=== PATIENT | female | born 1975 | race Two or more races ===

== ENCOUNTER → 2021-05-12 13:04 | Outpatient (BNVA) | payer OTHER, SELFPAY | PROVIDERS: PCP Nurse Practitioner Family; Visit Provider Nurse Practitioner Family ==

== ENCOUNTER → 2021-08-08 13:28 | Outpatient (BNVA) | payer OTHER, SELFPAY | PROVIDERS: PCP Internal Medicine Pulmonary Disease; Visit Provider Nurse Practitioner Family | DX: Z13.89 Encounter for screening for other disorder (principal) ==

== ENCOUNTER 2021-11-04 06:04 | Outpatient (REF) | payer OTHER, SELFPAY | END 2021-11-04 06:05 | disposition home or self-care (01) | LOC: HO.RADIR 06:04 | PROVIDERS: Visit Provider Anesthesiology | DX: Z13.89 Encounter for screening for other disorder (principal) ==

== ENCOUNTER → 2021-11-14 13:31 | Outpatient (BNVA) | payer OTHER, SELFPAY | PROVIDERS: PCP Nurse Practitioner Family; Visit Provider Nurse Practitioner Family | DX: G47.33 Obstructive sleep apnea (adult) (pediatric) (principal); G47.10 Hypersomnia, unspecified; M21.371 Foot drop, right foot; M54.50 Low back pain, unspecified | CPT/HCPCS: 99212 ==

== ENCOUNTER 2021-11-25 06:12 | Outpatient (REF) | payer OTHER, SELFPAY ==
--- NOTE | ~2021-11-25 | FL_ITS ---
EXAMINATION: XR FLUOROSCOPY WITH IMAGES CLINICAL INFORMATION: Lumbar region radiculopathy. COMPARISON: MRI of 06/16/2021. TECHNIQUE: Fluoroscopy performed by Dr. Christian Corea. Fluoroscopy time: 0.5 minutes Cumulative Dose: 9.28 mGy-cm DAP: 2.53 uGy-cm2 Images: 5 FINDINGS: Needle is seen placed from a posterior approach overlying the region of the right L5-S1 level. The C-arm imaging does not demonstrate any significant bony abnormality of the lower lumbar spine and sacroiliac joints with limitations related to fluoroscopy versus dedicated images. No narrowing of the L3 through S1 disc spaces are identified. No spondylolisthesis. FL/FL guidance in treatment room IMPRESSION: No significant bony abnormality of the visualized lumbar spine identified. Fluoroscopy for pain management procedure.
== END 2021-11-25 06:13 | disposition home or self-care (01) ==
LOC: HO.RADIR 06:12
PROVIDERS: Visit Provider Anesthesiology
DX: M62.830 Muscle spasm of back (principal); M47.816 Spondylosis without myelopathy or radiculopathy, lumbar region; R20.2 Paresthesia of skin; R53.1 Weakness; M21.371 Foot drop, right foot; M51.36 Other intervertebral disc degeneration, lumbar region; M54.16 Radiculopathy, lumbar region
CPT/HCPCS: 64483; J3300

== ENCOUNTER → 2021-12-23 09:24 | Outpatient (BNVA) | payer OTHER, SELFPAY | PROVIDERS: PCP Nurse Practitioner Family; Visit Provider Nurse Practitioner Family | DX: M62.830 Muscle spasm of back (principal); M47.816 Spondylosis without myelopathy or radiculopathy, lumbar region; G89.4 Chronic pain syndrome; M51.36 Other intervertebral disc degeneration, lumbar region; M54.16 Radiculopathy, lumbar region; E11.40 Type 2 diabetes mellitus with diabetic neuropathy, unspecified; M21.371 Foot drop, right foot | CPT/HCPCS: 99212 ==

== ENCOUNTER → 2022-04-30 11:13 | Outpatient (BNVA) | payer OTHER, SELFPAY | PROVIDERS: PCP Nurse Practitioner Family; Visit Provider Nurse Practitioner Family | DX: G47.33 Obstructive sleep apnea (adult) (pediatric) (principal); G47.10 Hypersomnia, unspecified; M54.50 Low back pain, unspecified | CPT/HCPCS: 99212 ==

== ENCOUNTER → 2022-09-01 09:34 | Outpatient (BNVA) | payer MEDICAID, SELFPAY | PROVIDERS: PCP Nurse Practitioner Family; Visit Provider Nurse Practitioner Family | DX: G47.33 Obstructive sleep apnea (adult) (pediatric) (principal); G47.10 Hypersomnia, unspecified; R00.0 Tachycardia, unspecified; Z79.899 Other long term (current) drug therapy | CPT/HCPCS: 99212 ==

== ENCOUNTER 2023-01-05 09:26 | Outpatient (AMB) | payer MEDICAID, SELFPAY ==
--- NOTE | 2023-01-05 09:31 | A.OFFVIS_ITS ---
Intake Vital Signs 01/05/23 09:33 Height 4 ft 9 in Weight 132 lb 8 oz BMI 28.7 BP 122/78 Blood Pressure Location Rt brachial Position Sitting Pulse 97 Pulse Source Pulse Oximeter Pulse Oximetry (%) 99 Oxygen Delivery Method Room Air Intake Visit Reasons: 4M hypersomnia/ELIA/bk pain-Confirmed Intake Note: presents for follow up hypersomnia. Patient states everything is good this is just follow uo Allergies Latex, Natural Rubber Allergy (Mild, Verified 01/05/23 09:35) Hives acetaminophen [From Percocet] Allergy (Unknown, Verified 01/05/23 09:35) Itching adhesive Allergy (Unknown, Verified 01/05/23 09:35) Hives hydrocodone Allergy (Unknown, Verified 01/05/23 09:35) Itching oxycodone Allergy (Unknown, Verified 01/05/23 09:35) Itching Medication List - Last Reconciled 01/05/23 by CHIN Baxter albuterol sulfate 90 mcg/actuation (ProAir HFA) 2 puffs inhalation Q4H PRN alendronate 70 mg PO QWEEK amitriptyline 100 mg PO BEDTIME aripiprazole 30 mg PO DAILY armodafinil 200 mg PO QAM 30 days atorvastatin 80 mg PO BEDTIME baclofen 10 mg PO BID 30 days blood-glucose sensor (Yeahka G6 Sensor device) As directed budesonide-formoterol 80-4.5 mcg/actuation (Symbicort) 2 puffs inhalation BID cholecalciferol (vitamin D3) 50 mcg PO DAILY conjugated estrogens (Premarin) 0.625 mg PO DAILY diclofenac sodium 1% grams topical BID PRN ezetimibe 10 mg PO DAILY fluticasone propionate 50 mcg/actuation 1 spray intranasal BID gabapentin 800 mg PO TID hydroxyzine pamoate 50 mg PO TID PRN insulin glargine (Lantus Solostar U-100 Insulin) units subcut insulin lispro 4 - 6 units subcut TID insulin lispro-aabc (Lyumjev KwikPen U-100 Insulin) 3 units subcut TID PRN insulin lispro-aabc (Lyumjev KwikPen U-100 Insulin) 16 - 20 units subcut TID lancets (FreeStyle Lancets) As directed lisinopril 5 mg PO DAILY PRN meloxicam 15 mg PO DAILY methocarbamol 750 mg PO TID PRN methylphenidate HCl (Ritalin) 10 mg PO QPM 30 days montelukast 10 mg PO DAILY pantoprazole 40 mg PO BID pen needle, diabetic (BD [place] 2nd Gen Pen Needle) As directed pen needle, diabetic (BD Ultra-Fine Mini Pen Needle) As directed propranolol 10 - 20 mg (1 - 2 x 10 mg) PO BID PRN 30 days sertraline 50 mg PO DAILY sitagliptin phosphate (Januvia) 100 mg PO DAILY solifenacin 5 mg PO DAILY tizanidine 4 mg PO Q6H PRN tramadol 50 mg PO Q8H PRN HPI HPI Comments History of Present Illness Details 47-yr-old female presents for f/u visit. Pt endorses the following interval medical history changes: She underwent a right 4th/5th finger tendon relief in Nov- through . Since, she is doing PT. She is recovering but has some reisudal shooting pain and painful numbness. She is using Tramadol rn which helpes the shooting pain. She is doing PT. She was also diagnosed w/ bronchitis and asthma exacerbation last week- currently on prednisone and z-pack. She has also been referred to [facility] vascular to assess chronic LUE vasospasm. She reports that the Armodafinil 200mg qam continues to work well between 7am and 3pm, however it then wears off. She has run out of her Ritalin, but when on it, she is able to stay alert but then effect wears off before she needs to go to bed. She has needed to use the Propranolol 4-5 times per month for elevated HR up to 140s a/w dizziness/lightheadedness. The propranolol is usually helpful. Twice needed to take an extra dose. Once went to the ER, they felt that it was a panic attack- and tx'd her w/ an anxiolitic. REPLACED BY [facility] Medical History (Updated 09/01/22 @ 12:49 by CHIN Baxter) Arthritis GERD (gastroesophageal reflux disease) Osteoporosis HLD (hyperlipidemia) Diabetes mellitus Syncope Surgical History (Updated 01/05/23 @ 09:36 by PRASHANTH Billings) H/O hand surgery History of hysterectomy Family History Father Cancer Mother HTN (hypertension) Social History Alcohol intake: never Patient Tobacco Use Status: Former Tobacco user Quit Date: january 2021 Review of Systems Const All systems reviewed & are unremarkable except as noted in HPI and below Physical Exam Vital Signs: Last Vital Signs Pulse 97 01/05/23 09:33 BP 122/78 01/05/23 09:33 Pulse Ox 99 01/05/23 09:33 Oxygen Delivery Method Room Air 01/05/23 09:33 BMI result Body Mass Index 28.7 Const General: cooperative and no acute distress Orientation/consciousness: patient oriented x3 HEENT Head: Yes normocephalic Resp Effort & Inspection: normal respiratory effort and able to speak in complete sentences Neuro Other: Right 4th/5th fingers braced RLE weakness Steady gait w/ cane General: patient oriented x3 and CN's II-XI intact bilaterally Cognition (Neuro): normal cognition Motor exam (neuro): 5/5 motor strength present throughout Psych Appearance: grossly normal Mental Status: mental status grossly normal Speech and movement: Normal speech and movement present Affect: normal affect Attitude: cooperative Thought process: Normal thought process present Thought content: Normal thought content present Insight: Good insight present (Psych) Judgement: Good judgement present (Psych) Assessment & Plan Assessment & Plan (1) Hypersomnia: Comment: MSLT- NL Code(s): G47.10 - Hypersomnia, unspecified (2) Obstructive sleep apnea: Code(s): G47.33 - Obstructive sleep apnea (adult) (pediatric) (3) Sinus tachycardia: Code(s): R00.0 - Tachycardia, unspecified Plan For hypersomnia: Continue Armodafinil 200mg qam. Resume Methylphenidate 10mg q afternoon, hold for HR > 100.. Continue Propranol 10-20mg prn sinus tachycardia. For ELIA: Resume CPAP when able. ? f/u in 4 months or sooner prn Medications: Refilled methylphenidate HCl (Ritalin) Partial Fill upon patient request. 10 mg PO QPM 30 days 30 tabs 0RF Coding Level of Care Code Est Pt Level 4 (71417) Diagnoses Hypersomnia G47.10 Obstructive sleep apnea G47.33 Sinus tachycardia R00.0
[2023-01-05 09:33] VITALS: BP 122/78; PULSE 97; O2SAT 99; BMI 28.7
== END 2023-01-05 10:22 | disposition home or self-care (01) ==
PROVIDERS: Visit Provider Nurse Practitioner Family
DX: G47.10 Hypersomnia, unspecified (principal); G47.33 Obstructive sleep apnea (adult) (pediatric); R00.0 Tachycardia, unspecified
CPT/HCPCS: 99214

== ENCOUNTER → 2023-01-05 09:26 | Outpatient (BNVA) | payer MEDICAID, SELFPAY | PROVIDERS: Visit Provider Nurse Practitioner Family | DX: G47.10 Hypersomnia, unspecified (principal); G47.33 Obstructive sleep apnea (adult) (pediatric); R00.0 Tachycardia, unspecified; Z79.899 Other long term (current) drug therapy | CPT/HCPCS: 99212 ==

== ENCOUNTER 2023-05-17 09:09 | Outpatient (AMB) | payer MEDICAID, SELFPAY ==
--- NOTE | 2023-05-17 09:22 | A.OFFVIS_ITS ---
Intake Vital Signs 05/17/23 09:23 Height 4 ft 9 in Weight 139 lb BMI 30.1 Pulse 72 Pulse Source Pulse Oximeter Pulse Oximetry (%) 98 Oxygen Delivery Method Room Air Intake Visit Reasons: 4M CONFIRMED Intake Note: Patient presents for 4 month office. The medication Armodanifil is not working as well as before, I'm starting to fall asleep again Allergies Latex, Natural Rubber Allergy (Mild, Verified 05/17/23 09:32) Hives acetaminophen [From Percocet] Allergy (Unknown, Verified 05/17/23 09:32) Itching adhesive Allergy (Unknown, Verified 05/17/23 09:32) Hives hydrocodone Allergy (Unknown, Verified 05/17/23 09:32) Itching oxycodone Allergy (Unknown, Verified 05/17/23 09:32) Itching Medication List - Last Reconciled 05/17/23 by CHIN Baxter albuterol sulfate 90 mcg/actuation (ProAir HFA) 2 puffs inhalation Q4H PRN alendronate 70 mg PO QWEEK amitriptyline 100 mg PO BEDTIME aripiprazole 30 mg PO DAILY armodafinil 200 mg PO QAM 30 days atorvastatin 80 mg PO BEDTIME baclofen 10 mg PO BID 30 days blood-glucose sensor (HealthyTweet G6 Sensor device) As directed budesonide-formoterol 80-4.5 mcg/actuation (Symbicort) 2 puffs inhalation BID cholecalciferol (vitamin D3) 50 mcg PO DAILY conjugated estrogens (Premarin) 0.625 mg PO DAILY diclofenac sodium 1% grams topical BID PRN ezetimibe 10 mg PO DAILY fluticasone propionate 50 mcg/actuation 1 spray intranasal BID hydroxyzine pamoate 50 mg PO TID PRN insulin glargine (Lantus Solostar U-100 Insulin) units subcut insulin lispro 4 - 6 units subcut TID insulin lispro-aabc (Lyumjev KwikPen U-100 Insulin) 3 units subcut TID PRN insulin lispro-aabc (Lyumjev KwikPen U-100 Insulin) 16 - 20 units subcut TID lancets (FreeStyle Lancets) As directed lisinopril 5 mg PO DAILY PRN meloxicam 15 mg PO DAILY methocarbamol 750 mg PO TID PRN methylphenidate HCl (Ritalin) 10 mg PO QPM 30 days montelukast 10 mg PO DAILY pantoprazole 40 mg PO BID pen needle, diabetic (BD [place] 2nd Gen Pen Needle) As directed pen needle, diabetic (BD Ultra-Fine Mini Pen Needle) As directed pregabalin 150 mg PO TID 30 days propranolol 10 - 20 mg (1 - 2 x 10 mg) PO BID PRN 30 days sertraline 50 mg PO DAILY sitagliptin phosphate (Januvia) 100 mg PO DAILY solifenacin 5 mg PO DAILY tizanidine 4 mg PO Q6H PRN tramadol 50 mg PO Q8H PRN HPI HPI Comments History of Present Illness Details 48-yr-old female presents for f/u visit. 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 Pt is having increased right hand, hips, left ulnar neuropathy pain- sometimes needs to take extra Pregabalin which helps. She states the Pregabalin does not make her sleepy, however it has caused her blood sugars to be elevated. She has had increased appetite and an 8 lb wt gain since Jan. The Armodafinil 200mg is no longer helping her morning hypersomnia s/s. However the afternoon Ritalin does seem to be more effective- even when taken w/ the Pregabalin. She can weeks w/o any tachycardia. She has recently needed to take the Propranolol 2-3 x's /week, d/t episodes of HR up to 128 bpm. The Propranolol helps. She is not sure if the recent episodes are r/t her blood sugars vs anxiety. She is noticing worsening RLE weakness- having more difficultylifting her RLE- geting into the tub or a car. She is doing PT for left shoulder, and will be doing PT for the right hand sx. [facility] Medical History (Updated 09/01/22 @ 12:49 by CHIN Baxter) Arthritis GERD (gastroesophageal reflux disease) Osteoporosis HLD (hyperlipidemia) Diabetes mellitus Syncope Surgical History H/O hand surgery History of hysterectomy Family History Father Cancer Mother HTN (hypertension) Social History (Reviewed 05/17/23 @ 09:33 by MARU Billings Alcohol intake: never Patient Tobacco Use Status: Former Tobacco user Quit Date: january 2021 Physical Exam Vital Signs: Last Vital Signs Pulse 72 05/17/23 09:23 Pulse Ox 98 05/17/23 09:23 Oxygen Delivery Method Room Air 05/17/23 09:23 BMI result Body Mass Index 30.1 Const General: cooperative and no acute distress Orientation/consciousness: patient oriented x3 Resp Effort & Inspection: normal respiratory effort and able to speak in complete sentences Neuro Other: RLE weakness More noticeable right high step, but steady w/ cane General: patient oriented x3 Cranial nerves: Yes CN's II-XII intact bilaterally Cognition (Neuro): normal cognition Psych Appearance: grossly normal Mental Status: mental status grossly normal Speech and movement: Normal speech and movement present Affect: normal affect Attitude: cooperative Assessment & Plan Assessment & Plan (1) Hypersomnia: Comment: MSLT- NL Code(s): G47.10 - Hypersomnia, unspecified (2) Obstructive sleep apnea: Code(s): G47.33 - Obstructive sleep apnea (adult) (pediatric) (3) Sinus tachycardia: Code(s): R00.0 - Tachycardia, unspecified (4) Chronic painful diabetic neuropathy: Code(s): E11.40 - Type 2 diabetes mellitus with diabetic neuropathy, unspecified (5) Paresthesia of right lower extremity: Code(s): R20.2 - Paresthesia of skin (6) Right foot drop: Code(s): M21.371 - Foot drop, right foot Plan For hypersomnia: Increase Armodafinil from 200mg to 250mg qam. Continue Methylphenidate 10mg q afternoon, hold for HR > 100.. ?Continue Propranolol 10-20mg prn sinus tachycardia. For neuralgic pain: Increase pregabalin from 150mg tid to 200mg tid. Consider referral for PT for RLE tx- after she completes hand tx. ? For ELIA: Continue CPAP ? f/u in 4 months or sooner prn Medications: New pregabalin 200 mg PO TID 30 days 90 caps 3RF armodafinil 250 mg PO QAM 30 days 30 tabs 2RF Refilled methylphenidate HCl (Ritalin) Partial Fill upon patient request. 10 mg PO QPM 30 days 30 tabs 0RF propranolol 10 - 20 mg (1 - 2 x 10 mg) PO BID 30 days PRN 30 tabs 3RF tachycardia Discontinued pregabalin Discontinued Reason: Doctor's Order 150 mg PO TID 30 days 90 caps 2RF armodafinil Discontinued Reason: Doctor's Order 200 mg PO QAM 30 days 30 tabs 3RF Coding Level of Care Code Est Pt Level 4 (97141) Diagnoses Hypersomnia G47.10 Obstructive sleep apnea G47.33 Sinus tachycardia R00.0 Chronic painful diabetic neuropathy E11.40 Paresthesia of right lower extremity R20.2 Right foot drop M21.371
[2023-05-17 09:23] VITALS: PULSE 72; O2SAT 98; BMI 30.1
== END 2023-05-17 10:34 | disposition home or self-care (01) ==
PROVIDERS: PCP Nurse Practitioner Family; Visit Provider Nurse Practitioner Family
DX: G47.10 Hypersomnia, unspecified (principal); G47.33 Obstructive sleep apnea (adult) (pediatric); R00.0 Tachycardia, unspecified; E11.40 Type 2 diabetes mellitus with diabetic neuropathy, unspecified; R20.2 Paresthesia of skin; M21.371 Foot drop, right foot
CPT/HCPCS: 99214

== ENCOUNTER → 2023-05-17 09:09 | Outpatient (BNVA) | payer MEDICAID, SELFPAY | PROVIDERS: PCP Nurse Practitioner Family; Visit Provider Nurse Practitioner Family | DX: G47.10 Hypersomnia, unspecified (principal); G47.33 Obstructive sleep apnea (adult) (pediatric); R00.0 Tachycardia, unspecified; E11.40 Type 2 diabetes mellitus with diabetic neuropathy, unspecified; R20.2 Paresthesia of skin; M21.371 Foot drop, right foot | CPT/HCPCS: 99212 ==

== ENCOUNTER 2023-08-16 09:06 | Outpatient (AMB) | payer MEDICAID, SELFPAY ==
--- NOTE | 2023-08-16 09:14 | MHC.OFFVIS ---
Vital Signs 08/16/23 09:17 Height 4 ft 9 in BP 114/78 Blood Pressure Location Rt brachial Position Sitting Pulse 85 Pulse Source Pulse Oximeter Pulse Oximetry (%) 98 Oxygen Delivery Method Room Air Intake Visit Reasons: 3 MONTH-F/U-LVM Intake Note: Patient presents for 3 month follow up Allergies Latex, Natural Rubber Allergy (Mild, Verified 08/16/23 09:16) Hives acetaminophen [From Percocet] Allergy (Unknown, Verified 08/16/23 09:16) Itching adhesive Allergy (Unknown, Verified 08/16/23 09:16) Hives hydrocodone Allergy (Unknown, Verified 08/16/23 09:16) Itching oxycodone Allergy (Unknown, Verified 08/16/23 09:16) Itching Medication List - Last Reconciled 08/16/23 by CHIN Baxter albuterol sulfate 90 mcg/actuation (ProAir HFA) 2 puffs inhalation Q4H PRN alendronate 70 mg PO QWEEK amitriptyline 100 mg PO BEDTIME aripiprazole 30 mg PO DAILY armodafinil 250 mg PO QAM 30 days atorvastatin 80 mg PO BEDTIME baclofen 10 mg PO BID 30 days blood-glucose sensor (PneumRx G6 Sensor device) As directed budesonide-formoterol 80-4.5 mcg/actuation (Symbicort) 2 puffs inhalation BID cholecalciferol (vitamin D3) 50 mcg PO DAILY conjugated estrogens (Premarin) 0.625 mg PO DAILY diclofenac sodium 1% grams topical BID PRN ezetimibe 10 mg PO DAILY fluticasone propionate 50 mcg/actuation 1 spray intranasal BID hydroxyzine pamoate 50 mg PO TID PRN insulin glargine (Lantus Solostar U-100 Insulin) units subcut insulin lispro 4 - 6 units subcut TID insulin lispro-aabc (Lyumjev KwikPen U-100 Insulin) 3 units subcut TID PRN insulin lispro-aabc (Lyumjev KwikPen U-100 Insulin) 16 - 20 units subcut TID lancets (FreeStyle Lancets) As directed lisinopril 5 mg PO DAILY PRN meloxicam 15 mg PO DAILY methocarbamol 750 mg PO TID PRN methylphenidate HCl (Ritalin) 10 mg PO QPM 30 days montelukast 10 mg PO DAILY pantoprazole 40 mg PO BID pen needle, diabetic (BD [place] 2nd Gen Pen Needle) As directed pen needle, diabetic (BD Ultra-Fine Mini Pen Needle) As directed pregabalin 200 mg PO TID 30 days propranolol 10 - 20 mg (1 - 2 x 10 mg) PO BID PRN 90 days sertraline 50 mg PO DAILY sitagliptin phosphate (Januvia) 100 mg PO DAILY solifenacin 5 mg PO DAILY HPI Comments Details: 48-yr-old female presents for f/u visit. 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 She has decreased hand pain and improved right hand function- may still having some shooting pains at times. Pt states the increased pregabalin has been helpful. The increased Armodafinil to 250mg is helping better w/ her am hypersomnia s/s. Ritalin contineus to be effective in the pm- even when taken w/ the Pregabalin. She continues to have intermittent tachycardia- may have 1-2 episodes per week or go weeks w/o an epsiode. Propranolol is still effective- rarely need to take 2 doses of Propranolol. She is doing PT again for back pain s/p an interval fall. She is working w/ PT on the RLE weakness. She notices that when she does too much RLE activity/exercise, she will have increased RLE pain, right lower back swelling x's 2-3 days. In the past, tried water aerobics- but she states she could not keep her body temp up- was just shivering. She does still have left shoulder pain and limited ROM- had to pause PT for this d/t family issue- f/b ortho. [facility] Medical History (Updated 09/01/22 @ 12:49 by CHIN Baxter) Arthritis GERD (gastroesophageal reflux disease) Osteoporosis HLD (hyperlipidemia) Diabetes mellitus Syncope Surgical History H/O hand surgery History of hysterectomy Family History Father Cancer Mother HTN (hypertension) Social History Alcohol intake: never Patient Tobacco Use Status: Former Tobacco user Quit Date: january 2021 Physical Exam Vital Signs: Last Vital Signs Pulse 85 08/16/23 09:17 BP 114/78 08/16/23 09:17 Pulse Ox 98 08/16/23 09:17 Oxygen Delivery Method Room Air 08/16/23 09:17 Const General: cooperative and no acute distress Orientation/consciousness: patient oriented x3 Resp Effort & Inspection: normal respiratory effort and able to speak in complete sentences Neuro Other: BUE MS 5/5 LLE MS 5/5 RLE MS 5-/5 in hip flexor. Right high step, but steady w/ cane General: patient oriented x3 Cranial nerves: Yes CN's II-XII intact bilaterally Cognition (Neuro): normal cognition Deep tendon reflexes (DTR's): Right patellar reflex intensity grade: 2+ and Left patellar reflex intensity grade: 2+ Psych Appearance: grossly normal Mental Status: mental status grossly normal Speech and movement: Normal speech and movement present Affect: normal affect Attitude: cooperative Assessment & Plan Assessment & Plan (1) Hypersomnia: Comment: MSLT- NL Code(s): G47.10 - Hypersomnia, unspecified Category: Medical (2) Obstructive sleep apnea: Code(s): G47.33 - Obstructive sleep apnea (adult) (pediatric) Category: Medical (3) Paresthesia of right lower extremity: Code(s): R20.2 - Paresthesia of skin Category: Medical (4) Weakness: Code(s): R53.1 - Weakness Category: Medical (5) Sinus tachycardia: Code(s): R00.0 - Tachycardia, unspecified Category: Medical Plan For hypersomnia: Continue Armodafinil 250mg qam. Continue Methylphenidate 10mg q afternoon, hold for HR > 100. Continue Propranolol 10-20mg prn sinus tachycardia. ? For neuralgic pain: Continue pregabalin 200mg tid. Continue PT- may will need graded RLE exercises. ? For ELIA: Continue CPAP Will request updated PAP compliance report. ? f/u in 6 months or sooner prn Medications: Refilled methylphenidate HCl (Ritalin) Partial Fill upon patient request. 10 mg PO QPM 30 days 30 tabs 0RF Coding Level of Care Code Est Pt Level 4 (06731) Diagnoses Hypersomnia G47.10 Obstructive sleep apnea G47.33 Paresthesia of right lower extremity R20.2 Weakness R53.1 Sinus tachycardia R00.0
[2023-08-16 09:17] VITALS: BP 114/78; PULSE 85; O2SAT 98
== END 2023-08-16 09:44 | disposition home or self-care (01) ==
PROVIDERS: PCP Nurse Practitioner Family; Visit Provider Nurse Practitioner Family
DX: G47.10 Hypersomnia, unspecified (principal); G47.33 Obstructive sleep apnea (adult) (pediatric); R20.2 Paresthesia of skin; R53.1 Weakness; R00.0 Tachycardia, unspecified
CPT/HCPCS: 99214

== ENCOUNTER → 2023-08-16 09:06 | Outpatient (BNVA) | payer MEDICAID, SELFPAY | PROVIDERS: PCP Nurse Practitioner Family; Visit Provider Nurse Practitioner Family | DX: G47.33 Obstructive sleep apnea (adult) (pediatric) (principal); G47.10 Hypersomnia, unspecified; R20.2 Paresthesia of skin; R35.1 Nocturia; R00.0 Tachycardia, unspecified | CPT/HCPCS: 99212 ==

== ENCOUNTER 2024-02-29 08:30 | Outpatient (AMB) | payer MEDICAID, SELFPAY ==
--- NOTE | 2024-02-29 09:09 | A.OFFVIS_ITS ---
Vital Signs 02/29/24 09:19 Height 4 ft 9 in Weight 137 lb 2 oz BMI 29.7 BP 122/80 Blood Pressure Location Lt brachial Position Sitting Pulse 77 Pulse Source Pulse Oximeter Pulse Oximetry (%) 97 Oxygen Delivery Method Room Air Intake Visit Reasons: 6 Month F/U Intake Note: Patient presents for a 6 mo fu for hypersomnia. Cma Or Lpn Required: No Accompanied by: Self / Same As Patient Allergies Latex, Natural Rubber Allergy (Mild, Verified 02/29/24 09:19) Hives acetaminophen [From Percocet] Allergy (Unknown, Verified 02/29/24 09:19) Itching adhesive Allergy (Unknown, Verified 02/29/24 09:19) Hives hydrocodone Allergy (Unknown, Verified 02/29/24 09:19) Itching oxycodone Allergy (Unknown, Verified 02/29/24 09:19) Itching Medication List - Last Reconciled 02/29/24 by CHIN Baxter albuterol sulfate 90 mcg/actuation (ProAir HFA) 2 puffs inhalation Q4H PRN alendronate 70 mg PO QWEEK amitriptyline 50 mg PO BEDTIME aripiprazole 30 mg PO DAILY armodafinil 250 mg PO QAM 30 days atorvastatin 80 mg PO BEDTIME blood-glucose sensor ([employer] G6 Sensor device) As directed budesonide-formoterol 80-4.5 mcg/actuation (Symbicort) 2 puffs inhalation BID diclofenac sodium 1% grams topical BID PRN estradiol 0.01%(0.1mg/gram) grams vaginal 3XW fluticasone propionate 50 mcg/actuation 1 spray intranasal BID hydroxyzine pamoate 50 mg PO TID PRN insulin glargine (Lantus Solostar U-100 Insulin) units subcut insulin lispro-aabc (Lyumjev KwikPen U-100 Insulin) 28 units subcut TID lancets (FreeStyle Lancets) As directed loratadine 10 mg PO DAILY meloxicam 15 mg PO DAILY PRN methenamine hippurate 1 g PO BID methylphenidate HCl (Ritalin) 10 mg PO QPM 30 days montelukast 10 mg PO DAILY nitrofurantoin monohyd/m-cryst 100 mg 1 cap PO BID ondansetron 4 mg PO Q6-8H PRN pantoprazole 40 mg PO BID pen needle, diabetic (BD [place] 2nd Gen Pen Needle) As directed pen needle, diabetic (BD Ultra-Fine Mini Pen Needle) As directed pregabalin 200 mg PO TID 30 days propranolol 10 - 20 mg (1 - 2 x 10 mg) PO BID PRN 90 days semaglutide (Ozempic) 0.25 mg subcut QWEEK sertraline 50 mg PO DAILY tiotropium bromide 1.25 mcg/actuation (Spiriva Respimat) 2 puffs inhalation DAILY HPI Comments Details: 49-yr-old female presents for f/u visit. Pt is scheduled for left hand trigger finger repair through [facility]. Pt states her right hand pain is well-controlled on Pregabalin. However she notes more hand sewlling and finger joint nodules, hand pain and swelling is worse in the am. It even hurts to knock on a door. Armodafinil 250mg helps w/ the early day hypersomnia, but does wear off by 2:30- 3pm. Ritalin at 3pm continues to be effective for helping her stay awake through 9:30pm which is bedtime. She continues to have intermittent tachycardia- had a few more episodes recently when she had viral illness headache/vomiting/dizziness/nausea/vomiting x's 1 week- per pt was neg for Fle/COVID, and eventually self-resolved. Propranolol is still effective- rarely need to take 2 doses of Propranolol. She did see Dr Prince at [facility] for a third opinion on whether there is a surgical option for her low back pain, however he felt that more harm than good would be achieved if pt underwent f/u lumbar repair. She has not done PT recently. She notices that when she does too much RLE activity/exercise, she will have increased RLE pain, right lower back swelling x's 2-3 days. In the past, tried water aerobics- but she states she could not keep her body temp up- was just shivering. She does still have left shoulder pain and limited ROM- had to pause PT for this d/t family issue- f/b ortho. [facility] Medical History (Updated 02/29/24 @ 09:56 by CHIN Baxter) Arthritis GERD (gastroesophageal reflux disease) Osteoporosis HLD (hyperlipidemia) Diabetes mellitus Syncope Surgical History H/O hand surgery History of hysterectomy Family History Father Cancer Mother HTN (hypertension) Social History Alcohol intake: never Patient Tobacco Use Status: Former Tobacco user Physical Exam Vital Signs: Last Vital Signs Pulse 77 02/29/24 09:19 BP 122/80 02/29/24 09:19 Pulse Ox 97 02/29/24 09:19 Oxygen Delivery Method Room Air 02/29/24 09:19 BMI result Body Mass Index 29.7 Const General: cooperative and no acute distress Orientation/consciousness: patient oriented x3 Resp Effort & Inspection: normal respiratory effort and able to speak in complete sentences Neuro Other: Mild hand swelling, distal nodule in fingers. BUE MS 5/5 LLE MS 5/5 RLE MS 5-/5 in hip flexor. Right high step, but steady w/ cane General: patient oriented x3 Cranial nerves: Yes CN's II-XII intact bilaterally Cognition (Neuro): normal cognition Deep tendon reflexes (DTR's): Right patellar reflex intensity grade: 2+ and Left patellar reflex intensity grade: 2+ Psych Appearance: grossly normal Mental Status: mental status grossly normal Speech and movement: Normal speech and movement present Affect: normal affect Attitude: cooperative Assessment & Plan Assessment & Plan (1) Hypersomnia: Comment: MSLT- NL Code(s): G47.10 - Hypersomnia, unspecified Category: Medical (2) Obstructive sleep apnea: Code(s): G47.33 - Obstructive sleep apnea (adult) (pediatric) Category: Medical (3) Paresthesia of right lower extremity: Code(s): R20.2 - Paresthesia of skin Category: Medical (4) Hand pain: Code(s): M79.643 - Pain in unspecified hand Category: Medical (5) Weakness: Code(s): R53.1 - Weakness Category: Medical (6) Sinus tachycardia: Code(s): R00.0 - Tachycardia, unspecified Category: Medical Plan For hand pain: Check labs Pt advised to ask [facility] to review recent x-rays for signs of OA vs more inflammatory arthritic process. Future considerations- rheumatology consult For hypersomnia: Continue Armodafinil 250mg qam. Continue Methylphenidate 10mg q afternoon, hold for HR > 100. Continue Propranolol 10-20mg prn sinus tachycardia. ? For neuralgic pain: Continue pregabalin 200mg tid. Try to very slowly increase physical exercise. Future considerations- referral back to graded PT. ? For ELIA: Will f/u on staus of pt's CPAP use Will request updated PAP compliance report. ? Pt to follow-up in 6 months or sooner prn. Orders: Orders Complete Blood Count Auto Diff Today M79.643 - Pain in unspecified hand Comprehensive Met. Panel Today M79.643 - Pain in unspecified hand DAVID Reflex Titer and Pattern Today M79.643 - Pain in unspecified hand Rheumatoid Factor Today M79.643 - Pain in unspecified hand Medications: Refilled methylphenidate HCl (Ritalin) Partial Fill upon patient request. 10 mg PO QPM 30 days 30 tabs 0RF propranolol 10 - 20 mg (1 - 2 x 10 mg) PO BID 90 days PRN 180 tabs 1RF tachycardia armodafinil 250 mg PO QAM 30 days 30 tabs 5RF Coding Level of Care Code Est Pt Level 4 (56684) Diagnoses Hypersomnia G47.10 Obstructive sleep apnea G47.33 Paresthesia of right lower extremity R20.2 Hand pain M79.643 Weakness R53.1 Sinus tachycardia R00.0
[2024-02-29 09:19] VITALS: BP 122/80; PULSE 77; O2SAT 97; BMI 29.7
== END 2024-02-29 10:03 | disposition home or self-care (01) ==
PROVIDERS: PCP Nurse Practitioner Family; Visit Provider Nurse Practitioner Family
DX: G47.10 Hypersomnia, unspecified (principal); G47.33 Obstructive sleep apnea (adult) (pediatric); R20.2 Paresthesia of skin; M79.643 Pain in unspecified hand; R53.1 Weakness; R00.0 Tachycardia, unspecified
CPT/HCPCS: 99214

== ENCOUNTER → 2024-02-29 08:30 | Outpatient (BNVA) | payer MEDICAID, SELFPAY | PROVIDERS: PCP Nurse Practitioner Family; Visit Provider Nurse Practitioner Family | DX: G47.10 Hypersomnia, unspecified (principal); G47.33 Obstructive sleep apnea (adult) (pediatric); M79.643 Pain in unspecified hand; R20.2 Paresthesia of skin; R53.1 Weakness; R00.0 Tachycardia, unspecified | CPT/HCPCS: 99212 ==

== ENCOUNTER 2024-08-22 08:46 | Outpatient (AMB) | payer MEDICAID, SELFPAY ==
--- OUTSIDE RECORDS SUMMARY | 2024-08-22 09:01 | XMS_ITS | Data Portability ---
Author Organization [facility] Surgeons [facility], [facility] Address [address] [place] [address] Assessment Encounter Date Assessment Date Assessment LastModified by Organization Details LastModified Time 01/07/2024 01/07/2024 Assessment: Left ring and small finger flexor tenosynovitis, trigger finger and left hand palmar Dupuytren's nodules with early contracture Plan: She is unable to have cortisone injections and prefers to proceed directly with surgical treatment. She had a similar procedure on the contralateral side with which she did well. We discussed with involved with the anticipated surgery including ring and small finger flexor tenosynovectomy and excision of Dupuytren's nodules. We have discussed the postoperative recovery course for the recommended surgery. Risks of surgery include but are not limited to: Infection, bleeding, damage normal tissues, need for future surgeries, and recurrent or recalcitrant symptoms after surgery. Questions asked and answered to the patient's satisfaction; surgery to be scheduled with my assistant corporate secretary. ramon Not available 01/07/2024 12:13:56 06/05/2024 06/05/2024 Assessment: s/p L ring and small TFR and excision of palmar nodule 03/08/24 Plan: She is finding with therapy to be helpful and I think this is appropriate for scar massage. Updated OT prescriptions provided. Follow-up as scheduled. She prefers to schedule follow-up on an as-needed basis. essence Not available 06/05/2024 15:17:23 Plan of Treatment Reminders Order Date Submit Date Provider Last Modified By Organization Details Last Modified Time Details Appointments NEW PROBLEM 2024 12:15P Farzaneh Chen PA-C Not available Not available Not available Lab None recorded . Referral occupati onal therapis t, hand referral - OT- s/p LEFT RING AND SMALL FINGER TENOLYSI S; EXCISION LEFT HAND PALMAR NODULE SX 03/07/24- continue current treatmen t 2024 025 [email or web address] Not available 06/21/2024 09:07:13 occupati onal therapis t referral - Dr Brianna chery 03/07/24 Left hand RF and SF tenosyno vectomy and resectio n of nodules and a RF cord ( Dupuytre n's ) 2023 024 [email or web address] Not available 03/21/2024 10:09:38 physical therapis t referral - adhesive capsulit isaggres sive ROM [email or web address] [address], [place], [address], 11/16/2023 11:13:20 Procedures None recorded . Surgeries incision , tendon sheath (SURG) 2023 024 [email or web address], [address], [place], [address], 02/09/2024 09:33:24 Imaging XR, cervical spine, 1 view - rm 223 lateral only 2023 024 [facility], [address], [place], [address], 11/16/2023 11:13:20 XR, shoulder , 2 or more view - rm 223 left shoulder 4 view 2023 024 [facility], [address], [address], [place], [address], 11/16/2023 11:13:20 Medication Orders None recorded . Patient TargetsNo targets recorded. Patient InstructionsNo instructions recorded. Reason for Referral Physical Therapist Referral for Adhesive capsulitis of left shoulder adhesive capsulitisaggressive ROM Referring Physician: Lex Szymanski, Orthopedic Surgery, [id number] Encounter Date: 10/19/2023 Occupational Therapist Refer ral for Dupuytren's disease of palm Dr Singh 03/07/24 Left hand RF and SF tenosynovectomy and resection of nodules and a RF cord ( Dupuytren's ) Referring Physician: Gerda Massey, Occupational Therapy, Encounter Date: 03/21/2024 OT- s/p LEFT RING AND SMALL FINGER TENOLYSIS; EXCISION LEFT HAND PALMAR NODULE SX 03/07/24- continue current treatment Referring Physician: Anu Singh, Orthopedic Surgery, Encounter Date: 06/05/2024 Results Created Date Observation Date Name Description Value Unit Range Abnormal Flag Note LastModifiedBy Organization Detail LastModifiedTime 02/28/20 24 02/29/2024 GLUCO SE, PLASM A glucose, plasma 223 mg/dL 70-99 above high normal Pleas e Note: Predi abete s 100 - 125 Diabe gurwinder >125 Not Available [facility] ([facility]) [address] [facility] [address], [place], [address], 02/29/2024 06:05:25 10/19/19 24 10/19/2023 XR, cervi fito spine , 1 view [email or web address]:/ [email or web address] ?Encry pted=s hAaTro YD8dLq bEUv6g %2BXZw aYqtaq 0bqfl% 2Fg9IQ a4ajBk vP9nXo QUaueC m3YtLR FvZlgJ JJ8mAn HZtai3 0b0362 AC0Kpb X6NWaX eUC8mr 84%3D INTERFACE [facility] [address], [place], [address], 10/19/2023 15:27:11 10/19/19 24 10/19/2023 XR, cervi fito spine , 1 view [email or web address]:/ [email or web address] ?Encry pted=s hAaTro YD8dLq bEUv6g %2BXZw aYqtaq 0bqfl% 2Fg9IQ a4ajBk vP9nXo QUaueC m3YtLR FvZlgJ JJ8mAn HZtai3 1f5787 AC0Kpb X6NWaX eUC8mr 84%3D INTERFACE [facility] [address], [place], [address], 10/19/2023 15:27:13 10/19/19 24 10/19/2023 XR, shoul dadnre, 2 or more view [email or web address] ?Encry pted=s hAaTro YD8dLq bEUv6g %2BXZw aYqtaq 0bqfl% 2Fg9IQ a4ajBk vP9nXo QUaueC m3YtLR FvZlgJ JJ8mAn HZtai3 3c1406 AC0Kpb X6NWaf eUC8mr 84%3D INTERFACE [facility] [address], [place], [address], 10/19/2023 15:29:53 10/19/19 24 10/19/2023 XR, alinul dandre, 2 or more view [email or web address] ?Encry pted=s hAaTro YD8dLq bEUv6g %2BXZw aYqtaq 0bqfl% 2Fg9IQ a4ajBk vP9nXo QUaueC m3YtLR FvZlg JJ8mAn HZtai3 2n0758 AC0Kpb X6NWaf eUC8mr 84%3D INTERFACE [facility] [address], [place], [address], 10/19/2023 15:29:55 12/03/19 24 11/17/2022 imagi ng/di agnos tic resul t No observ ation record ed. [email or web address] Not Available 11/05 05:11:38 12/03/19 24 04/25/2021 imagi ng/di agnos tic resul t No observ ation record ed. [email or web address] Not Available 11/05 05:11:53 12/03/19 24 02/22/2023 imagi ng/di agnos tic resul t No observ ation record ed. [email or web address] Not Available 11/05 05:12:02 12/03/19 24 05/18/2019 imagi ng/di agnos tic resul t No observ ation record ed. [email or web address] Not Available 11/05 05:12:40 Result Notes None recorded. Problems Name Problem SNOMED Code Status Onset Date Resolution Date Notes Provider Name and Address Organization Details Recorded Time No complaints [id number] Active Status : 'A'; Not Available [facility] 09:24:47 Problem Notes None recorded. Procedures Surgical History Date Name Laterality Status Provider Name and Address Organization Details Recorded Time 03/07/2024 INCISION, TENDON SHEATH (SURG) completed CJ COKER [place] - [facility] 03/07/2024 14:22:45 Imaging Results Imaging Date Name Status LastModified by [facility] Details LastModified Time 10/19/2023 XR, cervical spine, 1 view completed INTERFACE [facility] [address], [place], [address], 10/19/2023 15:27:11 10/19/2023 XR, cervical spine, 1 view completed INTERFACE [facility] [address], [place], [address], 10/19/2023 15:27:13 10/19/2023 XR, shoulder, 2 or more view completed INTERFACE [facility] [address], [place], [address], 10/19/2023 15:29:53 10/19/2023 XR, shoulder, 2 or more view completed INTERFACE [facility] [address], [place], [address], 10/19/2023 15:29:55 11/17/2022 imaging/diagn ostic result completed Information not available 12/03/2023 05:11:38 04/25/2021 imaging/diagn ostic result completed Information not available 12/03/2023 05:11:53 02/22/2023 imaging/diagn ostic result completed Information not available 12/03/2023 05:12:02 05/18/2019 imaging/diagn ostic result completed Information not available 12/03/2023 05:12:40 Procedure Notes None recorded. Medical Equipment None Reported. Allergies Allergen ID Allergen Name Allergen Category Reaction Reaction Severity Criticality Documentation Date Start Date Code Code System Note Provider Name and Address Organization Details Recorded Time 344772 oxycodone medicatio n Not available Not available Not available 01/07/2024 7804 RxNorm KIRSTY GATICA [facility], [facility] 4 10:21:09 313577 tramadol medicatio n Not available Not available Not available 01/07/2024 81409 RxNorm KIRSTY GATICA [facility] 4 10:21:14 328414 acetamino phen / hydrocodo ne medicatio n Not available Not available Not available 01/07/2024 79715 2 RxNorm KIRSTY EN [facility], [facility] 4 10:21:22 187788 morphine medicatio n Not available Not available Not available 01/07/2024 7052 RxNorm KIRSTY EN [facility], [facility] 4 10:21:29 132304 Dilaudid medicatio n Not available Not available Not available 01/07/2024 03327 3 RxNorm KIRSTY EN [facility], [facility] 4 10:21:35 084948 codeine medicatio n Not available Not available Not available 01/07/2024 2670 RxNorm KIRSTY EN [facility], [facility] 4 10:21:46 00204 Medicinal product acting as adhesive (product) environme nt,medica tion Not available Not available Not available 06/07/20232021 66854 2009 SNOMED Not Available [facility] 4 15:00:27 09349 latex environme nt,medica tion Not available Not available Not available 06/07/20232018 49527 91 RxNorm Not Available [facility] 15:00:27 Medications Name Sig Start Date Stop Date Status Note LastModified by Organization Details LastModified Time atorvastati n 80 mg tablet TAKE 1 TABLET BY MOUTH NIGHTLY AT BEDTIME FOR CHOLESTER OL active Not Available Not Available No t Available nystatin 100,000 unit/mL oral suspension SWISH AND SWALLOW 5ML BY MOUTH 4 TIMES A DAY FOR 7 DAYS active Not Available Not Available No t Available doxycycline hyclate 100 mg capsule TAKE 1 CAPSULE BY MOUTH TWICE A DAY active Not Available Not Available No t Available tizanidine 4 mg tablet TAKE 1 TABLET BY MOUTH EVERY 6 HOURS NEEDED FOR MUSCLE SPASMS. active Not Available Not Available No t Available fluconazole 150 mg tablet TAKE 1 TABLET BY MOUTH EVERY DAY ONE DOSE active Not Available Not Available No t Available benzonatate 200 mg capsule TAKE 1 CAPSULE BY MOUTH THREE TIMES A DAY NEEDED FOR COUGH active Not Available Not Available No t Available methylpheni date 10 mg tablet TAKE 1 TABLET BY MOUTH EVERY DAY IN THE EVENING active Not Available Not Available No t Available cephalexin 250 mg capsule TAKE 1 CAPSULE BY MOUTH EVERY DAY active Not Available Not Available No t Available hydrocodone 5 mg-acetamin ophen 325 mg tablet TAKE 1 TABLET BY MOUTH EVERY 6 HOURS NEEDED FOR PAIN active Not Available Not Available No t Available meloxicam 15 mg tablet TAKE 1 TABLET BY MOUTH EVERY DAY NEEDED FOR PAIN active Not Available Not Available No t Available FreeStyle Lancets 28 gauge USE TO TEST BLOOD GLUCOSE THREE TIMES DAILY. (FREESTYL E LANCETS) active Not Available Not Available No t Available alendronate 70 mg tablet TAKE 1 TABLET BY MOUTH EVERY 7 (SEVEN) DAYS FOR OSTEOPORO SIS active Not Available Not Available No t Available sertraline 100 mg tablet TAKE 1 TABLET BY MOUTH ONCE A DAY WITH FOOD active Not Available Not Available No t Available hydroxyzine pamoate 50 mg capsule TAKE 1 CAPSULE BY MOUTH THREE TIMES A DAY NEEDED FOR ANXIETY AND SLEEP active Not Available Not Available No t Available penicillin V potassium 500 mg tablet TAKE 1 TABLET BY MOUTH EVERY SIX HOURS DIRECTED UNTIL EMPTY active Not Available Not Available No t Available ciprofloxac in 500 mg tablet TAKE 1 TABLET BY MOUTH TWICE A DAY FOR 7 DAYS active Not Available Not Available No t Available sulfamethox azole 800 mg-trimetho prim 160 mg tablet TAKE 1 TABLET BY MOUTH TWICE A DAY FOR 5 DAYS active Not Available Not Available No t Available tramadol 50 mg tablet TAKE 1 TABLET BY MOUTH EVERY 4 HOURS NEEDED FOR PAIN active Not Available Not Available No t Available amitriptyli ne 50 mg tablet TAKE 1 TABLET BY MOUTH EVERYDAY AT BEDTIME active Not Available Not Available No t Available propranolol 10 mg tablet TAKE 1 TO 2 TABLETS BY MOUTH TWICE A DAY NEEDED FOR TACHYCARD IA active Not Available Not Available No t Available methenamine hippurate 1 gram tablet TAKE 1 TABLET BY MOUTH TWICE A DAY active Not Available Not Available No t Available phenazopyri dine 100 mg tablet TAKE 1 TABLET BY MOUTH THREE TIMES A DAY WITH MEALS active Not Available Not Available No t Available cephalexin 500 mg capsule TAKE 1 CAPSULE BY MOUTH TWICE A DAY FOR 7 DAYS active Not Available Not Available No t Available pantoprazol e 40 mg tablet,noah yed release TAKE 1 TABLET BY MOUTH TWICE A DAY active Not Available Not Available No t Available nitrofurant oin macrocrysta l 100 mg capsule TAKE 1 CAPSULE BY MOUTH TWICE A DAY FOR 5 DAYS active Not Available Not Available No t Available montelukast 10 mg tablet TAKE 1 TABLET BY MOUTH EVERY DAY active Not Available Not Available No t Available alcohol swabs USE TO TEST BLOOD GLUCOSE THREE TIMES DAILY. active Not Available Not Available No t Available lisinopril 5 mg tablet TAKE 1 TABLET BY MOUTH EVERY DAY FOR BLOOD PRESSURE active Not Available Not Available No t Available estradiol 0.01% (0.1 mg/gram) vaginal cream APPLY DIME-SIZE D AMOUNT TO EXTERNAL VAGINAL TISSUE 3X/WEEK active Not Available Not Available No t Available ondansetron 4 mg disintegrat ing tablet DISSOLVE 1 TABLET BY MOUTH EVERY 6-8 HOURS NEEDED FOR NAUSEA active Not Available Not Available No t Available fluticasone propionate 50 mcg/actuati on nasal spray,suspe nsion SPRAY 1 SPRAY INTO EACH NOSTRIL EVERY DAY FOR 30 DAYS active Not Available Not Available No t Available sertraline 50 mg tablet TAKE 1 TABLET BY MOUTH EVERY DAY active Not Available Not Available No t Available lisinopril 2.5 mg tablet TAKE 1 TABLET BY MOUTH EVERY MORNING active Not Available Not Available No t Available loratadine 10 mg tablet TAKE 1 TABLET BY MOUTH EVERY DAY active Not Available Not Available No t Available Ventolin HFA 90 mcg/actuati on aerosol inhaler TAKE 2 PUFFS BY MOUTH EVERY 6 HOURS active Not Available Not Available No t Available aripiprazol e 20 mg tablet TAKE 1 TABLET ONCE A DAY TAKE WITH THE OTHER ADDITIONA L 5MG- TOTAL DOSE 25MG/DAY active Not Available Not Available No t Available aripiprazol e 30 mg tablet TAKE 1 TABLET BY MOUTH EVERY DAY active Not Available Not Available No t Available Premarin 0.625 mg tablet TAKE 1 TABLET BY MOUTH EVERY DAY active Not Available Not Available No t Available aripiprazol e 5 mg tablet TAKE 1 TABLET BY MOUTH ONCE A DAY TAKE WITH THE OTHER 20MG TOTAL DOSE 25MG/DAY active Not Available Not Available No t Available nitrofurant oin monohydrate /macrocryst als 100 mg capsule TAKE 1 CAPSULE BY MOUTH TWICE A DAY FOR 7 DAYS active Not Available Not Available No t Available solifenacin 5 mg tablet TAKE 1 TABLET BY MOUTH EVERY DAY active Not Available Not Available No t Available pregabalin 150 mg capsule TAKE 1 CAPSULE BY MOUTH THREE TIMES A DAY active Not Available Not Available No t Available pregabalin 200 mg capsule TAKE 1 CAPSULE BY MOUTH THREE TIMES A DAY FOR 30 DAYS active Not Available Not Available No t Available Abilify Abilify 2MG Tablet 02/12 completed Statu s: 'Disc ontin ued'; Not Available Not Available Not Available Januvia 100 mg tablet TAKE 1 TABLET BY MOUTH EVERY MORNING WITH BREAKFAST FOR DIABETES. active Not Available Not Available No t Available Symbicort 80 mcg-4.5 mcg/actuati on HFA aerosol inhaler INHALE 2 PUFFS TWICE A DAY active Not Available Not Available No t Available FreeStyle Lite Strips USE DIRECTED TWICE A DAY active Not Available Not Available No t Available Lantus Solostar U-100 Insulin 100 unit/mL (3 mL) subcutaneou s pen INJECT 40 UNITS INTO THE SKIN NIGHTLY AT BEDTIME INCREAS ED DOSE active Not Available Not Available No t Available armodafinil 250 mg tablet TAKE 1 TABLET BY MOUTH EVERY DAY IN THE MORNING active Not Available Not Available No t Available Banophen 50 mg capsule TAKE 1 CAPSULE BY MOUTH NIGHTLY AT BEDTIME NEEDED FOR RHINITIS active Not Available Not Available No t Available armodafinil 200 mg tablet TAKE 1 TABLET BY MOUTH EVERY MORNING active Not Available Not Available No t Available Spiriva Respimat 1.25 mcg/actuati on solution for inhalation TAKE 2 PUFFS BY MOUTH EVERY DAY active Not Available Not Available No t Available Tresiba FlexTouch U-200 insulin 200 unit/mL (3 mL) subcutaneou s pen INJECT 64 UNITS INTO THE SKIN NIGHTLY AT BEDTIME STOP LANTUS active Not Available Not Available No t Available Dexcom G6 Transmitter device USE 1 DIRECTED EVERY 3 MONTHS active Not Available Not Available No t Available BD [place] 2nd Gen Pen Needle 32 gauge x 5/32 USE TO INJECT INSULIN 5 TIMES A DAY active Not Available Not Available No t Available Lyumjev KwikPen U-100 Insulin 100 unit/mL subcutaneou s INJECT SUBCUTANE OUSLY 4-28 UNITS THREE TIMES DAILY BEFORE MEALS UP TO 84 UNITS DAILY active Not Available Not Available No t Available Lyumjev U-100 Insulin 100 unit/mL subcutaneou s solution INJECT 120 UNITS INTO THE SKIN CONTINUOU SLY ..USE IN CSII PUMP UP TO 120 UNITS DAILY active Not Available Not Available No t Available Omnipod 5 G6 Pods (Gen 5) subcutaneou s cartridge INJECT 1 EACH INTO THE SKIN EVERY 3 (THREE) DAYS active Not Available Not Available No t Available Dexcom G7 Sensor device APPLY 1 SENSOR TO BACK OF UPPER ARM EVERY 10 DAYS. USE TO CHECK GLUCOSE AT LEAST 3 TIMES DAILY. active Not Available Not Available No t Available Ozempic 0.25 mg or 0.5 mg (2 mg/3 mL) subcutaneou s pen injector INJECT 0.25 MG INTO THE SKIN ONCE A WEEK STOP JANUVIA 100 MG active Not Available Not Available No t Available Omnipod 5 G6-G7 Pods (Gen 5) subcutaneou s cartridge INJECT 1 EACH INTO THE SKIN EVERY 3 (THREE) DAYS active Not Available Not Available No t Available Vitals Date Recorded Body height Body mass index (BMI) Body weight Provider Name and Address Organization Details Last Updated DateTime 10/19/2023 149.86 cm 26.9 kg/m2 15867.79 g Luis Waller ID - [facility] 10/19/2023 15:11:11 Date Recorded Body height Body mass index (BMI) Body weight Provider Name and Address Organization Details Last Updated DateTime 01/07/2024 149.86 cm 26.1 kg/m2 14729.42 g KIRSTY GATICA [facility] 01/07/2024 10:20:57 Date Recorded Body height Body mass index (BMI) Body weight Provider Name and Address Organization Details Last Updated DateTime 06/05/2024 149.86 cm 26.1 kg/m2 22786.42 g KIRSTY GATICA [facility] 06/05/2024 14:14:21 Social History None recorded. Functional Status None recorded. Mental Status None recorded. Family History Nothing Reported. Medical History No medical history recorded. Gynecological HistoryNo gynecological history recorded. Obstetrics History GPAL:G 0 P 0 0 0 0 Past Encounters Encounter ID Performer Location Encounter Start Date Encounter Closed Date Diagnosis/Indication Diagnosis SNOMED-CT Code Diagnosis ICD10 Code Diagnosis Note [id number] KATYA Melendrez [address] [place] [id number] 10/19/2023 14:56:46 11/16/2023 11:13:19 Pain of left shoulder joint [id number] 7785016 M25.512 Neck pain 56058111 M54.2 Adhesive c apsulitis of left shoulder 2370377133 64294 M75.02 [id number] [facility] [address] [address] [place] [id number] 01/07/2024 10:02:12 01/26/2024 09:02:23 Pain of left hand 2882035463 40935 M79.642 Trigger fi nger of left hand 7552759247 7731986 M65.30 Dupuytren' s disease of palm of left hand 7772286846 3397251 M72.0 [id number] [facility] [address] [address] [place] [id number] 03/21/2024 10:08:38 03/21/2024 10:09:38 Triggering of digit 756476111 M65.342 M65.352 The surgical wounds are inspected and found to be clean and dry. The edges of the incision are approximat ed with intact sutures. Patient has intact neurovascu lar structures with only slight tenderness at the incision. No surroundin g erythema, wound drainage, warmth or signs of infection. The patient states no pain when palpating around the surgical site and the surroundin g structures . The involved digits are able to demonstrat e less than 50% composite fist. Digits are able to demonstrat e nearly full extension to open hand flat on the table. The distal sensation for light touch is assessed. The patient is able to demonstrat e a positive response to light touch. With regards to the surgical scars, there is a slight thickness and raised area at the central portion. Scabbing, dry skin and fibrotic cells create a small ridge. This may prove to be detrimenta l with functional dead mail checker and grasp tasks. Dupuytren' s disease of palm 942328353 M72.0 Postoperative visit 1836 85606 Z48.89 Sutures are removed today without complicati on. Scar massage was reviewed as well as tendon gliding the patient states that she is very familiar with this home program as she had a similar surgery on the contralate ral side previously . After her last surgery she did a short course of hand therapy to help her regain her full flexibilit y and she also had a night orthosis which she states was very helpful. I am in agreement with this treatment plan as I believe she will benefit greatly from a volar small finger and ring finger extension orthosis possibly with an elastomer pad to flatten the scar tissue in the palm of her hand. A referral is provided. Patient states that she will visit with [facility] in this building today to have that orthosis made and scheduled the evaluation . Per the surgeon , since there are no wound care complicati ons or concerns, no follow up appointmen t needed. The patient was instructed to contact the office if there should arise any concerns with the surgical site or if there is not sufficient functional recovery in 1 month. This office visit was completed in 15 minutes. [id number] MD SANYA Mcintosh [address] [place] [id number] 06/05/2024 14:01:56 06/21/2024 09:07:13 Pain of left hand 2282737152 61721 M79.642 Trigger fi nger of left hand 6947805133 9953610 M65.30 Dupuytren' s disease of palm of left hand 4267137894 2158930 M72.0 Health Concerns Section Related Observation LastModified by Organization Detai ls LastModified Time None Recorded Concern Status LastModified by Organization Details LastModified Time None Recorded Advance Directives Directive None Recorded Payers Encounter Date Sequence Insurance Name Policy Number Policy Jimenez Covered Member ID Jimenez Member ID Guarantor Name 10/19/2023 1 [place] Bonnie I Graham [id number] Bonnie I Graham 01/07/2024 1 [place] Bonnie I Graham [id number] Bonnie I Graham 03/21/2024 1 [place] Bonnie I Graham [id number] Bonnie I Graham 06/05/2024 1 [place] Bonnie I Graham [id number] Bonnie I Graham Notes Date Note Type Note Provider Name and Address Organization Details Recorded Time 10/19/2023 text/html I am seeing the patient today under the supervision of Dr. Doshi who was available, but did not see the patient.Patient is seen today for evaluation of a new problem of pain and discomfort and noticeable decreased ROM of the left shoulder. Symptoms have been ongoing for several months] in duration without any injuries, twists, turns or falls. Patient denies any history of shoulder pain prior to this. Concerned by this, they are referred to our office at this time for orthopedic evaluation. Diabetic with uncontrolled blood sugar levels.PFMSH and ROS has been reviewed, updated, and is located in the patient's chart.On physical examination, the patient is well appearing, in no apparent distress, alert and oriented x3. Gait is symmetric.Right shoulder exam: ROM full, 5/5 strength including rotator cuff and periscapular musculature. Good muscle bulk and strength without atrophy. No evidence of instability of the shoulder. Negative impingement signs. Negative AC joint tenderness.Left shoulder exam: elevates to 90 degrees, externally rotates 15 degrees, internally rotates 20. The patient has bursal crepitus. Good strength when firing the cuff at lower levels with pain and weakness with horizontal elevation, mild impingemnt arc, no AC joint tenderness. CROM full without radicular symptomsPeripheral vascular, lymphatic examination, skin, neurological coordination, reflexes, sensation are within normal limits.X-RAY REPORT: Radiographs ordered, obtained and reviewed at [facility] today four views of the left shoulder demonstrates Type II acromion, hypertrophic ACJ arthritis, glenohumeral joint is well preserved, no calcium apprectiatedIMPRESSI ON: Adhesive capsulitis left shoulder.PLAN: Discussed nature of symptoms, recommend referral to physical therapy, talked about importance of occasional stretching program. We talked about role of therapy once a week. The patient was counseled regarding short-term, long-term goals. We could not proceed with an injection today based upon her poor control over blood glucose levels. Lex Szymanski PA-C [address], [place], [address], [facility] 10/19/2023 15:39:50 01/07/2024 text/html pt is a 48 yo female, last seen in April 2023 for Right small trigger finger and previously treated for right ring trigger finger release and excision of Dupuytren's nodule. Seen today for initial evaluation of L hand pain, reports locking of the small finger and pain and occasional locking of the ring finger. Anu Singh MD [address], [place], [address], [facility] 01/07/2024 12:14:26 03/21/2024 text/html This is a 49-year-old woman who had surgery on the left hand to release a cord and nodule related to Dupuytren's disease of the fourth digit as well as a tenosynovectomy release of the A1 breanna of both the fourth and fifth digits. This procedure was on 03/07/[address] Singh. She presents to the office today for the first postoperative hand therapy visit in which the wound will be assessed, sutures removed and advised on the home program. Of note she did have a similar procedure on the contralateral side and is very familiar with the protocol. At the patient's request a referral for a short course of hand therapy will be provided. JERMAIN Coreas/Praful,CHT [address], [place], [address], [facility] 03/21/2024 10:09:27 06/05/2024 text/html pt is a 49 yo female, seen for postop eval s/p L ring and small TFR and excision of palmar nodule 03/08/24. She has been working with hand therapy twice weekly and is finding this to be very helpful in treating hypertrophic scar. She has had no recurrent or residual locking of the digit. She has normal sensation. No significant pain. Anu Singh MD [address] [facility] [address], [place], [address], [facility] 06/05/2024 15:17:38 OBGyn Episode No OBEpisode recorded.
--- OUTSIDE RECORDS SUMMARY | 2024-08-22 09:02 | XMS_ITS | Data Portability ---
Author Organization [place] - [facility], Allergy Address [address] [facility] [address] [place] [address] Care Team Providers Care Body Repairer Name Role Phone BRIAN MESSINA Referring Provider BRIAN MESSINA Primary Care Provider [phone] Assessment Encounter Date Assessment Date Assessment LastModified by Organization Details LastModified Time 12/13/2023 12/13/2023 Patient feels he r balance is greatly improved and now only having rare brief episodes of disequilibrium when ambulating. She is pleased with her current level of symptoms. We reviewed today her MRI brain & IACs as well as her MRA with venogram, which were benign. Exam is reassuring and audiometric testing is normal for age. Reassurance provided therein. Continue to use cane for ambulation. Continue loratadine. Follow up as needed, or in 1-2 years for repeat audiometric testing. Not available 12/13/2023 10:56:56 07/19/2024 07/19/2024 The left ear demonstrates damp erythematous canal and a partial middle ear effusion, purulent. 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 Change ofloxacin to 5 drops twice daily, lying on the right side for 5 minutes after administration. Will start Augmentin 875 mg BID for 10 days. Follow up if not starting to improve by Wednesday Not available 07/19/2024 12:57:10 Plan of Treatment Reminders Order Date Submit Date Provider Last Modified By Organization Details Last Modified Time Details Appointments None recorded. Lab None recorded. Referral None recorded. Procedures None recorded. Surgeries None recorded. Imaging MRI, brain + internal auditory canal, w/wo contrast - also trigeminal protocol if possible, sensory weakness v2-3 2023 024 [facility] ([facility]), [address] [place], [address], 4 14:26:31 MR, angiogram, head + neck, w/o contrast - family history of aneurysm 2023 024 [facility] ([facility]), [address] [place], [address], 4 09:08:15 audiogram 2023 024 Not available 4 15:30:31 Medication Orders amoxicillin 875 mg-potassiu m clavulanate 125 mg tablet [address] [facility] #[id number], [address] [place], [address], 5 12:09:38 loratadine 10 mg tablet [address] [facility] #[id number], [address] [place], [address], 4 16:56:07 Patient TargetsNo targets recorded. Patient Instructions Encounter Date Encounter Id Patient Instructions Last Modified By Organization Details Last Modified Time 10/04/2023 [id number] The patient's history, physical exam and audiometric findings are consistent with vestibular migraine (migraine-associate d dizziness). Today we discussed the pathophysiology of migraine and migraine associated phenomena such as dizziness and visual aura. We discussed how the patient's balance disturbance symptoms are likely mediated by a central processing abnormality rather than an isolated inner ear abnormality. I gave the patient a significant amount of literature to review at home elucidating many environmental and dietary triggers that can lead to not only migraine headaches but balance disturbance symptoms as well. We spent a lot of time discussing the importance of following a migraine diet. We have offered the patient a copy of the Heal Your Headache book to read at home, which gives a [id number]-[id number] discussion on what causes migraine and how to make the necessary lifestyle and dietary changes to significantly reduce or eliminate migraine symptoms. I have also recommended the use of dietary supplements magnesium, vitamin B2 and feverfew, either taken separately or in combination as Migranol. Patient was provided a symptom diary to track frequency, severity, and triggers for episodes. I will see the patient back in 6-8 weeks and if the patient is still symptomatic we could consider pharmacologic intervention. Discussed some of her symptoms are worrisome from a neurologic standpoint. Recommend MRI brain and IACs, and reviewed precautions to visit ED. Also given family history of aneurysm will recommend MRA head and neck with venous protocol. Follow up for results with audiometric testing same day. Not available 10/05/2023 17:04:06 Reason for Referral None Reported. Results Created Date Observation Date Name Description Value Unit Range Abnormal Flag Note LastModifiedBy Organization Detail LastModifiedTime 11/08/1911/06/2023 MR, angio gram, head + neck, w/o contr ast No observ ation record ed. [facility] ([facility]) [address] [place], [address], 11/09/2023 09:08:15 11/08/19 24 11/06/2023 MR, angio gram, head, w/o contr ast No observ ation record ed. Not Available 2023 10:23:55 11/08/19 24 11/06/2023 MRI, brain + inter nal audit ory canal , w/wo contr ast No observ ation record ed. [email or web address] [facility] [address] [place], [address], 11/09/2023 14:51:34 11/24/19 24 07/19/2022 imagi ng/di agnos tic resul t No observ ation record ed. [email or web address] Not Available 14:18:07 11/24/19 24 07/19/2022 imagi ng/di agnos tic resul t No observ ation record ed. [email or web address] Not Available 14:18:11 12/13/19 audio gram No observ ation record ed. [email or web address] Not Available 2023 15:34:12 07/21/19 25 audio gram No observ ation record ed. BARCODE Not Available 2024 09:29:54 Result Notes None recorded. Problems Name Problem SNOMED Code Status Onset Date Resolution Date Notes Provider Name and Address Organization Details Recorded Time Closed fracture of nasal bones 97977682 Active 2022 Fracture of nasal bones, initial encounter for closed fracture; Note: Date Diagnosed : 07/22/2022 12:53 PM (S02.2XXA ) Not Available [facility] 4 02:49:38 Fractured nasal bones 391666282 Active 2022 Fracture of nasal bones, sequela; Note: Date Diagnosed : 07/27/2022 4:54 PM (S02.2XXS ) Not Available [facility] 4 02:49:37 Localized edema 693169866 Active 2022 Localized edema; Note: Date Diagnosed : 07/22/2022 12:53 PM (R60.0) Not Available [facility] 4 02:49:43 Migrainou s vertigo 864458537 Active 2023 CARLOS MARTINEZ PA-C [address] [facility],[place] [address], [place], [address] , [place] - [facility] 4 16:48:30 Perennial allergic rhinitis 991789680 Active 2023 CARLOS MARTINEZ PA-C [address] [facility] [address], [place], [address] , [place] - [facility] [place] 4 16:55:43 Deviated nasal septum 779386696 Active 2023 CARLOS MARTINEZ PA-C [address] [facility] [address], [address] , [place] - [facility] [place] 4 16:57:01 Subjectiv e pulsatile tinnitus 07754669124 9104 Active 2023 CARLOS MARTINEZ PA-C [address] [facility] [address], [address] , [place] - [facility] [place] 4 10:31:09 Nasal congestio n 42177625 Active 2023 Nasal congestio n; Note: Date Diagnosed : 07/14/2023 1:44 PM (R09.81) Not Available [facility] 4 02:49:38 Seasonal allergic rhinitis 061215721 Active 2023 Other seasonal allergic rhinitis; Note: Date Diagnosed : 07/14/2023 2:11 PM (J30.2) Not Available [facility] 4 02:49:40 Bleeding from nose 815618936 Active 2023 Epistaxis ; Note: Date Diagnosed : 07/14/2023 1:44 PM (R04.0) Not Available [facility] 4 02:49:44 Sensorine ural hearing loss of bilateral ears 894439857 Active 2023 ANNETTA SAM, AUD [address] [facility],[place] [address], [place], [address] , [place] - [facility] [place] 4 10:17:13 Acute suppurati ve otitis media without spontaneo us rupture of ear drum 95898214 Active 2024 CARLOS MARTINEZ PA-C [address] [facility],[place] [address], [place], [address] , [facility] - [facility] [place] 5 12:09:07 Acute infective otitis externa 444044980 Active 2024 CARLOS MARTINEZ PA-C [address] [facility],[place] [address], [place], [address] , [place] - [facility] [place] 5 12:57:27 Problem Notes None recorded. Procedures Surgical History Date Name Laterality Status Provider Name and Address Organization Details Recorded Time 07/19/2024 Air & Speech Audio with Tymps - 98870, 97942 & 94364 completed RILEY PALACIOS, AUD [address] [facility],[address], [place], [address], [facility] - [facility] [place] 07/19/2024 11:21:07 12/13/2023 Comp Audio with Tymps - 84601 & 84450 completed ANNETTA SAM, AUD [address] [facility],[address], [place], [address], [facility] - [facility] 12/13/2023 10:17:03 Imaging Results Imaging Date Name Status LastModified by Organiz ation Details LastModified Time 11/06/2023 MR, angiogram, head + neck, w/o contrast completed [facility] ([facility]) [address], [place], [address], 11/09/2023 09:08:15 11/06/2023 MR, angiogram, head, w/o contrast completed Information not available 12/13/2023 10:23:55 11/06/2023 MRI, brain + internal auditory canal, w/wo contrast completed [email or web address] [facility] [address] [place], [address], 11/09/2023 14:51:34 07/19/2022 imaging/diagno stic result completed Information not available 11/24/2023 14:18:07 07/19/2022 imaging/diagno stic result completed Information not available 11/24/2023 14:18:11 12/13/2023 audiogram completed [email or web address] Information no t available 12/13/2023 15:34:12 07/20/2024 audiogram completed BAR[facility] Information no t available 07/20/2024 09:29:54 Procedure Notes None recorded. Medical Equipment None Reported. Allergies Allergen ID Allergen Name Allergen Category Reaction Reaction Severity Criticality Documentation Date Start Date Code Code System Note Provider Name and Address Organization Details Recorded Time 333801 oxycodone medicatio n hives Not available Not available 08/17/2023 7804 RxNorm React ion: Hives ; Not Available [facility] 4 01:08:55 065243 acetamino phen / oxycodone medicatio n hives Not available Not available 08/17/2023 75281 3 RxNorm React ion: Hives ; Not Available [facility] 4 01:08:57 409186 Advil medicatio n hives Not available Not available 08/17/2023 53000 0 RxNorm React ion: Hives ; Not Available [facility] 01:[facility] Medications Name Sig Start Date Stop Date Status Note LastModified by Organization Details LastModified Time amoxicill in 500 mg capsule TAKE 1 CAPSULE BY MOUTH THREE TIMES A DAY 10/03 completed Not Available Not Available Not Available atorvasta tin 80 mg tablet TAKE 1 TABLET BY MOUTH NIGHTLY AT BEDTIME FOR CHOLESTE ROL active Not Available Not Available No t Available nystatin 100,000 unit/mL oral suspensio n SWISH AND SWALLOW 5ML BY MOUTH 4 TIMES A DAY FOR 7 DAYS 10/03 completed Not Available Not Available Not Available doxycycli ne hyclate 100 mg capsule TAKE 1 CAPSULE BY MOUTH TWICE A DAY 07/19 completed Not Available Not Available Not Available azithromy judith 250 mg tablet TAKE 2 TABLETS BY MOUTH TODAY, THEN TAKE 1 TABLET DAILY FOR 4 DAYS DIRECTED 10/03 completed Not Available Not Available Not Available tizanidin e 4 mg tablet TAKE 1 TABLET BY MOUTH EVERY 6 HOURS NEEDED FOR MUSCLE SPASMS. active Not Available Not Available No t Available fluconazo le 150 mg tablet TAKE 1 TABLET BY MOUTH EVERY DAY ONE DOSE active Not Available Not Available No t Available benzonata te 200 mg capsule TAKE 1 CAPSULE BY MOUTH THREE TIMES A DAY NEEDED FOR COUGH 10/03 completed Not Available Not Available Not Available methylphe nidate 10 mg tablet TAKE 1 TABLET BY MOUTH EVERY DAY IN THE EVENING active Not Available Not Available No t Available cephalexi n 250 mg capsule TAKE 1 CAPSULE BY MOUTH EVERY DAY 07/19 completed Not Available Not Available Not Available hydrocodo ne 5 mg-acetam inophen 325 mg tablet TAKE 1 TABLET BY MOUTH EVERY 6 HOURS NEEDED FOR PAIN active Not Available Not Available No t Available meloxicam 15 mg tablet active Medicati on ID: [id number] B bernard Name: guillermo baires Send Method: E-Prescr ibed Sub s Allowed: subs OK Speci al Instruct ion: TAKE 1 TABLET BY MOUTH EVERY DAY NEEDED FOR PAIN Med icationG enericNa me: guillermo baires Not Available Not Available Not Available FreeStyle Lancets 28 gauge USE TO TEST BLOOD GLUCOSE THREE TIMES DAILY. (FREESTY LE LANCETS) active Not Available Not Available No t Available prednison e 20 mg tablet TAKE 2 TABLETS BY MOUTH ONCE DAILY FOR 5 DAYS. 10/03 completed Not Available Not Available Not Available alendrona te 70 mg tablet TAKE 1 TABLET BY MOUTH EVERY 7 (SEVEN) DAYS FOR OSTEOPOR OSIS active Not Available Not Available No t Available sertralin e 100 mg tablet TAKE 1 TABLET BY MOUTH ONCE A DAY WITH FOOD active Not Available Not Available No t Available hydroxyzi ne pamoate 50 mg capsule TAKE 1 CAPSULE BY MOUTH THREE TIMES A DAY NEEDED FOR ANXIETY AND SLEEP active Not Available Not Available No t Available penicilli n V potassium 500 mg tablet TAKE 1 TABLET BY MOUTH EVERY SIX HOURS DIRECTED UNTIL EMPTY 10/03 completed Not Available Not Available Not Available hydroxyzi ne HCl 50 mg tablet 1 mg as needed by oral route. 2022 active Not Available Not Available Not Avai lable ciproflox acin 500 mg tablet TAKE 1 TABLET BY MOUTH TWICE A DAY FOR 7 DAYS 07/19 completed Not Available Not Available Not Available sulfameth oxazole 800 mg-trimet hoprim 160 mg tablet TAKE 1 TABLET BY MOUTH TWICE A DAY 10/03 completed Not Available Not Available Not Available tramadol 50 mg tablet TAKE 1 TABLET BY MOUTH EVERY 6 HOURS NEEDED FOR PAIN FOR 3 DAYS active Not Available Not Available No t Available amitripty line 50 mg tablet TAKE 1 TABLET BY MOUTH EVERYDAY AT BEDTIME active Not Available Not Available No t Available propranol ol 10 mg tablet TAKE 1- 2 TABLETS ORALLY 2 TIMES A DAY NEEDED FOR TACHYCAR RYAN FOR 90 DAYS active Not Available Not Available No t Available ofloxacin 0.3 % ear drops PLACE 10 DROPS INTO THE LEFT EAR ONCE DAILY FOR 7 DAYS active Not Available Not Available No t Available methenami ne hippurate 1 gram tablet TAKE 1 TABLET BY MOUTH TWICE A DAY active Not Available Not Available No t Available gabapenti n 800 mg tablet 02/06 completed Medicati on ID: [id number] B rand Name: gabapent in Send Method: E-Prescr ibed Sub s Allowed: subs OK Speci al Instruct ion: TAKE 1 TABLET BY MOUTH THREE TIMES A DAY Medi cationGe nericNam e: gabapent in Not Available Not Available Not Available phenazopy ridine 100 mg tablet TAKE 1 TABLET BY MOUTH THREE TIMES A DAY WITH MEALS active Not Available Not Available No t Available cephalexi n 500 mg capsule TAKE 1 CAPSULE BY MOUTH TWICE A DAY FOR 7 DAYS 07/19 completed Not Available Not Available Not Available pantopraz ole 40 mg tablet,de layed release TAKE 1 TABLET BY MOUTH TWICE A DAY active Not Available Not Available No t Available nitrofura ntoin macrocrys kelli 100 mg capsule TAKE 1 CAPSULE BY MOUTH TWICE A DAY FOR 5 DAYS 10/03 completed Not Available Not Available Not Available monteluka st 10 mg tablet TAKE 1 TABLET BY MOUTH EVERY DAY active Not Available Not Available No t Available alcohol swabs USE TO TEST BLOOD GLUCOSE THREE TIMES DAILY. active Not Available Not Available No t Available lisinopri l 5 mg tablet TAKE 1 TABLET BY MOUTH EVERY DAY NEEDED FOR BLOOD PRESSURE AND KIDNEYS active Not Available Not Available No t Available estradiol 0.01% (0.1 mg/gram) vaginal cream APPLY DIME-SIZ ED AMOUNT TO EXTERNAL VAGINAL TISSUE 3X/WEEK active Not Available Not Available No t Available ondansetr on 4 mg disintegr ating tablet DISSOLVE 1 TABLET BY MOUTH EVERY 6-8 HOURS NEEDED FOR NAUSEA active Not Available Not Available No t Available fluticaso ne propionat e 50 mcg/actua tion nasal spray,barrett pension SPRAY 1 SPRAY INTO EACH NOSTRIL EVERY DAY FOR 30 DAYS active Not Available Not Available No t Available sertralin e 50 mg tablet TAKE 1 TABLET BY MOUTH EVERY DAY active Not Available Not Available No t Available lisinopri l 2.5 mg tablet TAKE 1 TABLET BY MOUTH EVERY MORNING active Not Available Not Available No t Available loratadin e 10 mg tablet TAKE 1 TABLET BY MOUTH EVERY DAY active Not Available Not Available No t Available amoxicill in 875 mg-potass ium clavulana te 125 mg tablet TAKE 1 TABLET TWICE A DAY BY ORAL ROUTE WITH MEAL(S) FOR 10 DAYS. active Not Available Not Available No t Available Ventolin HFA 90 mcg/actua tion aerosol inhaler TAKE 2 PUFFS BY MOUTH EVERY 6 HOURS active Not Available Not Available No t Available tobramyci n 0.3 %-dexamet hasone 0.1 % eye drops,barrett pension INSTILL 4 DROPS IN LEFT (EAR) TWICE DAILY TILL BETTER active Not Available Not Available No t Available neomycin- polymyxin -hydrocor t 3.5 mg-10,000 unit/mL-1 % ear drops,barrett p INSTILL 4 DROPS TO AFFECTED EAR(S) THREE TIMES DAILY FOR 10-DAYS. 07/19 completed Not Available Not Available Not Available aripipraz ole 20 mg tablet TAKE 1 TABLET ONCE A DAY TAKE WITH THE OTHER ADDITION AL 5MG- TOTAL DOSE 25MG/DAY active Not Available Not Available No t Available aripipraz ole 30 mg tablet TAKE 1 TABLET BY MOUTH EVERY DAY active Not Available Not Available No t Available Premarin 0.625 mg tablet TAKE 1 TABLET BY MOUTH EVERY DAY active Not Available Not Available No t Available aripipraz ole 5 mg tablet TAKE 1 TABLET BY MOUTH ONCE A DAY TAKE WITH THE OTHER 20MG TOTAL DOSE 25MG/DAY active Not Available Not Available No t Available nitrofura ntoin monohydra te/macroc rystals 100 mg capsule TAKE 1 CAPSULE BY MOUTH EVERY 12 HOURS WITH FOOD 07/19 completed Not Available Not Available Not Available solifenac in 5 mg tablet TAKE 1 TABLET BY MOUTH EVERY DAY active Not Available Not Available No t Available pregabali n 150 mg capsule TAKE 1 CAPSULE BY MOUTH THREE TIMES A DAY active Not Available Not Available No t Available pregabali n 200 mg capsule TAKE 1 CAPSULE BY MOUTH 3 TIMES A DAY active Not Available Not Available No t Available Premarin Low Dose 2022 active Not Available Not Available Not Avai lable Januvia 100 mg tablet TAKE 1 TABLET BY MOUTH EVERY MORNING WITH BREAKFAS T FOR DIABETES . active Not Available Not Available No t Available Symbicort 80 mcg-4.5 mcg/actua tion HFA aerosol inhaler INHALE 2 PUFFS TWICE A DAY active Not Available Not Available No t Available FreeStyle Lite Strips USE TO TEST BLOOD GLUCOSE THREE TIMES DAILY. (FREESTY LE LITE) active Not Available Not Available No t Available Lantus Solostar U-100 Insulin 100 unit/mL (3 mL) subcutane ous pen INJECT 35-40 UNITS INTO THE SKIN NIGHTLY AT BEDTIME DOSE CHANGE, D/C TRESIBA* * active Not Available Not Available No t Available armodafin il 250 mg tablet TAKE 1 TABLET BY MOUTH EVERY DAY IN THE MORNING active Not Available Not Available No t Available Banophen 50 mg capsule TAKE 1 CAPSULE BY MOUTH NIGHTLY AT BEDTIME NEEDED FOR RHINITIS active Not Available Not Available No t Available armodafin il 200 mg tablet TAKE 1 TABLET BY MOUTH EVERY MORNING 10/03 completed Not Available Not Available Not Available Spiriva Respimat 1.25 mcg/actua tion solution for inhalatio n TAKE 2 PUFFS BY MOUTH EVERY DAY active Not Available Not Available No t Available Tresiba FlexTouch U-200 insulin 200 unit/mL (3 mL) subcutane ous pen INJECT 64 UNITS INTO THE SKIN NIGHTLY AT BEDTIME STOP LANTUS active Not Available Not Available No t Available Dexcom G6 Transmitt er device USE 1 DIRECTED EVERY 3 MONTHS active Not Available Not Available No t Available BD [place] 2nd Gen Pen Needle 32 gauge x USE TO INJECT INSULIN 5 TIMES A DAY active Not Available Not Available No t Available Rybelsus 3 mg tablet TAKE 1 TABLET BY MOUTH EVERY DAY BEFORE BREAKFAS T active Not Available Not Available No t Available Lyumjev KwikPen U-100 Insulin 100 unit/mL subcutane ous INJECT SUBCUTAN EOUSLY 4-28 UNITS THREE TIMES DAILY BEFORE MEALS UP TO 84 UNITS DAILY active Not Available Not Available No t Available Lyumjev U-100 Insulin 100 unit/mL subcutane ous solution INJECT 120 UNITS INTO THE SKIN CONTINUO USLY ..USE IN CSII PUMP UP TO 120 UNITS DAILY 10/03 completed Not Available Not Available Not Available Omnipod 5 G6 Pods (Gen 5) subcutane ous cartridge INJECT 1 EACH INTO THE SKIN EVERY 3 (THREE) DAYS active Not Available Not Available No t Available Omnipod 5 G6 Intro Kit (Gen 5) subcutane ous cartridge with controlle r INJECT 1 EACH INTO THE SKIN CONTINUO USLY active Not Available Not Available No t Available Dexcom G7 System Safety Manager 1 EACH BY MISCELLA NEOUS ROUTE CONTINUO USLY active Not Available Not Available No t Available Dexcom G7 Sensor device APPLY 1 SENSOR TO BACK OF UPPER ARM EVERY 10 DAYS. USE TO CHECK GLUCOSE AT LEAST 3 TIMES DAILY. active Not Available Not Available No t Available Ozempic 0.25 mg or 0.5 mg (2 mg/3 mL) subcutane ous pen injector INJECT 0.25 MG INTO THE SKIN ONCE A WEEK STOP JANUVIA 100 MG active Not Available Not Available No t Available Vitals Date Recorded Body height Body mass index (BMI) Body weight Provider Name and Address Organization Details Last Updated DateTime 07/19/2024 149.86 cm 25.2 kg/m2 79131.05 g Leanne Yoder [place] [facility] 07/19/2024 11:27:03 Date Recorded Body height Body mass index (BMI) Body weight Provider Name and Address Organization Details Last Updated DateTime 12/13/2023 149.86 cm 26.3 kg/m2 05454.01 g Bette Manjarrez [facility] 12/13/2023 10:24:03 Social History None recorded. Functional Status None recorded. Mental Status None recorded. Family History Nothing Reported. Medical History Condition Response Diabetes Y Hypertension Y High Cholesterol Y Gynecological HistoryNo gynecological history recorded. Obstetrics History GPAL:G 0 P 0 0 0 0 Past Encounters Encounter ID Performer Location Encounter Start Date Encounter Closed Date Diagnosis/Indication Diagnosis SNOMED-CT Code Diagnosis ICD10 Code Diagnosis Note [id number] CARLOS MARTINEZ PA-C [facility] [address] [address] 10/04/2023 14:57:23 10/04/2023 17:09:20 Migrainous vertigo 839257126 H81.8X9 Perennial allergic rhinitis 421829134 J30.89 Deviated nasal septum 12 0841043 J34.2 not interested in surgical repair [id number] CARLOS MARTINEZ PA-C [facility] [address] [address] 12/13/2023 09:52:55 12/13/2023 10:34:42 Sensorineural hearing loss of bilateral ears 244512992 H90.3 Audiologic al evaluation results: Right ear: {{Normal* Normal through 2 kHz Mild M oderate Mo derately-s evere Chata re Profoun d}} {{hearing sloping to a mild slopi ng to a moderate s loping to moderately severe slo ping to severe slo ping to profound f lat high frequency low frequency mid frequency cookie bite leon curve with the exception of a mild SNHL at 8000Hz#}} {{with* se nsorineura l hearing loss with condu ctive hearing loss with mixed hearing loss with}} {{excellen t* good fa ir poor no measurable }} word recognitio n. Left ear: {{Normal* Normal through 2 kHz Mild M oderate Mo derately-s evere Chata re Profoun d}} {{hearing sloping to a mild slopi ng to a moderate s loping to moderately severe slo ping to severe slo ping to profound f lat high frequency low frequency mid frequency cookie bite leon curve with the exception of a mild SNHL at 8000Hz#}} {{with* se nsorineura l hearing loss with condu ctive hearing loss with mixed hearing loss with}} {{excellen t* good fa ir poor no measurable }} word recognitio n. Tympanomet ry: Right Ear:{{Type A* Type As Type Ad Type C Type C, shallow & rounded Ty pe B Type B with large volume Cou ld not maintain a hermetic seal}} Left Ear:{{Type A* Type As Type Ad Type C Type C, shallow & rounded Ty pe B Type B with large volume Cou ld not maintain a hermetic seal}} Migrainous vertigo 24224 4007 H81.8X9 [id number] CARLOS MARTINEZ PA-C [facility] [address] [place] [address] 07/19/2024 10:56:11 07/19/2024 12:13:18 Sensorineural hearing loss of bilateral ears [id number] H90.3 Audiologic al evaluation results: Right ear: {{Normal* Normal through 2 kHz Mild M oderate Mo derately-s evere Chata re Profoun d}} {{hearing sloping to a mild slopi ng to a moderate s loping to moderately severe slo ping to severe slo ping to profound f lat high frequency low frequency mid frequency cookie bite leon curve with the exception of a mild SNHL at 8000Hz#}} {{with* se nsorineura l hearing loss with condu ctive hearing loss with mixed hearing loss with}} {{excellen t* good fa ir poor no measurable }} word recognitio n. Left ear: {{Normal* Normal through 2 kHz Mild M oderate Mo derately-s evere Chata re Profoun d}} {{hearing sloping to a mild slopi ng to a moderate s loping to moderately severe slo ping to severe slo ping to profound f lat high frequency low frequency mid frequency cookie bite leon curve with the exception of a mild SNHL at 8000Hz#}} {{with* se nsorineura l hearing loss with condu ctive hearing loss with mixed hearing loss with}} {{excellen t* good fa ir poor no measurable }} word

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
--- NOTE | 2024-08-22 09:09 | MHC.OFFVIS ---
Intake Visit Reasons: Recurrent UTI Intake Note: New Patient presents for initial visit for recurrent uti Urology Medications: Estrace Cream Blood Thinner: none PVR: 20ml's Community Affairs Director Required: No Accompanied by: Self / Same As Patient Allergies Latex, Natural Rubber Allergy (Mild, Verified 08/22/24 11:27) Hives acetaminophen [From Percocet] Allergy (Unknown, Verified 08/22/24 11:27) Itching adhesive Allergy (Unknown, Verified 08/22/24 11:27) Hives hydrocodone Allergy (Unknown, Verified 08/22/24 11:27) Itching oxycodone Allergy (Unknown, Verified 08/22/24 11:27) Itching Medication List - Last Reconciled 08/22/24 by CHIN Resendiz-DONALD albuterol sulfate 90 mcg/actuation (ProAir HFA) 2 puffs inhalation Q4H PRN alendronate 70 mg PO QWEEK amitriptyline 50 mg PO BEDTIME aripiprazole 30 mg PO DAILY armodafinil 250 mg PO QAM 30 days atorvastatin 80 mg PO BEDTIME blood-glucose sensor ([employer] G6 Sensor device) As directed budesonide-formoterol 80-4.5 mcg/actuation (Symbicort) 2 puffs inhalation BID diclofenac sodium 1% grams topical BID PRN estradiol 0.01%(0.1mg/gram) grams vaginal 3XW fluticasone propionate 50 mcg/actuation 1 spray intranasal BID hydroxyzine pamoate 50 mg PO TID PRN insulin glargine (Lantus Solostar U-100 Insulin) units subcut insulin lispro-aabc (Lyumjev KwikPen U-100 Insulin) 28 units subcut TID lancets (FreeStyle Lancets) As directed loratadine 10 mg PO DAILY meloxicam 15 mg PO DAILY PRN methylphenidate HCl (Ritalin) 10 mg PO QPM 30 days montelukast 10 mg PO DAILY pantoprazole 40 mg PO BID pen needle, diabetic (BD [place] 2nd Gen Pen Needle) As directed pen needle, diabetic (BD Ultra-Fine Mini Pen Needle) As directed pregabalin 200 mg PO TID 30 days propranolol 10 - 20 mg (1 - 2 x 10 mg) PO BID PRN 90 days sertraline 50 mg PO DAILY tiotropium bromide 1.25 mcg/actuation (Spiriva Respimat) 2 puffs inhalation DAILY HPI Comments Details: Bonnie is a very pleasant 49-year-old female patient of . She has a past medical history of GERD, arthritis, osteoporosis, hyperlipidemia, and Diabetes. She presents to the office as a new patient today for recurrent urinary tract infections. In discussion with the patient today she reports previously following up with [facility] as she has a longstanding history of recurrent urinary tract infections. However, is looking to establish new urological care. She reports being on Estrace cream in his compliant with Estrace cream as prescribed. She also reports previously being on methenamine however this has since been discontinued. She discusses having had over 18 urinary tract infections last year. In office urinalysis results reviewed with the patient today 1+ leukocytes positive nitrates. She does report urinary urgency, urinary frequency, and dysuria. She denies incontinence, nocturia, hematuria, foul smelling urine, changes to urinary stream, fever, and or chills. We did discussed potential causes of recurrent urinary tract infections. She reports she is not sexually active and has not been in the last 4 years. She denies any issues with constipation. We discussed sending urine today for microgen testing for further assessment evaluation as well as obtaining retroperitoneal ultrasound for further assessment evaluation. We also discussed potential near future in office cystoscopy for further assessment evaluation. PVR 20 mL Plan I will perform genetic testing on the urine sample to determine if resistant strains are causing the recurrent infections. Augmentin will be prescribed for current UTI treatment, and fluconazole will be provided for the yeast infection following antibiotic therapy. Methenamine therapy will resume with Vitamin C supplementation to ensure an acidic environment, critical for its effectiveness. The patient will pause methenamine during antibiotic courses. Future consideration for cystoscopy will be noted pending the current infection status. An updated ultrasound will be ordered to reassess her bladder health. Proper application of estrogen cream is emphasized to address estrogen deficiency-related symptoms. Patient was informed and verbally consented to the use of an ambient scribe for clinic note documentation during this visit. Discussion Notes I discussed with the patient the persistent nature of her recurrent urinary tract infections and the treatment strategy moving forward, including urine genetic testing for detailed pathogen analysis. I explained the appropriateness of Augmentin based on past effective usage and the necessity of fluconazole for yeast management post-antibiotic therapy. The patient consented to restarting methenamine with Vitamin C for optimal treatment and understands the need to halt methenamine during antibiotic usage. Potential cystoscopy was explained for future consideration for further assessment evaluation. An upcoming ultrasound was recommended for additional bladder evaluation. Instructions on appropriate estrogen cream application were clarified, and the patient acknowledged understanding. Follow-up arrangements were made contingent on diagnostic findings and symptom progression. [facility] Medical History Arthritis GERD (gastroesophageal reflux disease) Osteoporosis HLD (hyperlipidemia) Diabetes mellitus Syncope Surgical History H/O hand surgery History of hysterectomy Family History Father Cancer Mother HTN (hypertension) Social History Alcohol intake: never Patient Tobacco Use Status: Former Tobacco user Review of Systems Const All systems reviewed & are unremarkable except as noted in HPI and below Physical Exam Const General: cooperative, healthy appearing, comfortable, no acute distress, well developed, alert and awake Orientation/consciousness: patient oriented x3 Limitations: ambulation with cane HEENT Head: Yes normal to inspection, Yes normocephalic and Yes atraumatic Ears: hearing grossly normal bilaterally Eyes General: appearance normal, both eyes and all related structures Neck Neck: Yes normal visual inspection and Yes trachea midline Chest Chest palpation & inspection: normal inspection of the chest Resp Effort & Inspection: normal respiratory effort and able to speak in complete sentences Cardio Rate: regular rate GI Inspection: Yes normal to inspection General: Yes no CVA tenderness Back/Spine/Pelvis Back: no CVA tenderness Skin General skin exam: no rashes or lesions noted Neuro General: patient oriented x3 Extrem General: Yes normal to inspection Psych Appearance: grossly normal and well kempt Mental Status: mental status grossly normal Speech and movement: Normal speech and movement present and Clear speech present Affect: normal affect Attitude: cooperative Thought process: Normal thought process present Thought content: Normal thought content present Insight: Fair insight present (Psych) Judgement: Fair judgement present (Psych) Office Procedures Post Void Residual Post Residual Void Post Void Residual (PVR): 20 [id number] Void Residual by ultrasound Results AMB Urinalysis, Automated UA Leukoctes 0 Shemar/uL Last Edit by Estefani Carcamo on 08/22/24 09:35 UA Nitrite Last Edit by Estefani Carcamo on 08/22/24 09:35 UA Urobilinogen 0.2 mg/dL Last Edit by Estefani Carcamo on 08/22/24 09:35 UA Protein 15 mg/dL Last Edit by Estefani Carcamo on 08/22/24 09:35 UA pH 6.0 Last Edit by Estefani Carcamo on 08/22/24 09:35 UA Blood 80 Emeterio/uL Last Edit by Darelle Dona on 08/22/24 09:35 UA Specific [place] 1.025 Last Edit by [employer]ika Carcamo on 08/22/24 09:35 UA Ketone Last Edit by Estefani Carcamo on 08/22/24 09:35 UA Bilirubin 0 mg/dL Last Edit by Estefani Carcamo on 08/22/24 09:35 UA Glucose 0 mg/dL Last Edit by Estefani Carcamo on 08/22/24 09:35 Results Reviewed Results Reviewed: Laboratory Last Values Urine pH (Auto) 6.0 08/22/24 09:34 Specific [place] (Auto) 1.025 08/22/24 09:34 Urine Protein (Auto) 15 mg/dL 08/22/24 09:34 Glucose (UA)(Auto) 0 mg/dL 08/22/24 09:34 Urine Blood (Auto) 80 Emeterio/uL 08/22/24 09:34 Urine Bilirubin (Auto) 0 mg/dL 08/22/24 09:34 Urine Urobilinogen (Auto) 0.2 mg/dL 08/22/24 09:34 Leukocyte Esterase (Auto) 0 Shemar/uL 08/22/24 09:34 Assessment & Plan Assessment & Plan (1) Urinary frequency: Code(s): R35.0 - Frequency of micturition Category: Medical (2) Dysuria: Code(s): R30.0 - Dysuria Category: Medical (3) Urinary tract infection: Code(s): N39.0 - Urinary tract infection, site not specified Category: Medical (4) Recurrent urinary tract infection: Code(s): N39.0 - Urinary tract infection, site not specified Category: Medical Plan In office urinalysis results reviewed with the patient today; will send for microgen; will await results for potential further treatment. Start Augmentin as discussed and prescribed. We discussed initiation of methenamine and vitamin-C once completed with current antibiotic therapy. Continue Estrace cream however we did discussed appropriate use regarding Estrace cream in the setting of recurrent urinary tract infections. Will obtain retroperitoneal ultrasound for further assessment evaluation. We discussed near future in office cystoscopy for further assessment evaluation. Discussed UTI prevention with D mannose supplement, vitamin-C, increasing fluid intake, behavioral therapy with timed voiding, perineal hygiene and postcoital voiding, and management of constipation with stool softeners and increased fiber intake. Follow-up in 1-3 months with imaging and PVR; or sooner with any issues, concerns, and or questions Orders: Orders AMB Urinalysis Automated Today Z13.9 - Encounter for screening, unspecified AMB Post Void Residual by ultrasound Today N39.0 - Urinary tract infection, site not specified US retroperitoneal comp Today N39.0 - Urinary tract infection, site not specified, R30.0 - Dysuria, R35.0 - Frequency of micturition Medications: New ascorbic acid (vitamin C) 1 g PO DAILY 90 tabs 1RF 90 days N39.0 - Urinary tract infection, site not specified amoxicillin-pot clavulanate 500-125 mg (Augmentin) 1 tab PO Q8H 30 tabs 0RF 10 days N39.0 - Urinary tract infection, site not specified methenamine hippurate Start once completed with antibiotic therapy. Hold while on antibiotic therapy 1 g PO DAILY 90 tabs 1RF 90 days N39.0 - Urinary tract infection, site not specified fluconazole 150 mg PO Q3D 2 tabs 0RF 2 doses B49 - Unspecified mycosis Patient Instructions: The patient had an opportunity to ask questions regarding the treatment plan. All questions were answered. Physical exam, labs, and imaging were discussed and reviewed in detail. As well as risks, benefits, and discussion of treatment choices. No major barriers to understanding were identified. The patient expressed understanding and agreement with the above treatment plan. The patient was made aware they should contact our office by phone for worsening of their current condition, the appearance of new symptoms, or with any questions or concerns. Compliance is encouraged with any medications and follow up testing that is ordered. It is a privilege to be allowed the opportunity to participate in? your urological care.? Again, if you have any questions or concerns If you have any questions or concerns please do not hesitate to contact me. The office is [phone]. This note is constructed using voice recognition software. While every effort has been made to ensure accuracy fleet manager errors may have been included. Yours sincerely, MASOUD Resendiz Coding Level of Care Code New Pt Level 4 (05810) Diagnoses Urinary frequency R35.0 Dysuria R30.0 Urinary tract infection N39.0 Recurrent urinary tract infection N39.0 CPT Codes Post Residual Void - PVR CPT Code: 60318-Afpa Void Residual by ultrasound ([id number])
== END 2024-08-22 09:41 | disposition home or self-care (01) ==
LOC: HO.HUSH 08:46
PROVIDERS: PCP Nurse Practitioner Family; Visit Provider Nurse Practitioner Family
DX: R35.0 Frequency of micturition (principal); R30.0 Dysuria; N39.0 Urinary tract infection, site not specified; Z13.9 Encounter for screening, unspecified
CPT/HCPCS: 99204

== ENCOUNTER → 2024-08-22 08:46 | Outpatient (BNVA) | payer MEDICAID, SELFPAY | PROVIDERS: PCP Nurse Practitioner Family; Visit Provider Nurse Practitioner Family | DX: R35.0 Frequency of micturition (principal); R30.0 Dysuria; N39.0 Urinary tract infection, site not specified | CPT/HCPCS: 51798; 81003; 99212 ==

== ENCOUNTER 2024-08-31 09:23 | Outpatient (AMB) | payer MEDICAID, SELFPAY ==
--- OUTSIDE RECORDS SUMMARY | 2024-08-31 09:46 | XMS_ITS | Clinical Summary ---
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 MICROALBUMIN/CREATININ E RATIO, URINE, RANDOM Routine 07/17/2024 12:03 PM EDT Type 2 diabetes mellitus with diabetic mononeuropathy, with long-term current use of insulin ([facility]) HEMOGLOBIN GLYCOSYLATED A1C Routine 07/17/2024 12:03 PM EDT Type 2 diabetes mellitus with diabetic mononeuropathy, with long-term current use of insulin ([facility]) GLUCOSE, BLOOD BY GLUCOSE MONITORING DEVICE (CLIA WAIVED)POCT Routine 07/13/2024 9:30 AM EDT Type 2 diabetes mellitus with diabetic mononeuropathy, with long-term current use of insulin ([facility]) MEDICATIONS SCANNED DOCUMENT 07/13/2024 3:00 AM EDT HIV 1/2 AG & AB W/RFLX (4TH GEN) Routine 01/11/2024 9:11 AM EDT Screening examination for venereal disease EYE EXAM 11/29/2023 3:00 AM EDT REFERRAL TO PODIATRY Routine 11/03/2023 3:00 AM EDT Type 2 diabetes mellitus with hyperglycemia, with long-term current use of insulin ([facility]) Ingrown toenail of both feet HISTORIC MAMMOGRAM 08/07/2022 3: 00 AM EDT Full INTRAORAL - COMP SERIES OF RADIOGRAPHIC IMAGES Routine 08/30/2021 11:00 AM EDT Preventive measure Full PROPHYLAXIS - ADULT Routine 08/30/2021 11:00 AM EDT Preventive measure Full COMP ORAL EVALUATION - NEW/ESTABLISHED PATIENT Routine 08/30/2021 11:00 AM EDT Preventive measure ACUTE HEPATITIS PANEL W/RFLX Routine 09/18/2020 10:55 AM EDT Elevated LFTs PAP SMEAR W/HPV, ABSTRACTED Routine 08/17/2019 1:00 PM EDT HISTORIC COLONOSCOPY 08/08/2015 3:00 AM EDT from Last 3 Months or Most Recently Relevant to Health Maintenance Results * (ABNORMAL) GLUCOSE, BLOOD BY GLUCOSE MONITORING DEVICE (CLIA WAIVED)POCT (08/14/2024 10:32 AM EDT) Only the most recent of2 resultswithin the time period is included. GLUCOSE 109(A) 70 - 100 mg/dL [facility] POCT Capillary Blood Blood / Unknown 10:32 AM EDT Ari Michele PharmD LAB - BLOOD DRAW Final Re sult [facility] POCT * HETEROPHILE ANTIBODIES SCREEN (07/19/2024 3:44 PM EDT) HETEROPHILE, MONO SCREEN NEGATIVE NEGATIVE [facility] Venous Blood Blood / Unknown 07/19/2024 3 :44 PM EDT 07/19/2024 3:45 PM EDT Narrative [facility] - 07/20/2024 3:08 PM EDT FASTING:NO Marge Quinones EMPLOYEE RELATION MANAGER LAB - BLOOD DRAW Final Resul t [facility] [address] [address], [facility] [address] [address] * TSH W/RFLX FREE T4 (07/19/2024 3:43 PM EDT) Pathologist [facility] TSH W/REFLEX TO FT4 1.27 0.40 - 4.50 mIU/L [employer] [facility] Comment: ?Reference Range ?> or = 20 Years ??0.40-4.50 ? Ranges ?First trimester ?0.26-2.66 ?Second trimester ?? 0.55-2.73 ?Third trimester ?0.43-2.91 Blood Blood / Unknown 07/19/2024 3 :43 PM EDT 07/19/2024 3:43 PM EDT Narrative [employer] [facility] - 07/20/2024 3:49 AM EDT FASTING:NO [employer] [facility] LAB - BLOOD DRAW Bobo jimmy Result - Final [facility] [address] [address], [employer] [address] [address] * (ABNORMAL) LIPIDS W RFLX TO DIRECT LDL (07/19/2024 3:43 PM EDT) Pathologist [facility] CHOLESTEROL, TOTAL 211(H) <200 mg/dL [employer] [facility] HDL CHOLESTEROL 46(L) > OR = 50 mg/dL [employer] [facility] TRIGLYCERIDES 164(H) <150 mg/dL [employer] [facility] LDL-CHOLESTEROL 135(H) 99 mg/dL (calc) [employer] [facility] Comment: Reference range: <100 Desirable range <100 mg/dL for primary prevention; ?? <70 mg/dL for patients with CHD or diabetic patients with > or = 2 CHD risk factors. LDL-C is now calculated using the Pete-Young calculation, which is a validated novel method providing better accuracy than the Friedewald equation in the estimation of LDL-C. Pete SS et al. ALFREDO. 2013;310(07): 3251-1360 (http://education.[employer]/faq/COX445) CHOL/HDLC RATIO 4.6 <5.0 (calc) [facility] [facility] NON-HDL CHOLESTEROL 165(H) <130 mg/dL (calc) [facility] Comment: For patients with diabetes plus 1 major ASCVD risk factor, treating to a non-HDL-C goal of <100 mg/dL (LDL-C of <70 mg/dL) is considered a therapeutic option. Blood Blood / Unknown 07/19/2024 3 :43 PM EDT 07/19/2024 3:43 PM EDT Narrative [facility] - 07/20/2024 3:49 AM EDT FASTING:NO [employer] NE[facility] LAB - BLOOD DRAW Fin al Result [facility] [address] [address], [facility] [address] [place] [phone] * (ABNORMAL) BLOOD COUNT COMPLETE AUTO&AUTO DIFRNTL WBC (07/19/2024 3:43 PM EDT) [facility] WHITE BLOOD CELL COUNT 8.2 3.8 - 10.8 Thousand/ uL [facility] [facility] RED BLOOD CELL COUNT 4.01 3.80 - 5.10 Million/u L [facility] HEMOGLOBIN 12.7 11.7 - 15.5 g/dL [facility] HEMATOCRIT 38.3 35.0 - 45.0 % [facility] MCV 95.5 80.0 - 100.0 fL [facility] MCH 31.7 27.0 - 33.0 pg [facility] MCHC 33.2 32.0 - 36.0 g/dL [facility] Comment: For adults, a slight decrease in the calculated MCHC value (in the range of 30 to 32 g/dL) is most likely not clinically significant; however, it should be interpreted with caution in correlation with other red cell parameters and the patient's clinical condition. RDW 11.5 11.0 - 15.0 % [facility] PLATELET COUNT 215 140 - 400 Thousand/ uL [facility] MPV 13.0(H) 7.5 - 12.5 fL [facility] ABSOLUTE NEUTROPHILS 3,223 1,500 - 7,800 cells/uL [facility] ABSOLUTE LYMPHOCYTES 4,182(H) 850 - 3,900 cells/uL [facility] ABSOLUTE MONOCYTES 451 200 - 950 cells/uL [facility] ABSOLUTE EOSINOPHILS 262 15 - 500 cells/uL [facility] ABSOLUTE BASOPHILS 82 0 - 200 cells/uL [facility] NEUTROPHILS PCT 39.3 % [employer] LYMPHOCYTES 51.0 % [facility] MONOCYTES 5.5 % [facility] EOSINOPHILS 3.2 % [facility] BASOPHILS 1.0 % [facility] Blood Blood / Unknown 07/19/2024 3 :43 PM EDT 07/19/2024 3:43 PM EDT Narrative [facility] - 07/20/2024 3:49 AM EDT FASTING:NO [employer] NE[facility] LAB - BLOOD DRAW Bobo jimmy Result - Final [facility] [address] [address], [facility] [address] [place] [address] * (ABNORMAL) COMPREHENSIVE METABOLIC PANEL (07/19/2024 3:43 PM EDT) GLUCOSE 259(H) 65 - 139 mg/dL [facility] Comment: ?Non-fasting reference interval UREA NITROGEN (BUN) 10 7 - 25 mg/dL [facility] CREATININE (blood) 0.77 0.50 - 1.03 mg/dL [facility] EGFR 93 > OR = 60 mL/min/1. 73m2 [facility] BUN/CREATININE RATIO SEE NOTE: [facility] Comment: ?? Not Reported: BUN and Creatinine are within ?? reference range. ? SODIUM 139 135 - 146 mmol/L [facility] POTASSIUM 3.9 3.5 - 5.3 mmol/L [facility] CHLORIDE 104 98 - 110 mmol/L [employer] [facility] CARBON DIOXIDE 29 20 - 32 mmol/L [employer] [facility] CALCIUM 9.5 8.6 - 10.4 mg/dL [employer] [facility] PROTEIN, TOTAL 7.0 6.1 - 8.1 g/dL [employer] [facility] ALBUMIN 4.6 3.6 - 5.1 g/dL [employer] [facility] GLOBULIN 2.4 1.9 - 3.7 g/dL (calc) [employer] [facility] ALBUMIN/GLOBULI N RATIO 1.9 1.0 - 2.5 (calc) [employer] [facility] BILIRUBIN, TOTAL 0.5 0.2 - 1.2 mg/dL [employer] [facility] ALKALINE PHOSPHATASE 121 37 - 153 U/L [employer] [facility] AST 21 10 - 35 U/L [employer] [facility] ALT 26 6 - 29 U/L [employer] [facility] Blood Blood / Unknown 07/19/2024 3 :43 PM EDT 07/19/2024 3:43 PM EDT Narrative [employer] [facility] - 07/20/2024 3:49 AM EDT FASTING:NO Millicent Coppola [facility] LAB - BLOOD DRAW Fin al Result [employer] [address] [address], [employer] [address] [address] * FLU A&B (POCT) (07/17/2024 1:52 PM EDT) INFLUENZA A NEGATIVE NEGATIVE [facility] POCT INFLUENZA B NEGATIVE NEGATIVE [facility] POCT INTERNAL CONTROL PASS PASS [facility] POCT Swab (Swab) 07/17/2024 1:52 PM EDT Marge Quinones EMPLOYEE RELATION MANAGER LAB BODY FLUIDS AND STOOLS A MBULATORY Final Result [facility] POCT * MICROALBUMIN/CREATININE RATIO, URINE, RANDOM (07/17/2024 12:03 PM EDT) CREATININE, RANDOM URINE 136 20 - 275 mg/dL [facility] MICROALBUMIN 0.6 mg/dL [employer] [facility] Comment: Reference Range Not established MICROALBUMIN/CREA TININE RATIO, RANDOM URINE 4 <30 mg/g creat [facility] Comment: The ADA defines abnormalities in albumin excretion as follows: Albuminuria Category ?Result (mg/g creatinine) Normal to Mildly increased ?? <30 Moderately increased ? 30-299 Severely increased ? > OR = 300 The ADA recommends that at least two of three specimens collected within a 3-6 month period be abnormal before considering a patient to be within a diagnostic category. Urine Urine specimen / Unknown 07/17/2024 12:03 PM EDT 07/17/2024 12:04 PM EDT [employer] LAB URINE AMBULATORY Concha l Result [facility] [address] [place] [address], [employer] [address] [address] * (ABNORMAL) HEMOGLOBIN GLYCOSYLATED A1C (07/17/2024 12:03 PM EDT) Pathologist [facility] HEMOGLOBIN A1C 7.7(H) <5.7 % [employer] [facility] Comment: For someone without known diabetes, a hemoglobin A1c value of 6.5% or greater indicates that they may have diabetes and this should be confirmed with a follow-up test. For someone with known diabetes, a value <7% indicates that their diabetes is well controlled and a value greater than or equal to 7% indicates suboptimal control. A1c targets should be individualized based on duration of diabetes, age, comorbid conditions, and other considerations. Currently, no consensus exists regarding use of hemoglobin A1c for diagnosis of diabetes for children. ?? Blood Blood / Unknown 07/17/2024 1 2:03 PM EDT 07/17/2024 12:04 PM EDT [employer] PharmD LAB - BLOOD DRAW Edited R esult - Final Performing Organization Address City/[facility]/ZIP Co de Phone Number [employer] [address] [address], [employer] [address] [address] * MEDICATIONS SCANNED DOCUMENT (07/13/2024 3:00 AM EDT) 07/13/2024 3:00 AM EDT Raina Benitez EMPLOYEE RELATION MANAGER SCAN MEDS OTHER ORDERS Final R esult * HIV 1/2 AG & AB W/RFLX (4TH GEN) (01/11/2024 9:11 AM EDT) HIV AG/AB, 4TH GEN NON-REAC TIVE NON-REAC TIVE [employer] [facility] Comment: HIV-1 antigen and HIV-1/HIV-2 antibodies were not detected. There is no laboratory evidence of HIV infection. PLEASE NOTE: This information has been disclosed to you from records whose confidentiality may be protected by state law. ??If your state requires such protection, then the state law prohibits you from making any further disclosure of the information without the specific written consent of the person to whom it pertains, or as otherwise permitted by law. A general authorization for the release of medical or other information is NOT sufficient for this purpose. ?? For additional information please refer to http://education.[employer]/faq/JWV681 (This link is being provided for informational/ educational purposes only.) The performance of this assay has not been clinically validated in patients less than 2 years old. Blood Blood / Unknown 01/11/2024 9 :11 AM EDT 01/11/2024 9:12 AM EDT Narrative [facility] - 01/12/2024 10:23 AM EDT PATIENT UNABLE TO VOID; ADVISED TO RETURN FOR COLLECTION. Jaren Cope EMPLOYEE RELATION MANAGER-C LAB - BLOOD DRAW Final Re sult [facility] [address] [address], [employer] [address] [address] * EYE EXAM (11/29/2023 3:00 AM EDT) 11/29/2023 3:00 AM EDT Raina Benitez [facility] OTHER Edited Result - Final * REFERRAL TO PODIATRY (11/03/2023 3:00 AM EDT) 11/03/2023 3:00 AM EDT Barbara Donna [facility] REFERRAL Final Res ult * HISTORIC MAMMOGRAM (08/07/2022 3:00 AM EDT) 08/07/2022 3:00 AM EDT Raina Benitez [facility] IMG MAMMO Edited Result - Final * HEPATITIS PANEL W/RFLX (09/18/2020 10:55 AM EDT) HEPATITIS A IGM ANTIBODY NON-REACT JASON NON-REACT JASON [employer] [facility] COMMENT [employer] [facility] HEPATITIS B SURFACE ANTIGEN NON-REACT JASON NON-REACT JASON [employer] [facility] HEPATITIS B CORE IGM ANTIBODY NON-REACT JASON NON-REACT JASON [employer] [facility] HEPATITIS C ANTIBODY NON-REACT JASON NON-REACT JASON [employer] [facility] SIGNAL TO CUT-OFF 0.01 <1.00 [employer] [facility] Comment: HCV antibody was non-reactive. There is no laboratory evidence of HCV infection. In most cases, no further action is required. However, if recent HCV exposure is suspected, a test for HCV RNA (test code 13031) is suggested. For additional information please refer to http://education.[employer]/faq/HWS48x8 (This link is being provided for informational/ educational purposes only.) Blood Blood / Unknown 09/18/2020 1 0:55 AM EDT 09/18/2020 10:56 AM EDT Narrative [facility] - 09/18/2020 9:07 PM EDT For additional information, please refer to http://education.[employer]/faq/LIB674 (This link is being provided for informational/ educational purposes only.) Raina Josesamir EMPLOYEE RELATION MANAGER LAB - BLOOD DRAW Edited Result - Final [facility] [address] [facility] [address] [place] [address], [facility] [address] [address] * PAP SMEAR W/HPV (08/17/2019 1:00 PM EDT) PAP SMEAR INTERPRETATION NORMAL NORMAL [facility] HPV (HUMAN PAPILLOMA) NEGATIVE NEGATIVE [facility] HPV TYPE 16 NEGATIVE NEGATIVE [facility] HPV TYPE 18 NEGATIVE NEGATIVE [facility] Cytologic material (specimen) 08/17/2019 1:00 PM EDT Impressions [facility] - 11/16/2019 9:59 AM EDT ThinPrep-A typical squamous cells of undetermined significance (ASCUS) Provider [facility] - PATHOLOGY AND CYTOLOGY AMB ULATORY Final Result Performing Organization Address City/[facility]/ZIP Co de Phone Number [facility] [address] [place] [address], * HISTORIC COLONOSCOPY (08/08/2015 3:00 AM EDT) 08/08/2015 3:00 AM EDT Raina Josesamir EMPLOYEE RELATION MANAGER PROCEDURES Final Result from Last 3 Months or Most Recently Relevant to Health Maintenance Insurance [place] [address] [employer] Care Teams Mandrel Maker Relationship Specialty Start Date End Date Raina Benitez FNP [address] [place] [address] PCP - General Internal Medicine 10/19/18
--- NOTE | 2024-08-31 09:58 | MHC.OFFVIS ---
Vital Signs 08/31/24 09:59 Height 4 ft 9 in Weight 133 lb BMI 28.8 BP 120/68 Blood Pressure Location Rt brachial Position Sitting Pulse 78 Pulse Source Pulse Oximeter Pulse Oximetry (%) 97 Oxygen Delivery Method Room Air Intake Visit Reasons: Follow Up 6mo Intake Note: Follow up ELIA Venipuncturist Required: No Accompanied by: Self / Same As Patient Allergies Latex, Natural Rubber Allergy (Mild, Verified 08/31/24 10:01) Hives acetaminophen [From Percocet] Allergy (Unknown, Verified 08/31/24 10:01) Itching adhesive Allergy (Unknown, Verified 08/31/24 10:01) Hives hydrocodone Allergy (Unknown, Verified 08/31/24 10:01) Itching oxycodone Allergy (Unknown, Verified 08/31/24 10:01) Itching Medication List - Last Reconciled 08/31/24 by CHIN Baxter albuterol sulfate 90 mcg/actuation (ProAir HFA) 2 puffs inhalation Q4H PRN alendronate 70 mg PO QWEEK amitriptyline 50 mg PO BEDTIME amoxicillin-pot clavulanate 500-125 mg (Augmentin) 1 tab PO Q8H 10 days aripiprazole 30 mg PO DAILY armodafinil 250 mg PO QAM 30 days ascorbic acid (vitamin C) 1 g PO DAILY 90 days atorvastatin 80 mg PO BEDTIME blood-glucose sensor (Webvanta G6 Sensor device) As directed budesonide-formoterol 80-4.5 mcg/actuation (Symbicort) 2 puffs inhalation BID clindamycin HCl 300 mg PO TID 7 days diclofenac sodium 1% grams topical BID PRN estradiol 0.01%(0.1mg/gram) grams vaginal 3XW fluconazole 150 mg PO Q3D 2 doses fluticasone propionate 50 mcg/actuation 1 spray intranasal BID fosfomycin tromethamine 3 grams PO Q3D 9 days hydroxyzine pamoate 50 mg PO TID PRN insulin glargine (Lantus Solostar U-100 Insulin) units subcut insulin lispro-aabc (Lyumjev KwikPen U-100 Insulin) 28 units subcut TID lancets (FreeStyle Lancets) As directed loratadine 10 mg PO DAILY meloxicam 15 mg PO DAILY PRN methenamine hippurate 1 g PO DAILY 90 days methylphenidate HCl (Ritalin) 10 mg PO QPM 30 days montelukast 10 mg PO DAILY pantoprazole 40 mg PO BID pen needle, diabetic (BD [place] 2nd Gen Pen Needle) As directed pen needle, diabetic (BD Ultra-Fine Mini Pen Needle) As directed pregabalin 200 mg PO TID 30 days propranolol 10 - 20 mg (1 - 2 x 10 mg) PO BID PRN 90 days sertraline 50 mg PO DAILY tiotropium bromide 1.25 mcg/actuation (Spiriva Respimat) 2 puffs inhalation DAILY HPI Comments Details: 49-yr-old female presents for f/u visit. Pt reports in mid-July, she had URI, double ear infection, a/w chills, anorexia, weight loss, a a few more increased epsiodes of tachycardia x's 3 weeks- states was negative for Flu/RSV/EBV/Covid-19- eventually was tx'd w/ a course of Amoxicillin and has recently started to feel better. But in the last day, she is started having night sweats, chills- feels different from hot flashes. Pt did have the left hand trigger finger repair through [facility]- did post-surgical PT, and her feels better. Pt states her right hand pain is better. However, she continues to have bilateral hand weakness, difficulty with opening cereal bags, and opening jars. Reports her daytime sleepiness is overall well controlled on her current regimen. Armodafinil 250mg helps w/ the early day hypersomnia, but does wear off by 2:30-3pm. Ritalin at 3pm continues to be effective for helping her stay awake through 9:30pm which is bedtime. She continues to have intermittent tachycardia- less often overall. Propranolol is still effective- rarely need to take 2 doses of Propranolol. She did have an interval bone density scan, which showed worsening osteoporosis despite fosamax use. Noticing increased back pain, using her muscle relaxers prn again. She notices that when she does too much RLE activity/exercise, she will have increased RLE pain, right lower back swelling x's 2-3 days. She is noticing difficulties lifting her right foot, even with her right AFO on. The other day, tripped over her threshhold. She states the pregablin is helping the pain, but not the RLE becoming tired. States she is supposed to be referred to rheumatology- but the referral has not gone through yet. Dr Prince at [facility] previously advised against surgical intervention for her low back pain, as he felt that more harm than good would be achieved if pt underwent f/u lumbar repair. In the past, tried water aerobics- but she states she could not keep her body temp up- was just shivering. [facility] Medical History Arthritis GERD (gastroesophageal reflux disease) Osteoporosis HLD (hyperlipidemia) Diabetes mellitus Syncope Surgical History H/O hand surgery History of hysterectomy Family History Father Cancer Mother HTN (hypertension) Social History Alcohol intake: never Patient Tobacco Use Status: Former Tobacco user Physical Exam Vital Signs: Last Vital Signs Pulse 78 08/31/24 09:59 BP 120/68 08/31/24 09:59 Pulse Ox 97 08/31/24 09:59 Oxygen Delivery Method Room Air 08/31/24 09:59 BMI result Body Mass Index 28.8 Const General: cooperative and no acute distress Orientation/consciousness: patient oriented x3 Resp Effort & Inspection: normal respiratory effort and able to speak in complete sentences Neuro Other: LLE MS 5/5 RLE MS 5-/5 in hip flexor. Right high step, but steady w/ cane General: patient oriented x3 Cranial nerves: Yes CN's II-XII intact bilaterally Cognition (Neuro): normal cognition Deep tendon reflexes (DTR's): Right patellar reflex intensity grade: 2+ and Left patellar reflex intensity grade: 2+ Psych Appearance: grossly normal Mental Status: mental status grossly normal Speech and movement: Normal speech and movement present Affect: normal affect Attitude: cooperative Assessment & Plan Assessment & Plan (1) Osteoporosis: Code(s): M81.0 - Age-related osteoporosis without current pathological fracture Category: Medical (2) Hypersomnia: Comment: MSLT- NL Code(s): G47.10 - Hypersomnia, unspecified Category: Medical (3) Obstructive sleep apnea: Code(s): G47.33 - Obstructive sleep apnea (adult) (pediatric) Category: Medical (4) Paresthesia of right lower extremity: Code(s): R20.2 - Paresthesia of skin Category: Medical (5) Hand pain: Code(s): M79.643 - Pain in unspecified hand Category: Medical (6) Weakness: Code(s): R53.1 - Weakness Category: Medical (7) Sinus tachycardia: Code(s): R00.0 - Tachycardia, unspecified Category: Medical Plan For hand pain: bilateral hand pain improved s/p bilateral hand repair. Try simple home hand and finger strengthening exercises- information shared with patient For back pain in setting of osteoporosis: meloxicam as needed. we will request rheumatology consult For neuralgic pain: Continue pregabalin 200mg tid. Slowly increase physical exercise. Future considerations- referral back to graded PT. ? For ELIA and hypersomnia: Continue Armodafinil 250mg qam. Continue Methylphenidate 10mg q afternoon, hold for HR > 100. Continue Propranolol 10-20mg prn sinus tachycardia. patient needs to bring her CPAP machine to the respiratory company to have compliance data retrieved ? Pt to follow-up in 6 months or sooner prn. Orders: Referrals Rheumatology Referral M81.0 - Age-related osteoporosis without current pathological fracture Coding Level of Care Code Est Pt Level 4 (31445) Diagnoses Osteoporosis M81.0 Hypersomnia G47.10 Obstructive sleep apnea G47.33 Paresthesia of right lower extremity R20.2 Hand pain M79.643 Weakness R53.1 Sinus tachycardia R00.0
[2024-08-31 09:59] VITALS: BP 120/68; PULSE 78; O2SAT 97; BMI 28.8
== END 2024-08-31 10:52 | disposition home or self-care (01) ==
LOC: HO.HSMS 09:24
PROVIDERS: PCP Nurse Practitioner Family; Visit Provider Nurse Practitioner Family
DX: M81.0 Age-related osteoporosis without current pathological fracture (principal); G47.10 Hypersomnia, unspecified; G47.33 Obstructive sleep apnea (adult) (pediatric); R20.2 Paresthesia of skin; M79.643 Pain in unspecified hand; R53.1 Weakness; R00.0 Tachycardia, unspecified
CPT/HCPCS: 99214

== ENCOUNTER → 2024-08-31 09:23 | Outpatient (BNVA) | payer MEDICAID, SELFPAY | PROVIDERS: PCP Nurse Practitioner Family; Visit Provider Nurse Practitioner Family | DX: G47.33 Obstructive sleep apnea (adult) (pediatric) (principal); G47.10 Hypersomnia, unspecified; M81.0 Age-related osteoporosis without current pathological fracture; R20.2 Paresthesia of skin; M79.643 Pain in unspecified hand; R53.1 Weakness; R00.0 Tachycardia, unspecified | CPT/HCPCS: 99212 ==

== ENCOUNTER 2024-10-16 09:55 | Outpatient (REF) | payer MEDICAID, SELFPAY ==
--- OUTSIDE RECORDS SUMMARY | 2024-10-16 10:28 | XMS_ITS | Clinical Summary ---
Author Organization [facility] Address [address] [place] [address] Care Team Providers Care Project Control Analyst Name Role Phone Raina Benitez CHIN Primary Care Provider [phone] Source Comments PLEASE NOTE, if this patient is a minor, it may be UNLAWFUL to discuss sensitive information that is contained in these records (such as FAMILY PLANNING, MENTAL HEALTH or SUBSTANCE ABUSE) with the minor patient's parent or other person without the patient's specific authorization.[facility] Allergies Active Allergy Reactions Criticality Noted Date Comments Adhesive 11/26/2018 Adhesive reaction to Rosa Isela Sensor Atorvastatin Other (See Comments) 09/25/2024 Bilateral feet/sole paresthesias w/ atorvastatin only Dulaglutide Other (See Comments) 03/31/2021 Abd pain [...] Ht: 4'10 Wt:123 lb. 1 Each 0 016 Active miscellaneous medical supply miscIndications:D egenerative disc disease, lumbar,Unsteady gait,Chronic bilateral low back pain without sciatica Order Shower chair, use daily. Need lifetime. 1 Each 021 Active miscellaneous medical supply miscIndications:O SA on CPAP by miscellaneous route once daily Order CPAP tubing. Pressure: 7 mmhg, daily. Dx:G47.33, Z99.89. Need: lifetime 1 Each 1 021 Active blood pressure monitorIndication s:Uncontrolled type 2 diabetes mellitus with hyperglycemia ([facility]),Hx of syncope Check BP daily and prn. Dx: E11.65, Z87.898. Need; lifetime 1 Kit 022 Active blood-glucose meter monitoring kit Freestyle lite,E11.65 USE TWICE A DAY 1 Each 022 Active MISCELLANEOUS MEDICAL SUPPLY MISCIndications:F oot drop, right AFO brace for Rt foot. Dx:M21.371. Need: Lifetime. 1 Each 1 023 Active MISCELLANEOUS MEDICAL SUPPLY MISCIndications:C ubital tunnel syndrome on left order for left wrist brace with hard support with, velcro. Use daily. Need lifetime. 1 Each 1 023 Active MISCELLANEOUS MEDICAL SUPPLY MISCIndications:C hronic right hip pain,Degenerative disc disease, lumbar,Osteoarthr itis, unspecified osteoarthritis type, unspecified site,Other osteoporosis without current pathological fracture Tub transfer bench. Use daily as needed for mobility and to prevent falls. Lifetime need. 1 Each 024 Active pregabalin (LYRICA) 200 mg capsuleIndication s:Chronic left shoulder pain Take 200 mg by mouth 3 (three) times daily 024 Active armodafiniL (NUVIGIL) 250 mg tab tab Take 1 Tablet by mouth every morning (Prescribed by [facility]) Active methylphenidate (RITALIN) 10 mg tablet Take 1 Tablet by mouth every evening (Prescribed by [facility]) Active propranoloL (INDERAL) 10 mg tablet TAKE 1-2 TABLETS ORALLY 2 TIMES A DAY NEEDED FOR TACHYCARDIA FOR 90 DAYS (Prescribed by [facility]) Active SPIRIVA RESPIMAT 1.25 mcg/actuation mist Inhale 2 Puffs into the lungs daily. (Prescribed by [facility]) Active VENTOLIN HFA 90 mcg/actuation inhaler Inhale 2 Puffs into the lungs every 4 (four) hours as needed for shortness of breath or wheezing (Prescribed by [facility]) Active budesonide-formot Carmina (SYMBICORT) 80-4.5 mcg/actuation inhaler Inhale 2 Puffs into the lungs 2 (two) times daily (Prescribed by [facility]) Active montelukast (SINGULAIR) 10 mg tablet Take 1 Tablet by mouth once daily (Prescribed by [facility]) Active loratadine (CLARITIN) 10 mg tablet Take 1 Tablet by mouth daily (Prescribed by E[facility]) Active lancets (FREESTYLE LANCETS) 28 gaugeIndications: Type 2 diabetes mellitus with diabetic polyneuropathy, with long-term current use of insulin ([facility]) Use to test blood glucose three times daily. (Freestyle Lancets) 100 Each Active alcohol swabsIndications: Type 2 diabetes mellitus with diabetic polyneuropathy, with long-term current use of insulin ([facility]) Use to test blood glucose three times daily. 100 Each Active alendronate (FOSAMAX) 70 mg tabletIndications :Other osteoporosis without current pathological fracture TAKE 1 TABLET BY MOUTH EVERY 7 (SEVEN) DAYS FOR OSTEOPOROSIS 12 Tablet 3 Active pantoprazole (PROTONIX) 40 mg EC tablet TAKE 1 TABLET BY MOUTH TWICE A DAY 180 Tablet 1 Active blood sugar diagnostic (FREESTYLE LITE STRIPS) stripsIndications :Type 2 diabetes mellitus with diabetic polyneuropathy, with long-term current use of insulin ([facility]) USE DIRECTED TWICE A DAY 200 Each 2 Active insulin glargine (LANTUS SOLOSTAR U-100 INSULIN) 100 unit/mL (3 mL) penIndications:Ty pe 2 diabetes mellitus with diabetic mononeuropathy, with long-term current use of insulin ([facility]) Inject 40 Units into the skin nightly at bedtime increased dose 15 mL 5 025 Active diphenhydrAMINE (BENADRYL) 50 mg capsuleIndication s:Frontal sinusitis, unspecified chronicity Take 1 Capsule by mouth nightly at bedtime as needed for rhinitis 90 Capsule 025 Active blood-glucose sensor (DEXCOM G7 SENSOR) deviIndications:T ype 2 diabetes mellitus with diabetic mononeuropathy, with long-term current use of insulin ([facility]) Apply 1 sensor to back of upper arm every 10 days. Use to check glucose at least 3 times daily. (Dexcom G7 sensors) 3 Each 025 Active pen needle, diabetic (BD CARRIE 2ND GEN PEN NEEDLE) 32 gauge x ndleIndications:T ype 2 diabetes mellitus with diabetic polyneuropathy, with long-term current use of insulin ([facility]) USE TO INJECT INSULIN 5 TIMES A DAY 200 Each 11 025 Active insulin lispro-aabc (LYUMAZAMV KWIKPEN U-100 INSULIN) 100 unit/mLIndication s:Type 2 diabetes mellitus with hyperglycemia, without long-term current use of insulin ([facility]) INJECT SUBCUTANEOUSLY 4-28 UNITS THREE TIMES DAILY BEFORE MEALS UP TO 84 UNITS DAILY 30 mL 5 025 Active traMADoL (ULTRAM) 50 mg tablet TAKE 1 TABLET BY MOUTH EVERY 6 HOURS NEEDED FOR PAIN FOR 3 DAYS 025 Active sertraline (ZOLOFT) 100 mg tablet Take 100 mg by mouth once daily With food (prescribed by [facility] on [address]) 025 Active hydrOXYzine pamoate (VISTARIL) 50 mg capsule Take 1 Capsule by mouth 3 (three) times daily as needed for anxiety or sleep (Prescribed by [facility]) 025 Active fluticasone (FLONASE) 50 mcg/actuation nasal sprayIndications: Nasal congestion Place 1 [place] in both nostrils once daily 16 g 025 Active amitriptyline (ELAVIL) 50 mg tabletIndications :Chronic fatigue TAKE 1 TABLET BY MOUTH EVERYDAY AT BEDTIME 90 Tablet 025 Active semaglutide (RYBELSUS) 7 mg tabIndications:Ty pe 2 diabetes mellitus with diabetic mononeuropathy, with long-term current use of insulin ([facility]) Take 1 Tablet by mouth every morning before breakfast stop 3 mg 30 Tablet 5 Active conjugated estrogens (PREMARIN) 0.625 mg tabletIndications :Post-menopausal atrophic vaginitis Take 1 Tablet by mouth once daily. 30 Tablet 2 Active psyllium (METAMUCIL) packet Take 1 Packet by mouth 2 (two) times daily. 500 Packet 2 025 Active methenamine hippurate (HIPREX) 1 gram tab TAKE 1 TABLET BY MOUTH EVERY DAY ..START AFTER ANTIBIOTIC THERAPY Active fosfomycin (MONUROL) 3 gram pack DISSOLVE 3 G (1 PACKET) AND TAKE ORALLY EVERY 3 DAYS FOR 9 DAYS DIRECTED Active fluconazole (DIFLUCAN) 150 mg tablet TAKE 1 TABLET BY MOUTH EVERY 3 DAYS FOR 2 DOSES Active ascorbic acid, vitamin C, (VITAMIN C) 1,000 mg tablet Take 1,000 mg by mouth once daily. Active ARIPiprazole (ABILIFY) 20 mg tablet Take 20 mg by mouth every morning (Take with 5 mg - prescribed by [facility]). Active ARIPiprazole (ABILIFY) 5 mg tablet Take 5 mg by mouth every morning (Take with 20 mg - prescribed by [facility]). Active rosuvastatin (CRESTOR) 40 mg tabletIndications :Type 2 diabetes mellitus with diabetic mononeuropathy, with long-term current use of insulin ([facility]),Hyperlip idemia LDL goal <70 Take 1 Tablet by mouth nightly at bedtime For cholesterol Stop atorvastatin 80 mg. 90 Tablet 1 Active ARIPiprazole (ABILIFY) 30 mg tablet Take 1 Tablet by mouth every morning (Prescribed by [facility]) 024 2024 Discontinu ed(Quantit y/Dosage and/or Sig change) estradioL (ESTRACE) 0.01 % (0.1 mg/gram) vaginal cream APPLY DIME-SIZED AMOUNT TO EXTERNAL VAGINAL TISSUE 3X/WEEK 024 2024 Discontinu ed(Patient preference ) cephalexin (KEFLEX) 250 mg capsule Take 1 Capsule by mouth daily (Prescribed by [facility]) 025 2024 Discontinu ed(Patient Stopped Taking) atorvastatin (LIPITOR) 80 mg tabletIndications :Hyperlipidemia LDL goal <70 Take 1 Tablet by mouth nightly at bedtime For cholesterol 90 Tablet 1 025 2024 Discontinu ed(Adverse reaction (Comment)) clindamycin (CLEOCIN) 300 mg capsule TAKE 1 CAPSULE ORALLY 3 TIMES A DAY FOR 7 DAYS START ONE WEEK AFTER FINISHING FOSFOMYCIN DOSES 025 2024 Discontinu ed(Patient Stopped Taking) amoxicillin-pot clavulanate (AUGMENTIN) 500-125 mg per tablet TAKE 1 TABLET BY MOUTH EVERY 8 HOURS FOR 10 DAYS 025 2024 Discontinu ed(Therapy completed/ Not needed) Active Problems Problem Noted Date Diagnosed Date Tachycardia 08/14/2024 Overview (08/14/2024): 07/28/23 at [facility] Patient followed [place] neurology/sleep medicine [place] [facility] for extreme exhaustion . ELIA untreated due to CPAP intolerance/noncompliance. Multiple pulmonary nodules etiology unclear. Chronic cough, failure to respond to high dose PPI therapy. Arteriovenous malformation ([facility]) 04/06/2024 Overview (04/06/2024): CT chest [facility] 02/28/22 Impression: 1. No evidence of pulmonary thromboembolism is seen. 2. Branching nodular structure in the periphery of the left upper lobe, the appearance suggesting a (thrombosed) arteriovenous malformation. Short-term follow-up in 6 months recommended. History of tobacco use 02/28/2024 Overview (02/28/2024): Quit tobacco smoking 2020 Type 2 diabetes mellitus wit h diabetic mononeuropathy, with long-term current use of insulin ([facility]) 11/15/2023 Overview (09/25/2024): DM dx: ~2013 per patient reports Glucometer: Dexcom G7 Current Diabetes RX: Lantus Solostar - inject 40 units daily at bedtime Lyumjev - inject 4-28 units three times daily before meals according to sliding scale (max 84 units/day) Rybelsus 7 mg daily with breakfast ROBERTO-I/ARB: BP is well-controlled, urine microalbumin/Scr ratio is <30 mg/g as of 07/17/24, eGFR >60 mL/min/1.73m2 as of 07/19/24. Per KDIGO guidelines, patient is low-risk for microalbuminuria, will hold off on ROBERTO-I/ARB for now. Statin: Atorvastatin 80 mg daily every evening Pneumococcal vaccine: Per CDC no additional doses of any type of pneumococcal vaccine are recommended at this time PCV13 (04/27/17) PPSV23 (08/29/20) Diabetes foot exam: Follow-up 08/17/24 at [facility] 02/07/24 at [facility] Treatment options for recurring ingrown toenails were discussed Right foot treatment options were discussed and reviewed continue with CONCHITA monroe did discuss possible if his primary arthrodesis patient does not have enough of a deficit that I would recommend primary fusion at this time F/U 1-3 months 11/03/23 at [facility] Toenails trimmed and debrided, onychomycosis Diabetic mononeuropathy simplex (HCC) Continue with CONCHITA monroe right lower extremity F/U in 3 months Diabetes retinal exam: Follow-up November 2024 at [facility]. 11/29/23 at [facility] No PATCH SANDER/HTN retinopathy No CME/PATCH SANDER, no macular edema Myopia, astigmatism, presbyopia 11/24/22 at [facility] Bilateral: Internal hordeolum, both lids, responding to supportive treatment, condition is resolved Bilateral: headache Blurred VA, firecracker aura, condition is worse, c/o itch signs of allergy, responding to topical treatment, condition has improved No macular edema, no PATCH SANDER/HTN retinopathy Myopia, astigmatism, presbyopia Essential hypertension 10/18/2023 Chronic bilateral low back pain without sciatica 10/07/2023 Foraminal stenosis of lumbar region 10/07/2023 Overview (10/07/2023): 10/02/2023: [facility]: MRI of lumbar: FINDINGS: Retroaortic left renal [...] ng 07/29/2022 Osteoarthrosis 02/11/2022 Mild persistent asthma ([facility]) 02/11/2022 Fibromyositis 02/11/2022 Other osteoporosis without current pathological fracture 06/19/2019 Overview (05/10/2024): 04/18/2024: bone density: osteoporosis. 05/26/2019: [facility]: Bone density: Osteoporosis Early osteoporosis due to early hysterectomy Cubital tunnel syndrome, left 04/22/2019 Overview (04/22/2019): Sees [facility] ELIA on CPAP 04/12/2019 Overview (04/12/2019): Per [...] erythematous welt in the area under the Freestyle Rosa Isela Sensor Hyperlipidemia LDL goal <70 04/18/2015 Vasospasm ([facility]) 10/05/1997 Overview (09/26/2021): No blood draw and vesel closes up: saw vascular dr and did angiogram 1997. Always has numbness at left elbow to fingers. 06/17/2020: EMG report from [facility]: Impression: Normal motor and sensory nerve conduction study of the right lower extremity. Normal EMG of the right L4-S1 innervated muscles including right L4-S1 paraspinal muscles. There is voluntary hypo-performance in some muscles listed including gastrocnemius and Peroneus longus, which were otherwise normal. Anxiety Bipolar 2 disorder ([facility]) Overview (03/19/2015): [facility] counseling q week GERD (gastroesophageal reflux disease) Piriformis syndrome Fatty liver Overview (11/27/2020): 10/09/2020: [facility]: US of liver: FINDINGS: Liver: Diffusely echogenic parenchyma with focal sparing around the gallbladder. No suspicious lesion. Smooth hepatic contour. Main portal vein patent with normal hepatopetal direction of flow. Biliary Tree: No intrahepatic or extrahepatic bile duct dilation is identified. Common duct: 0.4 cm. IMPRESSION: Echogenic liver likely representing hepatic steatosis. No suspicious lesion. Degenerative disc disease, lumbar Autoimmune disorder ([facility]) History of hysterectomy with bilateral oophorect diann: 2003 Resolved Problems Problem Noted Date Diagnosed Date Resolved Date Type 2 diabetes mellitus wit hout complication, without long-term current use of insulin ([facility]) 07/19/2024 08/14/2024 Uses self-applied continuous glucose monitoring device 11/09/2022 01/13/2024 Kidney stones 02/11/2022 02/11/2022 retirement current use of ins ulin ([facility]) 03/31/2021 10/18/2023 Left shoulder tendinitis 03/31/202112/2021 Golfer's elbow, left 03/05/2019 022 Hematuria 11/17/2017 02/11/2022 Overview (11/17/2017): Seen at [facility] on 11-12-17 - sees urology. Reportedly given oxycodone by urology Left hand pain 09/09/2017 02/11/2022 Overview (09/09/2017): Normal soft tissue. No arthritic changes. Encounters Date Type Department Care Team Description 09/25/2024 1:40 PM EDT Office Visit [address] [phone] Air Michele, PharmD 09/20/2024 10:20 AM EDT Office Visit [address] [phone] Millicent Coppola FNP 09/12/2024 Interim Notes [address] [phone] Tho Peralta MA 08/14/2024 9:40 AM EDT Office Visit [address] [phone] Ari Michele, PharmD 07/26/2024 Interim Notes [address] [phone] Millie Montoya [place] 07/25/2024 Interim Notes [address] [phone] Mariah Gustafson MA 07/23/2024 Results Follow-Up [address] [phone] Marge Quinones FNP 07/19/2024 3:00 PM EDT Office Visit [address] [phone] Millicent Coppola FNP 07/18/2024 Results Follow-Up [address] [phone] Ari Michele, Shiela 07/17/2024 11:20 AM EDT Office Visit [address] [phone] Marge Quinones FNP from Last 3 Months Immunizations Immunization Administration Dates Next Due Flu, Cell Culture based, Pre servative Free, 6m+, Flucelvax 01/17/2018 Flu, Preservative Free 01/30/2023,2021,01/09/2021,12/31,01/05/2019 Hep B, Adult/Adol (CHWLDTS-G-JNCSX/RECOMBIVAX-ADULT) 03/22/2018,02/17/2018,08/31/2017 INFLUENZA, SEASONAL, INJECTABLE 12/25/2016 Influenza (FLUBLOK),recombinant,injectable,prese rvative Free 01/13/2024 Moderna COVID-19 Vaccine, re d cap blue label, 12+ Primary Series 10/27/2021,03/17/2021,07/05/2020,06/07 PNEUMOCOCCAL CONJUGATE PCV 13 04/27/2017 PNEUMOCOCCAL POLYSACCHARIDE PPV23 (Pneumovax 23) 08/29/2020 TDAP 04/27/2017,05/29/2015 ZOSTER VACCINE, RECOMBINANT (SHINGRIX) ,03/12/2023 Family History Medical History Relation Name Comments [...] Sign Reading Time Taken Comments Blood Pressure 100/60 09/25/2024 1:42 PM EDT Pulse 75 09/25/2024 1:42 PM EDT Temperature 36.9 C (98.5 F) 09/20/2024 10:07 AM EDT Respiratory Rate 16 09/25/2024 1:42 PM EDT Oxygen Saturation 98% 09/25/2024 1:42 PM EDT Inhaled Oxygen Concentration - - Weight 57.2 kg (126 lb) 09/25/2024 1:42 PM EDT Height 149.9 cm (4' 11 ) 09/25/2024 1:42 PM EDT Body Mass Index 25.45 09/25/2024 1:42 PM EDT Plan of Treatment Upcoming Encounters Date Type Department Care Team (Late st Contact Info) Description 10/26/2024 2:00 PM EDT Office Visit [facility] [address] [place] [phone] Ari Michele, PharmD [address] [place] [address] Health Maintenance Due Date Last Done Comments CT Colonography 2018 FIT/gFOBT 2018 Fecal DNA 2018 Flexible Sigmoidoscopy 2018 Dental BW 09/01/2022 08/30/2021 Dental Prophy 04/26/2023 10/22/2022, 08/30/2021 Breast Cancer Screening (Mammogram) 08/08/2023 08/07/2022, 05/16/2021, 12/27/2017 Dental Examination 10/25/2023 10/22/2022, 0 08/30/2021, 10/03/2020 Non-PMCPZ-83 ( season) 2023 10/27/2021, 03/17/2021, 07/05/2020, Additional history exists Cervical Cancer Screening 08/16/2024 HPV Screening 08/16/2024 08/17/2019 Pap + HPV 08/16/2024 08/17/2019 Pap Smear 08/16/2024 08/17/2019, 04/05 (Managed by Outside Provider) Hemoglobin A1c 10/16/2024 07/17/2024, 02/03, 10/13/2023, Additional history exists Tobacco Screening 10/17/2024 10/18/2023, , 04/27/2017 Diabetes Foot Exam 11/02/2024 11/03/2023, 0 10/29/2022, 07/24/2021, Additional history exists Retinopathy Screening 11/28/2024 11/29/2023 , 11/24/2022, 11/28/2020, Additional history exists Imm-Influenza (#1) 2024 01/13/2024, 1 , 01/23/2022, Additional history exists Depression Monitoring 12/21/2024 09/20/2024 , 06/14/2024, 10/13/2023, Additional history exists Annual Wellness (Adult): Indicated (All Coverage) 02/17/2025 02/18/2024, 10/29/2022, 09/05/2021, Additional history exists Urine Albumin Creatinine Rat io Screening 07/17/2025 07/17/2024, 07/09/2023, 10/28/2022, Additional history exists Lipid Screening 07/19/2025 07/19/2024, 10/03, 07/09/2023, Additional history exists Serum Creatinine 07/19/2025 07/19/2024, 01/2024, 07/09/2023, Additional history exists Colonoscopy 08/07/2025 08/08/2015 Colorectal Cancer Screening 08/07/2025 Imm-Pneumococcal 50+ (3 of 3 - PCV20 or PCV21) 08/29/2025 08/29/2020, 04/27/2017 Anxiety Screening 09/20/2025 09/20/2024 Dental FMX/Pano 09/01/2026 08/30/2021 Imm-DTaP/Tdap/Td (3 - Td or Tdap) 04/27/2027 018, 05/29/2015 Imm-Hepatitis B Discontinued 03/22/2018, 02/03, 08/31/2017 Hepatitis C Screening Completed 09/18/2020, 021 Imm-Zoster, Recombinant Completed 06/15/2023, 03/12 HIV Screening Completed 01/11/2024, 06/2018, 04/27/2017, Additional history exists Alcohol and Drug Screen Completed 04/06/19 25, 10/13/2023, 06/16/2023, Additional history exists Cervical Ablation/Cold-Knife Conization Discontinued Cervical Cryotherapy Discontinued Colposcopy Discontinued Endometrial Biopsy Discontinued Excision/Leep Discontinued HPV Genotyping Discontinued Vaginal Pap Discontinued Vulvoscopy Discontinued Procedures Procedure Name Priority Date/Time Associated Diagnosis Comments GLUCOSE, BLOOD BY GLUCOSE MONITORING DEVICE (CLIA WAIVED)POCT Routine 09/25/2024 1:43 PM EDT Type 2 diabetes mellitus with diabetic mononeuropathy, with long-term current use of insulin ([facility]) GLUCOSE, BLOOD BY GLUCOSE MONITORING DEVICE (CLIA WAIVED)POCT Routine 08/14/2024 10:32 AM EDT Type 2 diabetes mellitus with diabetic mononeuropathy, with long-term current use of insulin ([facility]) HETEROPHILE ANTIBODIES SCREEN Routine 07/19/2024 3:44 PM EDT Viral upper respiratory tract infection LIPIDS W RFLX TO DIRECT LDL Routine 07/19/2024 3:43 PM EDT Type 2 diabetes mellitus without complication, without long-term current use of insulin ([facility]) TSH W/RFLX FREE T4 Routine 07/19/2024 3: 43 PM EDT Type 2 diabetes mellitus without complication, without long-term current use of insulin ([facility]) BLOOD COUNT COMPLETE AUTO&AUTO DIFRNTL WBC Routine 07/19/2024 3:43 PM EDT Type 2 diabetes mellitus without complication, without long-term current use of insulin ([facility]) COMPREHENSIVE METABOLIC PANEL Routine 07/19/2024 3:43 PM EDT Type 2 diabetes mellitus without complication, without long-term current use of insulin ([facility]) INFLUENZA A AND B, ALERE (POCT) Routine 07/17/2024 1:52 PM EDT Viral upper respiratory tract infection MICROALBUMIN/CREATININ E RATIO, URINE, RANDOM Routine 07/17/2024 12:03 PM EDT Type 2 diabetes mellitus with diabetic mononeuropathy, with long-term current use of insulin ([facility]) HEMOGLOBIN GLYCOSYLATED A1C Routine 07/17/2024 12:03 PM EDT Type 2 diabetes mellitus with diabetic mononeuropathy, with long-term current use of insulin ([facility]) HIV 1/2 AG & AB W/RFLX (4TH GEN) Routine 01/11/2024 9:11 AM EDT Screening examination for venereal disease EYE EXAM 11/29/2023 3:00 AM EDT REFERRAL TO PODIATRY Routine 11/03/2023 3:00 AM EDT Type 2 diabetes mellitus with hyperglycemia, with long-term current use of insulin ([facility]) Ingrown toenail of both feet HISTORIC MAMMOGRAM [...] BY GLUCOSE MONITORING DEVICE (CLIA WAIVED)POCT Routine (09/25/2024 1:43 PM EDT) Only the most recent of2 resultswithin the time period is included. GLUCOSE 157(A) 70 - 100 mg/dL [facility]- BACK OFFICE POCT Capillary Blood Blood / Unknown 1:43 PM EDT Ari Michele PharmD LAB - BLOOD DRAW Final Re sult [facility]- BACK OFFICE POCT * HETEROPHILE ANTIBODIES SCREEN (07/19/2024 3:44 PM EDT) HETEROPHILE, MONO SCREEN NEGATIVE NEGATIVE [facility] Venous Blood Blood / Unknown 07/19/2024 3 :44 PM EDT 07/19/2024 3:45 PM EDT Narrative [facility] - 07/20/2024 3:08 PM EDT FASTING:NO Marge Quinones LICENSING COORDINATOR LAB - BLOOD DRAW Final Resul t [facility] [address] [address], [facility] [address] [address] * TSH W/RFLX FREE T4 (07/19/2024 3:43 PM EDT) TSH W/REFLEX TO FT4 1.27 0.40 - 4.50 mIU/L [facility] Comment: Reference Range > or = 20 Years 0.40-4.50 Ranges First trimester 0.26-2.66 Second trimester 0.55-2.73 Third trimester 0.43-2.91 Blood Blood / Unknown 07/19/2024 3 :43 PM EDT 07/19/2024 3:43 PM EDT Narrative [facility] - 07/20/2024 3:49 AM EDT FASTING:NO Millicent NEELY LAB - BLOOD DRAW Bobo jimmy Result - Final [facility] [address] [place] [address], [facility] [address] [place] [phone] * (ABNORMAL) LIPIDS W RFLX TO DIRECT LDL (07/19/2024 3:43 PM EDT) Pathologist [facility] CHOLESTEROL, TOTAL 211(H) <200 mg/dL [facility] HDL CHOLESTEROL 46(L) > OR = 50 mg/dL [facility] TRIGLYCERIDES 164(H) <150 mg/dL [facility] LDL-CHOLESTEROL 135(H) 99 mg/dL (calc) [facility] Comment: Reference range: <100 Desirable range <100 mg/dL for primary prevention; <70 mg/dL for patients with CHD or diabetic patients with > or = 2 CHD risk factors. LDL-C is now calculated using the Pete-Hannah calculation, which is a validated novel method providing better accuracy than the Friedewald equation in the estimation of LDL-C. Pete SS et al. ALFREDO. 2013;310(19): 9424-4545 (http://education.Tixers/faq/KKM721) CHOL/HDLC RATIO 4.6 <5.0 (calc) [facility] NON-HDL CHOLESTEROL 165(H) <130 mg/dL (calc) [facility] Comment: For patients with diabetes plus 1 major ASCVD risk factor, treating to a non-HDL-C goal of <100 mg/dL (LDL-C of <70 mg/dL) is considered a therapeutic option. Blood Blood / Unknown 07/19/2024 3 :43 PM EDT 07/19/2024 3:43 PM EDT Narrative [facility] - 07/20/2024 3:49 AM EDT FASTING:NO Millicent NEELY LAB - BLOOD DRAW Fin al Result [facility] [address] [address], [employer]. [address] [address] * (ABNORMAL) BLOOD COUNT COMPLETE AUTO&AUTO DIFRNTL WBC (07/19/2024 3:43 PM EDT) WHITE BLOOD CELL COUNT 8.2 3.8 - 10.8 Thousand/ uL [facility] RED BLOOD CELL COUNT 4.01 3.80 - 5.10 Million/u L [facility] HEMOGLOBIN 12.7 11.7 - 15.5 g/dL [facility] HEMATOCRIT 38.3 35.0 - 45.0 % [facility] MCV 95.5 80.0 - 100.0 fL [facility] MCH 31.7 27.0 - 33.0 pg [facility] MCHC 33.2 32.0 - 36.0 g/dL [facility] Comment: For adults, a slight decrease in the calculated MCHC value (in the range of 30 to 32 g/dL) is most likely not clinically significant; however, it should be interpreted with caution in correlation with other red cell parameters and the patient's clinical condition. RDW 11.5 11.0 - 15.0 % [facility] PLATELET COUNT 215 140 - 400 Thousand/ uL [facility] MPV 13.0(H) 7.5 - 12.5 fL [facility] ABSOLUTE NEUTROPHILS 3,223 1,500 - 7,800 cells/uL [facility] ABSOLUTE LYMPHOCYTES 4,182(H) 850 - 3,900 cells/uL [facility] ABSOLUTE MONOCYTES 451 200 - 950 cells/uL [facility] ABSOLUTE EOSINOPHILS 262 15 - 500 cells/uL [facility] [employer] [facility] ABSOLUTE BASOPHILS 82 0 - 200 cells/uL [employer] [facility] NEUTROPHILS PCT 39.3 % [employer] [facility] LYMPHOCYTES 51.0 % [facility] MONOCYTES 5.5 % [facility] [facility] EOSINOPHILS 3.2 % [facility] BASOPHILS 1.0 % [facility] [facility] Blood Blood / Unknown 07/19/2024 3 :43 PM EDT 07/19/2024 3:43 PM EDT Narrative [employer] [facility] - 07/20/2024 3:49 AM EDT FASTING:NO Millicent NEELY LAB - BLOOD DRAW Bobo jimmy Result - Final [employer]. [address] [address], [employer]. [address] [address] * (ABNORMAL) COMPREHENSIVE METABOLIC PANEL (07/19/2024 3:43 PM EDT) GLUCOSE 259(H) 65 - 139 mg/dL [employer] [facility] Comment: Non-fasting reference interval UREA NITROGEN (BUN) 10 7 - 25 mg/dL [employer] [facility] CREATININE (blood) 0.77 0.50 - 1.03 mg/dL [employer] EGFR 93 > OR = 60 mL/min/1. 73m2 [employer] [facility] BUN/CREATININE RATIO SEE NOTE: [employer] Comment: Not Reported: BUN and Creatinine are within reference range. SODIUM 139 135 - 146 mmol/L [employer] POTASSIUM 3.9 3.5 - 5.3 mmol/L [employer] CHLORIDE 104 98 - 110 mmol/L [employer] CARBON DIOXIDE 29 20 - 32 mmol/L [employer] CALCIUM 9.5 8.6 - 10.4 mg/dL [employer] [facility] PROTEIN, TOTAL 7.0 6.1 - 8.1 g/dL [employer] ALBUMIN 4.6 3.6 - 5.1 g/dL [employer] [facility] GLOBULIN 2.4 1.9 - 3.7 g/dL (calc) [facility] [facility] ALBUMIN/GLOBULI N RATIO 1.9 1.0 - 2.5 (calc) [facility] [facility] BILIRUBIN, TOTAL 0.5 0.2 - 1.2 mg/dL [employer] [facility] ALKALINE PHOSPHATASE 121 37 - 153 U/L [employer] [facility] AST 21 10 - 35 U/L [facility] ALT 26 6 - 29 U/L [employer] [facility] Blood Blood / Unknown 07/19/2024 3 :43 PM EDT 07/19/2024 3:43 PM EDT Narrative [employer] - 07/20/2024 3:49 AM EDT FASTING:NO Millicent Coppola LICENSING COORDINATOR LAB - BLOOD DRAW Fin al Result [employer]. [address] [address], [employer]. [address] [address] * FLU A&B (POCT) (07/17/2024 1:52 PM EDT) INFLUENZA A NEGATIVE NEGATIVE [facility]- BACK OFFICE POCT INFLUENZA B NEGATIVE NEGATIVE [facility]- BACK OFFICE POCT INTERNAL CONTROL PASS PASS [facility]- BACK OFFICE POCT Swab (Swab) 07/17/2024 1:52 PM EDT Marge Quinones LICENSING COORDINATOR LAB BODY FLUIDS AND STOOLS A MBULATORY Final Result [facility]- BACK OFFICE POCT * MICROALBUMIN/CREATININE RATIO, URINE, RANDOM (07/17/2024 12:03 PM EDT) CREATININE, RANDOM URINE 136 20 - 275 mg/dL [facility] MICROALBUMIN 0.6 mg/dL [employer] [facility] Comment: Reference Range Not established MICROALBUMIN/CREA TININE RATIO, RANDOM URINE 4 <30 mg/g creat [facility] Comment: The ADA defines abnormalities in albumin excretion as follows: Albuminuria Category Result (mg/g creatinine) Normal to Mildly increased <30 Moderately increased 30-299 Severely increased > OR = 300 The ADA recommends that at least two of three specimens collected within a 3-6 month period be abnormal before considering a patient to be within a diagnostic category. Urine Urine specimen / Unknown 07/17/2024 12:03 PM EDT 07/17/2024 12:04 PM EDT [employer] PharmD LAB URINE AMBULATORY Concha l Result Performing Organization Address [facility] Co de Phone Number [employer]. [address] [address], [facility] [address] [address] * (ABNORMAL) HEMOGLOBIN GLYCOSYLATED A1C (07/17/2024 12:03 PM EDT) HEMOGLOBIN A1C 7.7(H) <5.7 % [facility] Comment: For someone without known diabetes, a [...] A1c for diagnosis of diabetes for children. Blood Blood / Unknown 07/17/2024 1 2:03 PM EDT 07/17/2024 12:04 PM EDT [employer] Ryne PharmD LAB - BLOOD DRAW Edited R esult - Final Performing Organization Address [facility] Co de Phone Number [employer]. [address] [address], [facility] [address] [address] * HIV 1/2 AG & AB W/RFLX (4TH GEN) (01/11/2024 9:11 AM EDT) HIV AG/AB, 4TH GEN NON-REAC TIVE NON-REAC TIVE [facility] Comment: HIV-1 antigen and HIV-1/HIV-2 antibodies were not detected. There is no laboratory evidence of HIV infection. PLEASE NOTE: This information has been disclosed to you from records whose confidentiality may be protected by state law. If your state requires such protection, then the state law prohibits you from making any further disclosure of the information without the specific written consent of the person to whom it pertains, or as otherwise permitted by law. A general authorization for the release of medical or other information is NOT sufficient for this purpose. For additional information please refer to http://education.H2Mob/faq/NEZ967 (This link is being provided for informational/ educational purposes only.) The performance of this assay has not been clinically validated in patients less than 2 years old. Blood Blood / Unknown 01/11/2024 9 :11 AM EDT 01/11/2024 9:12 AM EDT Narrative [facility] - 01/12/2024 10:23 AM EDT PATIENT UNABLE TO VOID; ADVISED TO RETURN FOR COLLECTION. Jaren Cope LICENSING COORDINATOR-C LAB - BLOOD DRAW Final Re sult [facility] [address] [place] [address], [email or web address] [address] [place] [phone] * EYE EXAM (11/29/2023 3:00 AM EDT) 11/29/2023 3:00 AM EDT Raina Benitez LICENSING COORDINATOR OTHER Edited Result - Final * REFERRAL TO PODIATRY (11/03/2023 3:00 AM EDT) 11/03/2023 3:00 AM EDT Susie Thompson LICENSING COORDINATOR REFERRAL Final Res ult * HISTORIC MAMMOGRAM (08/07/2022 3:00 AM EDT) 08/07/2022 3:00 AM EDT Raina Benitez [facility] IMG MAMMO Edited Result - Final * HEPATITIS PANEL W/RFLX (09/18/2020 10:55 AM EDT) HEPATITIS A IGM ANTIBODY NON-REACT JASON NON-REACT JASON [facility] COMMENT [facility] HEPATITIS B SURFACE ANTIGEN NON-REACT JASON NON-REACT JASON [facility] HEPATITIS B CORE IGM ANTIBODY NON-REACT JASON NON-REACT JASON [facility] HEPATITIS C ANTIBODY NON-REACT JASON NON-REACT JASON [facility] SIGNAL TO CUT-OFF 0.01 <1.00 [facility] Comment: HCV antibody was non-reactive. There is no laboratory evidence of HCV infection. In most cases, no further action is required. However, if recent HCV exposure is suspected, a test for HCV RNA (test code 61649) is suggested. For additional information please refer to http://AIT.H2Mob/faq/ZBC28q2 (This link is being provided for informational/ educational purposes only.) Blood Blood / Unknown 09/18/2020 1 0:55 AM EDT 09/18/2020 10:56 AM EDT Narrative [employer] [facility] - 09/18/2020 9:07 PM EDT For additional information, please refer to http://AIT.H2Mob/faq/PIZ050 (This link is being provided for informational/ educational purposes only.) Raina Benitez [facility] LAB - BLOOD DRAW Edited Result - Final [facility] [address] [address], [employer]. [address] [address] * PAP SMEAR W/HPV (08/17/2019 1:00 PM EDT) PAP SMEAR INTERPRETATION NORMAL NORMAL [facility] HPV (HUMAN PAPILLOMA) NEGATIVE NEGATIVE [facility] HPV TYPE 16 NEGATIVE NEGATIVE [facility] HPV TYPE 18 NEGATIVE NEGATIVE [facility] Cytologic material (specimen) 08/17/2019 1:00 PM EDT [facility] - 11/16/2019 9:59 AM EDT ThinPrep-A typical squamous cells of undetermined significance (ASCUS) Provider [facility] - PATHOLOGY AND CYTOLOGY AMB ULATORY Final Result [facility] [address] [place] [address], * HISTORIC COLONOSCOPY (08/08/2015 3:00 AM EDT) 08/08/2015 3:00 AM EDT Raina NEELY PROCEDURES Final Result from Last 3 Months or Most Recently Relevant to Health Maintenance Insurance [place] MED[place] [address] [employer] Care Teams Project Control Analyst Relationship Specialty Start Date End Date Raina Benitez FNP [address] [place] [address] PCP - General Internal Medicine 10/19/18
--- OUTSIDE RECORDS SUMMARY | 2024-10-16 10:29 | XMS_ITS | Clinical Summary ---
Author Organization [address] [facility] Address [address] [place] [address] Phone Care Team Providers Care Stone Mason Name Role Phone JoseraduBrian london JAZMYN Primary Care Provider [phone] Allergies Active Allergy Reactions Criticality Noted Date [...] complication, with long-term current use of insulin ([facility] V24, [facility] V28) 12/30/2023 Overview (12/30/2023): Uncontrolled Abnormal chest [...] her next appointment. Anxiety 07/10/2021 Autoimmune disorder ([facility] V24) 07/10/2021 Bipolar 2 disorder ([facility] V24, [facility] V28) Overview (12/30/2023): [facility] q week Degenerative disc disease, [...] for EMG nerve conduction studies done between [facility] and [facility] [place] mention previous EMG raise question of right lumbosacral radiculopathy. Patient has tried physical therapy 2014, 2016, physician locums urgent care, cortisone injections without significant improvement. Patient had [...] had EMG nerve conduction study 06/17/2020 at [facility] that showed normal motor and sensory nerve conduction right lower extremity, normal EMG right L4-S1 muscles including right L4-S1 paraspinous muscles. Patient had EMG nerve conduction study 05/18/2019 at [facility] of left upper extremity that was normal. [...] 03/05/2019 Hematuria 11/17/2017 Overview (12/30/2023): Seen at [facility] ED on 11-12-17 - sees urology. Reportedly given oxycodone by urology Left hand pain 09/09/2017 Overview (12/30/2023): Normal soft tissue. No arthritic changes. Mixed hyperlipidemia 04/18/2015 Vasospasm ([facility] V24) 10/05/1997 Overview (12/30/2023): No blood draw and vesel closes up: saw vascular dr and did angiogram 1997. Always has numbness at left elbow to fingers. Resolved Problems Problem Noted Date Diagnosed Date Resolved Date Use of cane as ambulatory aid 02/28/2019 12/30/2023 Immunizations Name Administration Dates Next Due Hepatitis B (Elhohcc-L-Ctuxj , Recombivax HB-Adult) 19yo and older 03/22/2018,02/17/2018,08/31/2017 [...] 93 07/07/2024 11:37 AM EDT Temperature 37.2 C (99 F) 07/07/2024 11:37 AM EDT Respiratory Rate 16 [...] PM EDT Office Visit Orthopedic Surgery - [place] [address] [id number] Rafael Awad, DPM [address] [address] Health Maintenance Due Date Last Done Comments [...] 03/17/2021, 07/05/2020, Additional history exists Cervical Cancer Screening: HPV 08/16/2024 08/17/2019 Influenza Vaccine (#1) 2024 , 01/30/2023, 01/23/2022, Additional history exists Diabetes: Blood Sugar Control Test (HGBA1C) 01/16/2025 07/17/2024, 02/18/2024, 10/13/2023, Additional history exists Diabetes: Annual Urine Albumin-Creatinine Ratio (uACR) 07/17/2025 07/17/2024, 07/09/2023, 10/28/2022, Additional history exists Diabetes: Annual GFR (Glomerular Filtration Rate) 07/19/2025 07/19/2024, 10/13/2023, 2022 Hypertension/CHF/CAD Annual BMP Blood Test 07/19/2025 07/19/2024, 10/13/2023, 2022 Pneumococcal Vaccine: 50+ Years (3 of 3 - PCV20 or PCV21) 08/29/2025 08/29/2020, 04/27/2017 Depression Screening 09/20/2025 09/20/2024 DTaP,Tdap,and Td Vaccines (3 - Td or Tdap) 04/27/2027 04/27/2017, 05/29/2015 Cholesterol Screening (Lipid Panel) 07/19/2029 07/19/2024, 10/13/2023, 10/13/2023, Additional history exists Hepatitis C Screening Completed 09/18/2020, 021 Zoster Vaccines Completed 06/15/2023, 03/12/2023 HIB Vaccines Aged Out No longer eligi [...] Test (2022) Annual BMP Blood Test abstracted Result [facility] Provider HEALTH MAINTENANCE Final Result * Hemoglobin A1c (2022) Hemoglobin A1C 0.0 % Comment:abstracted, no inter pretation Blood Venous blood specimen / Unknown Result [facility] Provider LAB BLOOD ORDERABLES Concha l Result * Lipid panel (2022) Triglycerides 0 mg/dL Comment:abstracted, no inter pretation Cholesterol 0 mg/dL Comment:abstracted, no inter pretation HDL 0 mg/dL Comment:abstracted, no inter pretation LDL Cholesterol 0.0 mg/dL Comment:abstracted, no inter pretation Blood Venous blood specimen / Unknown Result [facility] Provider LAB BLOOD ORDERABLES Concha l Result * Hepatitis C Screening (08/29/2020) Hepatitis C Screening abstracted us Historical Provider HEALTH MAINTENANCE Final Result * Cervical Cancer Screening: HPV (08/17/2019) Cervical Cancer Screening: HPV abstracted, no interpretation us Historical Provider HEALTH MAINTENANCE Final Result * [facility] SCREENING DIGITAL (12/30/2018 10:43 AM EDT) Anatomical Region Laterality Modality Mammography 12/30/2018 8:06 AM EDT Narrative 12/30/2018 10:43 AM EDT [facility] Diagnostic Imaging Department [address] [place], [place] [id number] Patient: BONNIE GRAHAM I /Age/Sex: 1975 - 43 - F Unit#: [id number] Location/Status: [facility] Mnemonic/Ordering Site: [facility] Ordering Physician: BRIAN MESSINA NP [facility] Screening Digital - 12/30/18 - 901 EXAM: [facility] Screening Digital EXAM DATE AND TIME: 12/30/2018 8:31 AM HISTORY: Screening. Sister had breast carcinoma at age 47. COMPARISON: 12/27/17, 12/23/16 TECHNIQUE: CC and MLO views of both breasts were obtained using full field digital mammography. Bilateral digital breast tomosynthesis was performed in the MLO projection. Computer aided detection with the iCAD PowerLook 7.2-H was employed. TISSUE DENSITY: c. The breasts are heterogeneously dense, which may obscure small masses. FINDINGS: No suspicious masses, grouped microcalcifications, or areas of architectural distortion are seen. The skin and vascularity are unremarkable. IMPRESSION: Stable mammographic appearance of the breasts. No evidence of malignancy is seen. A negative mammogram in the presence of a clinically suspicious palpable abnormality does not preclude the possibility of malignancy or alter the indications for biopsy. BI-RADS: Category 1: Negative RECOMMENDATION(S): 1: Routine screening mammogram BILATERAL in 1 year. [address], [address] 3341F, 7013F Dictating Physician: KAREN BALDWIN MD Electronically Signed by: KAREN BALDWIN MD Dic Date/Time: 12/30/18 104 Sign date/Time: 12/30/18 104 Procedure Note Karen Baldwin - 03/25/2022 [facility] Diagnostic Imaging Department [address] [place] [address] Patient: BONNIE GRAHAM Evgeny /Age/Sex: 1975 - 43 - F Unit#: [id number] Location/Status: [facility] Mnemonic/Ordering Site: [facility] Ordering Physician: BRIAN MESSINA DRAPERY HEAD FORMER [facility] Screening Digital - 12/30/18 - 901 EXAM: [facility] Screening Digital EXAM DATE AND TIME: 12/30/2018 8:31 AM HISTORY: Screening. Sister had breast carcinoma at age 47. COMPARISON: 12/27/17, 12/23/16 TECHNIQUE: CC and MLO views of both breasts were obtained using fullfield digital mammography. Bilateral digital breast tomosynthesis was performedin the MLO projection. Computer aided detection with the [employer] 7.2-[employer] employed. TISSUE DENSITY: c. The breasts are [...] Routine screening mammogram BILATERAL in 1 year. 10310, [id number] 3341F, 7025F Dictating Physician: KAREN BALDWIN MD Electronically Signed by: KAREN BALDWIN MD Dic Date/Time: 12/30/18 1042 Sign date/Time: 12/30/18 1043 Brian Messina NP IMG BI PROCEDURES Final Result from Last 3 Months or Most Recently Relevant to Health Maintenance Insurance [place]ICA[place] - [place] Care Teams Stone Mason Relationship Specialty Start Date End Date Brian Messina NP [address] [place] [address] [facility] - General 09/23/20
--- OUTSIDE RECORDS SUMMARY | 2024-10-16 10:29 | XMS_ITS | Data Portability ---
Author Organization [facility], Allergy Address 100 [facility] 100 [place] [address] Care Team Providers Care Odd Job Worker Name Role Phone BRIAN MESSINA Referring Provider BRIAN MESSINA Primary Care Provider Assessment Encounter Date Assessment Date Assessment LastModified [...] if possible, sensory weakness v2-3 2023 024 [facility] ([facility]), [address] [place], [address], 4 14:26:31 MR, angiogram, head + neck, w/o contrast - family history of aneurysm 2023 024 [facility] ([facility]), [address], [place], [address], 4 09:08:15 audiogram 2023 024 [email or web address] Not available 4 15:30:31 Medication Orders amoxicillin 875 mg-potassiu m clavulanate 125 mg tablet 2024 025 [id number], [address] [place], [address], 5 12:09:38 loratadine 10 mg tablet 2023 024 [id number], [address] [place], [address], 4 16:56:07 Patient TargetsNo targets recorded. Patient Instructions Encounter Date Encounter Id Patient Instructions Last Modified By Organization Details Last Modified Time 10/04/2023 [id number] The patient's history, physical exam and audiometric [...] to read at home, which gives a xxdg-pn-zpwb discussion on what causes migraine and how [...] Abnormal Flag Note LastModifiedBy Organization Detail LastModifiedTime 11/08/19 24 11/06/2023 MR, angio gram, head + neck, w/o contr ast No observ ation record ed. [facility] ([facility]) [address] [place], [address], 11/09/2023 09:08:15 11/08/19 24 11/06/2023 MR, angio gram, head, w/o contr ast No observ ation record ed. Not Available 2023 10:23:55 11/08/19 24 11/06/2023 MRI, brain + inter nal audit ory canal , w/wo contr ast No observ ation record ed. [email or web address] [facility] [address] [place], [address], 11/09/2023 14:51:34 11/24/19 24 07/19/2022 imagi ng/di [...] Recorded Time Closed fracture of nasal bones 06058591 Active 2022 Fracture of nasal bones, initial encounter for closed fracture; Note: Date Diagnosed : 07/22/2022 12:53 PM (S02.2XXA ) Not Available [facility] 4 02:49:38 Fractured nasal bones 411890676 Active 2022 Fracture of nasal bones, sequela; Note: Date Diagnosed : 07/27/2022 4:54 PM (S02.2XXS ) Not Available [facility] 4 02:49:37 Localized edema 404247270 Active 2022 Localized edema; Note: Date Diagnosed : 07/22/2022 12:53 PM (R60.0) Not Available [facility] 4 02:49:43 Migrainou s vertigo 252599536 Active 2023 CARLOS MARTINEZ PA-C 100 [facility] 100, [place], [address] , [place] - [facility] [place] 4 16:48:30 Perennial allergic rhinitis 768336214 Active 2023 CARLOS MARTINEZ PA-C 100 [facility] 100, [place], [address] , [place] - [facility] [place] 4 16:55:43 Deviated nasal septum 449899454 Active 2023 CARLOS MARTINEZ PA-C 100 [facility] [address], [address] , [facility] [place] 4 16:57:01 Subjectiv e pulsatile tinnitus 86863592862 9104 Active 2023 CARLOS MARTINEZ PA-C 100 [facility] [address], [address] , [place] - [facility] [place] 4 10:31:09 Nasal congestio n 09859169 Active 2023 Nasal congestio n; Note: Date Diagnosed : 07/14/2023 1:44 PM (R09.81) Not Available [facility] 4 02:49:38 Seasonal allergic rhinitis 905245997 Active 2023 Other seasonal allergic rhinitis; Note: Date Diagnosed : 07/14/2023 2:11 PM (J30.2) Not Available [facility] 4 02:49:40 Bleeding from nose 676673618 Active 2023 Epistaxis ; Note: Date Diagnosed : 07/14/2023 1:44 PM (R04.0) Not Available [facility] 4 02:49:44 Sensorine ural hearing loss of bilateral ears 637811431 Active 2023 ANNETTA SMA, AUD 100 [facility],[place] [address], [place], [address] , [place] - [facility] [place] 4 10:17:13 Acute suppurati ve otitis media without spontaneo us rupture of ear drum 28015411 Active 2024 CARLOS MARTINEZ PA-C 100 [facility],[place] [address], [place], [address] , [place] - [facility] [place] 5 12:09:07 Acute infective otitis externa 605700166 Active 2024 CARLOS MARTINEZ PA-C 100 [facility],[place] [address], [place], [address] , [place] - [facility] [place] 5 12:57:27 Problem Notes None recorded. Procedures Surgical History Date Name Laterality Status Provider Name and Address Organization Details Recorded Time 07/19/2024 Air & Speech Audio with Tymps - 86040, 72330 & 84148 completed RILEY PALACIOS, AUD 100 [facility],[place] [address], [place], [address], [place] - [facility] [place] 07/19/2024 11:21:07 12/13/2023 Comp Audio with Tymps - 62142 & 01394 completed ANNETTA SAM, AUD 100 [facility] 100, [place], [address], [facility] - [facility] 12/13/2023 10:17:03 Imaging Results None recorded. Procedure Notes None recorded. Medical Equipment None Reported. Allergies Allergen ID Allergen Name Allergen Category Reaction Reaction Severity Criticality Documentation Date Start Date Code Code System Note Provider Name and Address Organization Details Recorded Time 119819 oxycodone medicatio n hives Not available Not available 08/17/2023 7804 RxNorm React ion: Hives ; Not Available [facility] 4 01:08:55 356553 acetamino phen / oxycodone medicatio n hives Not available Not available 08/17/2023 00662 3 RxNorm React ion: Hives ; Not Available [facility] 4 01:08:57 170791 Advil medicatio n hives Not available Not available 08/17/2023 67498 0 RxNorm React ion: Hives ; Not Available [facility] 4 01:09:00 Medications Name Sig Start Date Stop [...] 15 mg tablet active Medicati on ID: [id number] B rand Name: guillermo baires Send Method: E-Prescr ibed Sub s Allowed: subs OK Speci al Instruct ion: TAKE 1 TABLET BY MOUTH EVERY DAY NEEDED FOR PAIN Med icationG enericNa me: meloxica m Not Available Not Available Not Available FreeStyle [...] mg tablet 02/06 completed Medicati on ID: [id number] B rand Name: gabapent in Send Method: [...] Not Available No t Available Dexcom G7 Search Consultant 1 EACH BY MISCELLA NEOUS ROUTE CONTINUO [...] Updated DateTime 07/19/2024 149.86 cm 25.2 kg/m2 49874.05 g Leanne Yoder MD - [facility] 07/19/2024 11:27:03 Date Recorded Body height Body mass index (BMI) Body weight Provider Name and Address Organization Details Last Updated DateTime 12/13/2023 149.86 cm 26.3 kg/m2 57986.01 g Bette Manjarrez MD - [facility] 12/13/2023 10:24:03 Social History None recorded. [...] Note [id number] CARLOS MARTINEZ PA-C [facility] [address] [address] 10/04/2023 14:57:23 10/04/2023 17:09:20 Migrainous vertigo 055295364 H81.8X9 Perennial allergic rhinitis 251855611 J30.89 Deviated nasal septum 12 4500885 J34.2 not interested in surgical repair [id number] CARLOS MARTINEZ PA-C [facility] [address] [address] 12/13/2023 09:52:55 12/13/2023 10:34:42 Sensorineural hearing loss of bilateral ears 480886558 H90.3 Audiologic al evaluation results: Right ear: Normal with the exception of a mild SNHL at 8000Hz with excellent word recognitio n. Left ear: Normal with the exception of a mild SNHL at 8000Hz with excellent word recognitio n. Tympanomet ry: Right Ear:Type A Left Ear:Type A Migrainous vertigo 63707 4007 H81.8X9 [id number] CARLOS MARTINEZ PA-C [facility] [address] [address] 07/19/2024 10:56:11 07/19/2024 12:13:18 Sensorineural hearing loss of bilateral ears 788157903 H90.3 Audiologic al evaluation results: Right ear: Normal with the exception of a mild SNHL at 8000Hz with excellent word recognitio n. Left ear: Normal with the exception of a mild SNHL at 8000Hz with excellent word recognitio n. Tympanomet ry: Right Ear:Type A Left Ear:Type A Acute supp urative otitis media without spontaneous rupture of ear drum 97708785 H66.002 Acute infe ctive otitis externa 864294379 H60.392 Health Concerns Section Related Observation LastModified by Organization Detai ls LastModified Time None Recorded Concern Status LastModified by Organization Details LastModified Time None Recorded Advance Directives Directive None Recorded Payers Insurance Date Sequence Insurance Name Policy Number Policy Jimenez Covered Member ID Jimenez Member ID Guarantor Name 07/19/2024 1 MEDICAID-[facility] (MEDICAID) Bonnie Graham [id number] Bonnie Graham Notes Date Note Type Note [...] congestion and postnasal drip. ISABELLE CORTES MD [address] [place] [address], [address], [facility] - [facility] 10/06/2023 17:38:23 12/13/2023 text/html 48 year [...] congestion, and sneezing fits. DANIELLE CHOWDHURY MD [address] [place] [address],[address], [address], [place] - [facility] 12/13/2023 17:54:06 07/19/2024 text/html 49-year-old earlene [...] taking away her pain. DOTTIE MILAN MD [address] [place] [address], [address], [facility] - [facility] 07/19/2024 17:40:51 OBGyn Episode No OBEpisode recorded.
[2024-10-16 13:19] LABS: Appearance Urine Clear; Glucose Urine UA Negative (Negative); PH 6.0 (5.0-9.0); Specific Gravity - Urine 1.020 (1.005-1.025)
== END 2024-10-16 09:56 | disposition home or self-care (01) ==
LOC: HO.10HDLNP 09:55
PROVIDERS: Visit Provider Nurse Practitioner Family
DX: N39.0 Urinary tract infection, site not specified (principal)
CPT/HCPCS: 81003

== ENCOUNTER 2024-10-30 10:03 | Outpatient (REF) | payer MEDICAID, SELFPAY ==
--- NOTE | ~2024-10-30 | US_ITS ---
CLINICAL HISTORY: N39.0 - Urinary tract infection, site not specified US retroperitoneum Comparison: None provided Findings: Right kidney normal size and echotexture, 9.4 cm length. Mild hydronephrosis. No mass or calculus. Normal color flow. Left kidney normal size and echotexture, 9.1 cm in length. No hydronephrosis, mass or calculus. Normal color flow. Urinary bladder is unremarkable. Prevoid volume 286 mL. Postvoid volume 37 mL. Ureteral jets are visualized bilaterally Impression: Mild right hydronephrosis, uncertain etiology. This document has been electronically signed by: Mare Villanueva MD on 10/30/2024 15:55:25
--- OUTSIDE RECORDS SUMMARY | 2024-10-30 11:05 | XMS_ITS | Data Portability ---
Author Organization [facility], Allergy Address 100 [facility] 100 [place] [address] Care Team Providers Care Box Worker Name Role Phone BRIAN MESSINA Referring Provider [phone] BRIAN MESSINA Primary Care Provider [phone] Assessment Encounter Date Assessment Date Assessment LastModified [...] if possible, sensory weakness v2-[address] [facility] ([facility]), [address] [place], [address], 4 14:26:31 MR, angiogram, head + neck, w/o contrast - family history of aneurysm [address] [facility] ([facility]), [address], [place], [address], 4 09:08:15 audiogram 2023 024 [email or web address] Not available 4 15:30:31 Medication Orders amoxicillin 875 mg-potassiu m clavulanate 125 mg tablet 2024 025 [facility][id number], [address] [place], [address], 5 12:09:38 loratadine 10 mg tablet 2023 024 [facility][id number], [address] [place], [address], 4 16:56:07 Patient TargetsNo targets recorded. Patient Instructions Encounter Date Encounter Id Patient Instructions Last Modified By Organization Details Last Modified Time 10/04/2023 [id number] The patient's history, physical exam and audiometric [...] to read at home, which gives a jhzi-ls-dtit discussion on what causes migraine and how [...] contr ast No observ ation record ed. [facility] ([facility]) [address] [place], [address], 11/09/2023 09:08:15 11/08/19 24 11/06/2023 MR, angio gram, head, w/o contr ast No observ ation record ed. Not Available 2023 10:23:55 11/08/19 24 11/06/2023 MRI, brain + inter nal audit ory canal , w/wo contr ast No observ ation record ed. [email or web address] [address] [place], [address], 11/09/2023 14:51:34 11/24/19 24 07/19/2022 imagi ng/di [...] Recorded Time Closed fracture of nasal bones 82744633 Active 2022 Fracture of nasal bones, initial encounter for closed fracture; Note: Date Diagnosed : 07/22/2022 12:53 PM (S02.2XXA ) Not Available [facility] 4 02:49:38 Localized edema 710285707 Active 2022 Localized edema; Note: Date Diagnosed : 07/22/2022 12:53 PM (R60.0) Not Available [facility] 4 02:49:43 Fractured nasal bones 971211568 Active 2022 Fracture of nasal bones, sequela; Note: Date Diagnosed : 07/27/2022 4:54 PM (S02.2XXS ) Not Available [facility] 4 02:49:37 Nasal congestio n 77195524 Active 2023 Nasal congestio n; Note: Date Diagnosed : 07/14/2023 1:44 PM (R09.81) Not Available [facility] 4 02:49:38 Seasonal allergic rhinitis 954586400 Active 2023 Other seasonal allergic rhinitis; Note: Date Diagnosed : 07/14/2023 2:11 PM (J30.2) Not Available [facility] 4 02:49:40 Bleeding from nose 563805872 Active 2023 Epistaxis ; Note: Date Diagnosed : 07/14/2023 1:44 PM (R04.0) Not Available [facility] 4 02:49:44 Migrainou s vertigo 553644171 Active 2023 CARLOS MARTINEZ PA-C [address] [place] [address], [place], [address] , [facility] - [facility] 4 16:48:30 Perennial allergic rhinitis 103944635 Active 2023 KINGA STEPHENC [address], [place], [address] , [place] - [facility] 4 16:55:43 Deviated nasal septum 143378012 Active 2023 KINGA STEPHENC [address], [place], [place], [address] , [place] - [facility] 4 16:57:01 Subjectiv e pulsatile tinnitus 90092242488 9104 Active 2023 KINGA STEPHENC [address], [place], [place], [address] , [place] - [facility] [place] 4 10:31:09 Sensorine ural hearing loss of bilateral ears 108159354 Active 2023 ANNETTA SAM, AUD [address] [facility],[address], [place], [place], [address] , [place] - [facility] 4 10:17:13 Acute suppurati ve otitis media without spontaneo us rupture of ear drum 10811996 Active 2024 KINGA STEPHENC [address] [facility],[address], [place], [address] , [place] - [facility] 5 12:09:07 Acute infective otitis externa 783286391 Active 2024 KINGA STEPHENC [address] [facility],[address], [place], [address] , [place] - [facility] 5 12:57:27 Problem Notes None recorded. Procedures Surgical History Date Name Laterality Status Provider Name and Address Organization Details Recorded Time 07/19/2024 Air & Speech Audio with Tymps - 52448, 15952 & 64182 completed RILEY PALACIOS, AUD [address], [place], [address], [place] - [facility] 07/19/2024 11:21:07 12/13/2023 Comp Audio with Tymps - 96791 & 63732 completed ANNETTA SAM, AUD 100 [facility] 100, [place], [address], [facility] - [facility] 12/13/2023 10:17:03 Imaging Results None recorded. Procedure Notes None recorded. Medical Equipment None Reported. Allergies Allergen ID Allergen Name Allergen Category Reaction Reaction Severity Criticality Documentation Date Start Date Code Code System Note Provider Name and Address Organization Details Recorded Time 925780 oxycodone medicatio n hives Not available Not available 08/17/2023 7804 RxNorm React ion: Hives ; Not Available [facility] 4 01:08:55 634723 acetamino phen / oxycodone medicatio n hives Not available Not available 08/17/2023 08786 3 RxNorm React ion: Hives ; Not Available [facility] 4 01:08:57 851634 Advil medicatio n hives Not available Not available 08/17/2023 43585 0 RxNorm React ion: Hives ; Not Available [facility] 4 01:09:00 Medications Name Sig Start Date [...] 15 mg tablet active Medicati on ID: [id number] B rand Name: guillermo baires Send Method: [...] mg tablet 02/06 completed Medicati on ID: [id number] B rand Name: gabapent in Send Method: [...] Not Available No t Available Dexcom G7 Crucible Packer 1 EACH BY MISCELLA NEOUS ROUTE CONTINUO [...] Updated DateTime 07/19/2024 149.86 cm 25.2 kg/m2 72345.05 g Leanne Yoder [place] - [facility] 07/19/2024 11:27:03 Date Recorded Body height Body mass index (BMI) Body weight Provider Name and Address Organization Details Last Updated DateTime 12/13/2023 149.86 cm 26.3 kg/m2 04958.01 g Bette Manjarrez [place] - [facility] 12/13/2023 10:24:03 Social History None recorded. [...] Note [id number] CARLOS MARTINEZ PA-C [facility] [address] [address] 10/04/2023 14:57:23 10/04/2023 17:09:20 Migrainous vertigo 905841891 H81.8X9 Perennial allergic rhinitis 239834377 J30.89 Deviated nasal septum 12 9620485 J34.2 not interested in surgical repair [id number] CARLOS MARTINEZ PA-C [facility] [address] [address] 12/13/2023 09:52:55 12/13/2023 10:34:42 Sensorineural hearing loss of bilateral ears 493671613 H90.3 Audiologic al evaluation results: Right ear: Normal with the exception of a mild SNHL at 8000Hz with excellent word recognitio n. Left ear: Normal with the exception of a mild SNHL at 8000Hz with excellent word recognitio n. Tympanomet ry: Right Ear:Type A Left Ear:Type A Migrainous vertigo 67126 4007 H81.8X9 [id number] CARLOS MARTINEZ PA-C [facility] [address] [address] 07/19/2024 10:56:11 07/19/2024 12:13:18 Sensorineural hearing loss of bilateral ears 375934888 H90.3 Audiologic al evaluation results: Right ear: Normal with the exception of a mild SNHL at 8000Hz with excellent word recognitio n. Left ear: Normal with the exception of a mild SNHL at 8000Hz with excellent word recognitio n. Tympanomet ry: Right Ear:Type A Left Ear:Type A Acute supp urative otitis media without spontaneous rupture of ear drum 67966915 H66.002 Acute infe ctive otitis externa 817763611 H60.392 Health Concerns Section Related Observation LastModified by Organization Detai ls LastModified Time None Recorded Concern Status LastModified by Organization Details LastModified Time None Recorded Advance Directives Directive None Recorded Payers Insurance Date Sequence Insurance Name Policy Number Policy Jimenez Covered Member ID Jimenez Member ID Guarantor Name 07/19/2024 1 [place] [facility] (MEDICAID) Bonnie I Graham [id number] Bonnie I Graham OBGyn Episode No OBEpisode recorded.
--- OUTSIDE RECORDS SUMMARY | 2024-10-30 11:05 | XMS_ITS | Clinical Summary ---
Author Organization [facility] Address [address] [place] [address] Care Team Providers Care Research Project Coordinator Name Role Phone Raina Benitez CHIN Primary Care Provider [phone] Source Comments PLEASE NOTE, if this patient [...] e Itching 04/27/2017 Ibuprofen Hives High 03/19/2015 Naproxen ok per pt Insulin Degludec Other (See Comments) Abdominal pain and diarrhea Insulin Lispro Other (See Comments) 09/29/2021 c/o: itching Latex Rash 10/26/2018 Metformin Diarrhea 01/09/2021 vomiting Metronidazole Diarrhea,Rash 08/12/2017 Oxycodone Itching 04/27/2017 Semaglutide GI intolerance 07/13/2024 Nausea, abdominal pain, constipation Medications caneIndications: Degenerative disc disease, lumbar Dx: M51.36 For assistance with ambulation. Indefinite need. Ht: 4'10 Wt:123 lb. 1 Each 0 016 Active miscellaneous medical supply miscIndications: Degenerative disc disease, lumbar,Unsteady gait,Chronic bilateral low back pain without sciatica Order Shower chair, use daily. Need lifetime. 1 Each 021 Active miscellaneous medical supply miscIndications: ELIA on CPAP by miscellaneous route once daily Order CPAP tubing. Pressure: 7 mmhg, daily. Dx:G47.33, Z99.89. Need: lifetime 1 Each 1 021 Active blood pressure monitorIndicatio ns:Uncontrolled type 2 diabetes mellitus with hyperglycemia ([facility]),Hx of syncope Check BP daily and prn. Dx: E11.65, Z87.898. Need; lifetime 1 Kit 022 Active blood-glucose meter monitoring kit Freestyle lite,E11.65 USE TWICE A DAY 1 Each 022 Active MISCELLANEOUS MEDICAL SUPPLY MISCIndications: Foot drop, right AFO brace for Rt foot. Dx:M21.371. Need: Lifetime. 1 Each 1 023 Active MISCELLANEOUS MEDICAL SUPPLY MISCIndications: Cubital tunnel syndrome on left order for left wrist brace with hard support with, velcro. Use daily. Need lifetime. 1 Each 1 023 Active MISCELLANEOUS MEDICAL SUPPLY MISCIndications: Chronic right hip pain,Degenerativ e disc disease, lumbar,Osteoarth ritis, unspecified osteoarthritis type, unspecified site,Other osteoporosis without current pathological fracture Tub transfer bench. Use daily as needed for mobility and to prevent falls. Lifetime need. 1 Each 024 Active pregabalin (LYRICA) 200 mg capsuleIndicatio ns:Chronic left shoulder pain Take 200 mg by mouth 3 (three) times daily 024 Active armodafiniL (NUVIGIL) 250 mg tab tab Take 1 Tablet by mouth every morning (Prescribed by [facility]) Active methylphenidate (RITALIN) 10 mg tablet Take 1 Tablet by mouth every evening (Prescribed by [facility]) Active propranoloL (INDERAL) 10 mg tablet TAKE 1-2 TABLETS ORALLY 2 TIMES A DAY NEEDED FOR TACHYCARDIA FOR 90 DAYS (Prescribed by [facility]) Active SPIRIVA RESPIMAT 1.25 mcg/actuation mist Inhale 2 Puffs into the lungs daily. (Prescribed by [facility]) Active VENTOLIN HFA 90 mcg/actuation inhaler Inhale 2 Puffs into the lungs every 4 (four) hours as needed for shortness of breath or wheezing (Prescribed by [facility]) Active budesonide-formo teroL (SYMBICORT) 80-4.5 mcg/actuation inhaler Inhale 2 Puffs into the lungs 2 (two) times daily (Prescribed by [facility]) Active montelukast (SINGULAIR) 10 mg tablet Take 1 Tablet by mouth once daily (Prescribed by [facility]) Active loratadine (CLARITIN) 10 mg tablet Take 1 Tablet by mouth daily (Prescribed by ENT) Active lancets (FREESTYLE LANCETS) 28 gaugeIndications :Type 2 diabetes mellitus with diabetic polyneuropathy, with long-term current use of insulin ([facility]) Use to test blood glucose three times daily. (Freestyle Lancets) 100 Each 024 Active alcohol swabsIndications :Type 2 diabetes mellitus with diabetic polyneuropathy, with long-term current use of insulin ([facility]) Use to test blood glucose three times daily. 100 Each 024 Active alendronate (FOSAMAX) 70 mg tabletIndication s:Other osteoporosis without current pathological fracture TAKE 1 TABLET BY MOUTH EVERY 7 (SEVEN) DAYS FOR OSTEOPOROSIS 12 Tablet 3 024 Active insulin glargine (LANTUS SOLOSTAR U-100 INSULIN) 100 unit/mL (3 mL) penIndications:T ype 2 diabetes mellitus with diabetic mononeuropathy, with long-term current use of insulin ([facility]) Inject 40 Units into the skin nightly at bedtime increased dose 15 mL 5 025 Active diphenhydrAMINE (BENADRYL) 50 mg capsuleIndicatio ns:Frontal sinusitis, unspecified chronicity Take 1 Capsule by mouth nightly at bedtime as needed for rhinitis 90 Capsule 025 Active blood-glucose sensor (DEXCOM G7 SENSOR) deviIndications: Type 2 diabetes mellitus with diabetic mononeuropathy, with long-term current use of insulin ([facility]) Apply 1 sensor to back of upper arm every 10 days. Use to check glucose at least 3 times daily. (Dexcom G7 sensors) 3 Each 025 Active pen needle, diabetic (BD CARRIE 2ND GEN PEN NEEDLE) 32 gauge x 5/32 ndleIndications: Type 2 diabetes mellitus with diabetic polyneuropathy, with long-term current use of insulin ([facility]) USE TO INJECT INSULIN 5 TIMES A DAY 200 Each 11 025 Active insulin lispro-aabc (LYUMJEV KWIKPEN U-100 INSULIN) 100 unit/mLIndicatio ns:Type 2 diabetes mellitus with hyperglycemia, without long-term current use of insulin ([facility]) INJECT SUBCUTANEOUSLY 4-28 UNITS THREE TIMES DAILY BEFORE MEALS UP TO 84 UNITS DAILY 30 mL 5 025 Active traMADoL (ULTRAM) 50 mg tablet TAKE 1 TABLET BY MOUTH EVERY 6 HOURS NEEDED FOR PAIN FOR 3 DAYS 025 Active sertraline (ZOLOFT) 100 mg tablet Take 100 mg by mouth once daily With food (prescribed by [facility] on [address]) 025 Active hydrOXYzine pamoate (VISTARIL) 50 mg capsule Take 1 Capsule by mouth 3 (three) times daily as needed for anxiety or sleep (Prescribed by [facility]) 025 Active fluticasone (FLONASE) 50 mcg/actuation nasal sprayIndications :Nasal congestion Place 1 [place] in both nostrils once daily 16 g 025 Active amitriptyline (ELAVIL) 50 mg tabletIndication s:Chronic fatigue TAKE 1 TABLET BY MOUTH EVERYDAY AT BEDTIME 90 Tablet 025 Active conjugated estrogens (PREMARIN) 0.625 mg tabletIndication s:Post-menopausa l atrophic vaginitis Take 1 Tablet by mouth once daily. 30 Tablet 2 025 Active psyllium (METAMUCIL) packet Take 1 Packet [...] (Take with 5 mg - prescribed by [facility]). Active ARIPiprazole (ABILIFY) 5 mg tablet Take 5 mg by mouth every morning (Take with 20 mg - prescribed by [facility]). Active rosuvastatin (CRESTOR) 40 mg tabletIndication s:Type 2 diabetes mellitus with diabetic mononeuropathy, with long-term current use of insulin ([facility]),Hyperli pidemia LDL goal <70 Take 1 Tablet by mouth nightly at bedtime For cholesterol Stop atorvastatin 80 mg. 90 Tablet 1 Active pantoprazole (PROTONIX) 40 mg EC tablet TAKE 1 TABLET BY MOUTH TWICE A DAY 180 Tablet 1 Active GAVILYTE-G 236-22.74-6.74 -5.86 gram solution PLEASE FOLLOW INSTRUCTIONS FOR COLONOSCOPY PREP Active naproxen (NAPROSYN) 500 mg tablet TAKE 1 TABLET TWICE A DAY BY ORAL ROUTE WITH MEAL(S) FOR 30 DAYS, FOR PAIN NEEDED. 025 Active blood sugar diagnostic strips Use to test blood glucose three times daily. (Freestyle Lite). 100 Each 11 025 Active glucose 4 gram chewable tabletIndication s:Type 2 diabetes mellitus with diabetic mononeuropathy, with long-term current use of insulin ([facility]) Place 4 Tablets into mouth, chew and swallow as needed for low blood sugar (Less than 70 mg/dL). 30 Tablet 5 025 Active semaglutide (RYBELSUS) 14 mg tabIndications:T ype 2 diabetes mellitus with diabetic mononeuropathy, with long-term current use of insulin ([facility]) Take 14 mg by mouth every morning before breakfast stop 7 mg. 30 Tablet 5 025 Active pantoprazole (PROTONIX) 40 mg EC tablet TAKE 1 TABLET BY MOUTH TWICE A DAY 180 Tablet 1 024 2024 Discontinued blood sugar diagnostic (FREESTYLE LITE STRIPS) stripsIndication s:Type 2 diabetes mellitus with diabetic polyneuropathy, with long-term current use of insulin ([facility]) USE DIRECTED TWICE A DAY 200 Each 2 024 2024 Discontinued(R eorder (E-Cancel Not Sent)) semaglutide (RYBELSUS) 7 mg tabIndications:T ype 2 diabetes mellitus with diabetic mononeuropathy, with long-term current use of insulin ([facility]) Take 1 Tablet by mouth every morning before breakfast stop 3 mg 30 Tablet 5 025 2024 Discontinued(Q uantity/Dosage and/or Sig change) lisinopriL 5 mg tablet Take 5 mg by mouth once daily for blood pressure. 025 2024 Discontinued(T herapy completed/Not needed) Active Problems Problem Noted Date Diagnosed Date Tachycardia 08/14/2024 Overview (08/14/2024): 07/28/23 at [facility] Patient followed by neurology/sleep medicine at [facility] for extreme exhaustion . ELIA untreated due to CPAP intolerance/noncompliance. Multiple pulmonary nodules etiology unclear. Chronic cough, failure to respond to high dose PPI therapy. Arteriovenous malformation ([facility]) 04/06/2024 Overview (04/06/2024): CT chest [facility] 02/28/22 [...] mononeuropathy, with long-term current use of insulin ([facility]) 11/15/2023 Overview (10/26/2024): DM dx: ~2013 per patient reports Glucometer: Dexcom G7 Current Diabetes RX: Lantus Solostar - inject 40 units daily at bedtime Lyumjev - inject 4-28 units three times daily before meals according to sliding scale (max 84 units/day) Rybelsus 14 mg daily with breakfast ROBERTO-I/ARB: BP is well-controlled, urine microalbumin/Scr ratio is <30 mg/g as of 07/17/24, eGFR >60 mL/min/1.73m2 as of 07/19/24. Per KDIGO guidelines, patient is low-risk for microalbuminuria, will hold off on ROBERTO-I/ARB for now. Urine microalbumin/Scr ratio: <30 mg/g (07/17/24) Statin: Atorvastatin 80 mg daily every evening Pneumococcal vaccine: Per CDC no additional doses of any type of pneumococcal vaccine are recommended at this time PCV13 (04/27/17) PPSV23 (08/29/20) Diabetes foot exam: Follow-up 11/16/24 at [facility] 02/07/24 at [facility] Treatment options for recurring ingrown toenails were discussed Right foot treatment options were discussed and reviewed continue with AFO brace did discuss possible if his primary arthrodesis patient does not have enough of a deficit that I would recommend primary fusion at this time F/U 1-3 months 11/03/23 at [facility] Toenails trimmed and debrided, onychomycosis Diabetic mononeuropathy simplex (HCC) Continue with AFO bravicky right lower extremity F/U in 3 months Diabetes retinal exam: Follow-up November 2024 at [facility]. 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/HTN retinopathy No CME/INFO PRINT PRESS OPERATOR, no macular edema Myopia, astigmatism, presbyopia 11/24/22 at [facility] Bilateral: Internal hordeolum, both lids, responding to supportive treatment, condition is resolved Bilateral: headache Blurred VA, firecracker aura, condition is worse, c/o itch signs of allergy, responding to topical treatment, condition has improved No macular edema, no INFO PRINT PRESS OPERATOR/HTN retinopathy Myopia, astigmatism, presbyopia Essential hypertension 10/18/2023 [...] ng 07/29/2022 Osteoarthrosis 02/11/2022 Mild persistent asthma ([facility]) 02/11/2022 Fibromyositis 02/11/2022 Other osteoporosis without current pathological fracture 06/19/2019 Overview (05/10/2024): 04/18/2024: bone density: osteoporosis. 05/26/2019: [facility]: Bone density: Osteoporosis Early osteoporosis due to early hysterectomy Cubital tunnel syndrome, left 04/22/2019 Overview (04/22/2019): Sees [facility] ELIA on CPAP 04/12/2019 Overview (04/12/2019): Per cardio note on 12/2018 at [facility]: Durable Medical Equipment: See Instructions, CPAP 7 [...] Sensor Hyperlipidemia LDL goal <70 04/18/2015 Vasospasm ([facility] V24) 10/05/1997 Overview (09/26/2021): No blood draw and vesel closes up: saw vascular dr and did angiogram 1997. Always has numbness at left elbow to fingers. 06/17/2020: EMG report from [facility]: Impression: Normal motor and sensory nerve conduction study of the right lower extremity. Normal EMG of the right L4-S1 innervated muscles including right L4-S1 paraspinal muscles. There is voluntary hypo-performance in some muscles listed including gastrocnemius and Peroneus longus, which were otherwise normal. Anxiety Bipolar 2 disorder ([facility]) Overview (03/19/2015): [facility] counseling q week GERD (gastroesophageal reflux disease) Piriformis syndrome Fatty liver Overview (11/27/2020): [facility]: FINDINGS: Liver: Diffusely echogenic parenchyma with focal sparing around the gallbladder. No suspicious lesion. Smooth hepatic contour. Main portal vein patent with normal hepatopetal direction of flow. Biliary Tree: No intrahepatic or extrahepatic bile duct dilation is identified. Common duct: 0.4 cm. IMPRESSION: Echogenic liver likely representing hepatic steatosis. No suspicious lesion. Degenerative disc disease, lumbar Autoimmune disorder ([facility]) History of hysterectomy with bilateral oophorect diann: 2003 Resolved Problems Problem Noted Date Diagnosed Date Resolved Date Type 2 diabetes mellitus wit hout complication, without long-term current use of insulin ([facility]) 07/19/2024 08/14/2024 Uses self-applied continuous glucose monitoring device 11/09/2022 01/13/2024 Kidney stones 02/11/2022 02/11/2022 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 Reportedly given oxycodone by urology Left hand pain 09/09/2017 02/11/2022 Overview (09/09/2017): Normal soft tissue. No arthritic changes. Encounters Date Type Department Care Team Description 10/28/2024 Results Follow-Up [address] [phone] Ari Michele, PharmD 10/26/2024 2:00 PM EDT Office Visit [address] [phone] Ari Michele, PharmD 09/25/2024 1:40 PM EDT Office Visit [address] [phone] Ari Michele, PharmD 09/20/2024 10:20 AM EDT Office Visit [address] [phone] Millicent Coppola FNP 09/12/2024 Interim Notes [address] [phone] Tho Peralta [place] 08/14/2024 9:40 AM EDT Office Visit [address] [phone] Ari Michele, PharmD from Last 3 Months Immunizations Immunization Administration Dates Next Due Flu, Cell Culture based, Pre servative Free, 6m+, Flucelvax 01/17/2018 Flu, Preservative Free 01/30/2023,2021,01/09/2021,12/31,01/05/2019 Hep B, Adult/Adol (UGSIEFJ-A-WDBJE/RECOMBIVAX-ADULT) 03/22/2018,02/17/2018,08/31/2017 INFLUENZA, SEASONAL, INJECTABLE 12/25/2016 Influenza (FLUBLOK),recombinant,injectable,prese [...] Sign Reading Time Taken Comments Blood Pressure 120/74 10/26/2024 1:57 PM EDT Pulse 76 10/26/2024 1:57 PM EDT Temperature 36.9 C (98.5 F) 09/20/2024 10:07 AM EDT Respiratory Rate 16 10/26/2024 1:57 PM EDT Oxygen Saturation 97% 10/26/2024 1:57 PM EDT Inhaled Oxygen Concentration - - Weight 58.1 kg (128 lb) 10/26/2024 1:57 PM EDT Height 149.9 cm (4' 11 ) 10/26/2024 1:57 PM EDT Body Mass Index 25.85 10/26/2024 1:57 PM EDT Plan of Treatment Upcoming Encounters Date Type Department Care Team (Late st Contact Info) Description 11/29/2024 9:00 AM EDT Office Visit [facility] [address] [place] [phone] Eli Raina, [facility] [address] [place] [address] Health Maintenance Due Date Last Done Comments CT Colonography 2018 FIT/gFOBT 2018 Fecal DNA 2018 Flexible Sigmoidoscopy 2018 Dental BW 09/01/2022 08/30/2021 Dental Prophy 04/26/2023 10/22/2022, 08/30/2021 Breast Cancer Screening (Mammogram) 08/08/2023 08/07/2022, 05/16/2021, 12/27/2017 Dental Examination 10/25/2023 10/22/2022, 0 08/30/2021, 10/03/2020 Cervical Cancer Screening 08/16/2024 HPV Screening 08/16/2024 08/17/2019 Pap + HPV 08/16/2024 08/17/2019 Pap Smear 08/16/2024 08/17/2019, 04/05 (Managed by Outside Provider) Diabetes Foot Exam 11/02/2024 11/03/2023, 0 10/29/2022, 07/24/2021, Additional history exists Retinopathy Screening 11/28/2024 11/29/2023 , 11/24/2022, 11/28/2020, Additional history exists Imm-Influenza (#1) 2024 01/13/2024, 1 , 01/23/2022, Additional history exists Depression Monitoring 12/21/2024 09/20/2024 , 06/14/2024, 10/13/2023, Additional history exists Hemoglobin A1c 01/26/2025 10/26/2024, 07/04, 02/18/2024, Additional history exists [id number] ( season) 2025 10/27/2021, 03/17/2021, 07/05/2020, Additional history exists Postponed from 12/05/2023 (Patient postponement) Annual Wellness (Adult): Indicated (All Coverage) 02/17/2025 02/18/2024, 10/29/2022, 09/05/2021, Additional history exists Urine Albumin Creatinine Ratio Screening 07/17/2025 07/17/2024, 07/09/2023, 10/28/2022, Additional history exists Serum Creatinine 07/19/2025 07/19/2024, 01/2024, 07/09/2023, Additional history exists Colonoscopy 08/07/2025 08/08/2015 Colorectal Cancer Screening 08/07/2025 Imm-Pneumococcal 50+ (3 of 3 - PCV20 or PCV21) 08/29/2025 08/29/2020, 04/27/2017 Anxiety Screening 09/20/2025 09/20/2024 Lipid Screening 10/26/2025 10/26/2024, 07/04, 10/13/2023, Additional history exists Tobacco Screening 10/26/2025 10/26/2024, , 05/24/2018, Additional history exists Dental FMX/Pano 09/01/2026 08/30/2021 Imm-DTaP/Tdap/Td (3 - Td or Tdap) 04/27/2027 04/27/2017, 05/29/2015 Imm-Hepatitis B Discontinued 03/22/2018, 02/03, 08/31/2017 [...] Procedure Name Priority Date/Time Associated Diagnosis Comments URINE CULTURE W ID & SENS Routine 10/26/2024 2:31 PM EDT RFLX - REFLEXIVE URINE CULTURE Routine 10/26/2024 2:31 PM EDT URINALYSIS, COMPLETE W/REFLEX TO CULTURE Routine 10/26/2024 2:31 PM EDT Urinary tract infection without hematuria, site unspecified LIPID PANEL Routine 10/26/2024 2:30 PM EDT Type 2 diabetes mellitus with diabetic mononeuropathy, with long-term current use of insulin ([facility]) Hyperlipidemia LDL goal <70 HEMOGLOBIN GLYCOSYLATED A1C Routine 10/26/2024 2:30 PM EDT Type 2 diabetes mellitus with diabetic mononeuropathy, with long-term current use of insulin ([facility]) GLUCOSE, BLOOD BY GLUCOSE MONITORING DEVICE (CLIA WAIVED)POCT Routine 10/26/2024 1:59 PM EDT Type 2 diabetes mellitus with diabetic mononeuropathy, with long-term current use of insulin ([facility]) GLUCOSE, BLOOD BY GLUCOSE MONITORING DEVICE (CLIA WAIVED)POCT Routine 09/25/2024 1:43 PM EDT Type 2 diabetes mellitus with diabetic mononeuropathy, with long-term current use of insulin ([facility]) GLUCOSE, BLOOD BY GLUCOSE MONITORING DEVICE (CLIA WAIVED)POCT Routine 08/14/2024 10:32 AM EDT Type 2 diabetes mellitus with diabetic mononeuropathy, with long-term current use of insulin ([facility]) COMPREHENSIVE METABOLIC PANEL Routine 07/19/2024 3:43 PM EDT Type 2 diabetes mellitus without complication, without long-term current use of insulin ([facility]) MICROALBUMIN/CREATININ E RATIO, URINE, RANDOM Routine 07/17/2024 12:03 PM EDT Type 2 diabetes mellitus with diabetic mononeuropathy, with long-term current use of insulin ([facility]) HIV 1/2 AG & AB W/RFLX (4TH GEN) Routine 01/11/2024 9:11 AM EDT Screening examination for venereal disease EYE EXAM 11/29/2023 3:00 AM EDT REFERRAL TO PODIATRY Routine 11/03/2023 3:00 AM EDT Type 2 diabetes mellitus with hyperglycemia, with long-term current use of insulin ([facility]) Ingrown toenail of both feet HISTORIC [...] Relevant to Health Maintenance Results * (ABNORMAL) URINE CULTURE W ID & SENS Routine (10/26/2024 2:31 PM EDT) CULTURE See Note(A) [employer] Comment: CULTURE, URINE, ROUTINE Micro Number: [id number] Test Status: Final Specimen Source: Urine Specimen Quality: Adequate Result: Greater than 100,000 CFU/mL of Escherichia coli E.coli INT WINDY AMOX/CLAVULANATE S 8 AMP/SULBACTAM I 16 CEFAZOLIN I 4 CEFEPIME S <=0.12 CEFTAZIDIME S <=0.5 CEFTRIAXONE S <=0.25 CIPROFLOXACIN R >=4 GENTAMICIN S <=1 IMIPENEM S <=0.25 LEVOFLOXACIN R >=8 MEROPENEM S <=0.25 NITROFURANTOIN S <=16 PIP/TAZOBACTAM S <=4 TRIMETHOPRIM/SULFA S <=20 S = Susceptible I = Intermediate R = Resistant NS = Not susceptible SDD = Susceptible Dose Dependent * = Not Tested NR = Not Reported NN = See Therapy Comments 10/26/2024 2:31 PM EDT 10/26/2024 2:31 PM EDT [facility] - MICROBIOLOGY A MBULATORY Final Result [facility] [address] [place] [id number], [employer] [address] [place] [phone] * (ABNORMAL) URINALYSIS, COMPLETE W/REFLEX TO CULTURE Urine Routine (10/26/2024 2:31 PM EDT) COLOR YELLOW YELLOW [employer] [facility] APPEARANCE CLEAR CLEAR [employer] [facility] [employer] SPECIFIC GRAVITY 1.012 1.001 - 1.035 [facility] [facility] [employer] URINE PH 8.0 5.0 - 8.0 [facility] GLUCOSE NEGATIVE NEGATIVE [employer] BILIRUBIN NEGATIVE NEGATIVE [facility] KETONES NEGATIVE NEGATIVE [employer] OCCULT BLOOD NEGATIVE NEGATIVE [employer] URINE PROTEIN NEGATIVE NEGATIVE [employer] NITRITE POSITIVE(A) NEGATIVE [employer] LEUKOCYTE ESTERASE TRACE(A) NEGATIVE [employer] URINE LEUKOCYTES NONE SEEN < OR = 5 [facility] RBC NONE SEEN < OR = 2 [facility] SQUAMOUS EPITHELIAL CELLS 0-5 < OR = 5 /HPF [facility] BACTERIA MANY(A) NONE SEEN [facility] HYALINE CAST 0-5(A) NONE SEEN /LPF [facility] YEAST FEW(A) NONE SEEN [facility] SEE NOTE See Below [employer] [facility] Comment: This urine was analyzed for the presence of WBC, RBC, bacteria, casts, and other formed elements. Only those elements seen were reported. Urine Urine specimen / Unknown 10/26/2024 2:31 PM EDT 10/26/2024 2:31 PM EDT [facility] URINE AMBULATORY Edited Result - Final Performing Organization Address City/[facility]/ZIP Co de Phone Number [facility] [address] [address], [facility] [address] [address] * RFLX - REFLEXIVE URINE CULTURE Routine (10/26/2024 2:31 PM EDT) REFLEXIVE URINE CULTURE See Below [employer] [facility] Comment:CULTURE INDICATED - RESULTS TO FOLLOW 10/26/2024 2:31 PM EDT 10/26/2024 2:31 PM EDT Millicent NEELY LAB - MICROBIOLOGY A MBULATORY Edited Result - Final Performing Organization Address City/[facility]/ZIP Co de Phone Number [facility] [address] [address], [place] [facility] [address] [address] * (ABNORMAL) HEMOGLOBIN GLYCOSYLATED A1C Routine (10/26/2024 2:30 PM EDT) HEMOGLOBIN A1C 7.9(H) <5.7 % [employer] Comment: For someone without known diabetes, a [...] diabetes for children. Blood Blood / Unknown 10/26/2024 2 :30 PM EDT 10/26/2024 2:30 PM EDT Narrative [facility] - 10/28/2024 4:13 AM EDT FASTING:NO Ari Michele PharmD LAB - BLOOD DRAW Final Re sult [facility] [address] [place] [phone], [employer] [address] [place] [phone] * (ABNORMAL) LIPID PANEL Routine (10/26/2024 2:30 PM EDT) Pathologist [facility] CHOLESTEROL, TOTAL 218(H) <200 mg/dL [employer] HDL CHOLESTEROL 55 > OR = 50 mg/dL [employer] [facility] TRIGLYCERIDES 192(H) <150 mg/dL [employer] LDL-CHOLESTEROL 130(H) 99 mg/dL (calc) [employer] Comment: Reference range: <100 Desirable range <100 mg/dL for primary prevention; <70 mg/dL for patients with CHD or diabetic patients with > or = 2 CHD risk factors. LDL-C is now calculated using the Ross calculation, which is a validated novel method providing better accuracy than the Friedewald equation in the estimation of LDL-C. Pete TOBAR et al. ALFREDO. 2013;310(19): 8198-9206 (http://education.ShopLogic.mGaadi/faq/LWU839) CHOL/HDLC RATIO 4.0 <5.0 (calc) [employer] [facility] NON-HDL CHOLESTEROL 163(H) <130 mg/dL (calc) [employer] [facility] [employer] Comment: For patients with diabetes plus 1 major ASCVD risk factor, treating to a non-HDL-C goal of <100 mg/dL (LDL-C of <70 mg/dL) is considered a therapeutic option. Blood Blood / Unknown 10/26/2024 2 :30 PM EDT 10/26/2024 2:30 PM EDT Narrative [employer] [facility] - 10/28/2024 4:13 AM EDT FASTING:NO [email or web address] PharmD LAB - BLOOD DRAW Final Re sult Performing Organization Address City/[facility]/ZIP Co de Phone Number [facility] [address] [address], [facility] [address] [address] * (ABNORMAL) GLUCOSE, BLOOD BY GLUCOSE MONITORING DEVICE (CLIA WAIVED)POCT Routine (10/26/2024 1:59 PM EDT) Only the most recent of3 resultswithin the time period is included. GLUCOSE 218(A) 70 - 100 mg/dL [facility] POCT Capillary Blood Blood / Unknown 1:59 PM EDT [email or web address] PharmD LAB - BLOOD DRAW Final Re sult [facility] POCT * (ABNORMAL) COMPREHENSIVE METABOLIC PANEL (07/19/2024 3:43 PM EDT) GLUCOSE 259(H) 65 - 139 mg/dL [facility] Comment: Non-fasting reference interval UREA NITROGEN (BUN) 10 7 - 25 mg/dL [facility] CREATININE (blood) 0.77 0.50 - 1.03 mg/dL [facility] EGFR 93 > OR = 60 mL/min/1. 73m2 [facility] BUN/CREATININE RATIO SEE NOTE: [employer] [facility] Comment: Not Reported: BUN and Creatinine are within reference range. SODIUM 139 135 - 146 mmol/L [facility] POTASSIUM 3.9 3.5 - 5.3 mmol/L [facility] CHLORIDE 104 98 - 110 mmol/L [facility] CARBON DIOXIDE 29 20 - 32 mmol/L [facility] CALCIUM 9.5 8.6 - 10.4 mg/dL [facility] PROTEIN, TOTAL 7.0 6.1 - 8.1 g/dL [facility] ALBUMIN 4.6 3.6 - 5.1 g/dL [facility] GLOBULIN 2.4 1.9 - 3.7 g/dL (calc) [facility] ALBUMIN/GLOBULI N RATIO 1.9 1.0 - 2.5 (calc) [facility] BILIRUBIN, TOTAL 0.5 0.2 - 1.2 mg/dL [facility] ALKALINE PHOSPHATASE 121 37 - 153 U/L [facility] AST 21 10 - 35 U/L [facility] ALT 26 6 - 29 U/L [facility] Blood Blood / Unknown 07/19/2024 3 :43 PM EDT 07/19/2024 3:43 PM EDT Narrative [employer] [facility] - 07/20/2024 3:49 AM EDT FASTING:NO Millicent WONGP LAB - BLOOD DRAW Fin al Result [facility] [address] [address], [facility] [address] [address] * MICROALBUMIN/CREATININE RATIO, URINE, RANDOM (07/17/2024 12:03 PM EDT) CREATININE, RANDOM URINE 136 20 - 275 mg/dL [facility] MICROALBUMIN 0.6 mg/dL [employer] [facility] Comment: Reference Range Not established MICROALBUMIN/CREA TININE RATIO, RANDOM URINE 4 <30 mg/g creat [facility] Comment: The ADA defines abnormalities in [...] 12:03 PM EDT 07/17/2024 12:04 PM EDT Ari Michele PharmD LAB URINE AMBULATORY Concha l Result [facility] [address] [address], [facility] [address] [address] * HIV 1/2 AG & AB W/RFLX (4TH GEN) (01/11/2024 9:11 AM EDT) Pathologist [facility] HIV AG/AB, 4TH GEN NON-REAC TIVE NON-REAC TIVE [facility] Comment: HIV-1 antigen and HIV-1/HIV-2 antibodies [...] purpose. For additional information please refer to http://education.mySugr.mGaadi/faq/UWV025 (This link is being provided for informational/ educational purposes only.) The performance of this assay has not been clinically validated in patients less than 2 years old. Blood Blood / Unknown 01/11/2024 9 :11 AM EDT 01/11/2024 9:12 AM EDT Narrative [employer] [facility] - 01/12/2024 10:23 AM EDT PATIENT UNABLE TO VOID; ADVISED TO RETURN FOR COLLECTION. Jaren Cope CREDIT COLLECTOR-C LAB - BLOOD DRAW Final Re sult [facility] [address] [address], [facility] [address] [address] * EYE EXAM (11/29/2023 3:00 AM EDT) 11/29/2023 3:00 AM EDT Raina Benitez [facility] OTHER Edited Result - Final * REFERRAL TO PODIATRY (11/03/2023 3:00 AM EDT) 11/03/2023 3:00 AM EDT Susie Thompson [facility] REFERRAL Final Res ult * HISTORIC MAMMOGRAM (08/07/2022 3:00 AM EDT) 08/07/2022 3:00 AM EDT Raina Benitez [facility] IMG MAMMO Edited Result - Final * HEPATITIS PANEL W/RFLX (09/18/2020 10:55 AM EDT) HEPATITIS A IGM ANTIBODY NON-REACT JASON NON-REACT JASON [facility] COMMENT [facility] HEPATITIS B SURFACE ANTIGEN NON-REACT JASON NON-REACT JASON [facility] HEPATITIS B CORE IGM ANTIBODY NON-REACT JASON NON-REACT JASON [facility] HEPATITIS C ANTIBODY NON-REACT JASON NON-REACT JASON [facility] SIGNAL TO CUT-OFF 0.01 <1.00 [facility] Comment: HCV antibody was non-reactive. There is no laboratory evidence of HCV infection. In most cases, no further action is required. However, if recent HCV exposure is suspected, a test for HCV RNA (test code 40408) is suggested. For additional information please refer to http://education.Livingly Media/faq/GVT09v4 (This link is being provided for informational/ educational purposes only.) Blood Blood / Unknown 09/18/2020 1 0:55 AM EDT 09/18/2020 10:56 AM EDT Narrative [facility] - 09/18/2020 9:07 PM EDT For additional information, please refer to http://education.Livingly Media/faq/LJK598 (This link is being provided for informational/ educational purposes only.) Raina Benitez CREDIT COLLECTOR LAB - BLOOD DRAW Edited Result - Final [facility] [address] [address], [facility] [address] [address] * PAP SMEAR W/HPV (08/17/2019 1:00 PM EDT) PAP SMEAR INTERPRETATION NORMAL NORMAL [facility] HPV (HUMAN PAPILLOMA) NEGATIVE NEGATIVE [facility] HPV TYPE 16 NEGATIVE NEGATIVE [facility] HPV TYPE 18 NEGATIVE NEGATIVE [facility] Cytologic material (specimen) 08/17/2019 1:00 PM EDT Impressions [facility] - 11/16/2019 9:59 AM EDT ThinPrep-A typical squamous cells of undetermined significance (ASCUS) Provider [facility] - PATHOLOGY AND CYTOLOGY AMB ULATORY Final Result Performing Organization Address City/[facility]/ZIP Co de Phone Number [facility] [address] [place] [address], * HISTORIC COLONOSCOPY (08/08/2015 3:00 AM EDT) 08/08/2015 3:00 AM EDT Raina Benitez CREDIT COLLECTOR PROCEDURES Final Result from Last 3 Months or Most Recently Relevant to Health Maintenance [place] [address] ACO Care Teams Research Project Coordinator Relationship Specialty Start Date End Date Raina Benitez FNP [address] [place] [address] PCP - General Internal Medicine 10/19/18
--- OUTSIDE RECORDS SUMMARY | 2024-10-30 11:05 | XMS_ITS | Clinical Summary ---
Author Organization 175 [facility] Address [address] [place] [address] Phone Care Team Providers Care Ring Facer Name Role Phone JoseraduBrian london JAZMYN Primary Care Provider [phone] Allergies Active Allergy Reactions Criticality Noted Date [...] complication, with long-term current use of insulin ([facility] V24, [facility] V28) 12/30/2023 Overview (12/30/2023): Uncontrolled Abnormal chest [...] her next appointment. Anxiety 07/10/2021 Autoimmune disorder ([facility] V24) 07/10/2021 Bipolar 2 disorder ([facility] V24, [facility] V28) Overview (12/30/2023): [facility] q week Degenerative disc disease, [...] done between [facility] and [facility]. [facility] neurology notes mention previous EMG raise question of right lumbosacral radiculopathy. Patient has tried physical therapy 2014, 2016, care assistant, cortisone injections without significant improvement. Patient had [...] had EMG nerve conduction study 05/18/2019 at [facility] of left upper extremity that was normal. [...] 03/05/2019 Hematuria 11/17/2017 Overview (12/30/2023): Seen at [facility] ED on 11-12-17 - sees urology. Reportedly given oxycodone by urology Left hand pain 09/09/2017 Overview (12/30/2023): Normal soft tissue. No arthritic changes. Mixed hyperlipidemia 04/18/2015 Vasospasm ([facility] V24) 10/05/1997 Overview (12/30/2023): No blood draw and vesel closes up: saw vascular dr and did angiogram 1997. Always has numbness at left elbow to fingers. Resolved Problems Problem Noted Date Diagnosed Date Resolved Date Use of cane as ambulatory aid 02/28/2019 12/30/2023 Immunizations Name Administration Dates Next Due Hepatitis B ([id number] , Recombivax HB-Adult) 19yo and older 03/22/2018,02/17/2018,08/31/2017 [...] PM EDT Office Visit [facility] - [place] [address] [phone] Rafael Awad, DPM [address] [address] Health Maintenance Due Date Last Done Comments [...] 2023 10/27/2021, 03/17/2021, 07/05/2020, Additional history exists Depression Screening 04/05/2024 Cervical Cancer Screening: HPV 08/16/2024 08/17/2019 Influenza Vaccine (#1) 2024 , 01/30/2023, 01/23/2022, Additional history exists Diabetes: Blood Sugar Control Test (HGBA1C) 01/16/2025 10/26/2024, 07/17/2024, 02/18/2024, Additional history exists Diabetes: Annual Urine Albumin-Creatinine [...] 04/27/2017, 05/29/2015 Cholesterol Screening (Lipid Panel) 07/19/2029 10/26/2024, 10/26/2024, 07/19/2024, Additional history exists Hepatitis C Screening Completed [...] C SCREENING Routine 08/29/2020 HPV Routine 08/17/2019 DANIELE SCREENING DIGITAL Routine 12/30/2018 10:43 AM EDT Encounter for screening mammogram for malignant neoplasm of breast from Last 3 Months or Most Recently Relevant to Health Maintenance Results * Annual BMP Blood Test (2022) [facility] Annual BMP Blood Test abstracted Result [facility] Provider HEALTH MAINTENANCE Final Result * Hemoglobin A1c (2022) [facility] Hemoglobin A1C 0.0 % Comment:abstracted, no inter pretation Blood Venous blood specimen / Unknown Result [facility] Josie WILSON LAB BLOOD ORDERABLES Concha l Result * Urine Albumin Creatinine Ratio (10/24/2021) [facility] Urine Albumin Creatinine Ratio abstracted Result [facility] Josie WILSON HEALTH MAINTENANCE Final Result * Hepatitis C Screening (08/29/2020) [facility] Hepatitis C Screening abstracted Result [facility] Josie WILSON HEALTH MAINTENANCE Final Result * Cervical Cancer Screening: HPV (08/17/2019) [facility] Cervical Cancer Screening: HPV abstracted, no interpretation us Historical Provider HEALTH MAINTENANCE Final Result * [facility] SCREENING DIGITAL (12/30/2018 10:43 AM EDT) Anatomical Region Laterality Modality Mammography 12/30/2018 8:06 AM EDT Narrative 12/30/2018 10:43 AM EDT [facility] Diagnostic Imaging Department [address] [place] [address] Patient: BONNIE GRAHAM Evgeny /Age/Sex: 1975 - 43 - F Unit#: [id number] Location/Status: SPDIMAM/REG CLI Mnemonic/Ordering Site: [facility] Ordering Physician: BRIAN MESSINA NP [facility] Screening Digital - 12/30/18 - 901 EXAM: [facility] Screening Digital EXAM DATE AND TIME: 12/30/2018 8:31 AM HISTORY: Screening. Sister had breast carcinoma at age 47. COMPARISON: 12/27/17, 12/23/16 TECHNIQUE: CC and MLO views of both breasts were obtained using full field digital mammography. Bilateral digital breast tomosynthesis was performed in the MLO projection. Computer aided detection with the [employer] 7.2-H was employed. TISSUE DENSITY: c. The [...] Routine screening mammogram BILATERAL in 1 year. [id number], [id number] 1951F, 7039F Dictating Physician: KAREN BALDWIN MD Electronically Signed by: KAREN BALDWIN MD Dic Date/Time: 12/30/18 104 Sign date/Time: 12/30/18 1043 Procedure Note Karen Baldwin - 03/25/2022 [facility] Diagnostic Imaging Department [address] [place] [address] Patient: BONNIE GRAHAM I /Age/Sex: 1975 - 43 - F Unit#: [id number] Location/Status: [facility]/REG CLI Mnemonic/Ordering Site: [facility] Ordering Physician: BRIAN MESSINA NP [facility] Screening Digital - 12/30/18 - 901 EXAM: [facility] Screening Digital EXAM DATE AND TIME: 12/30/2018 8:31 AM HISTORY: Screening. Sister had breast carcinoma at age 47. COMPARISON: 12/27/17, 12/23/16 TECHNIQUE: CC and MLO views of both breasts were obtained using fullfield digital mammography. Bilateral digital breast tomosynthesis was performedin the MLO projection. Computer aided detection with the [employer] 7.2-Hwas employed. TISSUE DENSITY: c. The breasts are [...] Routine screening mammogram BILATERAL in 1 year. [address], [address] 3341F, 7025F Dictating Physician: KAREN BALDWIN MD Electronically Signed by: KAREN BALDWIN MD Dic Date/Time: 12/30/18 1042 Sign date/Time: 12/30/18 1043 Brian Messina NP IMG BI PROCEDURES Final Result from Last 3 Months or Most Recently Relevant to Health Maintenance Insurance MEDICAID - [place] Care Teams Ring Facer Relationship Specialty Start Date End Date Brian Messina NP [facility] [place] [address] PCP - General 09/23/20
--- OUTSIDE RECORDS SUMMARY | 2024-10-30 11:05 | XMS_ITS | Clinical Summary ---
Author Organization [employer] [facility] Address [address] [facility] [address] [place] [address] Care Team Providers Care Construction Pit Worker Name Role Phone Unavailable Primary Care Provider Unavailabl e Encounters Date Type Department Care Team Description 10/24/2024 Population Health Risk Score [facility] (C3) Department [address] [facility] [address] [place] [address] Provider, Population Health Generic from Last 3 Months Social History Tobacco Use Types Packs/Day Years Used Date Smoking Tobacco: Never Assessed Comments Unknown Sex and Gender Information Value Date Recorded Sex Assigned at Not on file Legal Sex Female 9:24 PM EDT Gender Identity Not on file Sexual Orientation Not on file Plan of Treatment Health Maintenance Due Date Last Done Comments CT Colonography 1973 Colonoscopy 1973 Colorectal Cancer Screening 1973 Depression Screening 1973 FIT DNA/Cologuard 1975 FIT 1973 FOBT 1975 HIV Screening 1973 SDOH Screening 1973 Sigmoidoscopy 1973 Disability Screening 1973 Alcohol/Substance Use Screening 1985 Tobacco Screening 1985 Family Planning (PISQ) 01/29/1988 Hepatitis C Screening 1991 DTaP/Tdap/Td Vaccines (1 - Tdap) 01/29/1992 Hepatitis B Vaccines (1 of 3 - 19+ 3-dose series) 01/29/1992 Pap Smear 1994 Cervical Cancer Screening 2003 HPV/Cotest 2003 Mammogram 2013 Pneumococcal Vaccine: 50+ Ye ars (1 of 1 - PCV) 2023 Zoster Vaccines (1 of 2) 2023 COVID-19 Vaccine ( - 2023-2 5 season) 2023 Influenza Vaccine (#1) 2024 RSV Patients and Pa tients Aged 60 years or older (1 - 1-dose 75+ series) 01/29/2048 HIB Vaccines Aged Out No longer eligi ble based on patient's age to complete this topic HPV Vaccines Aged Out No longer eligi ble based on patient's age to complete this topic Hepatitis A Vaccines Aged Out No long er eligible based on patient's age to complete this topic IPV Vaccines Aged Out No longer eligi ble based on patient's age to complete this topic Meningococcal B Vaccine Aged Out No l onger eligible based on patient's age to complete this topic Meningococcal Vaccine Aged Out No dwayne dylan eligible based on patient's age to complete this topic RSV under 20 months Aged Out No longe r eligible based on patient's age to complete this topic Rotavirus Vaccines Aged Out No longer eligible based on patient's age to complete this topic
== END 2024-10-30 10:04 | disposition home or self-care (01) ==
LOC: HO.US 10:03
PROVIDERS: PCP Nurse Practitioner Family; Visit Provider Nurse Practitioner Family
DX: R30.0 Dysuria (principal); N39.0 Urinary tract infection, site not specified; R35.0 Frequency of micturition
CPT/HCPCS: 76770

== ENCOUNTER → 2024-10-30 10:07 | Outpatient (BNV) | payer MEDICAID, SELFPAY | PROVIDERS: PCP Nurse Practitioner Family; Visit Provider Radiology Diagnostic Radiology | DX: N39.0 Urinary tract infection, site not specified (principal) | CPT/HCPCS: 76770 ==

== ENCOUNTER 2024-11-22 11:25 | Outpatient (AMB) | payer MEDICAID, SELFPAY ==
--- NOTE | 2024-11-22 11:26 | A.OFFVIS_ITS ---
Intake Visit Reasons: 3M follow up/ US/ PVR Intake Note: Patient is present for 3M/US/PVR Urology Medication:VIT C,METHENAMINE HIPPURATE Antibiotic Allergy:NONE Blood Thinner:NONE Last PVR:20ML'S Plant Biology Professor Required: No Allergies Latex, Natural Rubber Allergy (Mild, Verified 11/22/24 12:24) Hives acetaminophen (From Percocet) Allergy (Unknown, Verified 11/22/24 12:24) Itching adhesive Allergy (Unknown, Verified 11/22/24 12:24) Hives hydrocodone Allergy (Unknown, Verified 11/22/24 12:24) Itching oxycodone Allergy (Unknown, Verified 11/22/24 12:24) Itching Medication List - Last Reconciled 11/22/24 by MASOUD Resendiz albuterol sulfate 90 mcg/actuation (ProAir HFA) 2 puffs inhalation Q4H PRN alendronate 70 mg PO QWEEK amitriptyline 50 mg PO BEDTIME aripiprazole 30 mg PO DAILY armodafinil 250 mg PO QAM 30 days ascorbic acid (vitamin C) 1 g PO DAILY 90 days atorvastatin 80 mg PO BEDTIME blood-glucose sensor ([employer] G6 Sensor device) As directed budesonide-formoterol 80-4.5 mcg/actuation (Symbicort) 2 puffs inhalation BID diclofenac sodium 1% grams topical BID PRN estradiol 0.01%(0.1mg/gram) grams vaginal 3XW fluconazole 150 mg PO Q3D 2 doses fluticasone propionate 50 mcg/actuation 1 spray intranasal BID hydroxyzine pamoate 50 mg PO TID PRN insulin glargine (Lantus Solostar U-100 Insulin) units subcut insulin lispro-aabc (Lyumjev KwikPen U-100 Insulin) 28 units subcut TID lancets (FreeStyle Lancets) As directed loratadine 10 mg PO DAILY meloxicam 15 mg PO DAILY PRN methenamine hippurate 1 g PO DAILY 90 days methylphenidate HCl (Ritalin) 10 mg PO QPM 30 days montelukast 10 mg PO DAILY nitrofurantoin macrocrystal 100 mg PO BID 10 days pantoprazole 40 mg PO BID pen needle, diabetic (BD [place] 2nd Gen Pen Needle) As directed pen needle, diabetic (BD Ultra-Fine Mini Pen Needle) As directed pregabalin 200 mg PO TID 30 days propranolol 10 - 20 mg (1 - 2 x 10 mg) PO BID PRN 90 days sertraline 50 mg PO DAILY tiotropium bromide 1.25 mcg/actuation (Spiriva Respimat) 2 puffs inhalation DAILY HPI Comments Details: Bonnie is a very pleasant 49-year-old female patient of Dr. Benitez. She has a past medical history of GERD, arthritis, osteoporosis, hyperlipidemia, and D iabetes. She is being followed up on today via telehealth. Of note, patient was seen approximately 3 months ago as a new patient today for recurrent urinary tract infections at which time a retroperitoneal ultrasound was ordered for further assessment evaluation and her urine was sent for micorgen. These results were reviewed and communicated with the patient today. 10/27 bilateral kidneys with no masses or renal calculi. Urinary bladder is unremarkable. Mild right hydronephrosis with uncertain etiology per radiology report. Microgen 08/27: E coli, Enterobacter homaechei, and lactobacillus crispatus Urine culture 10/27 E coli She reports since her last office visit here she has since completed fosfomycin as prescribed. However, followed up with her shipmaster last month and urine was noted to be positive for E coli and has since completed treatment with Augmentin. She currently denies any UTI like symptoms. She reports compliance with Premarin, methenamine, and vitamin-C as prescribed. She discusses her follow-up with Gastroenterology for a colonoscopy however this is not until April. She does report issues with constipation as well as diarrhea. We did discussed correlation of bowel issues with recurrent urinary tract infections. She also discusses having had a previous surgical laparoscopic procedure at the age of 9 for adhesions and feels this could be contributing to her bowel issues as well as recurrent urinary tract infections. She also discusses her longstanding history of recurrent urinary tract infections and previously following up with [facility]. She is not currently sexually active. When asked she denies urinary urgency, urinary frequency, incontinence, nocturia, hematuria, dysuria, foul smelling urine, changes to urinary stream, flank pain, fever, and or chills. She is happy with her current voiding parameters. All questions were answered. She otherwise offers no other issues or concerns at this time. [facility] Medical History Arthritis GERD (gastroesophageal reflux disease) Osteoporosis HLD (hyperlipidemia) Diabetes mellitus Syncope Surgical History H/O hand surgery History of hysterectomy Family History Father Cancer Mother HTN (hypertension) Social History Alcohol intake: never Patient Tobacco Use Status: Former Tobacco user Review of Systems Const All systems reviewed & are unremarkable except as noted in HPI and below Physical Exam Const General: cooperative Orientation/consciousness: patient oriented x3 Resp Effort & Inspection: able to speak in complete sentences Neuro General: patient oriented x3 Psych Speech and movement: Clear speech present Attitude: cooperative Thought process: Normal thought process present Thought content: Normal thought content present Insight: Fair insight present (Psych) Judgement: Fair judgement present (Psych) Telehealth Telehealth Telehealth Platform: Telephone Location of provider rendering services: practice address Location of patient: address on file Patient Identification confirmed using: Name, : Yes Telehealth method: voice only Patient verbally consented to treatment: Yes Patient verbally consented to billing insurance company: Yes Patient informed of any privacy concerns related to visit: Yes Minutes spent on Phone/Video with Pt.: 20 Results Reviewed Results Reviewed: Date of Service: 10/30/24 Procedure(s): US retroperitoneal comp Findings: Right kidney normal size and echotexture, 9.4 cm length. Mild hydronephrosis. No mass or calculus. Normal color flow. Left kidney normal size and echotexture, 9.1 cm in length. No hydronephrosis, mass or calculus. Normal color flow. Urinary bladder is unremarkable. Prevoid volume 286 mL. Postvoid volume 37 mL. Ureteral jets are visualized bilaterally Impression: Mild right hydronephrosis, uncertain etiology. Assessment & Plan Assessment & Plan (1) Recurrent UTI: Code(s): N39.0 - Urinary tract infection, site not specified Category: Medical Plan Recent retroperitoneal ultrasound results reviewed with the patient today; as noted above. We discussed microgen results We reviewed most recent urine culture results. Continue methenamine and vitamin-C as well as Premarin Will obtain BUN and creatinine We discussed potential causes of recurrent urinary tract infections as well as further treatment options and risks and benefits of these treatment options. We discussed at length correlation of bowel issues with recurrent urinary tract infections. Discussed UTI prevention with D mannose supplement, vitamin-C, increasing fluid intake, behavioral therapy with timed voiding, perineal hygiene and postcoital voiding, and management of constipation with stool softeners and increased fiber intake. She currently denies any UTI like symptoms. She reports be happy with current voiding parameters. Follow-up next available in office cystoscopy; or sooner with any issues, concerns, and or questions. Orders: Orders Blood Urea Nitrogen Today R39.15 - Urgency of urination Creatinine Today R39.15 - Urgency of urination Urine Cytology Today N39.0 - Urinary tract infection, site not specified Patient Instructions: The patient had an opportunity to ask questions regarding the treatment plan. All questions were answered. Physical exam, labs, and imaging were discussed and reviewed in detail. As well as risks, benefits, and discussion of treatment choices. No major barriers to understanding were identified. The patient expressed understanding and agreement with the above treatment plan. The patient was made aware they should contact our office by phone for worsening of their current condition, the appearance of new symptoms, or with any questions or concerns. Compliance is encouraged with any medications and follow up testing that is ordered. It is a privilege to be allowed the opportunity to participate in? your urological care.? Again, if you have any questions or concerns If you have any questions or concerns please do not hesitate to contact me. The office is [phone]. This note is constructed using voice recognition software. While every effort has been made to ensure accuracy sheet rock installer errors may have been included. Yours sincerely, MASOUD Resendiz Coding Level of Care Code Tele Est Pt Level 3 (34168) Complex EM visit Add On G2211 Diagnoses Recurrent UTI N39.0
--- OUTSIDE RECORDS SUMMARY | 2024-11-22 12:46 | XMS_ITS | Clinical Summary ---
Author Organization [address] [facility] Address [address] [place] [address] Phone Care Team Providers Care [employer] Name Role Phone Brian Messina NP Primary Care Provider [phone] Allergies Active Allergy Reactions Criticality Noted Date [...] complication, with long-term current use of insulin ([facility] V24, [facility] V28) 12/30/2023 Overview (12/30/2023): Uncontrolled [...] her next appointment. Anxiety 07/10/2021 Autoimmune disorder ([facility] V24) 07/10/2021 Bipolar 2 disorder ([facility] V24, [facility] V28) Overview (12/30/2023): [facility] counseling q week Degenerative disc disease, [...] for EMG nerve conduction studies done between [facility] and [facility]. [facility] neurology notes mention previous EMG raise question of right lumbosacral radiculopathy. 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 Patient had [...] has had multiple cortisone injections recently at [facility] in the knees and left shoulder, it [...] had EMG nerve conduction study 06/17/2020 at [facility] that showed normal motor and sensory nerve conduction right lower extremity, normal EMG right L4-S1 muscles including right L4-S1 paraspinous muscles. Patient had EMG nerve conduction study 05/18/2019 at [facility] of left upper extremity that was normal. I reviewed patient's EMG lower extremity with Dr. Powell, we again reviewed her MRI lumbar spine. No foraminal narrowing noted on the MRI, no surgical interventions recommended. Fatty liver 07/10/2021 GERD (gastroesophageal reflux disease) 2 Osteopenia 07/10/2021 Piriformis syndrome 07/10/2021 Other osteoporosis without current pathological fracture 06/19/2019 Overview (12/30/2023): 05/26/2019: [facility]: Bone density: Osteoporosis Early osteoporosis due to early hysterectomy Cubital tunnel syndrome 04/22/2019 Overview (12/30/2023): [facility] 04/12/2019 Overview (12/30/2023): Per cardio note on 12/2018 at [facility]: Durable Medical Equipment: See Instructions, CPAP 7 with a heated humidifier and compliance data followed.tracking capabilities and following residual AHI.DX ELIA G47.33 Chronic right hip pain 03/05/2019 Foot drop, right 03/05/2019 Golfer's elbow, left 03/05/2019 Hematuria 11/17/2017 Overview (12/30/2023): Seen at [facility] ED on 11-12-17 - sees urology. Reportedly given oxycodone by urology Left hand pain 09/09/2017 Overview (12/30/2023): Normal soft tissue. No arthritic changes. Mixed hyperlipidemia 04/18/2015 Vasospasm ([facility] V24) 10/05/1997 Overview (12/30/2023): No blood draw and vesel closes up: saw vascular dr and did angiogram 1997. Always has numbness at left elbow to fingers. Resolved Problems Problem Noted Date Diagnosed Date Resolved Date Use of cane as ambulatory aid 02/28/2019 12/30/2023 Immunizations Name Administration Dates Next Due Hepatitis B (Btszgkt-R-Runna , Recombivax HB-Adult) 19yo and older 03/22/2018,02/17/2018,08/31/2017 [...] Care Team (Late st Contact Info) Description 02/05/2025 8:30 AM EST Office Visit Orthopedic Surgery - [place] [address] [id number] Rafael Awad, DPM [address] [address] Health Maintenance Due Date Last Done Comments [...] Influencers of Health Screening 03/08/2022 COVID-19 Vaccine (5 - 2024-25 season) 2023 10/27/2021, 03/17/2021, 07/05/2020, Additional history exists Depression Screening 04/05/2024 Cervical Cancer Screening: HPV 08/16/2024 08/17/2019 Influenza Vaccine (#1) 2024 , 01/30/2023, 01/23/2022, Additional history exists Diabetes: Blood Sugar Control Test (HGBA1C) 04/28/2025 10/26/2024, 07/17/2024, 02/18/2024, Additional history exists Diabetes: [...] 04/27/2027 04/27/2017, 05/29/2015 Cholesterol Screening (Lipid Panel) 10/26/2029 10/26/2024, 10/26/2024, 07/19/2024, Additional history exists Hepatitis [...] Results * Annual BMP Blood Test (2022) Pathologist [facility] hospital Annual BMP Blood Test abstracted Result [facility] Provider HEALTH MAINTENANCE Final Result * Hemoglobin A1c (2022) [facility] Hemoglobin A1C 0.0 % Comment:abstracted, no inter pretation Blood Venous blood specimen / Unknown Result [facility] Provider LAB BLOOD ORDERABLES Concha l Result * Urine Albumin Creatinine Ratio (10/24/2021) [facility] Urine Albumin Creatinine Ratio abstracted [facility] Provider HEALTH MAINTENANCE Final Result * Hepatitis C Screening (08/29/2020) [facility] Hepatitis C Screening abstracted [facility] Provider HEALTH MAINTENANCE Final Result * Cervical Cancer Screening: HPV (08/17/2019) [facility] Cervical Cancer Screening: HPV abstracted, no interpretation us Historical Provider HEALTH MAINTENANCE Final Result * [facility] SCREENING DIGITAL (12/30/2018 10:43 AM EDT) Anatomical Region Laterality Modality Mammography 12/30/2018 8:06 AM EDT Narrative 12/30/2018 10:43 AM EDT [facility] Diagnostic Imaging Department [address] [place] [id number] Patient: BONNIE GRAHAM Evgeny /Age/Sex: 1975 - 43 - F Unit#: [id number] [facility] Order[facility] Physician: BRIAN MESSINA [address] RESEARCHER [facility] Screening Digital - 12/30/18 - 901 EXAM: [facility] Screening Digital EXAM DATE AND TIME: 12/30/2018 8:31 AM HISTORY: Screening. Sister had breast carcinoma at age 47. COMPARISON: 12/27/17, 12/23/16 TECHNIQUE: CC and MLO views of both breasts were obtained using full field digital mammography. Bilateral digital breast tomosynthesis was performed in the MLO projection. Computer aided detection with the [employer] 7.2-H was employed. TISSUE DENSITY: c. The [...] Routine screening mammogram BILATERAL in 1 year. [id number], [id number] 3341F, 7088F Dictating Physician: KAREN BALDWIN MD Electronically Signed by: KAREN BALDWIN MD Dic Date/Time: 12/30/18 1042 Sign date/Time: 12/30/18 1043 Procedure Note Karen Baldwin - 03/25/2022 [facility] Diagnostic Imaging Department [address] [place] [address] Patient: BONNIE GRAHAM Evgeny /Age/Sex: 1975 - 43 - F Unit#: [id number] [facility]ing Site[facility] Ordering Physician: BRIAN MESSINA NP [facility] Screening Digital - 12/30/18 - 901 EXAM: [facility] Screening Digital EXAM DATE AND TIME: 12/30/2018 8:31 AM HISTORY: Screening. Sister had breast carcinoma at age 47. COMPARISON: 12/27/17, 12/23/16 TECHNIQUE: CC and MLO views of both breasts were obtained using fullfield digital mammography. Bilateral digital breast tomosynthesis was performedin the MLO projection. Computer aided detection with the [employer] 7.2-Hwas employed. TISSUE DENSITY: c. The breasts [...] Routine screening mammogram BILATERAL in 1 year. [id number], [id number] 3341F, 7025F Dictating Physician: KAREN BALDWIN MD Electronically Signed by: KAREN BALDWIN MD Dic Date/Time: 12/30/18 1042 Sign date/Time: 12/30/18 1043 Brian Messina NP IMG BI PROCEDURES Final Result from Last 3 Months or Most Recently Relevant to Health Maintenance Insurance MEDICAID - [place] Care Teams [employer] Relationship Specialty Start Date End Date Brian Messina NP [address] [place] [address] PCP - General 09/23/20
--- OUTSIDE RECORDS SUMMARY | 2024-11-22 12:46 | XMS_ITS | Clinical Summary ---
Author Organization [facility] Address [address] [place] [address] Care Team Providers Care Case Briefer Name Role Phone Unavailable Primary Care Provider Unavailabl e Encounters Date Type Department Care Team Description 10/24/2024 Population Health Risk Score [facility] (C3) Department [address] [facility] [address] [place] [address] Provider, Population Health Generic from [...] FIT DNA/Cologuard 1975 FIT 1975 FOBT 1975 Lipid Panel 1975 SDOH Screening 1975 Sigmoidoscopy 1975 Disability Screening 1975 Alcohol/Substance Use Screening 1985 Tobacco Screening 1985 Family Planning (PISQ) 01/29/1988 Hepatitis C Screening 1991 Hepatitis A Vaccines (1 of 2 - Risk 2-dose series) 01/29/1992 Pap Smear 1994 Cervical Cancer Screening 2003 HPV/Cotest 2003 Mammogram 2013 Hepatitis B Vaccines (3 of 3 - 19+ 3-dose series) 05/17/2018 03/22/2018, 02/17/2018, 08/31/2017 COVID-19 Vaccine ( season) 2023 10/27/2021, 03/17/2021, 07/05/2020, Additional history exists Influenza Vaccine (#1) 2024 4, 01/30/2023, 01/23/2022, Additional history exists Pneumococcal Vaccine: 50+ Years (3 of 3 - PCV20 or PCV21) 08/29/2025 08/29/2020, 04/27/2017 DTaP/Tdap/Td Vaccines (3 - Td or Tdap) 04/27/2027 04/27/2017, 05/29/2015 RSV Patients and Patients Aged 60 years or older (1 - 1-dose 75+ series) 01/29/2048 Zoster Vaccines Completed 06/15/2023, 03/12/2023 HIV Screening Completed 01/11/2024, 01/11/2024 HIB Vaccines Aged Out No longer eligi [...]
--- OUTSIDE RECORDS SUMMARY | 2024-11-22 12:46 | XMS_ITS | Clinical Summary ---
Author Organization [facility] Address [address] [place] [address] Care Team Providers Care Radio Director Name Role Phone Raina Benitez CHIN Primary Care Provider [phone] Source Comments PLEASE NOTE, if this patient [...] use daily. Need lifetime. 1 Each 10/22/19 21 Active miscellaneous medical supply miscIndications:O SA on CPAP by miscellaneous route once daily Order CPAP tubing. Pressure: 7 mmhg, daily. Dx:G47.33, Z99.89. Need: lifetime 1 Each 1 11/01/19 21 Active blood pressure monitorIndication s:Uncontrolled type 2 diabetes mellitus with hyperglycemia ([facility]),Hx of syncope Check BP daily [...] 3 (three) times daily 09/24/19 24 Active armodafiniL (NUVIGIL) 250 mg tab tab Take 1 Tablet by mouth every morning (Prescribed by [facility]) 10/18/19 24 Active methylphenidate (RITALIN) 10 mg tablet Take 1 Tablet by mouth every evening (Prescribed by [facility]) 10/18/19 24 Active propranoloL (INDERAL) 10 mg tablet TAKE 1-2 TABLETS ORALLY 2 TIMES A DAY NEEDED FOR TACHYCARDIA FOR 90 DAYS (Prescribed by [facility]) 10/18/19 24 Active SPIRIVA RESPIMAT 1.25 mcg/actuation mist Inhale 2 Puffs into the lungs daily. (Prescribed by [facility]) 11/15/19 Active VENTOLIN HFA 90 mcg/actuation inhaler Inhale 2 Puffs into the lungs every 4 (four) hours as needed for shortness of breath or wheezing (Prescribed by [facility]) 11/15/19 Active budesonide-formot Carmina (SYMBICORT) 80-4.5 mcg/actuation inhaler Inhale 2 Puffs into the lungs 2 (two) times daily (Prescribed by [facility]) 11/15/19 Active montelukast (SINGULAIR) 10 mg tablet Take 1 Tablet by mouth once daily (Prescribed by [facility]) 11/15/19 Active loratadine (CLARITIN) 10 mg tablet Take 1 Tablet by mouth daily (Prescribed by ENT) 11/15/19 Active lancets (FREESTYLE LANCETS) 28 gaugeIndications: Type 2 diabetes mellitus with diabetic polyneuropathy, with long-term current use of insulin ([facility]) Use to test blood glucose three times daily. (Freestyle Lancets) 100 Each 11 01/13/20 24 Active alcohol swabsIndications: Type 2 diabetes mellitus with diabetic polyneuropathy, with long-term current use of insulin ([facility]) Use to test blood glucose three times daily. 100 Each 11 01/13/20 24 Active alendronate (FOSAMAX) 70 mg tabletIndications :Other osteoporosis without current pathological fracture TAKE 1 TABLET BY MOUTH EVERY 7 (SEVEN) DAYS FOR OSTEOPOROSIS 12 Tablet 3 02/18/20 24 Active insulin glargine (LANTUS SOLOSTAR U-100 INSULIN) 100 unit/mL (3 mL) penIndications:Ty pe 2 diabetes mellitus with diabetic mononeuropathy, with long-term current use of insulin ([facility]) Inject 40 Units into the skin nightly at bedtime increased dose 15 mL 5 05/11/19 25 Active diphenhydrAMINE (BENADRYL) 50 mg capsuleIndication s:Frontal sinusitis, unspecified chronicity Take 1 Capsule by mouth nightly at bedtime as needed for rhinitis 90 Capsule 05/16/19 25 Active blood-glucose sensor (DEXCOM G7 SENSOR) deviIndications:T ype 2 diabetes mellitus with diabetic mononeuropathy, with long-term current use of insulin ([facility]) Apply 1 sensor to back of upper arm every 10 days. Use to check glucose at least 3 times daily. (Dexcom G7 sensors) 3 Each 05/30/19 25 Active pen needle, diabetic (BD CARRIE 2ND GEN PEN NEEDLE) 32 gauge x 5/32 ndleIndications:T ype 2 diabetes mellitus with diabetic polyneuropathy, with long-term current use of insulin ([facility]) USE TO INJECT INSULIN 5 TIMES A DAY 200 Each 11 07/06/19 25 Active insulin lispro-aabc (LYUMJEV KWIKPEN U-100 INSULIN) 100 unit/mLIndication s:Type 2 diabetes mellitus with hyperglycemia, without long-term current use of insulin ([facility]) INJECT SUBCUTANEOUSLY 4-28 UNITS THREE TIMES DAILY BEFORE MEALS UP TO 84 UNITS DAILY 30 mL 5 07/11/19 25 Active traMADoL (ULTRAM) 50 mg tablet TAKE 1 TABLET BY MOUTH EVERY 6 HOURS NEEDED FOR PAIN FOR 3 DAYS 07/08/19 25 Active sertraline (ZOLOFT) 100 mg tablet Take 100 mg by mouth once daily With food (prescribed by [facility] on [address]) 05/03/19 25 Active hydrOXYzine pamoate (VISTARIL) 50 mg capsule Take 1 Capsule by mouth 3 (three) times daily as needed for anxiety or sleep (Prescribed by [facility]) 07/14/19 25 Active fluticasone (FLONASE) 50 mcg/actuation nasal sprayIndications: Nasal congestion Place 1 [place] in both nostrils once daily 16 g 07/18/19 25 Active amitriptyline (ELAVIL) 50 mg tabletIndications :Chronic fatigue TAKE 1 TABLET BY MOUTH EVERYDAY AT BEDTIME 90 Tablet 09/01/19 25 Active conjugated estrogens (PREMARIN) 0.625 mg tabletIndications :Post-menopausal atrophic vaginitis Take 1 Tablet by mouth once daily. 30 Tablet 2 09/21/19 25 Active psyllium (METAMUCIL) packet Take 1 Packet by mouth 2 (two) times daily. 500 Packet 2 09/21/19 25 Active methenamine hippurate (HIPREX) 1 gram tab TAKE 1 TABLET BY MOUTH EVERY DAY ..START AFTER ANTIBIOTIC THERAPY 08/23/19 Active fosfomycin (MONUROL) 3 gram pack DISSOLVE 3 G (1 PACKET) AND TAKE ORALLY EVERY 3 DAYS FOR 9 DAYS DIRECTED 08/26/19 Active fluconazole (DIFLUCAN) 150 mg tablet TAKE 1 TABLET BY MOUTH EVERY 3 DAYS FOR 2 DOSES 08/23/19 Active ascorbic acid, vitamin C, (VITAMIN C) 1,000 mg tablet Take 1,000 mg by mouth once daily. 08/23/19 25 Active ARIPiprazole (ABILIFY) 20 mg tablet Take 20 mg by mouth every morning (Take with 5 mg - prescribed by [facility]). Active ARIPiprazole (ABILIFY) 5 mg tablet Take 5 mg by mouth every morning (Take with 20 mg - prescribed by [facility]). 08/30/19 25 Active rosuvastatin (CRESTOR) 40 mg tabletIndications :Type 2 diabetes mellitus with diabetic mononeuropathy, with long-term current use of insulin ([facility]),Hyperlip idemia LDL goal <70 Take 1 Tablet by mouth nightly at bedtime For cholesterol Stop atorvastatin 80 mg. 90 Tablet 1 09/26/19 25 Active pantoprazole (PROTONIX) 40 mg EC tablet TAKE 1 TABLET BY MOUTH TWICE A DAY 180 Tablet 1 10/18/19 25 Active GAVILYTE-G 236-22.74-6.74 -5.86 gram solution PLEASE FOLLOW INSTRUCTIONS FOR COLONOSCOPY PREP 10/20/19 25 Active naproxen (NAPROSYN) 500 mg tablet TAKE 1 TABLET TWICE A DAY BY ORAL ROUTE WITH MEAL(S) FOR 30 DAYS, FOR PAIN NEEDED. 09/29/19 25 Active blood sugar diagnostic strips Use to test blood glucose three times daily. (Freestyle Lite). 100 Each 11 10/27/19 25 Active glucose 4 gram chewable tabletIndications :Type 2 diabetes mellitus with diabetic mononeuropathy, with long-term current use of insulin ([facility]) Place 4 Tablets into mouth, chew and swallow as needed for low blood sugar (Less than 70 mg/dL). 30 Tablet 5 10/27/19 25 Active semaglutide (RYBELSUS) 14 mg tabIndications:Ty pe 2 diabetes mellitus with diabetic mononeuropathy, with long-term current use of insulin ([facility]) Take 14 mg by mouth every morning before breakfast stop 7 mg. 30 Tablet 5 10/27/19 Active blood sugar diagnostic (FREESTYLE LITE STRIPS) stripsIndications :Type 2 diabetes mellitus with diabetic polyneuropathy, with long-term current use of insulin ([facility]) USE DIRECTED TWICE A DAY 200 Each 2 03/31/20 24 2024 Discontin ued(Reord er (E-Cancel Not Sent)) semaglutide (RYBELSUS) 7 mg tabIndications:Ty pe 2 diabetes mellitus with diabetic mononeuropathy, with long-term current use of insulin ([facility]) Take 1 Tablet by mouth every morning before breakfast stop 3 mg 30 Tablet 5 08/15/19 25 2024 Discontin ued(Quant ity/Dosag e and/or Sig change) lisinopriL 5 mg tablet Take 5 mg by mouth once daily for blood pressure. 10/08/19 25 2024 Discontin ued(Thera py completed /Not needed) amoxicillin-pot clavulanate (AUGMENTIN) 875-125 mg per tabletIndications :Urinary tract infection without hematuria, site unspecified Take 1 Tablet by mouth 2 (two) times daily for 7 days. 14 Tablet 11/01/19 25 2024 Active Problems Problem Noted Date Diagnosed Date Tachycardia 08/14/2024 Overview (08/14/2024): 07/28/23 at [facility] Patient [place] [facility] [place] [facility] [place] extreme exhaustion . ELIA untreated due to CPAP intolerance/noncompliance. Multiple pulmonary nodules etiology unclear. Chronic cough, failure to respond to high dose PPI therapy. Arteriovenous malformation ([facility]) 04/06/2024 Overview (04/06/2024): CT chest [facility] 02/28/22 Impression: 1. No evidence of pulmonary thromboembolism is seen. 2. Branching nodular structure in the periphery of the left upper lobe, the appearance suggesting a (thrombosed) arteriovenous malformation. Short-term follow-up in 6 months recommended. History of tobacco use 02/28/2024 Overview (02/28/2024): Quit tobacco smoking 2020 Type 2 diabetes mellitus wit h diabetic mononeuropathy, with long-term current use of insulin ([facility]) 11/15/2023 Overview (10/26/2024): DM dx: ~2013 [...] (08/29/20) Diabetes foot exam: Follow-up 11/16/24 at [facility] 02/07/24 at [facility] Treatment options for recurring ingrown toenails were discussed Right foot treatment options were discussed and reviewed continue with CONCHITA monroe did discuss possible if his primary arthrodesis patient does not have enough of a deficit that I would recommend primary fusion at this time F/U 1-3 months 11/03/23 at [facility] Toenails trimmed and debrided, onychomycosis Diabetic mononeuropathy simplex (HCC) Continue with CONCHITA monroe right lower extremity F/U in 3 months Diabetes retinal exam: Follow-up November 2024 at [facility]. 11/29/23 at [facility] No TAXONOMIST/HTN retinopathy No CME/TAXONOMIST, no macular edema Myopia, astigmatism, presbyopia 11/24/22 at [facility] Bilateral: Internal hordeolum, both lids, responding to supportive treatment, condition is resolved Bilateral: headache Blurred VA, firecracker aura, condition is worse, c/o itch signs of allergy, responding to topical treatment, condition has improved No macular edema, no TAXONOMIST/HTN retinopathy Myopia, astigmatism, presbyopia Essential hypertension 10/18/2023 [...] (04/12/2019): Per cardio [place] on 12/2018 [place] [facility] Durable Medical Equipment: See Instructions, CPAP 7 [...] Sensor Hyperlipidemia LDL goal <70 04/18/2015 Vasospasm ([facility] V24) 10/05/1997 Overview (09/26/2021): No blood draw and vesel closes up: saw vascular dr and did angiogram 1997. Always has numbness at left elbow to fingers. 06/17/2020: EMG report from [facility]: Impression: Normal motor and sensory nerve conduction study of the right lower extremity. Normal EMG of the right L4-S1 innervated muscles including right L4-S1 paraspinal muscles. There is voluntary hypo-performance in some muscles listed including gastrocnemius and Peroneus longus, which were otherwise normal. Anxiety Bipolar 2 disorder ([facility]) Overview (03/19/2015): [facility] counseling q week GERD (gastroesophageal reflux disease) Piriformis syndrome Fatty liver Overview (11/27/2020): 10/09/2020: [facility]: [place] of liver: FINDINGS: Liver: Diffusely echogenic parenchyma with focal sparing around the gallbladder. No suspicious lesion. Smooth hepatic contour. Main portal vein patent with normal hepatopetal direction of flow. Biliary Tree: No intrahepatic or extrahepatic bile duct dilation is identified. Common duct: 0.4 cm. IMPRESSION: Echogenic liver likely representing hepatic steatosis. No suspicious lesion. 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 Reportedly given oxycodone by urology Left hand pain 09/09/2017 02/11/2022 Overview (09/09/2017): Normal soft tissue. No arthritic changes. Encounters Date Type Department Care Team Description 10/31/2024 Results Follow-Up [address] [phone] Millicent Coppola FNP 10/28/2024 Results Follow-Up [address] [phone] Gilbert Michelee, PharmD 10/26/2024 2:00 PM EDT Office Visit [address] [phone] Gilbert Michelee, PharmD 09/25/2024 1:40 PM EDT Office Visit [address] [address] Gilbert Michelee, PharmD 09/20/2024 10:20 AM EDT Office Visit [address] [phone] Millicent Coppola, MEAL GRINDER TENDER 09/12/2024 Interim Notes [address] [phone] Kathryn RavenRON bowser from Last 3 Months Immunizations Immunization Administration Dates Next Due Flu, Cell Culture based, Pre servative Free, 6m+, Flucelvax 01/17/2018 Flu, Preservative Free 01/30/2023,2021,01/09/2021,12/31,01/05/2019 Hep B, Adult/Adol (XGDYCPM-T-MOSUU/RECOMBIVAX-ADULT) 03/22/2018,02/17/2018,08/31/2017 INFLUENZA, SEASONAL, INJECTABLE 12/25/2016 Influenza (FLUBLOK),recombinant,injectable,prese [...] Care Team (Late st Contact Info) Description 12/27/2024 2:00 PM EDT Office Visit [facility] [address] [place] [address] Raina Benitez, MEAL GRINDER TENDER [address] [place] [address] Health Maintenance Due Date Last Done Comments [...] 01/26/2025 10/26/2024, 07/04, 02/18/2024, Additional history exists [id number] ( season) 2025 10/27/2021, 03/17/2021, 07/05/2020, Additional [...] Procedure Name Priority Date/Time Associated Diagnosis Comments IMAGING SCANNED DOCUMENT 10/30/2024 3:00 AM EDT IMAGING SCANNED DOCUMENT 10/30/2024 3:00 AM EDT URINE CULTURE W ID & SENS Routine 10/26/2024 2:31 PM EDT RFLX - REFLEXIVE URINE CULTURE Routine 10/26/2024 2:31 PM EDT URINALYSIS, COMPLETE W/REFLEX TO CULTURE Routine 10/26/2024 2:31 PM EDT Urinary tract infection without hematuria, site unspecified LIPID PANEL Routine 10/26/2024 2:30 PM EDT Type 2 diabetes mellitus with diabetic mononeuropathy, with long-term current use of insulin ([facility]) Hyperlipidemia LDL goal <70 HEMOGLOBIN GLYCOSYLATED A1C Routine 10/26/2024 2:30 PM EDT Type 2 diabetes mellitus with diabetic mononeuropathy, with long-term current use of insulin ([facility]) GLUCOSE, BLOOD BY GLUCOSE MONITORING DEVICE (CLIA WAIVED)POCT Routine 10/26/2024 1:59 PM EDT Type 2 diabetes mellitus with diabetic mononeuropathy, with long-term current use of insulin ([facility]) GLUCOSE, BLOOD BY GLUCOSE MONITORING DEVICE (CLIA WAIVED)POCT Routine 09/25/2024 1:43 PM EDT Type 2 diabetes mellitus with diabetic mononeuropathy, with long-term current use of insulin ([facility]) COMPREHENSIVE METABOLIC PANEL Routine 07/19/2024 3:43 PM EDT Type 2 diabetes mellitus without complication, without long-term current use of insulin ([facility]) MICROALBUMIN/CREATININ E RATIO, URINE, RANDOM Routine 07/17/2024 12:03 PM EDT Type 2 diabetes mellitus with diabetic mononeuropathy, with long-term current use of insulin ([facility]) HIV 1/2 AG & AB W/RFLX (4TH GEN) Routine 01/11/2024 9:11 AM EDT Screening examination for venereal disease EYE EXAM 11/29/2023 3:00 AM EDT REFERRAL TO PODIATRY Routine 11/03/2023 3:00 AM EDT Type 2 diabetes mellitus with hyperglycemia, with long-term current use of insulin ([facility]) Ingrown toenail of both feet HISTORIC MAMMOGRAM [...] Recently Relevant to Health Maintenance Results * IMAGING SCANNED DOCUMENT (10/30/2024 3:00 AM EDT) Only the most recent of2 resultswithin the time period is included. 10/30/2024 3:00 AM EDT Raina Benitez MEAL GRINDER TENDER SCAN IMAGING Final Result * (ABNORMAL) URINE CULTURE W ID & SENS Routine (10/26/2024 2:31 PM EDT) CULTURE See Note(A) [facility] Comment: CULTURE, URINE, ROUTINE Micro Number: [id number] Test Status: Final Specimen Source: Urine Specimen [...] PM EDT 10/26/2024 2:31 PM EDT Millicent Coppola MEAL GRINDER TENDER LAB - MICROBIOLOGY A MBULATORY Final Result [facility] [address] [address], [facility] [address] [address] * (ABNORMAL) URINALYSIS, COMPLETE W/REFLEX TO CULTURE Urine Routine (10/26/2024 2:31 PM EDT) COLOR YELLOW YELLOW [facility] APPEARANCE CLEAR CLEAR [facility] SPECIFIC GRAVITY 1.012 1.001 - 1.035 [facility] URINE PH 8.0 5.0 - 8.0 [facility] [place] [employer] GLUCOSE NEGATIVE NEGATIVE [facility] [place] [employer] BILIRUBIN NEGATIVE NEGATIVE [facility] [place] [employer] KETONES NEGATIVE NEGATIVE [facility] OCCULT BLOOD NEGATIVE NEGATIVE [facility] URINE PROTEIN NEGATIVE NEGATIVE [facility] [place] [employer] NITRITE POSITIVE(A) NEGATIVE [facility] LEUKOCYTE ESTERASE TRACE(A) NEGATIVE [facility] URINE LEUKOCYTES NONE SEEN < OR = 5 [employer] [facility] RBC NONE SEEN < OR = 2 [facility] SQUAMOUS EPITHELIAL CELLS 0-5 < OR = 5 /HPF [employer] [facility] BACTERIA MANY(A) NONE SEEN [facility] [place] [employer] HYALINE CAST 0-5(A) NONE SEEN /LPF [employer] [facility] YEAST FEW(A) NONE SEEN [facility] SEE NOTE See Below [employer] [facility] Comment: This urine was analyzed for the presence of WBC, RBC, bacteria, casts, and other formed elements. Only those elements seen were reported. Urine Urine specimen / Unknown 10/26/2024 2:31 PM EDT 10/26/2024 2:31 PM EDT us Millicent Coppola [employer] GR[employer] TEND[employer] LAB URINE AMBULATORY Edited Result - Final [employer] [employer] [facility] [address] [address], [facility] [address] [place] [address] * RFLX - REFLEXIVE URINE CULTURE Routine (10/26/2024 2:31 PM EDT) REFLEXIVE URINE CULTURE See Below [facility] Comment:CULTURE INDICATED - RESULTS TO FOLLOW 10/26/2024 2:31 PM EDT 10/26/2024 2:31 PM EDT us Millicent NEELY LAB - MICROBIOLOGY A MBULATORY Edited Result - Final Performing Organization Address [facility]/ZIP Co de Phone Number [facility] [address] [address], [employer] [address] [address] * (ABNORMAL) HEMOGLOBIN GLYCOSYLATED A1C Routine (10/26/2024 2:30 PM EDT) HEMOGLOBIN A1C 7.9(H) <5.7 % [facility] Comment: For someone without known diabetes, a [...] PM EDT 10/26/2024 2:30 PM EDT Narrative [employer] [facility] - 10/28/2024 4:13 AM EDT FASTING:NO Ari PompaD LAB - BLOOD DRAW Final Re sult Performing Organization Address [facility]/ZIP Co de Phone Number [facility] [address] [address], [facility] [address] [address] * (ABNORMAL) LIPID PANEL Routine (10/26/2024 2:30 PM EDT) CHOLESTEROL, TOTAL 218(H) <200 mg/dL [facility] HDL CHOLESTEROL 55 > OR = 50 mg/dL [facility] TRIGLYCERIDES 192(H) <150 mg/dL [facility] LDL-CHOLESTEROL 130(H) 99 mg/dL (calc) [facility] Comment: Reference range: <100 Desirable range <100 mg/dL for primary prevention; <70 mg/dL for patients with CHD or diabetic patients with > or = 2 CHD risk factors. LDL-C is now calculated using the Ross calculation, which is a validated novel method providing better accuracy than the Friedewald equation in the estimation of LDL-C. Pete TOBAR et al. ALFREDO. 2013;310(51): 0520-3619 (http://education.StorSimple/faq/WXV380) CHOL/HDLC RATIO 4.0 <5.0 (calc) [facility] NON-HDL CHOLESTEROL 163(H) <130 mg/dL (calc) [facility] Comment: For patients with diabetes plus 1 major ASCVD risk factor, treating to a non-HDL-C goal of <100 mg/dL (LDL-C of <70 mg/dL) is considered a therapeutic option. Blood Blood / Unknown 10/26/2024 2 :30 PM EDT 10/26/2024 2:30 PM EDT Narrative [employer] - 10/28/2024 4:13 AM EDT FASTING:NO [employer] [facility] LAB - BLOOD DRAW Final Re sult Performing Organization Address City/[facility]/ZIP Co de Phone Number [employer] [address] [place] [address], [facility] [address] [address] * (ABNORMAL) GLUCOSE, BLOOD BY GLUCOSE MONITORING DEVICE (CLIA WAIVED)POCT Routine (10/26/2024 1:59 PM EDT) Only the most recent of2 resultswithin the time period is included. GLUCOSE 218(A) 70 - 100 mg/dL [facility] POCT Capillary Blood Blood / Unknown 1:59 PM EDT [employer] [facility] LAB - BLOOD DRAW Final Re sult Performing Organization Address City/[facility]/ZIP Co de Phone Number [facility] POCT * (ABNORMAL) COMPREHENSIVE METABOLIC PANEL (07/19/2024 3:43 PM EDT) GLUCOSE 259(H) 65 - 139 mg/dL [place] Comment: Non-fasting reference interval UREA NITROGEN (BUN) 10 7 - 25 mg/dL [facility] CREATININE (blood) 0.77 0.50 - 1.03 mg/dL [facility] EGFR 93 > OR = 60 mL/min/1. 73m2 [facility] BUN/CREATININE RATIO SEE NOTE: [facility] Comment: Not Reported: BUN and Creatinine are within reference range. SODIUM 139 135 - 146 mmol/L [facility] POTASSIUM 3.9 3.5 - 5.3 mmol/L [facility] CHLORIDE 104 98 - 110 mmol/L [facility] CARBON DIOXIDE 29 20 - 32 mmol/L [facility] CALCIUM 9.5 8.6 - 10.4 mg/dL [facility] PROTEIN, TOTAL 7.0 6.1 - 8.1 g/dL [facility] ALBUMIN 4.6 3.6 - 5.1 g/dL [facility] GLOBULIN 2.4 1.9 - 3.7 g/dL (calc) [facility] ALBUMIN/GLOBULI N RATIO 1.9 1.0 - 2.5 (calc) [facility] BILIRUBIN, TOTAL 0.5 0.2 - 1.2 mg/dL [facility] ALKALINE PHOSPHATASE 121 37 - 153 U/L [facility] AST 21 10 - 35 U/L [facility] ALT 26 6 - 29 U/L [facility] Blood Blood / Unknown 07/19/2024 3 :43 PM EDT 07/19/2024 3:43 PM EDT Narrative [facility] - 07/20/2024 3:49 AM EDT FASTING:NO Millicent NEELY LAB - BLOOD DRAW Fin al Result [facility] [address] [address], [facility] [address] [place] [address] * MICROALBUMIN/CREATININE RATIO, URINE, RANDOM (07/17/2024 12:03 PM EDT) CREATININE, RANDOM URINE 136 20 - 275 mg/dL [facility] MICROALBUMIN 0.6 mg/dL [facility] Comment: Reference Range Not established MICROALBUMIN/CREA TININE RATIO, RANDOM URINE 4 <30 mg/g creat [place] Comment: The ADA defines abnormalities in albumin [...] 12:03 PM EDT 07/17/2024 12:04 PM EDT us Ari Ryne PharmD LAB URINE AMBULATORY Concha l Result [facility] [address] [address], [place] [address] [place] [phone] * HIV 1/2 AG & AB W/RFLX (4TH GEN) (01/11/2024 9:11 AM EDT) HIV AG/AB, 4TH GEN NON-REAC TIVE NON-REAC TIVE [place] Comment: HIV-1 antigen and HIV-1/HIV-2 antibodies were [...] purpose. For additional information please refer to http://education.[employer]/faq/SLA152 (This link is being provided for informational/ educational purposes only.) The performance of this assay has not been clinically validated in patients less than 2 years old. Blood Blood / Unknown 01/11/2024 9 :11 AM EDT 01/11/2024 9:12 AM EDT Narrative [facility] - 01/12/2024 10:23 AM EDT PATIENT UNABLE TO VOID; ADVISED TO RETURN FOR COLLECTION. Jaren Cope MEAL GRINDER TENDER-C LAB - BLOOD DRAW Final Re sult [facility] [address] [place] [address], [facility] [address] [phone] * EYE EXAM (11/29/2023 3:00 AM EDT) 11/29/2023 3:00 AM EDT Raina WONGP OTHER Edited Result - Final * REFERRAL TO PODIATRY (11/03/2023 3:00 AM EDT) 11/03/2023 3:00 AM EDT Susie WONGP REFERRAL Final Res ult * HISTORIC MAMMOGRAM (08/07/2022 3:00 AM EDT) 08/07/2022 3:00 AM EDT Raina Benitez MEAL GRINDER TENDER IMG MAMMO Edited Result - Final * HEPATITIS PANEL W/RFLX (09/18/2020 10:55 AM EDT) HEPATITIS A IGM ANTIBODY NON-REACT JASON NON-REACT JASON [facility] COMMENT [facility] HEPATITIS B SURFACE ANTIGEN NON-REACT JASON NON-REACT JASON [facility] HEPATITIS B CORE IGM ANTIBODY NON-REACT JASON NON-REACT JASON [facility] HEPATITIS C ANTIBODY NON-REACT JASON NON-REACT JASON [facility] SIGNAL TO CUT-OFF 0.01 <1.00 [facility] Comment: HCV antibody was non-reactive. There is no laboratory evidence of HCV infection. In most cases, no further action is required. However, if recent HCV exposure is suspected, a test for HCV RNA (test code 29476) is suggested. For additional information please refer to http://education.[employer]/faq/FJP39e6 (This link is being provided for informational/ educational purposes only.) Blood Blood / Unknown 09/18/2020 1 0:55 AM EDT 09/18/2020 10:56 AM EDT Narrative [facility] - 09/18/2020 9:07 PM EDT For additional information, please refer to http://Ch[employer]/faq/ABJ936 (This link is being provided for informational/ educational purposes only.) Raina Benitez MEAL GRINDER TENDER LAB - BLOOD DRAW Edited Result - Final Performing Organization Address City/[facility]/ZIP Co de Phone Number [facility] [address] [address], [facility] [address] [address] * PAP SMEAR W/HPV (08/17/2019 1:00 PM EDT) PAP SMEAR INTERPRETATION NORMAL NORMAL [facility] HPV (HUMAN PAPILLOMA) NEGATIVE NEGATIVE [facility] HPV TYPE 16 NEGATIVE NEGATIVE [facility] HPV TYPE 18 NEGATIVE NEGATIVE [facility] Cytologic material (specimen) 08/17/2019 1:00 PM EDT Impressions [facility] - 11/16/2019 9:59 AM EDT ThinPrep-A typical squamous cells of undetermined significance (ASCUS) Provider [facility] - PATHOLOGY AND CYTOLOGY AMB ULATORY Final Result [facility] [address] [place] [id number], * HISTORIC COLONOSCOPY (08/08/2015 3:00 AM EDT) 08/08/2015 3:00 AM EDT Raina NEELY PROCEDURES Final Result from Last 3 Months or Most Recently Relevant to Health Maintenance Insurance [place] MEDICA[place] [address] [facility] Medicaid Address: [facility] [id number] [place] [address] Care Teams Radio Director Relationship Specialty Start Date End Date Raina Benitez FNP [address] [place] [phone] PCP - General Internal Medicine 10/19/18
== END 2024-11-22 13:03 | disposition home or self-care (01) ==
LOC: HO.HUSH 11:25
PROVIDERS: PCP Nurse Practitioner Family; Visit Provider Nurse Practitioner Family
DX: N39.0 Urinary tract infection, site not specified (principal)
CPT/HCPCS: 99213

== ENCOUNTER 2024-12-28 09:51 | Outpatient (REF) | payer MEDICAID, SELFPAY ==
[2024-12-28 10:32] LABS: Appearance Urine Clear; Glucose Urine UA >=1000 mg/dL (Negative); PH 5.5 (5.0-9.0); Specific Gravity - Urine 1.020 (1.005-1.025); UMIC TRIGGER UA YES
--- OUTSIDE RECORDS SUMMARY | 2024-12-28 11:48 | XMS_ITS | Clinical Summary ---
Author Organization 175 [facility] Address [address] [place] [address] Phone Care Team Providers Care Sail Finisher Hand Name Role Phone Brian Messina NP Primary Care Provider [phone] Allergies Active Allergy Reactions Criticality Noted Date [...] complication, with long-term current use of insulin ([facility] V24, [facility] V28) 12/30/2023 Overview (12/30/2023): Uncontrolled Abnormal chest [...] her next appointment. Anxiety 07/10/2021 Autoimmune disorder ([facility] V24) 07/10/2021 Bipolar 2 disorder ([facility] V24, [facility] V28) Overview (12/30/2023): [facility] counseling q week Degenerative disc disease, [...] for EMG nerve conduction studies done between [facility] and [facility]. [facility] neurology notes mention previous EMG raise question of right lumbosacral radiculopathy. Patient has tried physical therapy 2014, 2016, care aide, cortisone injections without significant improvement. Patient had [...] has had multiple cortisone injections recently at [facility] in the knees and left shoulder, it [...] had EMG nerve conduction study 06/17/2020 at [facility] that showed normal motor and sensory nerve conduction right lower extremity, normal EMG right L4-S1 muscles including right L4-S1 paraspinous muscles. Patient had EMG nerve conduction study 05/18/2019 at [facility] of left upper extremity that was normal. [...] Cubital tunnel syndrome 04/22/2019 Overview (12/30/2023): [facility]2019 Overview (12/30/2023): Per cardio note on 12/2018 at [facility]: Durable Medical Equipment: See Instructions, CPAP 7 with a heated humidifier and compliance data followed.tracking capabilities and following residual AHI.DX ELIA G47.33 Chronic right hip pain 03/05/2019 Foot drop, right 03/05/2019 Golfer's elbow, left 03/05/2019 Hematuria 11/17/2017 Overview (12/30/2023): Seen at [facility] ED on 11-12-17 - sees urology. Reportedly given oxycodone by urology Left hand pain 09/09/2017 Overview (12/30/2023): Normal soft tissue. No arthritic changes. Mixed hyperlipidemia 04/18/2015 Vasospasm ([facility] V24) 10/05/1997 Overview (12/30/2023): No blood draw and vesel closes up: saw vascular dr and did angiogram 1997. Always has numbness at left elbow to fingers. Resolved Problems Problem Noted Date Diagnosed Date Resolved Date Use of cane as ambulatory aid 02/28/2019 12/30/2023 Immunizations Name Administration Dates Next Due Hepatitis B (Nzlsnln-D-Zvelb , Recombivax HB-Adult) 19yo and older 03/22/2018,02/17/2018,08/31/2017 [...] AM EST Office Visit Orthopedic Surgery - [place] [address] [phone] Rafael Awad, DPM [address] [phone] Health Maintenance Due Date Last Done Comments [...] 03/08/2022 Social Influencers of Health Screening 03/08/2022 Depression Screening 04/05/2024 Cervical Cancer Screening: HPV 08/16/2024 08/17/2019 COVID-19 Vaccine ( season) 2024 10/27/2021, 03/17/2021, 07/05/2020, Additional history exists Influenza Vaccine (#1) 2024 , 01/30/2023, 01/23/2022, [...] 10/26/2029 10/26/2024, 10/26/2024, 07/19/2024, Additional history exists RSV Immunization Adult Patients (1 - 1-dose 75+ series) 01/29/2048 Hepatitis C Screening Completed 09/18/2020, 021 Zoster [...] * Annual BMP Blood Test (2022) Pathologist [facility] Annual BMP Blood Test abstracted Result [facility] Provider HEALTH MAINTENANCE Final Result * Hemoglobin A1c (2022) Pathologist [facility] Hemoglobin A1C 0.0 % Comment:abstracted, no inter pretation Blood Venous blood specimen / Unknown Historical Provider LAB BLOOD ORDERABLES Concha l Result * Urine Albumin Creatinine Ratio (10/24/2021) Pathologist [facility] Urine Albumin Creatinine Ratio abstracted Result [facility] Provider HEALTH MAINTENANCE Final Result * Hepatitis C Screening (08/29/2020) Pathologist [facility] Hepatitis C Screening abstracted [facility] Provider HEALTH MAINTENANCE Final Result * Cervical Cancer Screening: HPV (08/17/2019) Cervical Cancer Screening: HPV abstracted, no interpretation us Historical Provider HEALTH MAINTENANCE Final Result * [facility] SCREENING DIGITAL (12/30/2018 10:43 AM EDT) Anatomical Region Laterality Modality Mammography 12/30/2018 8:06 AM EDT Narrative 12/30/2018 10:43 AM EDT [facility] Diagnostic Imaging Department [address] [place] [address] Patient: BONNIE GRAHAM I /Age/Sex: 1975 - 43 - F Unit#: [id number] Location/Status: [facility] CLI Mnemonic/Ordering Site: [facility] Ordering Physician: BRIAN MESSINA SIGNALS OFFICER [facility] Screening Digital - 12/30/18 - 901 EXAM: [facility] Screening Digital EXAM DATE AND TIME: 12/30/2018 8:31 AM HISTORY: Screening. Sister had breast carcinoma at age 47. COMPARISON: 12/27/17, 12/23/16 TECHNIQUE: CC and MLO views of both breasts were obtained using full field digital mammography. Bilateral digital breast tomosynthesis was performed in the MLO projection. Computer aided detection with the Cearna 7.2-H was employed. TISSUE DENSITY: c. The [...] Routine screening mammogram BILATERAL in 1 year. [address]3049, 90083 3341F, 7025F Dictating Physician: KAREN BALDWIN MD Electronically Signed by: KAREN BALDWIN MD Dic Date/Time: 12/30/18 1042 Sign date/Time: 12/30/18 1043 Procedure Note Karen Baldwin - 03/25/2022 [facility] Diagnostic Imaging Department [address] [place], [place] [phone] Patient: BONNIE GRAHAM I /Age/Sex: 1975 - 43 - F Unit#: [id number] [facility]Ordering Site: [facility] Ordering Physician: BRIAN MESSINA SIGNALS OFFICER [facility] Screening Digital - 12/30/18 - 901 EXAM: [facility] Screening Digital EXAM DATE AND TIME: 12/30/2018 8:31 AM HISTORY: Screening. Sister had breast carcinoma at age 47. COMPARISON: 12/27/17, 12/23/16 TECHNIQUE: CC and MLO views of both breasts were obtained using fullfield digital mammography. Bilateral digital breast tomosynthesis was performedin the MLO projection. Computer aided detection with the Cearna 7.2-Hwas employed. TISSUE DENSITY: c. The breasts [...] Routine screening mammogram BILATERAL in 1 year. 35022, 00821 3341F, 7025F Dictating Physician: KAREN BALDWIN MD Electronically Signed by: KAREN BALDWIN MD Dic Date/Time: 12/30/18 104 Sign date/Time: 12/30/18 1043 Brian Messina NP IMG BI PROCEDURES Final Result from Last 3 Months or Most Recently Relevant to Health Maintenance Insurance MEDICAID - [place] Care Teams Sail Finisher Hand Relationship Specialty Start Date End Date Brian Messina NP [facility] [place] [address] PCP - General 09/23/20
--- OUTSIDE RECORDS SUMMARY | 2024-12-28 11:48 | XMS_ITS | Clinical Summary ---
Author Organization [employer] [facility] Address [address] [facility] 7t [place] [address] Care Team Providers Care Certified Orthoptist Name Role Phone Unavailable Primary Care Provider Unavailabl e Encounters Date Type Department Care Team Description 10/24/2024 Population Health Risk Score [facility] (C3) Department [address] [facility] [address] [place] [address] Provider, Population Health Generic from [...] 03/22/2018, 02/17/2018, 08/31/2017 COVID-19 Vaccine ( season) 2024 10/27/2021, 03/17/2021, [...]
== END 2024-12-28 09:52 | disposition home or self-care (01) ==
LOC: HO.10HDLNP 09:51
PROVIDERS: Visit Provider Nurse Practitioner Family
DX: R30.0 Dysuria (principal); R35.0 Frequency of micturition; N39.0 Urinary tract infection, site not specified
CPT/HCPCS: 81001; 87086; 87088; 87186

== ENCOUNTER 2025-01-16 09:45 | Outpatient (REF) | payer MEDICAID, SELFPAY ==
--- OUTSIDE RECORDS SUMMARY | 2025-01-16 10:57 | XMS_ITS | Clinical Summary ---
Author Organization [employer] [employer] Address [address] [facility] 7t [place] [address] Care Team Providers Care Manager Strategic Marketing Name Role Phone Unavailable Primary Care Provider Unavailabl e Encounters Date Type Department Care Team Description 10/24/2024 Population Health Risk Score [facility] (C3) Department [address] [facility] [address] [place] [address] Provider, Population Health Generic from [...] 2024 10/27/2021, 03/17/2021, 07/05/2020, Additional history exists Pneumococcal Vaccine: 50+ Years (3 of 3 - PCV20 or PCV21) 08/29/2025 08/29/2020, 04/27/2017 DTaP/Tdap/Td Vaccines (3 - Td or Tdap) 04/27/2027 04/27/2017, 05/29/2015 RSV Patients and Patients Aged 60 years or older (1 - 1-dose 75+ series) 01/29/2048 Zoster Vaccines Completed 06/15/2023, 03/12/2023 HIV Screening Completed 01/11/2024, 01/11/2024 Influenza Vaccine Completed 12/01/2024, , 01/30/2023, Additional history exists HIB Vaccines Aged Out [...]
--- OUTSIDE RECORDS SUMMARY | 2025-01-16 10:57 | XMS_ITS | Clinical Summary ---
Author Organization 175 [facility] Address [address] [place] [address] Phone Care Team Providers Care Assistant Site Manager Name Role Phone Brian Messina NP Primary Care Provider [phone] Allergies Active Allergy Reactions Criticality Noted Date Comments Hydrocodone 07/11/2021 Latex Rash 10/26/2018 Oxycodone-Acetaminophen 07/11/2021 Medications alendronate (FOSAMAX) 70 mg tablet Take 1 tablet (70 mg total) by mouth. 0 Active amitriptyline (ELAVIL) 50 mg tablet Take 2 tablets (100 mg total) by mouth. 1 Active ARIPiprazole (ABILIFY) 30 mg tablet PER PSYCH 9 Active atorvastatin (LIPITOR) 80 mg tablet Take 1 tablet (80 mg total) by mouth. 0 Active blood pressure monitor kit Check BP daily and prn. Dx: E11.65, Z87.898. Need; lifetime 1 Active estrogens, conjugated, (PREMARIN) 0.625 mg tablet Take 0.625 mg by mouth. 8 Active gabapentin (NEURONTIN) 800 mg tablet Take 1 tablet (800 mg total) by mouth 3 (three) times a day. 1 Active hydrOXYzine pamoate (VISTARIL) 50 mg capsule 9 Active insulin glargine-lixise natide (Soliqua 100/33) 100 unit-33 mcg/mL injection pen Inject 44 Units into the skin. 1 Active blood sugar diagnostic (FreeStyle Lite Strips) test strip 2 (two) times a day. 1 Active meloxicam (MOBIC) 15 mg tablet Take 1 tablet (15 mg total) by mouth 1 (one) time each day. 1 Active glipiZIDE (GLUCOTROL) 5 mg tablet Take 1 tablet (5 mg total) by mouth 2 (two) times a day with meals. 1 Active pantoprazole (PROTONIX) 40 mg EC tablet Take 1 tablet (40 mg total) by mouth 1 (one) time each day. 1 Active sertraline (ZOLOFT) 25 mg tablet 9 Active cholecalciferol (VITAMIN D-3) 50 mcg (2,000 unit) capsule Take 1 capsule (2,000 Units total) by mouth. 9 Active metoclopramide (REGLAN) 10 mg tablet Take 1 tablet (10 mg total) by mouth 1 (one) time each day if needed (headache) for up to 7 days. 7 each 5 01/16/20 25 Active Problems Problem Noted Date Diagnosed Date Type 2 diabetes mellitus wit hout complication, with long-term current use of insulin ([facility] V24, [facility] V28) 12/30/2023 Overview (12/30/2023): Uncontrolled [...] her next appointment. Anxiety 07/10/2021 Autoimmune disorder ([facility] V24) 07/10/2021 Bipolar 2 disorder ([facility] V24, [facility] V28) Overview (12/30/2023): [facility] q week Degenerative disc disease, [...] root and causing increased leg symptoms. In 2016 she had sudden onset right foot drop. She denies any left leg symptoms. She rates her pain 7-9/10, states it gets to a 9/10 4- 5x/week. Patient states she has had for EMG nerve conduction studies done between [facility] and [facility]. [facility] neurology notes mention previous EMG raise question of right lumbosacral radiculopathy. Patient has tried physical therapy 2014, 2016, respiratory care faculty, cortisone injections without significant improvement. Patient had lumbar spine MRI [facility]/16[facility]20[facility] that shows minimal degenerative changes, at [...] has had multiple cortisone injections recently at [facility] in the knees and left shoulder, [...] had EMG nerve conduction study 06/17/2020 at [facility] that showed normal motor and sensory nerve conduction right lower extremity, normal EMG right L4-S1 muscles including right L4-S1 paraspinous muscles. Patient had EMG nerve conduction study 05/18/2019 at [facility] of left upper extremity that [...] (12/30/2023): Per cardio note on 12/2018 at [facility]: Durable Medical Equipment: See Instructions, CPAP 7 with a heated humidifier and compliance data followed.tracking capabilities and following residual AHI.DX ELIA G47.33 Chronic right hip pain 03/05/2019 Foot drop, right 03/05/2019 Golfer's elbow, left 03/05/2019 Hematuria 11/17/2017 Overview (12/30/2023): Seen at [facility] ED on 11-12-17 - sees urology. Reportedly given oxycodone by urology Left hand pain 09/09/2017 Overview (12/30/2023): Normal soft tissue. No arthritic changes. Mixed hyperlipidemia 04/18/2015 Vasospasm (CMS/HCC V24) 10/05/1997 Overview (12/30/2023): No blood draw and vesel closes up: saw vascular dr and did angiogram 1997. Always has numbness at left elbow to fingers. Resolved Problems Problem Noted Date Diagnosed Date Resolved Date Use of cane as ambulatory aid 02/28/2019 12/30/2023 Encounters Date Type Department Care Team Description 01/08/2025 11:17 AM EDT - 01/08/2025 1:[address] [facility] Emergency [address] [place] [address] Eagle Kee MD Tension headache (Primary Dx) Discharge Disposition: Home or Self Care from Last 3 Months Immunizations Immunization Administration Dates Next Due Hepatitis B (Icdtkri-W-Welqr , Recombivax HB-Adult) 19yo and older 03/22/2018,02/17/2018,08/31/2017 [...] Sign Reading Time Taken Comments Blood Pressure 159/81 01/08/2025 11:05 AM EDT Pulse 92 01/08/2025 11:05 AM EDT Temperature 36.8 C (98.2 F) 01/08/2025 11:05 AM EDT Respiratory Rate 16 01/08/2025 11:05 AM EDT Oxygen Saturation 99% 01/08/2025 11:05 AM EDT Inhaled Oxygen Concentration - - Weight 56.2 kg (124 lb) 01/08/2025 11:05 AM EDT Height 149.9 cm (4' 11 ) 01/08/2025 11:05 AM EDT Body Mass Index 25.04 01/08/2025 11:05 AM EDT Plan of Treatment Upcoming Encounters Date Type Department Care Team (Late st Contact Info) Description 02/05/2025 8:30 AM EST Office Visit Orthopedic Surgery - [place] [address] [address] Rafael Awad, DPM [address] [address] Health Maintenance Due Date Last Done Comments Colorectal Cancer Screening: Colonoscopy 1975 Diabetes: Annual Foot Exam 1983 Diabetes: Annual Retina Eye Exam 1983 Hepatitis A Vaccines (1 of 2 - Risk 2-dose series) 01/29/1992 Hepatitis B Vaccines (3 of 3 - 19+ 3-dose series) 05/17/2018 03/22/2018, 02/17/2018, 08/31/2017 Breast Cancer Screening 12/30/2020 12/30/2018, 12/27 HIV Screening 03/08/2022 Osteoporosis Screening (Bone Density Screening) 03/08/2022 Social Influencers of Health Screening 03/08/2022 Depression Screening 04/05/2024 Cervical Cancer Screening: HPV 08/16/2024 08/17/2019 COVID-19 Vaccine ( season) 2024 10/27/2021, 03/17/2021, 07/05/2020, Additional history exists Diabetes: Blood Sugar Control [...] Vaccines Completed 06/15/2023, 03/12/2023 Influenza Vaccine Completed 12/01/2024, , 01/30/2023, Additional history exists RSV Immunization Adult Patients Completed 12/01/2024 HIB Vaccines Aged Out No longer eligi [...] Procedure Name Priority Date/Time Associated Diagnosis Comments RESPIRATORY VIRUS PANEL MOLECULAR STUDY STAT 01/08/2025 11:42 AM EDT ANNUAL BMP BLOOD TEST Routine 2022 HEMOGLOBIN A1C Routine 2022 LIPID PANEL Routine 2022 URINE ALBUMIN CREATININE RATIO Routine 10/24/2021 HEPATITIS C SCREENING Routine 08/29/2020 HPV Routine 08/17/2019 [facility] SCREENING DIGITAL Routine 12/30/2018 10:43 AM EDT Encounter for screening mammogram for malignant neoplasm of breast from Last 3 Months or Most Recently Relevant to Health Maintenance Results * Respiratory virus panel molecular study (01/08/2025 11:42 AM EDT) Adenovirus Detection by PCR Not Detected Not Detected LAB MICROBIOLOGY METHOD 01/08/2025 12:58 PM EDT [facility] Influenza A PCR Not Detected Not Detected LAB MICROBIOLOGY METHOD 01/08/2025 12:58 PM EDT [facility] Influenza B PCR Not Detected Not Detected LAB MICROBIOLOGY METHOD 01/08/2025 12:58 PM EDT [facility] Coronavirus 229E Not Detected Not Detected LAB MICROBIOLOGY METHOD 01/08/2025 12:58 PM EDT [facility] Coronavirus HKU1 Not Detected Not Detected LAB MICROBIOLOGY METHOD 01/08/2025 12:58 PM EDT [facility] Coronavirus OC43 Not Detected Not Detected LAB MICROBIOLOGY METHOD 01/08/2025 12:58 PM EDT [facility] Coronavirus NL63 Not Detected Not Detected LAB MICROBIOLOGY METHOD 01/08/2025 12:58 PM EDT [facility] Parainfluenza Virus 1 Not Detected Not Detected LAB MICROBIOLOGY METHOD 01/08/2025 12:58 PM EDT [facility] Parainfluenza Virus 2 Not Detected Not Detected LAB MICROBIOLOGY METHOD 01/08/2025 12:58 PM EDT [facility] Parainfluenza Virus 3 Not Detected Not Detected LAB MICROBIOLOGY METHOD 01/08/2025 12:58 PM EDT [facility] Parainfluenza Virus 4 Not Detected Not Detected LAB MICROBIOLOGY METHOD 01/08/2025 12:58 PM EDT [facility] RSV PCR Not Detected Not Detected LAB MICROBIOLOGY METHOD 01/08/2025 12:58 PM EDT [facility] Human Metapneumovirus A and B Not Detected Not Detected LAB MICROBIOLOGY METHOD 01/08/2025 12:58 PM EDT [facility] Rhinovirus/Entero virus Not Detected Not Detected LAB MICROBIOLOGY METHOD 01/08/2025 12:58 PM EDT [facility] Bordetella pertussis Not Detected Not Detected LAB MICROBIOLOGY METHOD 01/08/2025 12:58 PM EDT [facility] Bordetella parapertussis Not Detected Not Detected LAB MICROBIOLOGY METHOD 01/08/2025 12:58 PM EDT [facility] Mycoplasma pneumo by PCR Not Detected Not Detected LAB MICROBIOLOGY METHOD 01/08/2025 12:58 PM EDT [facility] Chlamydia pneumoniae Not Detected Not Detected LAB MICROBIOLOGY METHOD 01/08/2025 12:58 PM EDT [facility] SARS COV-2 Not Detected Not Detected LAB MICROBIOLOGY METHOD 01/08/2025 12:58 PM EDT [facility] Swab Both anterior nares / Unknown Non-blood Collection / Unknown 01/08/2025 11:42 AM EDT 01/08/2025 11:50 AM EDT Narrative [facility] - 01/08/2025 12:58 PM EDT Testing was performed using the [employer] Respiratory Pathogen PCR Assay. All results must be correlated with the clinical findings. Results should not be used as the sole basis for diagnosis. False Negative results may occur from the presence of sequence variants in the region targeted by the assay or the presence of inhibitors. Results may be affected by concurrent antiviral/antimicrobial therapy or levels of organisms that are below the limit of detection. Eagle Kee MD LAB MICROBIOLOGY - GENERAL ORDER ANNA Final Result [facility] [address] [place] [address], * Annual BMP Blood Test (2022) [facility] Annual BMP Blood Test abstracted Historical Provider HEALTH MAINTENANCE Final Result * Hemoglobin A1c (2022) [facility] Hemoglobin A1C 0.0 % Comment:abstracted, no inter pretation Blood Venous blood specimen / Unknown Historical Provider LAB BLOOD ORDERABLES Concha l Result * Urine Albumin Creatinine Ratio (10/24/2021) [facility] Urine Albumin Creatinine Ratio abstracted Historical Provider HEALTH MAINTENANCE Final Result * Hepatitis C Screening (08/29/2020) Pathologist [facility] Hepatitis C Screening abstracted Historical Provider HEALTH MAINTENANCE Final Result * Cervical Cancer Screening: HPV (08/17/2019) [facility] Cervical Cancer Screening: HPV abstracted, no interpretation Historical Provider HEALTH MAINTENANCE Final Result * [facility] SCREENING DIGITAL (12/30/2018 10:43 AM EDT) Anatomical Region Laterality Modality Mammography 12/30/2018 8:06 AM EDT Narrative 12/30/2018 10:[address] [facility] Diagnostic Imaging Department [address] [place], [place] [id number] Patient: BONNIE GRAHAM I /Age/Sex: 1975 - 43 - F Unit#: [id number] [facility] Mnemonic/Ordering Site: [facility] Ordering Physician: BRIAN MESSINA CORRESPONDENCE TRANSCRIBER [place] Screening Digital - 12/30/18 - 901 EXAM: [facility] Screening Digital EXAM DATE AND TIME: 12/30/2018 8:31 AM HISTORY: Screening. Sister had breast carcinoma at age 47. COMPARISON: 12/27/17, 12/23/16 TECHNIQUE: CC and MLO views of both breasts were obtained using full field digital mammography. Bilateral digital breast tomosynthesis was performed in the MLO projection. Computer aided detection with the [employer] 7.2-H was employed. TISSUE DENSITY: c. The [...] Routine screening mammogram BILATERAL in 1 year. [address]4831, 24132 3341F, 7006F Dictating Physician: KAREN BALDWIN MD Electronically Signed by: KAREN BALDWIN MD Dic Date/Time: 12/30/18 104 Sign date/Time: 12/30/18 1043 Procedure Note Karen Baldwin - 03/25/2022 [facility] Diagnostic Imaging Department [address] [place] [address] Patient: BONNIE GRAHAM I /Age/Sex: 1975 - 43 - F Unit#: [id number] [facility] Mnemonic/Ordering Site: [facility] Ordering Physician: BRIAN MESSINA CORRESPONDENCE TRANSCRIBER [facility] Screening Digital - 09/27/901 EXAM: [facility] Screening Digital EXAM DATE AND TIME: 12/30/2018 8:31 AM HISTORY: Screening. Sister had breast carcinoma at age 47. COMPARISON: 12/27/17, 12/23/16 TECHNIQUE: CC and MLO views of both breasts were obtained using fullfield digital mammography. Bilateral digital breast tomosynthesis was performedin the MLO projection. Computer aided detection with the Tã Em [employer]str[employer] employed. TISSUE DENSITY: c. The breasts are [...] Routine screening mammogram BILATERAL in 1 year. [id number], 25606 3341F, 7025F Dictating Physician: KAREN BALDWIN MD Electronically Signed by: KAREN BALDWIN MD Dic Date/Time: 12/30/18 1042 Sign date/Time: 12/30/18 1043 Brian Messina NP IM BI PROCEDURES Final Result from Last 3 Months or Most Recently Relevant to Health Maintenance Insurance MEDICAID - [place] Care Teams Assistant Site Manager Relationship Specialty Start Date End Date Brian Messina NP [address] [place] [address] [facility] - General 09/23/20
[2025-01-16 13:52] LABS: Blood Urea Nitrogen 8 mg/dL (9-16); Estimated Glomerular Filt Rate > 60
== END 2025-01-16 09:46 | disposition home or self-care (01) ==
LOC: HO.10HDL 09:45
PROVIDERS: Visit Provider Nurse Practitioner Family
DX: N39.0 Urinary tract infection, site not specified (principal); R39.15 Urgency of urination
CPT/HCPCS: 36415; 82565; 84520; 88112

== ENCOUNTER 2025-01-22 09:24 | Outpatient (AMB) | payer MEDICAID, SELFPAY ==
--- NOTE | 2025-01-22 09:49 | MHC.OFFVIS ---
Intake Visit Reasons: cysto/labs Intake Note: Patient is present for a cystoscopy/labs 01/16 BUN:8/Creatinine:0.79 Urology Medication:VIT C, METHENAMINE HIPPURATE Antibiotic Allergy:NONE Blood Thinner:NONE Lot#: [id number] Exp:09/12/27 Cuff Setter Lockstitch Required: No Allergies Latex, Natural Rubber Allergy (Mild, Verified 01/22/25 09:51) Hives acetaminophen (From Percocet) Allergy (Unknown, Verified 01/22/25 09:51) Itching adhesive Allergy (Unknown, Verified 01/22/25 09:51) Hives hydrocodone Allergy (Unknown, Verified 01/22/25 09:51) Itching oxycodone Allergy (Unknown, Verified 01/22/25 09:51) Itching Medication List - Last Reconciled 01/22/25 by Ralf Wiley MD albuterol sulfate 90 mcg/actuation (ProAir HFA) 2 puffs inhalation Q4H PRN alendronate 70 mg PO QWEEK amitriptyline 50 mg PO BEDTIME aripiprazole 30 mg PO DAILY armodafinil 250 mg PO QAM 30 days ascorbic acid (vitamin C) 1 g PO DAILY 90 days atorvastatin 80 mg PO BEDTIME blood-glucose sensor (Activate [employer] G6 Sensor device) As directed budesonide-formoterol 80-4.5 mcg/actuation (Symbicort) 2 puffs inhalation BID cephalexin 250 mg PO DAILY 90 days diclofenac sodium 1% grams topical BID PRN fluconazole 150 mg PO Q3D 2 doses fluticasone propionate 50 mcg/actuation 1 spray intranasal BID hydroxyzine pamoate 50 mg PO TID PRN insulin glargine (Lantus Solostar U-100 Insulin) units subcut insulin lispro-aabc (Lyumjev KwikPen U-100 Insulin) 28 units subcut TID lancets (FreeStyle Lancets) As directed loratadine 10 mg PO DAILY meloxicam 15 mg PO DAILY PRN methylphenidate HCl (Ritalin) 10 mg PO QPM 30 days montelukast 10 mg PO DAILY pantoprazole 40 mg PO BID pen needle, diabetic (BD [place] 2nd Gen Pen Needle) As directed pen needle, diabetic (BD Ultra-Fine Mini Pen Needle) As directed pregabalin 200 mg PO TID 30 days propranolol 10 - 20 mg (1 - 2 x 10 mg) PO BID PRN 90 days sertraline 50 mg PO DAILY sulfamethoxazole-trimethoprim 800-160 mg (Bactrim DS) 1 tab PO BID 10 days tiotropium bromide 1.25 mcg/actuation (Spiriva Respimat) 2 puffs inhalation DAILY HPI Comments Details: 01/22/2025--Bonnie is here for office cystoscopy. She was evaluated last by the nurse practitioner for recurrent UTIs on 11/2024. Comorbidity Former tobacco user. Type 2 diabetes. Recent Urinary infection in December,--E coli resistant to Cipro and ampicillin. The patient was treated with Bactrim. The patient is on Hiprex and vitamin-C she has had breakthrough infections on this treatment protocol. She has stopped using the estrogen cream because it burned and she is using Premarin vaginal suppository tablets. She also has symptoms if stress incontinence. 30 minutes spent in review of records pertaining to this visit and including [id number] discussion with the patient and documentation of this visit. Cystoscopy findings-mild erythema, no suspicious lesions. Plan we will trial suppressive antibiotic therapy Keflex 250 mg daily. Referred to pelvic floor physical therapy for CRESENCIO, and pelvic floor weakness. 11/22/24--Bonnie is a very pleasant 49-year-old female patient of Dr. Benitez. She has a past medical history of GERD, arthritis, osteoporosis, hyperlipidemia, and Diabetes. She is being followed up on today via telehealth. Of note, patient was seen approximately 3 months ago as a new patient today for recurrent urinary tract infections at which time a retroperitoneal ultrasound was ordered for further assessment evaluation and her urine was sent for micorgen. These results were reviewed and communicated with the patient today. 10/27 bilateral kidneys with no masses or renal calculi. Urinary bladder is unremarkable. Mild right hydronephrosis with uncertain etiology per radiology report. Microgen 08/27: E coli, Enterobacter homaechei, and lactobacillus crispatus--Urine culture 10/27 E coli She reports since her last office visit here she has since completed fosfomycin as prescribed. However, followed up with her data capture clerk last month and urine was noted to be positive for E coli and has since completed treatment with Augmentin. She currently denies any UTI like symptoms. She reports compliance with Premarin, methenamine, and vitamin-C as prescribed. She discusses her follow-up with Gastroenterology for a colonoscopy however this is not until April. She does report issues with constipation as well as diarrhea. We did discussed correlation of bowel issues with recurrent urinary tract infections. She also discusses having had a previous surgical laparoscopic procedure at the age of 9 for adhesions and feels this could be contributing to her bowel issues as well as recurrent urinary tract infections. She also discusses her longstanding history of recurrent urinary tract infections and previously following up with [facility]. She is not currently sexually active. When asked she denies urinary urgency, urinary frequency, incontinence, nocturia, hematuria, dysuria, foul smelling urine, changes to urinary stream, flank pain, fever, and or chills. She is happy with her current voiding parameters. All questions were answered. She otherwise offers no other issues or concerns at this time. [facility] Medical History Arthritis GERD (gastroesophageal reflux disease) Osteoporosis HLD (hyperlipidemia) Diabetes mellitus Syncope Surgical History H/O hand surgery History of hysterectomy Family History Father Cancer Mother HTN (hypertension) Social History Alcohol intake: never Patient Tobacco Use Status: Former Tobacco user Office Procedures Cystoscopy Consent Discussed risk and benefit or proposed procedure with the patient. Information consent for procedure given to the patient. Discussed technical aspects, risks, benefits and alternatives in full. Addressed all of the patient's questions and concerns regarding the procedure. The patient demonstrated knowledge and understanding. They wish to proceed with this procedure. Preparation The patient was prepped in the usual manner. A faa certified powerplant mechanic was present and in the room. Genitalia was prepped with betadine solution in a sterile manner. Lidocaine Jelly 2% was placed into the urethra and 16Fr flexible Olympus cystoscope was inserted into the meatus after adequate lubrication. Procedure Time out per protocol performed. Speculum used as indicated for adequate visualization of urethra, the flexible cystoscope is passed transurethrally: The bladder was inspected in its entirety with utilization retroflexion displaying: Tumor(s): no suspicious bladder lesions visualized Trabeculation: NA Mucosal Erthema: Mild Orifices: normal shape and position Urethra: normal Cystoscopy findings: WNL, no suspicious bladder lesions visualized [id number] DISPOSABLE SCOPE URO-G FLEXIBLE SCOPE Procedure code (CPT) selection complete Office Meds lidocaine HCl 2 % mucosal jelly in applicator Performing Provider: Ralf Wiley MD [facility] Administered by: Anu Curiel RN on 01/22/25 09:57 Dose Route Admin Location Dispensed Lot Number Expiration Date ND Ultrasonic Seaming Machine Operator 20 mL intra-urethral 20 mL ciprofloxacin HCl 500 mg tablet Performing Provider: Ralf Wiley MD Performing Location: [facility] Administered by: Anu Curiel RN on 01/22/25 09:57 Dose Route Admin Location Dispensed Lot Number Expiration Date NDC Ultrasonic Seaming Machine Operator 500 mg PO 1 tab phenazopyridine 200 mg tablet Performing Provider: Ralf Wiley MD Performing Location: [facility] Administered by: Anu Curiel RN on 01/22/25 09:57 Dose Route Admin Location Dispensed Lot Number Expiration Date NDC Ultrasonic Seaming Machine Operator 200 mg PO 1 tab Results Reviewed Results Reviewed: Collected: 12/28/24 Status: COMP Req#: [id number] Received: 12/28/24 Source: [facility] Sp Desc: Clean Cat Subm Dr: Janae Mcclain [facility] Ordered: Urine Culture Procedure Result Verified Urine Culture Final 12/30/24 Organism 1 Escherichia coli Quant 50,000 to 100,000 cfu/mL E coli M.I.C. RX --------- --- Ampicillin >=32 R Cefazolin (Urine) 4 S Cefepime <=0.12 S Ceftriaxone <=0.25 S Ciprofloxacin >=4 R Gentamicin <=1 S Nitrofurantoin <=16 S Trimethoprim/Sulfamethoxazole <=20 S Date of Service: 10/30/24 US retroperitoneum Comparison: None provided Findings: Right kidney normal size and echotexture, 9.4 cm length. Mild hydronephrosis. No mass or calculus. Normal color flow. Left kidney normal size and echotexture, 9.1 cm in length. No hydronephrosis, mass or calculus. Normal color flow. Urinary bladder is unremarkable. Prevoid volume 286 mL. Postvoid volume 37 mL. Ureteral jets are visualized bilaterally Impression: Mild right hydronephrosis, uncertain etiology. Assessment & Plan Assessment & Plan (1) Recurrent UTI: Code(s): N39.0 - Urinary tract infection, site not specified Category: Medical Plan Plan we will trial suppressive antibiotic therapy Keflex 250 mg daily. Referred to pelvic floor physical therapy for CRESENCIO, and pelvic floor weakness. Orders: Orders AMB Cystoscopy Today N39.0 - Urinary tract infection, site not specified, R30.0 - Dysuria, R35.0 - Frequency of micturition PT Evaluation and Treatment Today N39.3 - Stress incontinence (female) (male), R30.0 - Dysuria, R35.0 - Frequency of micturition Medications: New cephalexin stop hiprex while on keflex 250 mg PO DAILY 90 caps 2RF frequent UTI's 90 days N39.0 - Urinary tract infection, site not specified Discontinued methenamine hippurate Start once completed with antibiotic therapy. Hold while on antibiotic therapy Discontinued Reason: Doctor's Order 1 g PO DAILY 90 days 90 tabs 1RF N39.0 - Urinary tract infection, site not specified Patient Instructions: The patient had an opportunity to ask questions regarding treatment plan. The patient expressed understanding and agreement with the above treatment plan. The patient is aware they should contact our office by phone for worsening of their current condition or the appearance of new symptoms. Compliance is encouraged with any medications and followup testing that is ordered. It is a privilege to be allowed the opportunity to participate in the urologic care of your patient. If you have any questions or concerns regarding treatment for the above conditions please do not hesitate to contact me. The office telephone contact is [phone]. This note is constructed in part using voice recognition software. While every effort has been made to ensure accuracy data solutions architect errors may have been included. Yours sincerely, Ralf Wiley MD Coding Level of Care Code Est Pt Level 4 (52180) Diagnoses Recurrent UTI N39.0 CPT Codes Cystoscopy - CPT: 03247-[id number] ([id number])
== END 2025-01-22 10:41 | disposition home or self-care (01) ==
LOC: HO.HUSH 09:25
PROVIDERS: PCP Nurse Practitioner Family; Visit Provider Urology
DX: N39.0 Urinary tract infection, site not specified (principal); R35.0 Frequency of micturition; R30.0 Dysuria
CPT/HCPCS: 52000; 99214

== ENCOUNTER → 2025-01-22 09:24 | Outpatient (BNVA) | payer MEDICAID, SELFPAY | PROVIDERS: PCP Nurse Practitioner Family; Visit Provider Urology | DX: R35.0 Frequency of micturition (principal); R30.0 Dysuria; N39.0 Urinary tract infection, site not specified | CPT/HCPCS: 52000; 81003; 99212 ==

== ENCOUNTER 2025-02-28 10:07 | Outpatient (AMB) | payer MEDICAID, SELFPAY ==
[2025-02-28 10:37] VITALS: BP 130/70; PULSE 81; O2SAT 96; BMI 27.5
--- NOTE | 2025-02-28 10:37 | A.OFFVIS_ITS ---
Vital Signs 02/28/25 10:37 Height 4 ft 9 in Weight 127 lb BMI 27.5 BP 130/70 Blood Pressure Location Rt brachial Position Sitting Pulse 81 Pulse Source Pulse Oximeter Pulse Oximetry (%) 96 Oxygen Delivery Method Room Air Intake Visit Reasons: [facility] follow up Intake Note: Follow up ELIA [employer] Required: No Accompanied by: Self / Same As Patient Allergies Latex, Natural Rubber Allergy (Mild, Verified 02/28/25 10:42) Hives acetaminophen (From Percocet) Allergy (Unknown, Verified 02/28/25 10:42) Itching adhesive Allergy (Unknown, Verified 02/28/25 10:42) Hives hydrocodone Allergy (Unknown, Verified 02/28/25 10:42) Itching oxycodone Allergy (Unknown, Verified 02/28/25 10:42) Itching Medication List - Last Reconciled 02/28/25 by CHIN Baxter albuterol sulfate 90 mcg/actuation (ProAir HFA) 2 puffs inhalation Q4H PRN alendronate 70 mg PO QWEEK amitriptyline 50 mg PO BEDTIME aripiprazole 30 mg PO DAILY armodafinil 250 mg PO QAM 30 days ascorbic acid (vitamin C) 1 g PO DAILY 90 days blood-glucose sensor ([email or web address].cl G6 Sensor device) As directed budesonide-formoterol 80-4.5 mcg/actuation (Symbicort) 2 puffs inhalation BID cephalexin 250 mg PO DAILY 90 days diclofenac sodium 1% grams topical BID PRN fluconazole 150 mg PO Q3D 2 doses fluticasone propionate 50 mcg/actuation 1 spray intranasal BID hydroxyzine pamoate 50 mg PO TID PRN insulin glargine (Lantus Solostar U-100 Insulin) units subcut insulin lispro-aabc (Lyumjev KwikPen U-100 Insulin) 28 units subcut TID lancets (FreeStyle Lancets) As directed loratadine 10 mg PO DAILY meloxicam 15 mg PO DAILY PRN methylphenidate HCl (Ritalin) 10 mg PO QPM 30 days metoclopramide HCl 10 mg PO QIDACHS montelukast 10 mg PO DAILY pantoprazole 40 mg PO BID pen needle, diabetic (BD [place] 2nd Gen Pen Needle) As directed pen needle, diabetic (BD Ultra-Fine Mini Pen Needle) As directed pregabalin 200 mg PO TID 30 days propranolol 10 - 20 mg (1 - 2 x 10 mg) PO BID PRN 90 days sertraline 50 mg PO DAILY sumatriptan succinate take 1 tab at onset of headache; if no relief, may repeat 1 tab after at least 2 hrs; max = 2 tabs/24 hrs PO tiotropium bromide 1.25 mcg/actuation (Spiriva Respimat) 2 puffs inhalation DAILY HPI Comments Details: 49-yr-old female presents for f/u visit. Patient reports that at the end of Jan, she developed a new constant headache without preceding trauma, accident, infection. Though she did have a mosquito bite on her cheek 4 days prior. However, in Dec, she started having audible cervical crepitus and pain- saw 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. She states the headache came on gradually, it was throbbing and a/w red eyes. She started taking Naproxen regularly, which took the edge off the headaches. Then she had to hold the Naproxen d/t developing GI upset. Then the headache returned with a vengeance, and was a/w body pains then chills. Went to the [facility] ER on 02/05/2025- Covid-19 neg. Discharged w/ prn metoclopramide The headache starts in the back of her head, a booming and throbbing pain. A/w nausea, phonophobia, bilateral burning eye pain and redness, internal shakiness, cognitive difficulties, activity intolerance. Noticing increased nasal congestion in general, vision changes- looks like the TV is moving. Last eye exam was 1 month ago, which was reassuring. Denies facial weakness. She denies previous headache like this. PCP has also given her Sumatriptan, which is ineffective. And tramadol- which helps her to sleep, but headache comes back. 08/31/2024, HPI: Pt reports in mid-July, she had URI, double ear infection, a/w chills, anorexia, weight loss, a a few more increased epsiodes of tachycardia x's 3 weeks- states was negative for Flu/RSV/EBV/Covid-19- eventually was tx'd w/ a course of Amoxicillin and has recently started to feel better. But in the last day, she is started having night sweats, chills- feels different from hot flashes. Pt did have the left hand trigger finger repair through [facility]- did post-surgical PT, and her feels better. Pt states her right hand pain is better. However, she continues to have bilateral hand weakness, difficulty with opening cereal bags, and opening jars. Reports her daytime sleepiness is overall well controlled on her current regimen. Armodafinil 250mg helps w/ the early day hypersomnia, but does wear off by 2:30- 3pm. Ritalin at 3pm continues to be effective for helping her stay awake through 9:30pm which is bedtime. She continues to have intermittent tachycardia- less often overall. Propranolol is still effective- rarely need to take 2 doses of Propranolol. She did have an interval bone density scan, which showed worsening osteoporosis despite fosamax use. Noticing increased back pain, using her muscle relaxers prn again. She notices that when she does too much RLE activity/exercise, she will have increased RLE pain, right lower back swelling x's 2-3 days. She is noticing difficulties lifting her right foot, even with her right AFO on. The other day, tripped over her threshhold. She states the pregablin is helping the pain, but not the RLE becoming tired. States she is supposed to be referred to rheumatology- but the referral has not gone through yet. Dr Prince at [facility] previously advised against surgical intervention for her low back pain, as he felt that more harm than good would be achieved if pt underwent f/u lumbar repair. In the past, tried water aerobics- but she states she could not keep her body temp up- was just shivering. [facility] Medical History Arthritis GERD (gastroesophageal reflux disease) Osteoporosis HLD (hyperlipidemia) Diabetes mellitus Syncope Surgical History H/O hand surgery History of hysterectomy Family History Father Cancer Mother HTN (hypertension) Social History Alcohol intake: never Patient Tobacco Use Status: Former Tobacco user Physical Exam Vital Signs: Last Vital Signs Pulse 81 02/28/25 10:37 BP 130/70 02/28/25 10:37 Pulse Ox 96 02/28/25 10:37 Oxygen Delivery Method Room Air 02/28/25 10:37 BMI result Body Mass Index 27.5 Const General: cooperative and no acute distress Orientation/consciousness: patient oriented x3 Resp Effort & Inspection: normal respiratory effort and able to speak in complete sentences Neuro Other: LLE MS 5/5 RLE MS 5-/5 in hip flexor. Right high step, but steady w/ cane General: patient oriented x3 Cranial nerves: Yes CN's II-XII intact bilaterally Cognition (Neuro): normal cognition Deep tendon reflexes (DTR's): Right patellar reflex intensity grade: 2+ and Left patellar reflex intensity grade: 2+ Psych Appearance: grossly normal Mental Status: mental status grossly normal Speech and movement: Normal speech and movement present Affect: normal affect Attitude: cooperative Assessment & Plan Assessment & Plan (1) New onset headache: Code(s): R51.9 - Headache, unspecified Category: Medical (2) Autonomic attacks: Code(s): G40.109 - Localization-related (focal) (partial) symptomatic epilepsy and epileptic syndromes with simple partial seizures, not intractable, without status epilepticus Category: Medical (3) Hypersomnia: Comment: MSLT- NL Code(s): G47.10 - Hypersomnia, unspecified Category: Medical (4) Obstructive sleep apnea: Code(s): G47.33 - Obstructive sleep apnea (adult) (pediatric) Category: Medical (5) Paresthesia of right lower extremity: Code(s): R20.2 - Paresthesia of skin Category: Medical Plan Discussion note As patient has had a new onset headache, and is over the age of 50 which is not responding to an appropriate dose of sumatriptan, she is advised to undergo brain MRI with and without contrast to assess for secondary underlying etiologie s. She is advised to have the spine surgeon consult at her orthopedic office as scheduled. In the meantime, I discussed with her intervention strategies, such as optimizing her headache acute and prevention regimen treatment plan in alignment with her current current headache symptoms, which are consistent with a migraine phenotype. As well as optimizing her cervicalgia treatment plan. We will start patient on Emgality today via a sample dose, due to the severity of her current headache symptoms. Fortunately, she would not be a candidate to use a prednisone burst due to diabetes diagnosis. You are advised to undergo the following: Brain MRI with and without contrast Spine surgeon consult at [facility] as scheduled Headache Management Tips Combining good self-care with some helpful tools can make managing headaches much easier. Healthy Habits * Eat a balanced diet * Drink enough water throughout the day, typically at least 64 oz of fluid per day * Get regular, adequate sleep consisting of 7-9 hours of sleep per night * Stay active with routine physical activity, typically at least 30 minutes 5 days per week * Stay connected with friends and family, enjoy meaningful activities, and take care of your mood Tracking Your Headaches * Write down when headaches happen, what helps, and any side effects of new treatments * There are several options to help you, such as: * Apps such as Migraine Grant * A simple paper calendar or paper migraine tracker Non-Medication Strategies * Light sensitivity: special glasses may help (blue-light or FL-41 filters, green lenses) or green-light therapy * Avoid wearing dark sunglasses indoors * Sound sensitivity: noise-canceling earplugs can reduce bothersome noise * Neuromodulation devices: certain medical devices can be used alone or with medications to lower headache frequency and severity These strategies may not stop every attack, but over time, they can reduce headache frequency, intensity, and impact. For acute (as needed) headache treatment: It is important to take acute medications at the first sign of headache. However, please be aware that frequently using most acute medications may increase the frequency of your headache attacks, as well as make your other treatments less effective. * Stop sumatriptan * Trial Rizatriptan 10mg tab, 1/2 - 1 tab (5-10mg) at onset of headache, may repeat in 2 hours. Max of 2 tabs (200mg) per 24 hours. * May adjunct with OTC Tylenol 650mg every 4 hours, Ibuprofen (liquigel) 600mg every 6 hours, or Naproxen (liquigel) 440mg every 12 hrs as needed. * Potential adverse effects of triptans, include but are not limited to nausea, fatigue, chest tightness/tingling (usually passes within a few minutes), medication overuse headaches. * Start baclofen 10 mg 3 times per day as needed for cervical muscle spasm Previous acute migraine medication trials: Sumatriptan 100 mg tab was ineffective Acute migraine medication contraindications: None at this time For headache prevention medication: Preventative medications should be taken routinely as prescribed for best effect, it may take several weeks for full effect to take effect. * Start Riboflavin 400mg daily in the morning * This is generally well tolerated, however some people may experience mild abdominal discomfort from use. * This will cause your urine to become bright yellow or orange, which is expected and not of any concern. * Start Co Q10 400 mg daily in the morning * Take with a healthy higher-fat food, such as avocado, peanut butter, whole- milk yogurt, or an egg * This is generally well tolerated, however possible side effects include upset stomach, diarrhea, heartburn, nausea, and trouble sleeping * Start Magnesium 400mg daily at bedtime * Magnesium comes in many subtypes, such as magnesium oxide, glycinate, citrate, and even try magnesium combinations. Additionally magnesium comes in many forms, including tablets, capsules, powders or even liquid formula tions. There is not a specific magnesium subtype or form known to be significantly more effective than another. Rather, the magnesium subtype inform that you best tolerate, is the best version for you. * Possible side effects of magnesium include, but are not limited to, GI upset, abdominal cramping, loose stools, and diarrhea * Continue amitriptyline, used for sleep and mood. Would not increase further due to risk for polypharmacy * Start Celebrex 200 mg twice a day * Start Emgality 120mg/ml auto-injection: * Loading dose: 240mg (2 120mg/ml auto-injections) via subcutaneous injection in 2 different sites). * Then 30 days after loading dose, start Maintenance dose: 120mg (120mg/ml autoinjector) subcutaneous injection every month. * Important considerations regarding Emgality: * Emgality will likely require insurance prior authorization prior to receiving it from the pharmacy. * Potential side effects include allergic reaction and injection site reactions. * Emgality injection training educational video is available to view on [email or web address] * Store Emgality in the refrigerator in it's original packaging in order to protect from light. * Remove Emgality at least 1 hour prior to taking the injection. * Emgality can be left out of the fridge for?up to 7 days at a temperature not above 86?F. If either of these conditions are exceeded, then Emgality must be thrown away. * Once Emgality has been stored out of refrigeration, do not place it back in the refrigerator. Previous migraine prevention medication trials: None other Migraine prevention medication contraindications: Avoid scheduled propranolol, due to asthma diagnosis. Continue plan as below: For hand pain: bilateral hand pain improved s/p bilateral hand repair. Try simple home hand and finger strengthening exercises- information shared with patient For back pain in setting of osteoporosis: meloxicam as needed. we will request rheumatology consult For neuralgic pain: Continue pregabalin 200mg tid. Slowly increase physical exercise. Future considerations- referral back to graded PT. ? For ELIA and hypersomnia: Continue Armodafinil 250mg qam. Continue Methylphenidate 10mg q afternoon, hold for HR > 100. Continue Propranolol 10-20mg prn sinus tachycardia. patient needs to bring her CPAP machine to the respiratory company to have compliance data retrieved ? Will follow-up upon review of above and patient to follow-up in clinic as scheduled or sooner prn. Emgality 120mg/ml auto-injection Sample Dispensing Documentation Bonnie Keenanera Date Given: ?02/28/25 Quantity Given: ?1 box containing Emgality 240mg (two 120mg/ml auto-injections) Lot #: [id number] Expiration Date: 2025Oct 11 Instructions: ?Inject 120 mg (1ml) into 2 separate subcutaneous sites (in abdomen, thighs, or back of arms) Sample dose provided to RN by: ?CHIN Baxter-DONALD project leader of Emgality sample here: 50 y/o female patient presents for Emgality injection training. Emgality 120mg/ml X2 injection sample provided. Lot #[id number] and Exp 2025Oct 11 Education regarding injection and side effects provided. Emgality 120mg/ml injection RN administered on RLQ and self administered on LLQ Pt tolerated and demonstrated the injection well. Orders: Orders MR head/brain wo/w con 02/28/25 G40.109 - Localization-related (focal) (partial) symptomatic epilepsy and epileptic syndromes with simple partial seizures, not intractable, without status epilepticus, R51.9 - Headache, unspecified Medications: New galcanezumab-gnlm (Emgality Pen) Loading dose: 120 mg subcu injection x2 in alternate sites (total 240 mg). To be followed by maintenance dose of 120 mg subcu q.month. 240 mg (2 mL) subcut ONCE 2 mL 0RF 30 days coenzyme Q10 Daily in a.m.. Take with higher fat food 400 mg PO DAILY 90 caps 3RF 90 days riboflavin (vitamin B2) 400 mg PO DAILY 90 tabs 3RF 90 days rizatriptan max 2 tabs per day or 4 tabs per week 5 - 10 mg (0.5 - 1 x 10 mg) PO Q2H PRN 12 tabs 3RF migraine headache 21 days magnesium oxide may hold for loose stools 400 mg PO BEDTIME 90 tabs 3RF 90 days celecoxib (Celebrex) 200 mg PO BID 60 caps 3RF 30 days baclofen 10 mg PO TID PRN 90 tabs 0RF muscle spasm 30 days Coding Level of Care Code Est Pt Level 4 (65794) Diagnoses New onset headache R51.9 Autonomic attacks G40.109 Hypersomnia G47.10 Obstructive sleep apnea G47.33 Paresthesia of right lower extremity R20.2
--- OUTSIDE RECORDS SUMMARY | 2025-02-28 11:51 | XMS_ITS | Clinical Summary ---
Author Organization [employer] Address [address] [place] [address] Care Team Providers Care Kaiwh[place]aere Name Role Phone Unavailable Primary Care Provider Unavailabl e Social History Tobacco Use Types Packs/Day Years [...] 1994 Cervical Cancer Screening 2003 HPV/Cotest 2003 Hepatitis B Vaccines (3 of 3 - 19+ 3-dose series) 05/17/2018 03/22/2018, 02/17/2018, 08/31/2017 RSV Patients and Patients Aged 60 years or older (1 - Risk 50-74 years 1-dose series) 2023 COVID-19 Vaccine ( - season) 2024 10/27/2021, 03/17/2021, 07/05/2020, Additional history exists Pneumococcal Vaccine: 50+ Years (3 of 3 - PCV20 or PCV21) 08/29/2025 08/29/2020, 04/27/2017 Mammogram 11/07/2026 11/07/2024 DTaP/Tdap/Td Vaccines (3 - Td or Tdap) 04/27/2027 04/27/2017, 05/29/2015 Zoster Vaccines Completed 06/15/2023, 03/12/2023 HIV Screening Completed 01/11/2024 Influenza Vaccine Completed 12/01/2024, , 01/30/2023, [...]
--- OUTSIDE RECORDS SUMMARY | 2025-02-28 11:51 | XMS_ITS | Data Portability ---
Author Organization [facility], Allergy Address [address] [facility] [address] [place] [address] Care Team Providers Care Lead Mechanical Engineer Name Role Phone BRIAN MESSINA Referring Provider [phone] BRIAN MESSINA Primary Care Provider Assessment Encounter [...] if possible, sensory weakness v2-3 2023 024 [facility] ([facility]), [address] [place], [address], 4 14:26:31 MR, angiogram, head + neck, w/o contrast - family history of aneurysm 2023 024 [facility] ([facility]), [address], [place], [address], 4 09:08:15 audiogram 2023 024 [email or web address] Not available 4 15:30:31 Medication Orders amoxicillin 875 mg-potassiu m clavulanate 125 mg tablet 2024 025 [facility] #[id number], [address] [place], [address], 5 12:09:38 loratadine 10 mg tablet 2023 024 [facility] #[id number], [address] [place], [address], 4 16:56:07 Patient TargetsNo targets recorded. Patient Instructions Encounter Date Encounter Id Patient Instructions Last Modified By Organization Details Last Modified Time 10/04/2023 [id number] The patient's history, physical exam and audiometric [...] to read at home, which gives a [id number] discussion on what causes migraine and how [...] contr ast No observ ation record ed. [facility] ([facility]) [address] [place], [address], 11/09/2023 09:08:15 11/08/19 24 11/06/2023 MR, angio gram, head, w/o contr ast No observ ation record ed. Not Available 2023 10:23:55 11/08/19 24 11/06/2023 MRI, brain + inter nal audit ory canal , w/wo contr ast No observ ation record ed. [email or web address] [address] [place], [address], 11/09/2023 14:51:34 11/24/19 24 07/19/2022 imagi ng/di [...] Recorded Time Closed fracture of nasal bones 74279455 Active 2022 Fracture of nasal bones, initial encounter for closed fracture; Note: Date Diagnosed : 07/22/2022 12:53 PM (S02.2XXA ) Not Available [facility] 4 02:49:38 Localized edema 450015384 Active 2022 Localized edema; Note: Date Diagnosed : 07/22/2022 12:53 PM (R60.0) Not Available [facility] 4 02:49:43 Fractured nasal bones 896529069 Active 2022 Fracture of nasal bones, sequela; Note: Date Diagnosed : 07/27/2022 4:54 PM (S02.2XXS ) Not Available [facility] 4 02:49:37 Nasal congestio n 10536957 Active 2023 Nasal congestio n; Note: Date Diagnosed : 07/14/2023 1:44 PM (R09.81) Not Available [facility] 4 02:49:38 Seasonal allergic rhinitis 665446524 Active 2023 Other seasonal allergic rhinitis; Note: Date Diagnosed : 07/14/2023 2:11 PM (J30.2) Not Available [facility] 4 02:49:40 Bleeding from nose 615296234 Active 2023 Epistaxis ; Note: Date Diagnosed : 07/14/2023 1:44 PM (R04.0) Not Available [facility] 4 02:49:44 Vestibula r migraine 999124769 Active 2023 Carlos ybarra [place] - [facility] 4 16:48:30 Perennial allergic rhinitis 664762527 Active 2023 Carlos ybarra [place] - [facility] [place] 4 16:55:43 Deviated nasal septum 523596001 Active 2023 [place]barra[place] - [facility] [place] 4 16:57:01 Subjectiv e pulsatile tinnitus 83746812095 9104 Active 2023 [place]barra[place] - [facility] [place] 4 10:31:09 Sensorine ural hearing loss of bilateral ears 901260017 Active 2023 ANNETTA SAM, [address], [address] , [facility] - [facility] [place] 4 10:17:13 Acute suppurati ve otitis media without spontaneo us rupture of ear drum 98817652 Active 2024 Carlos ybarra[place] - [facility] [place] 5 12:09:07 Acute infective otitis externa 394802564 Active 2024 [place]barra[place] - [facility] 5 12:57:27 Problem Notes None recorded. Procedures Surgical History Date Name Laterality Status Provider Name and Address Organization Details Recorded Time 07/19/2024 Air & Speech Audio with Tymps - 90463, 11780 & 98399 completed RILEY PALACIOS, [address],[place] [address], [place], [address], [facility] 07/19/2024 11:21:07 12/13/2023 Comp Audio with Tymps - 36753 & 80336 completed ANNETTA SAM, [address], [address], [facility] 12/13/2023 10:17:03 Imaging Results None recorded. Procedure Notes None recorded. Medical Equipment None Reported. Allergies Allergen ID Allergen Name Allergen Category Reaction Reaction Severity Criticality Documentation Date Start Date Code Code System Note Provider Name and Address Organization Details Recorded Time 112043 oxycodone medicatio n hives Not available Not available 08/17/2023 7804 RxNorm React ion: Hives ; Not Available [facility] 4 01:08:55 808790 acetamino phen / oxycodone medicatio n hives Not available Not available 08/17/2023 42601 3 RxNorm React ion: Hives ; Not Available [facility] 4 01:08:57 889005 Advil medicatio n hives Not available Not available 08/17/2023 94228 0 RxNorm React ion: Hives ; Not Available [facility] 4 01:09:00 Medications Name Sig Start Date [...] 15 mg tablet active Medicati on ID: [id number] B bernard Name: guillermo baires Send Method: [...] mg tablet 02/06 completed Medicati on ID: [id number] B rand Name: gabapent in Send Method: [...] Not Available No t Available Dexcom G7 Food Assembler 1 EACH BY MISCELLA NEOUS ROUTE CONTINUO [...] Updated DateTime 07/19/2024 149.86 cm 25.2 kg/m2 12153.05 g Leanne Yoder [facility] 07/19/2024 11:27:03 Date Recorded Body height Body mass index (BMI) Body weight Provider Name and Address Organization Details Last Updated DateTime 12/13/2023 149.86 cm 26.3 kg/m2 01791.01 g Santoshzain Josseline [facility] 12/13/2023 10:24:03 Social History None recorded. Functional Status None recorded. Mental Status None recorded. Family History Nothing Reported. Medical History Condition Response Diabetes Y Hypertension Y High Cholesterol Y Gynecological HistoryNo gynecological history recorded. Obstetrics History GPAL:G 0 P 0 0 0 0 Past Encounters Encounter ID Performer Location Encounter Start Date Encounter Closed Date Diagnosis/Indication Diagnosis SNOMED-CT Code Diagnosis ICD10 Code Diagnosis IMO Codes Diagnosis Note [id number] CARLOS MARTINEZ PA-C [facility] [address] [address] 10/04/2023 14:57:23 10/04/2023 17:09:20 Vestibular migraine 371937315 H81.8X9 Perennial allergic rhinitis 584137233 J30.89 Deviated nasal septum 12 6297964 J34.2 not interested in surgical repair [id number] CARLOS MARTINEZ PA-C [facility] [address] [address] 12/13/2023 09:52:55 12/13/2023 10:34:42 Sensorineural hearing loss of bilateral ears 975000349 H90.3 Audiologic al evaluation results: Right ear: Normal with the exception of a mild SNHL at 8000Hz with excellent word recognitio n. Left ear: Normal with the exception of a mild SNHL at 8000Hz with excellent word recognitio n. Tympanomet ry: Right Ear:Type A Left Ear:Type A Vestibular migraine 2322 28149 H81.8X9 [id number] CARLOS MARTINEZ PA-C [facility] [address] [address] 07/19/2024 10:56:11 07/19/2024 12:13:18 Sensorineural hearing loss of bilateral ears 836502413 H90.3 Audiologic al evaluation results: Right ear: Normal with the exception of a mild SNHL at 8000Hz with excellent word recognitio n. Left ear: Normal with the exception of a mild SNHL at 8000Hz with excellent word recognitio n. Tympanomet ry: Right Ear:Type A Left Ear:Type A Acute supp urative otitis media without spontaneous rupture of ear drum 63101904 H66.002 Acute infe ctive otitis externa 214381962 H60.392 Health Concerns Section Related Observation LastModified by Organization Detai ls LastModified Time None Recorded Concern Status LastModified by Organization Details LastModified Time None Recorded Advance Directives Directive None Recorded Payers Insurance Date Sequence Insurance Name Policy Number Policy Jimenez Covered Member ID Jimenez Member ID Guarantor Name 07/19/2024 1 [place] [employer] (MEDICAID) Bonnie I Graham [id number] Bonnie I Graham Notes Date Note Type Note Provider Name and Address Organization Details Recorded Time 10/04/2023 text/html ROS as noted in the HPI 48 year old female presents for evaluation of pain in the [...] and postnasal drip. ISABELLE CORTES MD [address] [facility],[address], [address], [facility] 10/06/2023 17:38:23 12/13/2023 text/html ROS as noted in the [facility] 48 year old female presents for re-evaluation of ears, hearing, and [...] and sneezing fits. DANIELLE CHOWDHURY MD [address] [facility],[address], [address], [facility] 12/13/2023 17:54:06 07/19/2024 text/html ROS as noted in the [facility] 49-year-old female presents for evaluation of the left ear. [...] taking away her pain. DOTTIE MILAN MD [address] [place] [address], [place], [address], [facility] - [facility] 07/19/2024 17:40:51 OBGyn Episode No OBEpisode recorded.
--- OUTSIDE RECORDS SUMMARY | 2025-02-28 11:51 | XMS_ITS | Clinical Summary ---
Author Organization 175 [facility] Address [address] [place] [address] Phone Care Team Providers Care Aviation Mechanic Name Role Phone Brian Messina NP Primary Care Provider [phone] Allergies Active Allergy Reactions Criticality Noted Date [...] complication, with long-term current use of insulin ([facility] V24, [facility] V28) 12/30/2023 Overview (12/30/2023): Uncontrolled [...] her next appointment. Anxiety 07/10/2021 Autoimmune disorder ([facility] V24) 07/10/2021 Bipolar 2 disorder ([facility] V24, [facility] V28) Overview (12/30/2023): [place] [facility] counseling q week Degenerative disc disease, [...] for EMG nerve conduction studies done between [facility] and [facility]. [facility] neurology notes mention previous EMG raise question of right lumbosacral radiculopathy. Patient has tried physical therapy 2014, 2016, housekeeper caregiver, cortisone injections without significant improvement. Patient had [...] has had multiple cortisone injections recently at [facility] in the knees and left shoulder, it [...] had EMG nerve conduction study 06/17/2020 at [facility] that showed normal motor and sensory nerve conduction right lower extremity, normal EMG right L4-S1 muscles including right L4-S1 paraspinous muscles. Patient had EMG nerve conduction study 05/18/2019 at [facility] of left upper extremity that was normal. [...] Cubital tunnel syndrome 04/22/2019 Overview (12/30/2023): [facility] 04/12/2019 Overview (12/30/2023): Per cardio note on 12/2018 at [facility]: Durable Medical Equipment: See Instructions, CPAP 7 with a heated humidifier and compliance data followed.tracking capabilities and following residual AHI.DX ELIA G47.33 Chronic right hip pain 03/05/2019 Foot drop, right 03/05/2019 Golfer's elbow, left 03/05/2019 Hematuria 11/17/2017 Overview (12/30/2023): Seen at [facility] ED on 11-12-17 - sees urology. Reportedly given oxycodone by urology Left hand pain 09/09/2017 Overview (12/30/2023): Normal soft tissue. No arthritic changes. Mixed hyperlipidemia 04/18/2015 Vasospasm ([facility] V24) 10/05/1997 Overview (12/30/2023): No blood draw and vesel closes up: saw vascular dr and did angiogram 1997. Always has numbness at left elbow to fingers. Resolved Problems Problem Noted Date Diagnosed Date Resolved Date Use of cane as ambulatory aid 02/28/2019 12/30/2023 Encounters Date Type Department Care Team Description 02/05/2025 8:30 AM EST Office Visit Orthopedic Surgery - [place] [address] [phone] Rafael Awad, GEO Foot drop, right (Primary Dx); Dermatophytosis of nail; Diabetic mononeuropathy simplex ([facility] V24, [facility] V28); Pain in toe of right foot; Pain in toe of left foot; Ingrowing nail 01/08/2025 11:17 AM EDT - 01/08/2025 1:08 PM EDT Emergency [facility] Emergency [address] [place] [phone] Eagle Kee MD Tension headache (Primary Dx) Discharge Disposition: Home or Self Care from Last 3 Months Immunizations Immunization Administration Dates Next Due Hepatitis B (Lqxagda-P-Ukejj , Recombivax HB-Adult) 19yo and older 03/22/2018,02/17/2018,08/31/2017 [...] Care Team (Late st Contact Info) Description 05/08/2025 8:30 AM EST Office Visit Orthopedic Surgery - [address] [address] Rafael Awad DPM [address] [facility] [address] [place] [address] Health Maintenance Due Date Last Done [...] BMP Blood Test 07/19/2025 07/19/2024, 10/13/2023, 2022 Diabetes: Blood Sugar Control Test (HGBA1C) 07/27/2025 01/26/2025, 10/26/2024, 07/17/2024, Additional history exists Pneumococcal Vaccine: 50+ Years [...] C SCREENING Routine 08/29/2020 HPV Routine 08/17/2019 [facility] SCREENING DIGITAL Routine 12/30/2018 10:43 AM EDT Encounter for screening mammogram for malignant neoplasm of breast from Last 3 Months or Most Recently Relevant to Health Maintenance Results * Respiratory virus panel molecular study (01/08/2025 11:42 AM EDT) Adenovirus Detection by PCR Not Detected Not Detected LAB MICROBIOLOGY METHOD 01/08/2025 12:58 PM EDT [facility] Influenza A PCR Not Detected Not Detected LAB MICROBIOLOGY METHOD 01/08/2025 12:58 PM EDT [facility] Influenza B PCR Not Detected Not Detected LAB MICROBIOLOGY METHOD 01/08/2025 12:58 PM EDT [facility] Coronavirus 229E Not Detected Not Detected LAB MICROBIOLOGY METHOD 01/08/2025 12:58 PM EDT [facility] Coronavirus HKU1 Not Detected Not Detected LAB MICROBIOLOGY METHOD 01/08/2025 12:58 PM EDT [facility] Coronavirus OC43 Not Detected Not Detected LAB MICROBIOLOGY METHOD 01/08/2025 12:58 PM EDT [facility] Coronavirus NL63 Not Detected Not Detected LAB MICROBIOLOGY METHOD 01/08/2025 12:58 PM EDT [facility] Parainfluenza Virus 1 Not Detected Not Detected LAB MICROBIOLOGY METHOD 01/08/2025 12:58 PM EDT [facility] Parainfluenza Virus 2 Not Detected Not Detected LAB MICROBIOLOGY METHOD 01/08/2025 12:58 PM EDT [facility] Parainfluenza Virus 3 Not Detected Not Detected LAB MICROBIOLOGY METHOD 01/08/2025 12:58 PM EDT [facility] Parainfluenza Virus 4 Not Detected Not Detected LAB MICROBIOLOGY METHOD 01/08/2025 12:58 PM EDT [facility] RSV PCR Not Detected Not Detected LAB MICROBIOLOGY METHOD 01/08/2025 12:58 PM EDT [facility] Human Metapneumovirus A and B Not Detected Not Detected LAB MICROBIOLOGY METHOD 01/08/2025 12:58 PM EDT [facility] Rhinovirus/Entero virus Not Detected Not Detected LAB MICROBIOLOGY METHOD 01/08/2025 12:58 PM EDT [facility] Bordetella pertussis Not Detected Not Detected LAB MICROBIOLOGY METHOD 01/08/2025 12:58 PM EDT [facility] Bordetella parapertussis Not Detected Not Detected LAB MICROBIOLOGY METHOD 01/08/2025 12:58 PM EDT [facility] Mycoplasma pneumo by PCR Not Detected Not Detected LAB MICROBIOLOGY METHOD 01/08/2025 12:58 PM EDT [facility] Chlamydia pneumoniae Not Detected Not Detected LAB MICROBIOLOGY METHOD 01/08/2025 12:58 PM EDT [facility] SARS COV-2 Not Detected Not Detected LAB MICROBIOLOGY METHOD 01/08/2025 12:58 PM EDT [facility] Swab Both anterior nares / Unknown Non-blood Collection / Unknown 01/08/2025 11:42 AM EDT 01/08/2025 11:50 AM EDT Narrative [facility] - 01/08/2025 12:58 PM EDT Testing was performed using the [employer] Respiratory Pathogen PCR Assay. All results must [...] MICROBIOLOGY - GENERAL ORDER ANNA Final Result [facility] [address] [place] [address], * Annual BMP Blood Test (2022) Annual BMP Blood Test abstracted Result [facility] Provider HEALTH MAINTENANCE Final Result * Hemoglobin A1c (2022) Hemoglobin A1C 0.0 % Comment:abstracted, no inter pretation Blood Venous blood specimen / Unknown us Historical Provider LAB BLOOD ORDERABLES Concha l Result * Lipid panel (2022) [facility] Triglycerides 0 mg/dL Comment:abstracted, no inter pretation Cholesterol 0 mg/dL Comment:abstracted, no inter pretation HDL 0 mg/dL Comment:abstracted, no inter pretation LDL Cholesterol 0.0 mg/dL Comment:abstracted, no inter pretation Blood Venous blood specimen / Unknown Result [facility] Historical Provider LAB BLOOD ORDERABLES Concha l Result * Urine Albumin Creatinine Ratio (10/24/2021) [facility] Urine Albumin Creatinine Ratio abstracted Result [facility] Provider HEALTH MAINTENANCE Final Result * Hepatitis C Screening (08/29/2020) [facility] Hepatitis C Screening abstracted [facility] Provider HEALTH MAINTENANCE Final Result * Cervical Cancer Screening: HPV (08/17/2019) [facility] Cervical Cancer Screening: HPV abstracted, no interpretation [facility] Provider HEALTH MAINTENANCE Final Result * QUINTON SCREENING DIGITAL (12/30/2018 10:43 AM EDT) Anatomical Region Laterality Modality Mammography 12/30/2018 8:06 AM EDT Narrative 12/30/2018 10:43 AM EDT [facility] Diagnostic Imaging Department [address] [place] [address] Patient: BONNIE GRAHAM I /Age/Sex: 1975 - 43 - F Unit#: [id number] Location/Status: SPDIMAM/REG CLI Mnemonic/Ordering Site: [facility] Ordering Physician: BRIAN MESSINA YOUTH ASSOCIATE [place] Screening Digital - 12/30/18 - 901 EXAM: [facility] Screening Digital EXAM DATE AND TIME: 12/30/2018 8:31 AM HISTORY: Screening. Sister had breast carcinoma at age 47. COMPARISON: 12/27/17, 12/23/16 TECHNIQUE: CC and MLO views of both breasts were obtained using full field digital mammography. Bilateral digital breast tomosynthesis was performed in the MLO projection. Computer aided detection with the STinser 7.2-H was employed. TISSUE DENSITY: c. The [...] Routine screening mammogram BILATERAL in 1 year. [address], [address] 3341F, 7025F Dictating Physician: KAREN BALDWIN MD Electronically Signed by: KAREN BALDWIN MD Dic Date/Time: 12/30/18 1042 Sign date/Time: 12/30/18 1043 Procedure Note Karen Baldwin - 03/25/2022 [facility] Diagnostic Imaging Department [address] [place] [address] Patient: BONNIE GRAHAM I /Age/Sex: 1975 - 43 - F Unit#: [id number] Location/Status: SPDIMAM/REG CLI Mnemonic/Ordering Site: [facility] Ordering Physician: BRIAN MESSINA NP [place] Screening Digital - 12/30/18 - 901 EXAM: [facility] Screening Digital EXAM DATE AND TIME: 12/30/2018 8:31 AM HISTORY: Screening. Sister had breast carcinoma at age 47. COMPARISON: 12/27/17, 12/23/16 TECHNIQUE: CC and MLO views of both breasts were obtained using fullfield digital mammography. Bilateral digital breast tomosynthesis was performedin the MLO projection. Computer aided detection with the STinser 7.2[place] employed. TISSUE DENSITY: c. The breasts are [...] Routine screening mammogram BILATERAL in 1 year. [address], [address] 3341F, 7025F Dictating Physician: KAREN BALDWIN MD Electronically Signed by: KAREN BALDWIN MD Dic Date/Time: 12/30/18 1042 Sign date/Time: 12/30/18 1043 Brian Messina NP IMG BI PROCEDURES Final Result from Last 3 Months or Most Recently Relevant to Health Maintenance Insurance MEDICAID - [place] Care Teams Aviation Mechanic Relationship Specialty Start Date End Date Brian Messina NP [address] [place] [phone] PCP - General 09/23/20
== END 2025-02-28 12:48 | disposition home or self-care (01) ==
LOC: HO.HSMS 10:08
PROVIDERS: PCP Nurse Practitioner Family; Visit Provider Nurse Practitioner Family
DX: R51.9 Headache, unspecified (principal); G40.109 Localization-related (focal) (partial) symptomatic epilepsy and epileptic syndromes with simple partial seizures, not intractable, without status epilepticus; G47.10 Hypersomnia, unspecified; G47.33 Obstructive sleep apnea (adult) (pediatric); R20.2 Paresthesia of skin
CPT/HCPCS: 99214

== ENCOUNTER → 2025-02-28 10:07 | Outpatient (BNVA) | payer MEDICAID, SELFPAY | PROVIDERS: PCP Nurse Practitioner Family; Visit Provider Nurse Practitioner Family | DX: G47.33 Obstructive sleep apnea (adult) (pediatric) (principal); G40.109 Localization-related (focal) (partial) symptomatic epilepsy and epileptic syndromes with simple partial seizures, not intractable, without status epilepticus; G47.10 Hypersomnia, unspecified; R20.2 Paresthesia of skin; R51.9 Headache, unspecified; M81.0 Age-related osteoporosis without current pathological fracture; M54.9 Dorsalgia, unspecified; M79.2 Neuralgia and neuritis, unspecified; M79.641 Pain in right hand; M79.642 Pain in left hand; Z79.899 Other long term (current) drug therapy | CPT/HCPCS: 99212 ==

== ENCOUNTER → 2025-03-27 10:37 | Outpatient (BNV) | payer MEDICAID, SELFPAY | PROVIDERS: PCP Nurse Practitioner Family; Visit Provider Radiology Diagnostic Radiology | DX: R51.9 Headache, unspecified (principal) | CPT/HCPCS: 70553 ==

== ENCOUNTER 2025-03-27 10:56 | Outpatient (REF) | payer MEDICAID, SELFPAY ==
--- OUTSIDE RECORDS SUMMARY | 2025-03-26 20:48 | XMS_ITS | Encounter Summary ---
Author Organization [place] [address] Care Team Providers Care Hogshead Filler Name Role Phone Raina Benitez JAZMYN Primary Care Provider [phone] Reason for Visit * Reason Comments Palpitations Palpitations, Headac he Encounter Details Date Type Department Care Team (Late st Contact Info) Description 03/26/2025 8:48 PM EST - 03/26/2025 9:23 PM EST Emergency [facility] Emergency [address] [place] [phone] Palpitations (Primary Dx); Nonintractable headache, unspecified chronicity pattern, unspecified headache type Discharge Disposition: Home or Self Care Social History Tobacco Use Types Packs/Day Years Used Date Smoking Tobacco: Former Smokeless Tobacco: Former Comments Unknown Sex and Gender Information Value Date Recorded Sex Assigned at Female 07/07/2024 1:06 PM EDT Legal Sex Female 9:12 AM EST Gender Identity Female 07/07/2024 1:06 PM EDT Sexual Orientation Straight 07/07/2024 1: 06 PM EDT documented as of this encounter Last Filed Vital Signs Vital Sign Reading Time Taken Comments Blood Pressure 150/83 03/26/2025 9:20 PM EST Pulse 60 03/26/2025 9:20 PM EST Temperature 36.8 C (98.2 F) 03/26/2025 9:20 PM EST Respiratory Rate 16 03/26/2025 9:20 PM EST Oxygen Saturation 98% 03/26/2025 9:20 PM EST Inhaled Oxygen Concentration - - Weight 54.4 kg (120 lb) 03/26/2025 3:48 PM EST Height 149.9 cm (4' 11 ) 03/26/2025 3:48 PM EST Body Mass Index 24.24 03/26/2025 3:48 PM EST documented in this encounter Functional Status * Are you deaf or do you have serious difficulty hearing? Answer Date of Assessment Author No 07/07/2024 12:26 PM Angel Bajwa RN * Are you blind or do you have serious difficulty seeing, even when wearing glasses? Answer Date of Assessment Author No 07/07/2024 12:26 PM Angel Bajwa RN * Do you have serious difficulty walking or climbing stairs? Answer Date of Assessment Author No 07/07/2024 12:26 PM Angel Bajwa RN * Do you have serious difficulty dressing or bathing? Answer Date of Assessment Author No 07/07/2024 12:26 PM Angel Bajwa RN * Because of a physical, mental, or emotional condition, do you have serious difficulty doing errandsalone such as visiting the doctor? Answer Date of Assessment Author No 07/07/2024 12:26 PM Angel Bajwa RN * Calculated C-SSRS Risk Score (Lifetime/Recent) Answer Date of Assessment Author No Risk Indicated 03/26/2025 3:43 PM EST Jayda Hunter RN * [place] Suicide Severity Rating Scale (Screener/Recent Self-Report) Question Answer Date of Assessment Author 1. Wish to be (Past 1 Month) No 03/26/2025 3:43 PM Jossy Luis RN 2. Non-Specific Active Suici stephanie Thoughts (Past 1 Month) No 03/26/2025 3:43 PM EST Tu Pantoja RN 6. Suicidal Behavior (Lifetime) No 3:43 PM Jayda Luis RN documented as of this encounter Mental Status * Because of a physical, mental, or emotional condition, do you have serious difficulty concentrating, remembering, or making decisions? (5 years old or older) Answer Entry Date Author No 07/07/2024 12:26 PM EDT Angel Fuentes RN documented in this encounter Discharge Instructions * Attachments The following attachments cannot be sent through Care Everywhere. * Headache (Pakistani) * Palpitations (Pakistani) documented in this encounter Medications at Time of Discharge alendronate (FOSAMAX) 70 mg tablet Take 1 tablet (70 mg total) by mouth. 03/31/2020 amitriptyline (ELAVIL) 50 mg tablet Take 2 tablets (100 mg total) by mouth. 08/08/2020 ARIPiprazole (ABILIFY) 30 mg tablet PER PSYCH 04/26/2018 atorvastatin (LIPITOR) 80 mg tablet Take 1 tablet (80 mg total) by mouth. 02/14/2020 blood pressure monitor kit Check BP daily and prn. Dx: E11.65, Z87.898. Need; lifetime 09/15/2020 blood sugar diagnostic (FreeStyle Lite Strips) test strip 2 (two) times a day. 06/02/2020 cholecalciferol (VITAMIN D-3) 50 mcg (2,000 unit) capsule Take 1 capsule (2,000 Units total) by mouth. 07/14/2018 estrogens, conjugated, (PREMARIN) 0.625 mg tablet Take 0.625 mg by mouth. 02/17/2018 gabapentin (NEURONTIN) 800 mg tablet Take 1 tablet (800 mg total) by mouth 3 (three) times a day. 07/05/2020 glipiZIDE (GLUCOTROL) 5 mg tablet Take 1 tablet (5 mg total) by mouth 2 (two) times a day with meals. 07/05/2020 hydrOXYzine pamoate (VISTARIL) 50 mg capsule 05/21/2018 insulin glargine-lixisena tide (Soliqua 100/33) 100 unit-33 mcg/mL injection pen Inject 44 Units into the skin. 09/05/2020 meloxicam (MOBIC) 15 mg tablet Take 1 tablet (15 mg total) by mouth 1 (one) time each day. 07/05/2020 pantoprazole (PROTONIX) 40 mg EC tablet Take 1 tablet (40 mg total) by mouth 1 (one) time each day. 05/15/2020 sertraline (ZOLOFT) 25 mg tablet 04/26/2018 documented as of this encounter Discharge Disposition Disposition Code Departure Means Destination Comment s Home or Self Care documented in this encounter Progress Notes * Sumit Blair MD - 03/26/2025 3:52 PM EST 50-year-old female presents with viral syndrome symptoms and palpitations. Patient having headache neck pain nausea dizziness. No chest pain shortness of breath, palpitations ongoing since this afternoon. * Jayda Pantoja RN - 03/26/2025 3:41 PM EST Pt presents from home, reported palpitations, onset this afternoon- denies chest pain or SOB. Denies vomiting; complaint of nausea-dizziness and neck stiffness. + Headache. Alert and oriented x 3 documented in this encounter Plan of Treatment Upcoming Encounters Date Type Department Care Team (Late st Contact Info) Description 05/08/2025 8:30 AM EST Office Visit Orthopedic Surgery - [place] [address] [phone] Rafael Awad, DPM [address] [phone] Pending Results Name Type Priority Associated Diagnoses Date /Time ECG 12 lead ECG STAT 03/26/2025 6: 08 PM EST documented as of this encounter Procedures Procedure Name Priority Date/Time Associated Diagnosis Comments ECG ANNOTATED 03/27/2025 ECG 12-LEAD STAT 03/26/2025 6:08 PM EST TROPONIN I HIGH SENSITIVITY Timed 03/26/2025 5:48 PM EST ECG 12-LEAD STAT 03/26/2025 4:50 PM EST [id number], RSV, FLU A AND B QUALITATIVE RT-PCR, INTERNAL LAB STAT 03/26/2025 4:43 PM EST TROPONIN I HIGH SENSITIVITY Timed 03/26/2025 4:42 PM EST CBC WITH AUTO DIFFERENTIAL STAT 03/26/2025 4:42 PM EST CBC AND DIFFERENTIAL STAT 03/26/2025 4:42 PM EST B-TYPE NATRIURETIC PEPTIDE STAT 03/26/2025 4:42 PM EST MAGNESIUM STAT 03/26/2025 4:42 PM EST LIPASE STAT 03/26/2025 4:42 PM EST COMPREHENSIVE METABOLIC PANEL STAT 03/26/2025 4:42 PM EST XR CHEST 2 VIEWS STAT 03/26/2025 4:10 PM EST documented in this encounter Results * ECG-Annotated (03/27/2025) Provider Onbase ECG ORDERABLES Final Result * Troponin I high sensitivity (03/26/2025 5:48 PM EST) [facility] High Sensitivity Troponin I 6 <=34 ng/L 03/26/2025 6:49 PM EST [facility] Blood Venous blood specimen / Unknown Venipuncture / Unknown 03/26/2025 5:48 PM EST 03/26/2025 6:07 PM EST Sumit Blair MD LAB BLOOD ORDERABLES Final Resu lt [facility] [address] [place] [address], [place] [phone] * ECG 12 lead (03/26/2025 4:50 PM EST) [facility] Ventricular Rate ECG 64 BPM GEMUSE Atrial Rate 64 BPM GEMUSE P-R Interval 166 ms GEMUSE QRS Duration 80 ms GEMUSE Q-T Interval 386 ms GEMUSE QTc 398 ms GEMUSE P Wave [place] 70 degrees GEMUSE R [place] 70 degrees GEMUSE T [place] 64 degrees GEMUSE ECG Interpretation Sinus rhythm with marked sinus arrhythmia Otherwise normal ECG When compared with ECG of 03-JAN-2024 19:57, No significant change was found Confirmed by Jasiel MONGE JAMES ([id number]) on 03/26/2025 5:50:52 PM GEMUSE 03/26/2025 4:50 PM EST 03/26/2025 5:50 PM EST Sumit Blair MD ECG ORDERABLES Final Result Performing Organization Address City/[facility]/ZIP Co de Phone Number GEMUSE * [id number], RSV, Influenza A and B qualitative RT-PCR (03/26/2025 4:43 PM EST) Pathologist [facility] Influenza A PCR Not Detected Not Detected LAB MICROBIOLOGY METHOD 03/26/2025 5:37 PM EST [facility] Influenza B PCR Not Detected Not Detected LAB MICROBIOLOGY METHOD 03/26/2025 5:37 PM EST [facility] RSV PCR Not Detected Not Detected LAB MICROBIOLOGY METHOD 03/26/2025 5:37 PM EST [facility] SARS COV-2 Not Detected Not Detected LAB MICROBIOLOGY METHOD 03/26/2025 5:37 PM EST [facility] Swab Both anterior nares / Unknown Non-blood Collection / Unknown 03/26/2025 4:43 PM EST 03/26/2025 4:47 PM EST Sumit Blair MD LAB MICROBIOLOGY - GENERAL ORDE RABLES Final Result Performing Organization Address City/[facility]/ZIP Co de Phone Number [facility] [address] [place] [address], * (ABNORMAL) CBC auto differential (03/26/2025 4:42 PM EST) Pathologist [facility] WBC 8.9 4.8 - 10.8 K/mcL LAB HEMETOLOGY METHOD 03/26/2025 4:54 PM [facility] RBC 4.40 3.80 - 4.80 M/mcL LAB HEMETOLOGY METHOD 03/26/2025 4:54 PM [facility] Hemoglobin 13.6 11.5 - 16.0 g/dL LAB HEMETOLOGY METHOD 03/26/2025 4:54 PM [facility] Hematocrit 40.7 35.0 - 47.0 % LAB HEMETOLOGY METHOD 03/26/2025 4:54 PM [facility] MCV 92.9 79.0 - 98.0 FL LAB HEMETOLOGY METHOD 03/26/2025 4:54 PM [facility] MCH 31.1 27.0 - 32.0 pcg LAB HEMETOLOGY METHOD 03/26/2025 4:54 PM [facility] MCHC 33.4 32.0 - 37.0 g/dL LAB HEMETOLOGY METHOD 03/26/2025 4:54 PM [facility] RDW 11.5 11.0 - 15.0 % LAB HEMETOLOGY METHOD 03/26/2025 4:54 PM [facility] Platelets 207 130 - 400 K/mcL LAB HEMETOLOGY METHOD 03/26/2025 4:54 PM [facility] MPV 11.2(H) 7.0 - 11.0 FL LAB HEMETOLOGY METHOD 03/26/2025 4:54 PM [facility] NRBC 0.0 <1.0 % LAB HEMETOLOGY METHOD 03/26/2025 4:54 PM [facility] NRBC Absolute 0.00 <0.10 K/mcL LAB HEMETOLOGY METHOD 03/26/2025 4:54 PM [facility] Neutrophils Relative 55.9 % LAB HEMETOLOGY METHOD 03/26/2025 4:54 PM [facility] Lymphocytes Relative 33.2 % LAB HEMETOLOGY METHOD 03/26/2025 4:54 PM [facility] Monocytes Relative 7.8 % LAB HEMETOLOGY METHOD 03/26/2025 4:54 PM [facility] Eosinophils Relative 1.6 % LAB HEMETOLOGY METHOD 03/26/2025 4:54 PM [facility] Basophils Relative 0.9 % LAB HEMETOLOGY METHOD 03/26/2025 4:54 PM [facility] Immature Granulocytes Relative 0.6 % LAB HEMETOLOGY METHOD 03/26/2025 4:54 PM [facility] Neutrophils Absolute 4.98 1.50 - 7.00 K/mcL LAB HEMETOLOGY METHOD 03/26/2025 4:54 PM [facility] Lymphocytes Absolute 2.95 1.00 - 5.00 K/mcL LAB HEMETOLOGY METHOD 03/26/2025 4:54 PM [facility] Monocytes Absolute 0.69 0.20 - 1.00 K/mcL LAB HEMETOLOGY METHOD 03/26/2025 4:54 PM [facility] Eosinophils Absolute 0.14 0.00 - 0.50 K/mcL LAB HEMETOLOGY METHOD 03/26/2025 4:54 PM [facility] Basophils Absolute 0.08 0.00 - 0.20 K/mcL LAB HEMETOLOGY METHOD 03/26/2025 4:54 PM [facility] Immature Granulocytes Absolute 0.05(H) 0.00 - 0.03 K/mcL LAB HEMETOLOGY METHOD 03/26/2025 4:54 PM [facility] Blood Venous blood specimen / Unknown Venipuncture / Unknown 03/26/2025 4:42 PM EST 03/26/2025 4:47 PM EST us Sumit Blair MD LAB BLOOD ORDERABLES Final Resu lt Performing Organization Address [facility]/ZIP Co de Phone Number [facility] [address] [place] [address], [place] [phone] * B-type natriuretic peptide (03/26/2025 4:42 PM EST) [facility] BNP 3 <=100 pcg/mL 03/26/2025 5:23 PM EST [facility] Blood Venous blood specimen / Unknown Venipuncture / Unknown 03/26/2025 4:42 PM EST 03/26/2025 4:47 PM EST Narrative [facility] - 03/26/2025 5:23 PM EST Over the counter supplements containing high doses of biotin may interfere with this assay. If interference is suspected, patients shoud be retested after refraining from biotin supplements for 72 hours. us Sumit Blair MD LAB BLOOD ORDERABLES Final Resu lt Performing Organization Address [facility] Co de Phone Number [facility] [address] [place] [address], [place] [phone] * (ABNORMAL) Magnesium (03/26/2025 4:42 PM EST) [facility] Magnesium 1.6(L) 1.9 - 2.6 mg/dL 03/26/2025 5:17 PM EST [facility] Blood Venous blood specimen / Unknown Venipuncture / Unknown 03/26/2025 4:42 PM EST 03/26/2025 4:47 PM EST us Sumit Blair MD LAB BLOOD ORDERABLES Final Resu lt Performing Organization Address [facility]/ZIP Co de Phone Number [facility] [address] [place] [address], [place] [phone] * Lipase (03/26/2025 4:42 PM EST) [facility] Lipase 40 12 - 53 unit/L 03/26/2025 5:17 PM [facility] Blood Venous blood specimen / Unknown Venipuncture / Unknown 03/26/2025 4:42 PM EST 03/26/2025 4:47 PM EST us Sumit Blair MD LAB BLOOD ORDERABLES Final Resu lt [facility] [address] [place] [address], [place] [phone] * (ABNORMAL) Comprehensive metabolic panel (03/26/2025 4:42 PM EST) [facility] Sodium 138 133 - 145 mmol/L 03/26/2025 5:26 PM [facility] Potassium 3.5 3.5 - 5.5 mmol/L 03/26/2025 5:26 PM [facility] Chloride 99 96 - 110 mmol/L 03/26/2025 5:26 PM [facility] CO2 27 21 - 32 mmol/L 03/26/2025 5:26 PM [facility] Anion Gap 12(H) 3 - 11 03/26/2025 5:26 PM [facility] Glucose 116(H) 70 - 100 mg/dL 03/26/2025 5:26 PM [facility] BUN 8 5 - 25 mg/dL 03/26/2025 5:26 PM [facility] Creatinine 0.92 0.50 - 1.10 mg/dL 03/26/2025 5:26 PM [facility] eGFR 75 >=60 mL/min/1. 73m2 03/26/2025 5:26 PM [facility] Comment:Calculation based on the Chronic Kidney Disease Epidemiology Collaboration (CKD-EPI) equation refit without adjustment for race. BUN/Creatinine Ratio 8.7 03/26/2025 5:26 PM [facility] Calcium 9.6 8.5 - 10.5 mg/dL 03/26/2025 5:26 PM [facility] AST (SGOT) 24 10 - 42 unit/L 03/26/2025 5:26 PM [facility] ALT (SGPT) 27 10 - 60 unit/L 03/26/2025 5:26 PM [facility] Alkaline Phosphatase 115 42 - 121 unit/L 03/26/2025 5:26 PM [facility] Total Protein 7.1 6.0 - 8.0 g/dL 03/26/2025 5:26 PM [facility] Albumin 4.6 3.2 - 5.0 g/dL 03/26/2025 5:26 PM [facility] Total Bilirubin 0.9 0.0 - 1.4 mg/dL 03/26/2025 5:26 PM [facility] Blood Venous blood specimen / Unknown Venipuncture / Unknown 03/26/2025 4:42 PM EST 03/26/2025 4:47 PM EST Sumit Blair MD LAB BLOOD ORDERABLES Final Resu lt [facility] [address] [place] [address], * Troponin I high sensitivity (03/26/2025 4:42 PM EST) High Sensitivity Troponin I 3 <=34 ng/L 03/26/2025 5:23 PM EST [facility] Blood Venous blood specimen / Unknown Venipuncture / Unknown 03/26/2025 4:42 PM EST 03/26/2025 4:47 PM EST Sumit Blair MD LAB BLOOD ORDERABLES Final Resu lt [facility] ([facility]) [facility] [address] [place] [address], [place] [phone] * XR Chest 2 Views (03/26/2025 4:10 PM EST) Anatomical Region Laterality Modality Body Radiographic Tracee ging 03/26/2025 5:00 PM EST Impressions 03/26/2025 5:00 PM EST FINDINGS/IMPRESSION: Hyperinflation. No consolidation or CHF. No acute osseous abnormality. -------- FINAL REPORT -------- Dictated By: Esthela Lindsay Dictated Date: 03/26/2025 17:00 ET Assigned Physician: Esthela Lindsay Reviewed and Electronically Signed By: Esthela Lindsay Signed Date: 03/26/2025 17:00 ET Workstation ID: [id number] Transcribed By: Self Edit Transcribed Date: 03/26/2025 17:00 ET Narrative 03/26/2025 5:00 PM EST XR CHEST 2 VIEWS INDICATION: chest pain TECHNIQUE: XR CHEST 2 VIEWS COMPARISON: None Procedure Note Esthela Lindsay MD - 03/26/2025 XR CHEST 2 VIEWS INDICATION: chest pain TECHNIQUE: XR CHEST 2 VIEWS COMPARISON: None IMPRESSION: FINDINGS/IMPRESSION: Hyperinflation. No consolidation or CHF. No acuteosseous abnormality. -------- FINAL REPORT -------- Dictated By: Esthela Lindsay Dictated Date: 03/26/2025 17:00 ET Assigned Physician: Esthela Lindsay Reviewed and Electronically Signed By: Esthela Lindsay Signed Date: 03/26/2025 17:00 ET Workstation ID: [id number] Transcribed By: Self Edit Transcribed Date: 03/26/2025 17:00 ET Sumit Blair MD IMG XR PROCEDURES Final Result documented in this encounter Visit Diagnoses Diagnosis Palpitations- Primary Nonintractable headache, unspecified chronicity pattern, unspecified headache type documented in this encounter Care Teams Hogshead Filler Relationship Specialty Start Date End Date Raina eBnitez NP [address] [place] [address] PCP - General 09/23/20 documented as of this encounter
--- NOTE | ~2025-03-27 | MR_ITS ---
EXAMINATION: MR BRAIN WITHOUT THEN WITH IV CONTRAST HISTORY: R51.9 - Headache, unspecified TECHNIQUE: Sagittal T1, and axial T1, FLAIR, T2, gradient echo, and diffusion weighted MR images of the brain were obtained. Subsequently, axial, and coronal T1-weighted images were obtained after the administration of intravenous gadolinium. 6 mL Gadavist was administered. COMPARISON: There are no prior studies available for comparison. FINDINGS: The pituitary is normal in size. The cerebellar tonsils are normally located. The brain parenchyma is unremarkable, demonstrating normal rice/white differentiation. No foci of abnormal signal intensity are identified. The ventricular system is normal in size and configuration. There is no mass effect or midline shift. No intra or extra-axial fluid collections are identified. There are no foci of restricted diffusion. There is no abnormal contrast enhancement. Normal vascular flow voids are noted in the basilar and carotid arteries. The visualized paranasal sinuses are clear. MR/MR head/brain wo/w con IMPRESSION: Unremarkable MRI of the brain without and with contrast. Electronically signed by: Lane Joshi MD 03/27/2025 12:20 PM [facility]
--- OUTSIDE RECORDS SUMMARY | 2025-03-27 12:17 | XMS_ITS | Clinical Summary ---
Author Organization [employer] Address [address] [facility] [address] [place] [address] Care Team Providers Care Packing Attendant Name Role Phone Unavailable Primary Care Provider [...]
--- OUTSIDE RECORDS SUMMARY | 2025-03-27 12:17 | XMS_ITS | Clinical Summary ---
Author Organization 175 [facility] Address [address] [place] [address] Phone Care Team Providers Care Upper Doubler Name Role Phone Brian Messina NP Primary Care Provider [phone] Allergies Active Allergy Reactions Criticality Noted Date [...] complication, with long-term current use of insulin 12/30/2023 Overview (12/30/2023): Uncontrolled Abnormal chest CT [...] her next appointment. Anxiety 07/10/2021 Autoimmune disorder 07/10/2021 Bipolar 2 disorder 07/10/2021 Overview (12/30/2023): [place] counseling q week Degenerative disc [...] for EMG nerve conduction studies done between [facility] [facility] [place] mention previous EMG raise question of right lumbosacral radiculopathy. Patient has tried physical therapy 2014, 2016, sub acute care nurse, cortisone injections without significant improvement. Patient had [...] has had multiple cortisone injections recently at [facility] in the knees and left shoulder, it [...] had EMG nerve conduction study 06/17/2020 at [facility] that showed normal motor and sensory nerve conduction right lower extremity, normal EMG right L4-S1 muscles including right L4-S1 paraspinous muscles. Patient had EMG nerve conduction study 05/18/2019 at [facility] of left upper extremity that was normal. [...] 03/05/2019 Hematuria 11/17/2017 Overview (12/30/2023): Seen at [facility] on 11-12-17 - sees urology. Reportedly given oxycodone by urology Left hand pain 09/09/2017 Overview (12/30/2023): Normal soft tissue. No arthritic changes. Mixed hyperlipidemia 04/18/2015 Vasospasm 10/05/1997 Overview (12/30/2023): No blood draw and vesel closes up: saw vascular dr and did angiogram 1997. Always has numbness at left elbow to fingers. Resolved Problems Problem Noted Date Diagnosed Date Resolved Date Use of cane as ambulatory aid 02/28/2019 12/30/2023 Encounters Date Type Department Care Team Description 03/26/2025 8:48 PM EST - 03/26/2025 9:23 PM EST [facility] Emergency [address] [place] [phone] Palpitations (Primary Dx); Nonintractable headache, unspecified chronicity pattern, unspecified headache type Discharge Disposition: Home or Self Care 02/05/2025 8:30 AM EST Office Visit Orthopedic Surgery - [place] [address] [place] [phone] Rafael Awad, DPM Foot drop, right (Primary Dx); Dermatophytosis of nail; Diabetic mononeuropathy simplex (CMS/HCC V24, CMS/HCC V28); Pain in toe of right foot; Pain in toe of left foot; Ingrowing nail 01/08/2025 11:17 AM EDT - 01/08/2025 1:08 PM EDT [facility] Emergency [address] [place] [phone] Eagle Kee MD Tension headache (Primary Dx) Discharge Disposition: Home or Self Care from Last 3 Months Immunizations Immunization Administration Dates Next Due Hepatitis B (Zrjqzny-C-Eoyju , Recombivax HB-Adult) 19yo and older 03/22/2018,02/17/2018,08/31/2017 [...] Orientation Straight 07/07/2024 1: 06 PM EDT Last Filed Vital Signs Vital Sign Reading [...] Mass Index 24.24 03/26/2025 3:48 PM EST Plan of Treatment Upcoming Encounters Date Type Department Care Team (Late st Contact Info) Description 05/08/2025 8:30 AM EST Office Visit Orthopedic Surgery [facility] [address] [phone] Rafael Awad, DPM [address] [phone] Health Maintenance Due Date Last Done Comments [...] 07/17/2024, 07/09/2023, 10/28/2022, Additional history exists Diabetes: Blood Sugar Control Test (HGBA1C) 07/27/2025 01/26/2025, 10/26/2024, 07/17/2024, Additional history exists Pneumococcal Vaccine: 50+ Years (3 of 3 - PCV20 or PCV21) 08/29/2025 08/29/2020, 04/27/2017 Diabetes: Annual GFR (Glomerular Filtration Rate) 03/26/2026 03/26/2025, 07/19/2024, 10/13/2023, Additional history exists Hypertension/CHF/CAD Annual BMP Blood Test 03/26/2026 03/26/2025, 07/19/2024, 10/13/2023, Additional history exists DTaP,Tdap,and Td Vaccines (3 - Td or [...] ECG 12-LEAD STAT 03/26/2025 4:50 PM EST [id number], RSV, FLU A AND B QUALITATIVE RT-PCR, INTERNAL LAB STAT 03/26/2025 4:43 PM EST CBC WITH AUTO DIFFERENTIAL STAT 03/26/2025 4:42 PM EST B-TYPE NATRIURETIC PEPTIDE STAT 03/26/2025 4:42 PM EST MAGNESIUM STAT 03/26/2025 4:42 PM EST LIPASE STAT 03/26/2025 4:42 PM EST COMPREHENSIVE METABOLIC PANEL STAT 03/26/2025 4:42 PM EST CBC AND DIFFERENTIAL STAT 03/26/2025 4:42 PM EST TROPONIN I HIGH SENSITIVITY Timed 03/26/2025 4:42 PM EST XR CHEST 2 VIEWS STAT 03/26/2025 4:10 PM EST RESPIRATORY VIRUS PANEL MOLECULAR STUDY STAT 01/08/2025 11:42 AM EDT HEMOGLOBIN A1C Routine 2022 LIPID PANEL Routine 2022 HM URINE ALBUMIN CREATININE RATIO Routine 10/24/2021 HM HEPATITIS C SCREENING Routine 08/29/2020 HM HPV Routine 08/17/2019 QUINTON SCREENING DIGITAL Routine 12/30/2018 10:43 AM EDT Encounter for screening mammogram for malignant neoplasm of breast from Last 3 Months or Most Recently Relevant to Health Maintenance Results * ECG-Annotated (03/27/2025) us Provider Onbase MD ECG ORDERABLES Final Result * Troponin I high sensitivity (03/26/2025 5:48 PM EST) Only the most recent of2 resultswithin the time period is included. High Sensitivity Troponin I 6 <=34 ng/L 03/26/2025 6:49 PM EST [facility] Blood Venous blood specimen / Unknown Venipuncture / Unknown 03/26/2025 5:48 PM EST 03/26/2025 6:07 PM EST us Sumit Blair MD LAB BLOOD ORDERABLES Final Resu lt [facility] [address] [place] [address], * ECG 12 lead (03/26/2025 4:50 PM EST) Ventricular Rate ECG 64 BPM GEMUSE Atrial Rate 64 BPM GEMUSE P-R Interval 166 ms GEMUSE QRS Duration 80 ms GEMUSE Q-T Interval 386 ms GEMUSE QTc 398 ms GEMUSE P Wave [place] 70 degrees GEMUSE R [place] 70 degrees GEMUSE T [place] 64 degrees GEMUSE ECG Interpretation Sinus rhythm with marked sinus arrhythmia Otherwise normal ECG When compared with ECG of 03-JAN-2024 19:57, No significant change was found Confirmed by Jasiel MONGE JAMES ([id number]) on 03/26/2025 5:50:52 PM GEMUSE 03/26/2025 4:50 PM EST 03/26/2025 5:50 PM EST us Sumit Blair MD ECG ORDERABLES Final Result LENKA * [id number], RSV, Influenza A and B qualitative RT-PCR (03/26/2025 4:43 PM EST) Pathologist [facility] Influenza A PCR Not Detected Not Detected LAB MICROBIOLOGY METHOD 03/26/2025 5:37 PM EST [facility] Influenza B PCR Not Detected Not Detected LAB MICROBIOLOGY METHOD 03/26/2025 5:37 PM EST [facility] RSV PCR Not Detected Not Detected LAB MICROBIOLOGY METHOD 03/26/2025 5:37 PM EST [facility] SARS COV-2 Not Detected Not Detected LAB MICROBIOLOGY METHOD 03/26/2025 5:37 PM EST [facility] Swab Both anterior nares / Unknown Non-blood Collection / Unknown 03/26/2025 4:43 PM EST 03/26/2025 4:47 PM EST us Sumit Blair MD LAB MICROBIOLOGY - GENERAL RICHIsela MARIA ELENA Final Result [facility] [address] [place] [address], * (ABNORMAL) CBC auto differential (03/26/2025 4:42 PM EST) WBC 8.9 4.8 - 10.8 K/mcL LAB HEMETOLOGY METHOD 03/26/2025 4:54 PM EST [facility] RBC 4.40 3.80 - 4.80 M/mcL LAB HEMETOLOGY METHOD 03/26/2025 4:54 PM [facility] Hemoglobin 13.6 11.5 - 16.0 g/dL LAB HEMETOLOGY METHOD 03/26/2025 4:54 PM [facility] Hematocrit 40.7 35.0 - 47.0 % LAB HEMETOLOGY METHOD 03/26/2025 4:54 PM EST [facility] MCV 92.9 79.0 - 98.0 FL LAB HEMETOLOGY METHOD 03/26/2025 4:54 PM EST [facility] MCH 31.1 27.0 - 32.0 pcg LAB HEMETOLOGY METHOD 03/26/2025 4:54 PM [facility] MCHC 33.4 32.0 - 37.0 g/dL LAB HEMETOLOGY METHOD 03/26/2025 4:54 PM EST [facility] RDW 11.5 11.0 - 15.0 % [...] K/mcL LAB HEMETOLOGY METHOD 03/26/2025 4:54 PM EST [facility] Immature Granulocytes Absolute 0.05(H) 0.00 - 0.03 K/[facility] LAB HEMETOLOGY METHOD 03/26/2025 4:54 PM EST [facility] Blood Venous blood specimen / Unknown Venipuncture / Unknown 03/26/2025 4:42 PM EST 03/26/2025 4:47 PM EST Sumit Blair MD LAB BLOOD ORDERABLES Final Resu lt Performing Organization Address [facility] de Phone Number [facility] [address] [place] [address], * B-type natriuretic peptide (03/26/2025 4:42 PM EST) BNP 3 <=100 pcg/mL 03/26/2025 5:23 PM EST [facility] Blood Venous blood specimen / Unknown Venipuncture / Unknown 03/26/2025 4:42 PM EST 03/26/2025 4:47 PM EST Narrative [facility] - 03/26/2025 5:23 PM EST Over the counter supplements containing high doses of biotin may interfere with this assay. If interference is suspected, patients shoud be retested after refraining from biotin supplements for 72 hours. Sumit Blair MD LAB BLOOD ORDERABLES Final Resu lt Performing Organization Address City/[facility]/ZIP Co de Phone Number [facility] [address] [place] [address], [place] [phone] * (ABNORMAL) Magnesium (03/26/2025 4:42 PM EST) Magnesium 1.6(L) 1.9 - 2.6 mg/dL 03/26/2025 5:17 PM EST [facility] Blood Venous blood specimen / Unknown Venipuncture / Unknown 03/26/2025 4:42 PM EST 03/26/2025 4:47 PM EST us Sumit Blair MD LAB BLOOD ORDERABLES Final Resu lt Performing Organization Address [facility]/ZIP Co de Phone Number [facility] [address] [place] [address], [place] [phone] * Lipase (03/26/2025 4:42 PM EST) Pathologist [facility] Lipase 40 12 - 53 unit/L 03/26/2025 5:17 PM [facility] Blood Venous blood specimen / Unknown Venipuncture / Unknown 03/26/2025 4:42 PM EST 03/26/2025 4:47 PM EST us Sumit Blair MD LAB BLOOD ORDERABLES Final Resu lt Performing Organization Address [facility]/ZIP Co de Phone Number [facility] [address] [place] [address], [place] [phone] * (ABNORMAL) Comprehensive metabolic panel (03/26/2025 4:42 PM EST) [facility] Sodium 138 133 - 145 mmol/L 03/26/2025 [...] MD LAB BLOOD ORDERABLES Final Resu lt [facility] [address] [place] [address], [place] [phone] * XR Chest 2 Views (03/26/2025 4:10 [...] Signed Date: 03/26/2025 17:00 ET Workstation ID: [id number] Transcribed By: Self Edit Transcribed Date: 03/26/2025 [...] Signed Date: 03/26/2025 17:00 ET Workstation ID: [id number] Transcribed By: Self Edit Transcribed Date: 03/26/2025 17:00 ET us Sumit Blair MD IMG XR PROCEDURES Final Result * Respiratory virus panel molecular study (01/08/2025 11:42 AM EDT) Pathologist [facility] Adenovirus Detection by PCR Not Detected Not Detected LAB MICROBIOLOGY METHOD 01/08/2025 12:58 PM EDT [facility] Influenza A PCR Not Detected Not Detected LAB MICROBIOLOGY METHOD 01/08/2025 12:58 PM EDT [facility] Influenza B PCR Not Detected Not Detected LAB MICROBIOLOGY METHOD 01/08/2025 12:58 PM EDT [facility] Coronavirus 229E Not Detected Not Detected LAB MICROBIOLOGY METHOD 01/08/2025 12:58 PM EDT [facility] Coronavirus HKU1 Not Detected Not Detected LAB MICROBIOLOGY METHOD 01/08/2025 12:58 PM EDT [facility] Coronavirus OC43 Not Detected Not Detected LAB MICROBIOLOGY METHOD 01/08/2025 12:58 PM EDT [facility] Coronavirus NL63 Not Detected Not Detected LAB MICROBIOLOGY METHOD 01/08/2025 12:58 PM EDT [facility] Parainfluenza Virus 1 Not Detected Not Detected LAB MICROBIOLOGY METHOD 01/08/2025 12:58 PM EDT [facility] Parainfluenza Virus 2 Not Detected Not Detected LAB MICROBIOLOGY METHOD 01/08/2025 12:58 PM EDT [facility] Parainfluenza Virus 3 Not Detected Not Detected LAB MICROBIOLOGY METHOD 01/08/2025 12:58 PM EDT [facility] Parainfluenza Virus 4 Not Detected Not Detected LAB MICROBIOLOGY METHOD 01/08/2025 12:58 PM EDT [facility] RSV PCR Not Detected Not Detected LAB MICROBIOLOGY METHOD 01/08/2025 12:58 PM EDT [facility] Human Metapneumovirus A and B Not Detected Not Detected LAB MICROBIOLOGY METHOD 01/08/2025 12:58 PM EDT [facility] Rhinovirus/Entero virus Not Detected Not Detected LAB MICROBIOLOGY METHOD 01/08/2025 12:58 PM EDT [facility] Bordetella pertussis Not Detected Not Detected LAB MICROBIOLOGY METHOD 01/08/2025 12:58 PM EDT [facility] Bordetella parapertussis Not Detected Not Detected LAB MICROBIOLOGY METHOD 01/08/2025 12:58 PM EDT [facility] Mycoplasma pneumo by PCR Not Detected Not Detected LAB MICROBIOLOGY METHOD 01/08/2025 12:58 PM EDT [facility] Chlamydia pneumoniae Not Detected Not Detected LAB MICROBIOLOGY METHOD 01/08/2025 12:58 PM EDT [facility] SARS COV-2 Not Detected Not Detected LAB MICROBIOLOGY METHOD 01/08/2025 12:58 PM EDT [facility] Swab Both anterior nares / Unknown Non-blood Collection / Unknown 01/08/2025 11:42 AM EDT 01/08/2025 11:50 AM EDT [facility] - 01/08/2025 12:58 PM EDT Testing was performed using the [employer] Respiratory Pathogen PCR Assay. All results must [...] MICROBIOLOGY - GENERAL ORDER ANNA Final Result [facility] [address] [place] [address], * Hemoglobin A1c (2022) Hemoglobin A1C 0.0 % Comment:abstracted, no inter pretation Blood Venous blood specimen / Unknown [facility] Provider LAB BLOOD ORDERABLES Concha l Result * Lipid panel (2022) Triglycerides 0 mg/dL Comment:abstracted, no inter pretation Cholesterol 0 mg/dL Comment:abstracted, no inter pretation HDL 0 mg/dL Comment:abstracted, no inter pretation LDL Cholesterol 0.0 mg/dL Comment:abstracted, no inter pretation Blood Venous blood specimen / Unknown Historical Provider LAB BLOOD ORDERABLES Concha l Result * Urine Albumin Creatinine Ratio (10/24/2021) Pathologist [facility] Urine Albumin Creatinine Ratio abstracted Historical Provider HEALTH MAINTENANCE Final Result * Hepatitis C Screening (08/29/2020) Pathologist [facility] Hepatitis C Screening abstracted Historical Provider HEALTH MAINTENANCE Final Result * Cervical Cancer Screening: HPV (08/17/2019) Pathologist [facility] Cervical Cancer Screening: HPV abstracted, no interpretation Historical Provider HEALTH MAINTENANCE Final Result * QUINTON SCREENING DIGITAL (12/30/2018 10:43 AM EDT) Anatomical Region Laterality Modality Mammography 12/30/2018 8:06 AM EDT Narrative 12/30/2018 10:43 AM EDT [facility] Diagnostic Imaging Department [address] [place], [place] [id number] Patient: CORNELLBONNIE Pepper /Age/Sex: 1975 - 43 - F Unit#: [id number] Location/Status: [facility] CLI Mnemonic/Ordering Site: DIGSC/SPMAM Ordering Physician: BRIAN MESSINA QUALITY CONTROL TECH RAW [employer]ERIALS [place] Screening Digital - 12/30/18 - 901 EXAM: [place] Screening Digital EXAM DATE AND TIME: 12/30/2018 8:31 AM HISTORY: Screening. Sister had breast carcinoma at age 47. COMPARISON: 12/27/17, 12/23/16 TECHNIQUE: CC and MLO views of both breasts were obtained using full field digital mammography. Bilateral digital breast tomosynthesis was performed in the MLO projection. Computer aided detection with the [employer] 7.2-H was employed. TISSUE DENSITY: c. The [...] Routine screening mammogram BILATERAL in 1 year. [address]18, 99941 3341F, 7025F Dictating Physician: KAREN BALDWIN MD Electronically Signed by: KAREN BALDWIN MD Dic Date/Time: 12/30/18 1042 Sign date/Time: 12/30/18 1043 Procedure Note Karen Baldwin - 03/25/2022 [facility] Diagnostic Imaging Department [address] [place] [address] Patient: BONNIE GRAHAM I /Age/Sex: 1975 - 43 - F Unit#: [id number] [facility] Mn[facility]onic/Ordering Site: [facility] Ordering Physician: BRIAN MESSINA QUALITY CONTROL TECH RAW MATERIALS [facility] Screening Digital - 12/30/18 - 901 EXAM: [facility] Screening Digital EXAM DATE AND TIME: 12/30/2018 8:31 AM HISTORY: Screening. Sister had breast carcinoma at age 47. COMPARISON: 12/27/17, 12/23/16 TECHNIQUE: CC and MLO views of both breasts were obtained using fullfield digital mammography. Bilateral digital breast tomosynthesis was performedin the MLO projection. Computer aided detection with the [employer] employed. TISSUE DENSITY: c. The breasts are [...] Routine screening mammogram BILATERAL in 1 year. [address]201, 61063 3341F, 7025F Dictating Physician: KAREN BALDWIN MD Electronically Signed by: KAREN BALDWIN MD Dic Date/Time: 12/30/18 1042 Sign date/Time: 12/30/18 1043 Brian Messina NP IMG BI PROCEDURES Final Result from Last 3 Months or Most Recently Relevant to Health Maintenance Insurance MEDICAID - [place] Care Teams Upper Doubler Relationship Specialty Start Date End Date Brian Messina NP [facility] [place] [address] PCP - General 09/23/20
--- OUTSIDE RECORDS SUMMARY | 2025-03-27 12:17 | XMS_ITS | Data Portability ---
Author Organization [facility] - [facility], Allergy Address [address] [facility] [address] [place] [address] Care Team Providers Care Vp Home Health Name Role Phone BRIAN MESSINA Referring Provider [phone] BRIAN MESSINA Primary Care Provider Assessment Encounter [...] if possible, sensory weakness v2-3 2023 024 [facility] ([facility]), [address] [place], [address], 4 14:26:31 MR, angiogram, head + neck, w/o contrast - family history of aneurysm 2023 024 [facility] ([facility]), [address], [place], [address], 4 09:08:15 audiogram 2023 024 [email or web address] Not available 4 15:30:31 Medication Orders amoxicillin 875 mg-potassiu m clavulanate 125 mg tablet 2024 025 [facility] #[id number], [address] [place], [address], 5 12:09:38 loratadine 10 mg tablet 2023 024 [facility] #[id number], [address] [place], [address], 4 16:56:07 Patient TargetsNo targets recorded. Patient Instructions Encounter Date Encounter Id Patient Instructions Last Modified By Organization Details Last Modified Time 10/04/2023 [id number] The patient's history, physical exam and audiometric [...] to read at home, which gives a [id number] discussion on what causes migraine and how [...] contr ast No observ ation record ed. [facility] ([facility]) [address] [place], [address], 11/09/2023 09:08:15 11/08/19 24 11/06/2023 MR, angio gram, head, w/o contr ast No observ ation record ed. Not Available 2023 10:23:55 11/08/19 24 11/06/2023 MRI, brain + inter nal audit ory canal , w/wo contr ast No observ ation record ed. [email or web address] [address] [place], [address], 11/09/2023 14:51:34 11/24/19 24 07/19/2022 imagi ng/di [...] Recorded Time Closed fracture of nasal bones 52786087 Active 2022 Fracture of nasal bones, initial encounter for closed fracture; Note: Date Diagnosed : 07/22/2022 12:53 PM (S02.2XXA ) Not Available [facility] 4 02:49:38 Localized edema 748684910 Active 2022 Localized edema; Note: Date Diagnosed : 07/22/2022 12:53 PM (R60.0) Not Available [facility] 4 02:49:43 Fractured nasal bones 075968936 Active 2022 Fracture of nasal bones, sequela; Note: Date Diagnosed : 07/27/2022 4:54 PM (S02.2XXS ) Not Available [facility] 4 02:49:37 Nasal congestio n 82335164 Active 2023 Nasal congestio n; Note: Date Diagnosed : 07/14/2023 1:44 PM (R09.81) Not Available [facility] 4 02:49:38 Seasonal allergic rhinitis 921899090 Active 2023 Other seasonal allergic rhinitis; Note: Date Diagnosed : 07/14/2023 2:11 PM (J30.2) Not Available [facility] 4 02:49:40 Bleeding from nose 438882029 Active 2023 Epistaxis ; Note: Date Diagnosed : 07/14/2023 1:44 PM (R04.0) Not Available [facility] 4 02:49:44 Vestibula r migraine 904333917 Active 2023 Carlos ybarra [place] - [facility] 4 16:48:30 Perennial allergic rhinitis 262142558 Active 2023 Carlos ybarra [place] - [facility] 4 16:55:43 Deviated nasal septum 462720095 Active 2023 Carlos ybarra, [place] - [facility] 4 16:57:01 Subjectiv e pulsatile tinnitus 23826041958 9104 Active 2023 Carlos ybarra, [place] - [facility] 4 10:31:09 Sensorine ural hearing loss of bilateral ears 400640557 Active 2023 ANNETTA SAM, [address], [address] , [facility] - [facility] 4 10:17:13 Acute suppurati ve otitis media without spontaneo us rupture of ear drum 08771845 Active 2024 Carlos ybarra, [place] - [facility] 5 12:09:07 Acute infective otitis externa 083057049 Active 2024 Carlos ybarra, [place] - [facility] 5 12:57:27 Problem Notes None recorded. Procedures Surgical History Date Name Laterality Status Provider Name and Address Organization Details Recorded Time 07/19/2024 Air & Speech Audio with Tymps - 63105, 91323 & 09069 completed RILEY PALACIOS, [address],[place] [address], [place], [address], [facility] 07/19/2024 11:21:07 12/13/2023 Comp Audio with Tymps - 21661 & 00804 completed ANNETTA SAM, [address], [address], [facility] 12/13/2023 10:17:03 Imaging Results None recorded. Procedure Notes None recorded. Medical Equipment None Reported. Allergies Allergen ID Allergen Name Allergen Category Reaction Reaction Severity Criticality Documentation Date Start Date Code Code System Note Provider Name and Address Organization Details Recorded Time 513937 oxycodone medicatio n hives Not available Not available 08/17/2023 7804 RxNorm React ion: Hives ; Not Available [facility] 4 01:08:55 086676 acetamino phen / oxycodone medicatio n hives Not available Not available 08/17/2023 69339 3 RxNorm React ion: Hives ; Not Available [facility] 4 01:08:57 210937 Advil medicatio n hives Not available Not available 08/17/2023 64559 0 RxNorm React ion: Hives ; Not Available [facility] 4 01:09:00 Medications Name Sig Start [...] 15 mg tablet active Medicati on ID: [id number] B bernard Name: guillermo baires Send Method: [...] mg tablet 02/06 completed Medicati on ID: [id number] B rand Name: gabapent in Send Method: [...] Not Available No t Available Dexcom G7 [employer] 1 EACH BY MISCELLA NEOUS ROUTE CONTINUO [...] Updated DateTime 07/19/2024 149.86 cm 25.2 kg/m2 32340.05 g Leanne Yoder [facility] 07/19/2024 11:27:03 Date Recorded Body height Body mass index (BMI) Body weight Provider Name and Address Organization Details Last Updated DateTime 12/13/2023 149.86 cm 26.3 kg/m2 41562.01 g Santoshzain Josseline [facility] 12/13/2023 10:24:03 Social History None recorded. [...] Note [id number] CARLOS MARTINEZ PA-C [facility] [address] [address] 10/04/2023 14:57:23 10/04/2023 17:09:20 Vestibular migraine 748492419 H81.8X9 Perennial allergic rhinitis 970065512 J30.89 Deviated nasal septum 12 3035296 J34.2 not interested in surgical repair [id number] CARLOS MARTINEZ PA-C [facility] [address] [address] 12/13/2023 09:52:55 12/13/2023 10:34:42 Sensorineural hearing loss of bilateral ears 406985526 H90.3 Audiologic al evaluation results: Right ear: Normal with the exception of a mild SNHL at 8000Hz with excellent word recognitio n. Left ear: Normal with the exception of a mild SNHL at 8000Hz with excellent word recognitio n. Tympanomet ry: Right Ear:Type A Left Ear:Type A Vestibular migraine 2322 63776 H81.8X9 [id number] CARLOS MARTINEZ PA-C [facility] [address] [address] 07/19/2024 10:56:11 07/19/2024 12:13:18 Sensorineural hearing loss of bilateral ears 094288352 H90.3 Audiologic al evaluation results: Right ear: Normal with the exception of a mild SNHL at 8000Hz with excellent word recognitio n. Left ear: Normal with the exception of a mild SNHL at 8000Hz with excellent word recognitio n. Tympanomet ry: Right Ear:Type A Left Ear:Type A Acute supp urative otitis media without spontaneous rupture of ear drum 35855333 H66.002 Acute infe ctive otitis externa 035387150 H60.392 Health Concerns Section Related Observation LastModified by Organization Detai ls LastModified Time None Recorded Concern Status LastModified by Organization Details LastModified Time None Recorded Advance Directives Directive None Recorded Payers Insurance Date Sequence Insurance Name Policy Number Policy Jimenez Covered Member ID Jimenez Member ID Guarantor Name 07/19/2024 1 [place] [employer] (MEDICAID) Bonnie I Graham [id number] Bonnie I Graham Notes Date Note Type [...] and postnasal drip. ISABELLE CORTES MD [address] [facility],[address], [address], [facility] 10/06/2023 17:38:23 12/13/2023 text/html ROS as noted in the [facility] 48 year old female presents for re-evaluation [...] and sneezing fits. DANIELLE CHOWDHURY MD [address] [facility],[address], [address], [facility] 12/13/2023 17:54:06 07/19/2024 text/html ROS as noted in the [facility] 49-year-old female presents for evaluation of the [...] taking away her pain. DOTTIE MILAN MD [address] [place] [address], [place], [address], [facility] - [facility] 07/19/2024 17:40:51 OBGyn Episode No OBEpisode recorded.
== END 2025-03-27 10:57 | disposition home or self-care (01) ==
LOC: HO.MRI 10:56
PROVIDERS: PCP Nurse Practitioner Family; Visit Provider Nurse Practitioner Family
DX: G40.109 Localization-related (focal) (partial) symptomatic epilepsy and epileptic syndromes with simple partial seizures, not intractable, without status epilepticus (principal); R51.9 Headache, unspecified
CPT/HCPCS: 70553; A9585